=== PATIENT | male | born 1960 | race Caucasian/White ===

== ENCOUNTER → 2017-02-02 | Outpatient (CLI) | payer BC ==
[2015-10-03 16:45] VITALS: BP 213/99
[~2017-02-02] MED LIST: ASPI325T4 PO; ATOR20TA PO; CLOP75TA27 PO; DOCU100C5 PO; GLIM4TAB2 PO; LISI5TAB PO; METF500T4 PO; Metoprolol Tartrate PO; Oxycodone Hcl/Acetaminophen PO; REGADENOSON 0.4 MG/5 ML DISP.SYRIN. IV ONE; VARD20TA2 PO
--- NOTE | 2017-02-02 20:25 | RAD ---
APPROVED REPORT Test Type: Pharmacological Stress Nurse/Tech: radha crews Test Indications: fatigue with exertion, soa, leg cramping Cardiac History: HTN, RBBB, CARDIAC EVENT MONITOR, SEE EHR Medications: SEE EHR Medical History: STROKE, DIABETES, SEE EHR Resting ECG: SR WITH INCOMPLETE RIGHT BUNDLE BRANCH BLOCK Resting Heart Rate: 74 bpm Resting Blood Pressure: 157/79mmHg Pretest Chest Pain: No chest pain Nurse/Tech Notes LUNG SOUNDS CLEAR, S1S2 WNL. Consent: The procedure was explained to the patient in lay terms. Informed consent was witnessed. Chito eout was entered into [employer]. History and Stress Test performed by MARILU RN Pharm. Details Pharmacologic stress testing was performed using 0.4mg per 5ml of regadenoson given intravenously ove r 7-10 seconds. Stress Symptoms HEADACHE, STOMACH ACHE POST EXERCISE Max HR: 91 bpm Max Blood Pressure: 161/65mmHg Chest Pain: No. Arrhythmia: No. ST Change: No. Imaging Protocol IMAGE PROTOCOL: Rest Tc-99m/stress Tc-99m 1 day Rest: Stress: Viability: Radiopharm.Tc99m [id number] Sestamibi Dose10.5mCi 35.6mCi Duration 15min. 10min. Img Date 02/02/2017 02/02/2017 Inj-Img [id number]. 60min. Rest Admin Site:IV - Left ForearmAdministrator:RT Tenzin (R)(N) Stress Admin Site: IV - Left ForearmAdministrator: DENIA Hoffmann STRESS DATA End Diast. Vol.135.0mlAv. Heart Rate74.0bpm End Syst. Vol.43.0mlCO Index BSA0.0L/min Myocardial Dgeo042.0gEject. Ohzhdrei59.0% Stress Rates Pk. Fill Rate2.82EDV/secLVtime Pk. Fill 231.30msec Pk. Empty Rate3.50ESV/secLVtime Pk. Sysyn499.97msec 11/10 Pk. Fill0.68EDV/sec Stress Scores Regional WT2.00Summed WT16.00 Regional WM0.00Summed WM3.00 LV Perf. Quant 17 Seg. SSS0.00 17 Seg. SRS2.00 17 Seg. SDS0.00 Stress Defect Extent (% LAD)0.00Rest Defect Extent (% LAD)0.00Rev. Defect Extent (% LAD)0.00 Stress Defect Extent (% LCX) 11.30Rest Defect Extent (% LCX)16.30Rev. Defect Extent (% LCX)0.00 Stress Defect Extent (% RCA)0.00Rest Defect Extent (% RCA)0.00Rev. Defect Extent (% RCA)0.00 Stress Defect Extent (% KIRBY)2.60Rest Defect Extent (% KIRBY)5.90Rev. Defect Extent (% KIRBY)0.00 Conclusion 1. The baseline electrocardiogram with a right bundle branch block. 2. There were no changes of myocardial ischemia on the electrocardiogram with pharmacological stres s. 3. No significant perfusion defects to suggest myocardial ischemia or scar. 4. Normal wall motion and wall thickening with an ejection fraction of 68%. 5. Scan indicates low risk for future cardiac events.
== END | disposition home or self-care (01) ==
LOC: NM 08:00
PROVIDERS: ATTEND Specialist
DX: I20.9 Angina pectoris, unspecified (principal); R53.83 Other fatigue; R05 Cough; R06.02 Shortness of breath; R53.1 Weakness; R25.2 Cramp and spasm; I10 Essential (primary) hypertension; Z79.01 Long term (current) use of anticoagulants; Z79.4 Long term (current) use of insulin; Z86.73 Personal history of transient ischemic attack (TIA), and cerebral infarction without residual deficits
CPT/HCPCS: 78452; 93017; 96374; 96375; 96376; A9500; J2785

== ENCOUNTER 2018-02-19 19:53 | Emergency (ER) | payer BC ==
[2018-02-19 20:39] LABS: POC GLUCOSE 163 mg/dL (70-99)
[2018-02-19 20:46] LABS: ADD MAN DIFF? NO
[2018-02-19 20:48] LABS: BASO % 1 % (0-3); EOS # 0.1 x10^3/uL (0.0-0.7); EOS % 1 % (0-3); HEMATOCRIT 35.3 % (39.0-53.0); HEMOGLOBIN 11.9 g/dL (13.0-17.5); LYMPH # 1.3 x10^3/uL (1.0-4.8); LYMPH % 24 % (24-48); MEAN CORPUSCULAR HEMOGLOBIN 31 pg (25-35); MEAN CORPUSCULAR HGB CONC 34 g/dL (31-37); MEAN CORPUSCULAR VOLUME 92 fL (79-100); MONO # 0.3 x10^3/uL (0.0-1.1); MONO % 6 % (0-9); NEUT # 3.7 x10^3uL (1.8-7.7); NEUT % 68 % (31-73); PLATELET COUNT 133 x10^3/uL (140-400); RED BLOOD COUNT 3.84 x10^6/uL (4.30-5.70); RED CELL DISTRIBUTION WIDTH 15.4 % (11.5-14.5); WHITE BLOOD COUNT 5.5 x10^3/uL (4.0-11.0)
[2018-02-19 21:10] LABS: BLOOD UREA NITROGEN 7 mg/dL (8-26); BUN/CREATININE RATIO 8 (6-20); CALCIUM 8.3 mg/dL (8.5-10.1); CREATININE 0.9 mg/dL (0.7-1.3); GLUCOSE 175 mg/dL (70-99)
[2018-02-19 21:11] LABS: ANION GAP 9 (6-14); CARBON DIOXIDE 26 mmol/L (21-32); CHLORIDE 102 mmol/L (98-107); GFR 87.6; POTASSIUM 4.3 mmol/L (3.5-5.1); SODIUM 137 mmol/L (136-145)
[2018-02-19 21:16] LABS: ALBUMIN/GLOBULIN RATIO 0.6 (1.0-1.7); ALK PHOS 274 U/L (46-116); ALT (SGPT) 40 U/L (16-63); AST (SGOT) 35 U/L (15-37); TOTAL BILIRUBIN 0.7 mg/dL (0.2-1.0); TOTAL PROTEIN 7.7 g/dL (6.4-8.2)
[2018-02-19] MEDS: AMOXICILLIN/K CLAV 875/125MG TABLET. PO (22:53)
== END 2018-02-19 23:17 | disposition home or self-care (01) ==
LOC: ER 19:53
DX: L03.032 Cellulitis of left toe (principal); I25.10 Atherosclerotic heart disease of native coronary artery without angina pectoris; E11.9 Type 2 diabetes mellitus without complications; F10.20 Alcohol dependence, uncomplicated; Z79.4 Long term (current) use of insulin
CPT/HCPCS: 36415; 73620; 80053; 82962; 85025; 99285

== ENCOUNTER → 2018-03-30 | Outpatient (CLI) | payer BC | END | disposition home or self-care (01) | LOC: RAD 10:38 | DX: M54.6 Pain in thoracic spine (principal); J84.10 Pulmonary fibrosis, unspecified; I10 Essential (primary) hypertension; E11.9 Type 2 diabetes mellitus without complications; E78.00 Pure hypercholesterolemia, unspecified | CPT/HCPCS: 71046 ==

== ENCOUNTER 2018-04-07 18:03 | Inpatient (IN) | payer BC ==
[2018-04-07 19:21] LABS: ADD MAN DIFF? NO
[2018-04-07 19:32] LABS: BASO % 1 % (0-3); EOS % 0 % (0-3); HEMATOCRIT 35.4 % (39.0-53.0); HEMOGLOBIN 12.2 g/dL (13.0-17.5); LYMPH # 1.1 x10^3/uL (1.0-4.8); LYMPH % 22 % (24-48); MEAN CORPUSCULAR HEMOGLOBIN 32 pg (25-35); MEAN CORPUSCULAR HGB CONC 34 g/dL (31-37); MEAN CORPUSCULAR VOLUME 93 fL (79-100); MONO # 0.3 x10^3/uL (0.0-1.1); MONO % 5 % (0-9); NEUT # 3.6 x10^3uL (1.8-7.7); NEUT % 72 % (31-73); PLATELET COUNT 160 x10^3/uL (140-400); RED BLOOD COUNT 3.82 x10^6/uL (4.30-5.70)
[2018-04-07 19:43] LABS: ANION GAP 11 (6-14); BILIRUBIN,URINE NEGATIVE (NEG); BLOOD UREA NITROGEN 12 mg/dL (8-26); BUN/CREATININE RATIO 13 (6-20); CALCIUM 8.2 mg/dL (8.5-10.1); CARBON DIOXIDE 27 mmol/L (21-32); CHLORIDE 102 mmol/L (98-107); CLARITY,URINE CLEAR; COLOR,URINE YELLOW; CREATININE 0.9 mg/dL (0.7-1.3); GFR 87.6; GLUCOSE 125 mg/dL (70-99); GLUCOSE,URINE 250 mg/dL (NEG); NITRITE,URINE NEGATIVE (NEG); PH,URINE 6.5; POTASSIUM 4.2 mmol/L (3.5-5.1); PROTEIN,URINE NEGATIVE (NEG-TRACE); SODIUM 140 mmol/L (136-145)
[2018-04-07 19:50] LABS: TROPONINI < 0.017 ng/mL (0.000-0.055)
[2018-04-07 19:51] LABS: ALBUMIN 3.1 g/dL (3.4-5.0); ALBUMIN/GLOBULIN RATIO 0.6 (1.0-1.7); ALK PHOS 278 U/L (46-116); ALT (SGPT) 38 U/L (16-63); AST (SGOT) 39 U/L (15-37); CREATINE KINASE 107 U/L (39-308); TOTAL BILIRUBIN 0.7 mg/dL (0.2-1.0)
[2018-04-07 19:54] LABS: CKMB INDEX 1.3 % (0-4); CKMB MASS 1.4 ng/mL (0.0-3.6); CREATINE KINASE 111 U/L (39-308)
[2018-04-07 19:54] LABS: NT-PRO BNP 215 pg/mL (0-124)
[2018-04-07 19:56] LABS: BACTERIA,URINE 0 /HPF (0-FEW); HYALINE CASTS, URINE FEW /HPF; SQUAMOUS EPITHELIAL CELL,UR OCC /LPF; WBC,URINE OCC /HPF (0-4)
[2018-04-07] MEDS ORDERED: VANCOMYCIN 1.5 GM in IV NORMAL SALINE 500ML BAG 500 ML IV (20:30)
[2018-04-07] MEDS: ACETAMINOPHEN 325 MG TABLET. PO (20:36)
[2018-04-07] MEDS: ONDANSETRON PF 4 MG/2 ML VIAL. IV (20:37)
[2018-04-07] MEDS: fentaNYL PF VIAL 100 MCG/2 ML VIAL IV (20:38)
[2018-04-07] MEDS: PIPERACILLIN/TAZOBACTAM 3.375 GM in IV NORMAL SALINE 50ML 50 ML IV (20:38)
[2018-04-07] MEDS: LABETALOL 20 MG/4 ML DISP.SYRIN. IVP (20:57)
[2018-04-07 21:01] LABS: LACTIC ACID 2.2 mmol/L (0.4-2.0)
[2018-04-07 21:47] LABS: POC GLUCOSE 94 mg/dL (70-99)
[2018-04-07] MEDS: VANCOMYCIN 2 GM in IV DEXTROSE 5% 500 ML IV (23:31)
[2018-04-08 03:24] LABS: ADD MAN DIFF? NO
[2018-04-08 03:35] LABS: BASO % 1 % (0-3); EOS % 1 % (0-3); HEMATOCRIT 34.3 % (39.0-53.0); HEMOGLOBIN 11.8 g/dL (13.0-17.5); LYMPH # 1.3 x10^3/uL (1.0-4.8); LYMPH % 30 % (24-48); MEAN CORPUSCULAR HEMOGLOBIN 32 pg (25-35); MEAN CORPUSCULAR HGB CONC 35 g/dL (31-37); MEAN CORPUSCULAR VOLUME 93 fL (79-100); MONO # 0.3 x10^3/uL (0.0-1.1); MONO % 7 % (0-9); NEUT # 2.6 x10^3uL (1.8-7.7); NEUT % 61 % (31-73); PLATELET COUNT 149 x10^3/uL (140-400); RED BLOOD COUNT 3.68 x10^6/uL (4.30-5.70); RED CELL DISTRIBUTION WIDTH 15.6 % (11.5-14.5); WHITE BLOOD COUNT 4.3 x10^3/uL (4.0-11.0)
[2018-04-08 03:52] LABS: ALBUMIN 2.9 g/dL (3.4-5.0); ALBUMIN/GLOBULIN RATIO 0.7 (1.0-1.7); ALK PHOS 270 U/L (46-116); ALT (SGPT) 35 U/L (16-63); ANION GAP 8 (6-14); AST (SGOT) 36 U/L (15-37); BLOOD UREA NITROGEN 11 mg/dL (8-26); BUN/CREATININE RATIO 12 (6-20); CALCIUM 7.9 mg/dL (8.5-10.1); CARBON DIOXIDE 29 mmol/L (21-32); CHLORIDE 100 mmol/L (98-107); CREATININE 0.9 mg/dL (0.7-1.3); GFR 87.6; GLUCOSE 155 mg/dL (70-99); POTASSIUM 3.7 mmol/L (3.5-5.1); SODIUM 137 mmol/L (136-145); TOTAL BILIRUBIN 0.6 mg/dL (0.2-1.0)
[2018-04-08 03:59] LABS: TROPONINI < 0.017 ng/mL (0.000-0.055)
[2018-04-08] MEDS: fentaNYL PF VIAL 100 MCG/2 ML VIAL IV ×2 (05:14→14:12)
[2018-04-08 08:07] LABS: POC GLUCOSE 82 mg/dL (70-99)
[2018-04-08] MEDS ORDERED: PROPOFOL 20 ML IV (08:38)
[2018-04-08] MEDS ORDERED: ONDANSETRON PF 4 MG/2 ML VIAL. (08:38)
[2018-04-08] MEDS ORDERED: fentaNYL PF VIAL 100 MCG/2 ML VIAL (08:38)
[2018-04-08] MEDS ORDERED: LIDOCAINE 2% PF Vial for OR 5 ML VIAL. (08:38)
[2018-04-08] MEDS ORDERED: DEXAMETHASONE SOD PHOS 20 MG/5 ML VIAL. (08:38)
[2018-04-08] MEDS ORDERED: MORPHINE SULFATE 4 MG/ML DISP.SYRIN. IV (08:45)
[2018-04-08] MEDS ORDERED: PROCHLORPERAZINE 10 MG/2 ML VIAL. IV (08:45)
[2018-04-08] MEDS ORDERED: LIDOCAINE 1% PF 2 ML VIAL. ID (08:45)
[2018-04-08] MEDS ORDERED: fentaNYL PF VIAL 100 MCG/2 ML VIAL IV ×2 (08:45)
[2018-04-08] MEDS ORDERED: ONDANSETRON PF 4 MG/2 ML VIAL. IV (08:45)
[2018-04-08] MEDS ORDERED: METOPROLOL TARTRATE 5 MG/5 ML VIAL. (08:54)
[2018-04-08] MEDS: IV RINGERS,LACTATED 1000ML 1,000 ML IV (09:00)
[2018-04-08 09:42] LABS: POC GLUCOSE 77 mg/dL (70-99)
[2018-04-08] MEDS ORDERED: NON FORMULARY ITEM (Albuterol Sulfate (Proair Hfa Inhaler) 1 PUFF) INH (11:00)
[2018-04-08] MEDS ORDERED: DEXTROSE 50% 25 GM / 50ML DISP.SYRIN. IV (11:00)
[2018-04-08] MEDS ORDERED: ALBUTEROL SULFATE 2.5 MG/3 ML NEBU. NEB (11:30)
[2018-04-08] MEDS ORDERED: CLOPIDOGREL BISULFATE 75 MG TABLET PO (12:00)
[2018-04-08] MEDS: CYCLOBENZAPRINE 10 MG TABLET. PO ×2 (12:00→21:14)
[2018-04-08] MEDS: INSULIN LISPRO 300 UNITS/3 ML INSULN.PEN. SQ ×2 (12:00→17:40)
[2018-04-08 12:14] LABS: POC GLUCOSE 150 mg/dL (70-99)
[2018-04-08] MEDS: CLOPIDOGREL BISULFATE 75 MG TABLET PO (13:32)
[2018-04-08] MEDS: PANTOPRAZOLE 40 MG TABLET.DR. PO (13:32)
[2018-04-08] MEDS: DOCUSATE SODIUM 100 MG CAPSULE. PO (13:32)
[2018-04-08] MEDS: ASPIRIN 325 MG TABLET PO (13:33)
[2018-04-08] MEDS: hydrOXYzine PAMOATE 25 MG CAPSULE PO ×2 (13:33→21:13)
[2018-04-08] MEDS: metFORMIN 500 MG TABLET PO ×2 (13:33→17:36)
[2018-04-08] MEDS: METOPROLOL TART IMMED RELEASE 25 MG TABLET. PO ×2 (13:34→21:14)
[2018-04-08] MEDS: GLIMEPIRIDE 2 MG TABLET. PO (13:34)
[2018-04-08] MEDS: LOSARTAN POTASSIUM 50 MG TABLET. PO (13:35)
[2018-04-08] MEDS: FLUTICASONE 50MCG/NASAL SPRAY 16GM BOTTLE. NS (13:37)
[2018-04-08] MEDS: PIPERACILLIN/TAZOBACTAM 3.375 GM in IV NORMAL SALINE 50ML 50 ML IV (13:53)
[2018-04-08] MEDS: VANCOMYCIN 1.5 GM in IV DEXTROSE 5 %-0.2 % NACL 500 ML IV (14:55)
[2018-04-08] MEDS: VANCOMYCIN PER PHARMACY MC ×2 (15:47→15:50)
[2018-04-08 16:16] LABS: POC GLUCOSE 331 mg/dL (70-99)
[2018-04-08] MEDS ORDERED: CARBAMIDE PEROXIDE OT (21:00)
[2018-04-08] MEDS ORDERED: ATORVASTATIN CALCIUM 20 MG TABLET PO (21:00)
[2018-04-08] MEDS: ATORVASTATIN CALCIUM 20 MG TABLET PO (21:14)
[2018-04-08 21:15] LABS: POC GLUCOSE 259 mg/dL (70-99)
[2018-04-08] MEDS: VANCOMYCIN 1.25 GM in IV NORMAL SALINE 250ML 250 ML IV (23:17)
[2018-04-09] MEDS: PIPERACILLIN/TAZOBACTAM 3.375 GM in IV NORMAL SALINE 50ML 50 ML IV ×6 (00:59→18:00)
[2018-04-09 01:12] LABS: HEMOGLOBIN A1C 8.5 % (4.8-5.6)
[2018-04-09 05:26] LABS: ADD MAN DIFF? NO
[2018-04-09 05:34] LABS: BASO % 0 % (0-3); EOS % 0 % (0-3); HEMATOCRIT 35.8 % (39.0-53.0); HEMOGLOBIN 12.4 g/dL (13.0-17.5); LYMPH # 0.9 x10^3/uL (1.0-4.8); LYMPH % 19 % (24-48); MEAN CORPUSCULAR HEMOGLOBIN 32 pg (25-35); MEAN CORPUSCULAR HGB CONC 35 g/dL (31-37); MEAN CORPUSCULAR VOLUME 92 fL (79-100); MONO # 0.3 x10^3/uL (0.0-1.1); MONO % 6 % (0-9); NEUT # 3.5 x10^3uL (1.8-7.7); NEUT % 74 % (31-73); PLATELET COUNT 139 x10^3/uL (140-400); RED BLOOD COUNT 3.88 x10^6/uL (4.30-5.70); RED CELL DISTRIBUTION WIDTH 15.6 % (11.5-14.5); WHITE BLOOD COUNT 4.7 x10^3/uL (4.0-11.0)
[2018-04-09 06:05] LABS: ALBUMIN 2.8 g/dL (3.4-5.0); ALBUMIN/GLOBULIN RATIO 0.6 (1.0-1.7); ALK PHOS 271 U/L (46-116); ALT (SGPT) 32 U/L (16-63); ANION GAP 5 (6-14); AST (SGOT) 29 U/L (15-37); BLOOD UREA NITROGEN 12 mg/dL (8-26); BUN/CREATININE RATIO 15 (6-20); CALCIUM 8.7 mg/dL (8.5-10.1); CARBON DIOXIDE 29 mmol/L (21-32); CHLORIDE 100 mmol/L (98-107); CREATININE 0.8 mg/dL (0.7-1.3); GFR 100.4; GLUCOSE 191 mg/dL (70-99); POTASSIUM 4.2 mmol/L (3.5-5.1); SODIUM 134 mmol/L (136-145); TOTAL BILIRUBIN 0.8 mg/dL (0.2-1.0); TOTAL PROTEIN 7.6 g/dL (6.4-8.2)
[2018-04-09] MEDS: VANCOMYCIN 1.25 GM in IV NORMAL SALINE 250ML 250 ML IV (06:16)
[2018-04-09] MEDS: PANTOPRAZOLE 40 MG TABLET.DR. PO (06:16)
[2018-04-09 07:18] LABS: SEDIMENTATION RATE 58 (0-15)
[2018-04-09 07:34] LABS: POC GLUCOSE 171 mg/dL (70-99)
[2018-04-09] MEDS: DOCUSATE SODIUM 100 MG CAPSULE. PO (08:18)
[2018-04-09] MEDS: CYCLOBENZAPRINE 10 MG TABLET. PO ×2 (08:18→20:55)
[2018-04-09] MEDS: ASPIRIN 325 MG TABLET PO (08:18)
[2018-04-09] MEDS: metFORMIN 500 MG TABLET PO ×2 (08:18→17:52)
[2018-04-09] MEDS: CLOPIDOGREL BISULFATE 75 MG TABLET PO (08:18)
[2018-04-09] MEDS: GLIMEPIRIDE 2 MG TABLET. PO (08:19)
[2018-04-09] MEDS: hydrOXYzine PAMOATE 25 MG CAPSULE PO ×2 (08:19→20:55)
[2018-04-09] MEDS: LOSARTAN POTASSIUM 50 MG TABLET. PO (08:19)
[2018-04-09] MEDS: FLUTICASONE 50MCG/NASAL SPRAY 16GM BOTTLE. NS (08:20)
[2018-04-09] MEDS: METOPROLOL TART IMMED RELEASE 25 MG TABLET. PO ×2 (08:20→20:55)
[2018-04-09] MEDS: INSULIN LISPRO 300 UNITS/3 ML INSULN.PEN. SQ ×3 (08:30→17:56)
[2018-04-09] MEDS ORDERED: METOPROLOL TART IMMED RELEASE 25 MG TABLET. PO (09:00)
[2018-04-09 11:40] LABS: POC GLUCOSE 158 mg/dL (70-99)
[2018-04-09 15:08] LABS: VANC TR 20.4 mcg/mL (10.0-20.0)
[2018-04-09] MEDS: VANCOMYCIN 1 GM in IV DEXTROSE 5 %-0.2 % NACL 250 ML IV ×2 (15:30→23:30)
[2018-04-09] MEDS: VANCOMYCIN PER PHARMACY MC (15:31)
[2018-04-09 17:07] LABS: POC GLUCOSE 205 mg/dL (70-99)
[2018-04-09] MEDS: LACTOBACILLUS RHAMNOSUS GG 1 CAPSULE. PO (20:54)
[2018-04-09] MEDS: ATORVASTATIN CALCIUM 20 MG TABLET PO (20:55)
[2018-04-09 21:37] LABS: POC GLUCOSE 192 mg/dL (70-99)
[2018-04-10] MEDS: PIPERACILLIN/TAZOBACTAM 3.375 GM in IV NORMAL SALINE 50ML 50 ML IV ×3 (00:32→11:18)
[2018-04-10] MEDS: PANTOPRAZOLE 40 MG TABLET.DR. PO (06:40)
[2018-04-10] MEDS: VANCOMYCIN 1 GM in IV DEXTROSE 5 %-0.2 % NACL 250 ML IV ×2 (06:41→14:58)
[2018-04-10 07:22] LABS: POC GLUCOSE 122 mg/dL (70-99)
[2018-04-10] MEDS: INSULIN LISPRO 300 UNITS/3 ML INSULN.PEN. SQ ×3 (08:00→16:42)
[2018-04-10] MEDS: DOCUSATE SODIUM 100 MG CAPSULE. PO (08:22)
[2018-04-10] MEDS: ASPIRIN 325 MG TABLET PO (08:22)
[2018-04-10] MEDS: metFORMIN 500 MG TABLET PO ×2 (08:22→16:42)
[2018-04-10] MEDS: GLIMEPIRIDE 2 MG TABLET. PO (08:23)
[2018-04-10] MEDS: METOPROLOL TART IMMED RELEASE 25 MG TABLET. PO ×2 (08:23→19:36)
[2018-04-10] MEDS: CLOPIDOGREL BISULFATE 75 MG TABLET PO (08:23)
[2018-04-10] MEDS: CYCLOBENZAPRINE 10 MG TABLET. PO ×2 (08:23→19:35)
[2018-04-10] MEDS: LACTOBACILLUS RHAMNOSUS GG 1 CAPSULE. PO ×2 (08:23→19:35)
[2018-04-10] MEDS: hydrOXYzine PAMOATE 25 MG CAPSULE PO ×2 (08:24→19:36)
[2018-04-10] MEDS: LOSARTAN POTASSIUM 50 MG TABLET. PO (08:24)
[2018-04-10] MEDS: FLUTICASONE 50MCG/NASAL SPRAY 16GM BOTTLE. NS (08:24)
[2018-04-10] MEDS ORDERED: ONDANSETRON ODT 4 MG TAB.RAPDIS. PO (09:30)
[2018-04-10] MEDS ORDERED: POLYETHYLENE GLYCOL 3350 17 GM PACKET. PO (09:30)
[2018-04-10] MEDS ORDERED: SENNOSIDES/DOCUSATE 8.6/50MG TABLET. PO (09:30)
[2018-04-10] MEDS: oxyCODONE/APAP 5/325 1 TAB TABLET PO (11:19)
[2018-04-10 11:34] LABS: POC GLUCOSE 169 mg/dL (70-99)
[2018-04-10] MEDS: VANCOMYCIN PER PHARMACY MC (13:54)
[2018-04-10 16:28] LABS: POC GLUCOSE 118 mg/dL (70-99)
[2018-04-10] MEDS: DOXYCYCLINE HYCLATE 100 MG TABLET PO ×2 (16:50→19:36)
[2018-04-10] MEDS: AMOXICILLIN/K CLAV 875/125MG TABLET. PO ×2 (16:50→19:35)
[2018-04-10] MEDS: HYDROcodone/APAP 7.5/325MG 1 TAB TABLET PO (19:36)
[2018-04-10] MEDS: ATORVASTATIN CALCIUM 20 MG TABLET PO (19:36)
[2018-04-10 21:43] LABS: POC GLUCOSE 212 mg/dL (70-99)
[2018-04-11] MEDS: PANTOPRAZOLE 40 MG TABLET.DR. PO (04:31)
[2018-04-11] MEDS: HYDROcodone/APAP 7.5/325MG 1 TAB TABLET PO (04:32)
[2018-04-11] MEDS: INSULIN LISPRO 300 UNITS/3 ML INSULN.PEN. SQ ×3 (08:00→17:00)
[2018-04-11] MEDS: CLOPIDOGREL BISULFATE 75 MG TABLET PO (08:27)
[2018-04-11] MEDS: CYCLOBENZAPRINE 10 MG TABLET. PO (08:27)
[2018-04-11] MEDS: hydrOXYzine PAMOATE 25 MG CAPSULE PO (08:27)
[2018-04-11] MEDS: GLIMEPIRIDE 2 MG TABLET. PO (08:27)
[2018-04-11 08:28] LABS: HEMATOCRIT 37.8 % (39.0-53.0); HEMOGLOBIN 12.9 g/dL (13.0-17.5); MEAN CORPUSCULAR HEMOGLOBIN 32 pg (25-35); MEAN CORPUSCULAR HGB CONC 34 g/dL (31-37); MEAN CORPUSCULAR VOLUME 94 fL (79-100); PLATELET COUNT 126 x10^3/uL (140-400); RED BLOOD COUNT 4.04 x10^6/uL (4.30-5.70); RED CELL DISTRIBUTION WIDTH 15.8 % (11.5-14.5); WHITE BLOOD COUNT 4.2 x10^3/uL (4.0-11.0)
[2018-04-11] MEDS: LOSARTAN POTASSIUM 50 MG TABLET. PO (08:29)
[2018-04-11] MEDS: metFORMIN 500 MG TABLET PO ×2 (08:29→17:20)
[2018-04-11] MEDS: DOCUSATE SODIUM 100 MG CAPSULE. PO (08:29)
[2018-04-11] MEDS: METOPROLOL TART IMMED RELEASE 25 MG TABLET. PO (08:29)
[2018-04-11] MEDS: LACTOBACILLUS RHAMNOSUS GG 1 CAPSULE. PO (08:30)
[2018-04-11] MEDS: FLUTICASONE 50MCG/NASAL SPRAY 16GM BOTTLE. NS (08:30)
[2018-04-11] MEDS: ASPIRIN 325 MG TABLET PO (08:34)
[2018-04-11 08:51] LABS: ANION GAP 5 (6-14); BLOOD UREA NITROGEN 10 mg/dL (8-26); CALCIUM 9.1 mg/dL (8.5-10.1); CARBON DIOXIDE 31 mmol/L (21-32); CHLORIDE 103 mmol/L (98-107); CREATININE 0.8 mg/dL (0.7-1.3); GFR 100.4; GLUCOSE 111 mg/dL (70-99); POTASSIUM 4.2 mmol/L (3.5-5.1); SODIUM 139 mmol/L (136-145)
[2018-04-11 11:49] LABS: POC GLUCOSE 189 mg/dL (70-99)
[2018-04-11 11:49] LABS: POC GLUCOSE 102 mg/dL (70-99)
[2018-04-11] MEDS: hydrALAZINE 20 MG/ML VIAL. IVP (12:13)
[2018-04-11 17:00] LABS: POC GLUCOSE 92 mg/dL (70-99)
== END 2018-04-11 20:15 | disposition home health service (06) | DRG 638 ==
LOC: 4 NORTH 23:32 → ER 18:03 → 4 NORTH 20:09
PROC: 0HBRXZZ Excision of Toe Nail, External Approach (ICD-10-PCS; principal; 2018-04-08 09:04)
PROC: 0HBNXZZ Excision of Left Foot Skin, External Approach (ICD-10-PCS; 2018-04-08 09:04)
PROC: 0HBRXZZ Excision of Toe Nail, External Approach (ICD-10-PCS; 2018-04-08 09:04)
DX: E11.69 Type 2 diabetes mellitus with other specified complication (principal); M86.8X6 Other osteomyelitis, lower leg; E11.42 Type 2 diabetes mellitus with diabetic polyneuropathy; E11.51 Type 2 diabetes mellitus with diabetic peripheral angiopathy without gangrene; E44.1 Mild protein-calorie malnutrition; L03.90 Cellulitis, unspecified; E78.5 Hyperlipidemia, unspecified; I10 Essential (primary) hypertension; I25.10 Atherosclerotic heart disease of native coronary artery without angina pectoris; M20.40 Other hammer toe(s) (acquired), unspecified foot; Z83.3 Family history of diabetes mellitus; Z86.73 Personal history of transient ischemic attack (TIA), and cerebral infarction without residual deficits; Z87.891 Personal history of nicotine dependence; E66.9 Obesity, unspecified; Z68.30 Body mass index [BMI] 30.0-30.9, adult; I65.29 Occlusion and stenosis of unspecified carotid artery
CPT/HCPCS: 36415; 71045; 73630; 80048; 80053; 80202; 81001; 82550; 82553; 82962; 83036; 83605; 83880; 84484; 85025; 85027; 85651; 87040; 93005; 93306; 93926; 93971; 94760; 96365; 96366; 96375; 97110-GP; 97161-GP; 97166-GO; 97530-GO; 97530-GP; 97535-GO; 99285; 99285-25; J0360; J1100; J1815; J2405; J2543; J2704; J3010; J3370; J3490; J7030; J7050; J7120; Q0177

== ENCOUNTER 2019-03-02 12:50 | Inpatient (IN) | payer BC, OTHER ==
[~2019-03-02] VITALS: Ht 172.7 cm; Wt 89.4 kg
[~2019-03-02 12:50] MED LIST changes: +ALBU2.5V8 INH; +AMOX1TAB61 PO; -ASPI325T4 PO; +ASPI325T8 PO; +ATOR20TA58 PO; +CARB15DR58 OT; +CLOP75TA PO; -CLOP75TA27 PO; +CLOP75TA57 PO; +CYCL10TA2 PO; +DOCU100C28 PO; -DOCU100C5 PO; +FLUT9.9S NS; +HYDR25TA PO; +LOSA25TA54 PO; +METF500T16 PO; -METF500T4 PO; +METO25TA4 PO; +OMEP40CA5 PO; +OXYC1TAB7 PO; -REGADENOSON 0.4 MG/5 ML DISP.SYRIN. IV ONE
[2019-03-02] MEDS ORDERED: IV NORMAL SALINE 500ML BAG 500 ML IV ONE (13:45)
--- NOTE | 2019-03-02 14:12 | RAD ---
FOOT BILAT 3V Clinical Indication: WOUNDS ON BAUDILIO FEET, DIABETIC Comparison: Left foot, 3 views April 07, 2018. Findings: Right: Arterial calcifications. There are 2 metallic fasteners in the calcaneus. No dorsal soft tissue swelling. There is old healed fracture of the mid second metatarsal. There is old nonunited fracture of the mid third metatarsal. The interphalangeal joint of the great toe is fused. The interphalangeal joints of the other toes are flexed, limiting evaluation. No acute fracture is seen. No obvious bony erosion. Left: Amputation of the third toe at the base of the proximal phalanx. Amputation of the second toe at the mid shaft of the proximal phalanx. Hammertoe deformities of the fourth and fifth toes. Arterial calcifications are noted. No dorsal soft tissue swelling. No acute fracture. No obvious bony erosion. IMPRESSION: No obvious radiographic evidence of osteomyelitis. Electronically signed by: Andrea Ziegler MD (03/02/2019 2:09 PM) [id number]
--- NOTE | 2019-03-02 14:17 | PHYS DOC ---
Past Medical History Past Medical History: Asthma, CAD, CHF, Diabetes-Type II, Hypertension, Other Additional Past Medical Histor: HEART MURMUR,club foot,CHRIS,R BBB,MULT MINI STROKES,ENDARECTOMY Past Surgical History: Angioplasty, Other Additional Past Surgical Histo: cardiac cath w/single vessel angioplasty,LOOP RECORDER,HERNIA,TOE AMPUTATIO Alcohol Use: Occasionally Drug Use: None Adult General Chief Complaint Chief Complaint: OTHER COMPLAINTS HPI HPI 58-year-old male presents to ER for complaints of generalized fatigue and bilateral foot wounds. Patient reports he is diabetic and his blood sugars have been elevated. Accu-Chek in the ER is 264. Patient has 100.5 temp during initial discussion/triage. Patient states the wounds have been present for the past couple of months however in the past 5 days his symptoms have worsened. Review of Systems Review of Systems Constitutional: Reports fever and chills. Reports generalized fatigue Eyes: Denies change in visual acuity, redness, or eye pain [] HENT: Denies nasal congestion or sore throat [] Respiratory: Denies cough or shortness of breath [] Cardiovascular: Denies chest pain or palpitations GI: Denies abdominal pain, vomiting, bloody stools or diarrhea. Reports intermittent nausea : Denies dysuria or hematuria [] Musculoskeletal: Reports chronic back pain- no acute changes. Reports wounds on outer side of lt foot and bottom/rt side of rt foot. Reports prickly/needle like sensation radiating from feet to lower legs. Reports swelling in rt foot Integument: Reports wound to bilat. feet Neurologic: Denies headache, focal weakness or sensory changes [] Endocrine: Reports polyuria or polydipsia [] All other systems were reviewed and found to be within normal limits, except as documented in this note. Current Medications Current Medications Current Medications Medications (Trade) Dose Ordered Sig/John Start Time Stop Time Status Last Admin Dose Admin Sodium Chloride 500 ml @ 500 mls/hr 1X ONCE 03/02/19 13:45 03/02/19 14:44 DC 03/02/19 14:20 500 MLS/HR Allergies Allergies Allergies Coded Allergies Type Severity Reaction Last Updated Verified morphine Allergy Intermediate N/V 03/02/19 Yes Physical Exam Physical Exam Constitutional: Well developed, well nourished, no acute distress, non-toxic appearance. Fatigued appearance HENT: Normocephalic, atraumatic, oropharynx moist, no oral exudates, nose normal. [] Eyes: Pupils equal, conjunctiva normal, no discharge. [] Neck: Normal range of motion, no tenderness, supple, no stridor. [] Cardiovascular: Heart rate regular rhythm, no murmur [] Lungs & Thorax: Bilateral breath sounds clear to auscultation- resp. equal/nonlabored Abdomen: Bowel sounds normal, soft, no tenderness Skin: Warm, dry, no erythema, no rash. [] Back: No tenderness, no CVA tenderness. [] Extremities: No cyanosis, no clubbing, ROM intact. Bilat. 1-2+ pedal/lower leg edema- pt reports chronic. 2+ bilat. dorsalis pedis/posterior tibial. Calf size symmetric bilat. no calf tenderness. Lt 2-3rd toe amputation. Blister type wound lt lateral foot- mild erythema around blister. Rt foot with mild erythema/swelling dorsal surface at base of toes into lateral side of foot- small healing wound on distal plantar surface rt foot- without swelling/erythema/drainage Neurologic: Alert and oriented X 3, normal motor function, normal sensory function, no focal deficits noted. [] Psychologic: Affect normal, judgement normal, mood normal. [] Current Patient Data Vital Signs Vital Signs Date Time Temp Pulse Resp B/P (MAP) Pulse Ox O2 Delivery O2 Flow Rate FiO2 03/02/19 15:36 73 16 157/74 (101) 98 Room Air 03/02/19 13:06 100.5 100.5 Lab Values Laboratory Tests Test 03/02/19 13:27 03/02/19 13:50 03/02/19 14:10 03/02/19 14:40 Glucose (Fingerstick) 264 mg/dL (70-99) H Lactic Acid Level 1.8 mmol/L (0.4-2.0) White Blood Count 5.9 x10^3/uL (4.0-11.0) Red Blood Count 3.93 x10^6/uL (4.30-5.70) L Hemoglobin 12.5 g/dL (13.0-17.5) L Hematocrit 36.1 % (39.0-53.0) L Mean Corpuscular Volume 92 fL (79-100) Mean Corpuscular Hemoglobin 32 pg (25-35) Mean Corpuscular Hemoglobin Concent 35 g/dL (31-37) Red Cell Distribution Width 15.4 % (11.5-14.5) H Platelet Count 93 x10^3/uL (140-400) L Neutrophils (%) (Auto) 65 % (31-73) Lymphocytes (%) (Auto) 27 % (24-48) Monocytes (%) (Auto) 7 % (0-9) Eosinophils (%) (Auto) 1 % (0-3) Basophils (%) (Auto) 1 % (0-3) Neutrophils # (Auto) 3.8 x10^3uL (1.8-7.7) Lymphocytes # (Auto) 1.6 x10^3/uL (1.0-4.8) Monocytes # (Auto) 0.4 x10^3/uL (0.0-1.1) Eosinophils # (Auto) 0.1 x10^3/uL (0.0-0.7) Basophils # (Auto) 0.0 x10^3/uL (0.0-0.2) Platelet Estimate Decreased (ADEQUATE) Polychromasia Slight Erythrocyte Sedimentation Rate 80 (0-15) H Hemoglobin A1c 10.8 % (4.8-5.6) H Sodium Level 137 mmol/L (136-145) Potassium Level 4.0 mmol/L (3.5-5.1) Chloride Level 102 mmol/L (98-107) Carbon Dioxide Level 27 mmol/L (21-32) Anion Gap 8 (6-14) Blood Urea Nitrogen 16 mg/dL (8-26) Creatinine 0.9 mg/dL (0.7-1.3) Estimated GFR (Cockcroft-Gault) 87.3 BUN/Creatinine Ratio 18 (6-20) Glucose Level 233 mg/dL (70-99) H Calcium Level 9.0 mg/dL (8.5-10.1) Magnesium Level 2.1 mg/dL (1.8-2.4) Total Bilirubin 0.7 mg/dL (0.2-1.0) Aspartate Amino Transferase (AST) 40 U/L (15-37) H Alanine Aminotransferase (ALT) 65 U/L (16-63) H Alkaline Phosphatase 340 U/L (46-116) H Total Protein 8.0 g/dL (6.4-8.2) Albumin 3.2 g/dL (3.4-5.0) L Albumin/Globulin Ratio 0.7 (1.0-1.7) L Acetone Level Neg (NEG) Laboratory Tests 03/02/19 14:10 Laboratory Tests 03/02/19 14:40 Microbiology 03/02/19 Blood Culture - Final, Complete NO GROWTH AFTER 5 DAYS EKG EKG [] Radiology/Procedures Radiology/Procedures PROCEDURE: FOOT BILAT 3V FOOT BILAT 3V Clinical Indication: WOUNDS ON BAUDILIO FEET, DIABETIC Comparison: Left foot, 3 views April 07, 2018. Findings: Right: Arterial calcifications. There are 2 metallic fasteners in the calcaneus. No dorsal soft tissue swelling. There is old healed fracture of the mid second metatarsal. There is old nonunited fracture of the mid third metatarsal. The interphalangeal joint of the great toe is fused. The interphalangeal joints of the other toes are flexed, limiting evaluation. No acute fracture is seen. No obvious bony erosion. Left: Amputation of the third toe at the base of the proximal phalanx. Amputation of the second toe at the mid shaft of the proximal phalanx. Hammertoe deformities of the fourth and fifth toes. Arterial calcifications are noted. No dorsal soft tissue swelling. No acute fracture. No obvious bony erosion. IMPRESSION: No obvious radiographic evidence of osteomyelitis. Electronically signed by: Andrea Sarabia MD (03/02/2019 2:09 PM) [id number] DICTATED and SIGNED BY: ANDREA SARABIA MD DATE: 03/02/19 1409 Course & Med Decision Making Course & Med Decision Making Pertinent Labs and Imaging studies reviewed. (See chart for details) 1540: Discussed test results with patient and his sister who has arrived bedside. WBCs NL at 5.9 with NL lactic acid 1.8. Glucose 233 however anion gap NL at 8 and acetone was neg. Pt had concerns regarding his elevated BS at home. Xray with no acute findings. Patient's sister voices concerns during discussion due to increased swelling and redness in patient's right foot along with wounds on bilateral feet. Patient reports he has had some difficulty walking due to increased pain and swelling and felt fatigued. Patient will be admitted to hospitalist services for further care. Will consult wound care with admit. With redness and swelling in right foot and temp. 100.5 blood cxs were obtained and dose of IV Vancomycin ordered. Will admit to hospitalist services and consult wound nurse for eval. Nehal Disclaimer Dragon Disclaimer This electronic medical record was generated, in whole or in part, using a voice recognition dictation system. Departure Departure Referrals: UNKNOWN PCP NAME (PCP) GRIFFIN BERRY APRN Mar 02, 2019 14:17
[2019-03-02 14:23] LABS: BASO % 1 % (0-3); EOS # 0.1 x10^3/uL (0.0-0.7); EOS % 1 % (0-3); HEMATOCRIT 36.1 % (39.0-53.0); HEMOGLOBIN 12.5 g/dL (13.0-17.5); LYMPH # 1.6 x10^3/uL (1.0-4.8); LYMPH % 27 % (24-48); MEAN CORPUSCULAR HEMOGLOBIN 32 pg (25-35); MEAN CORPUSCULAR HGB CONC 35 g/dL (31-37); MEAN CORPUSCULAR VOLUME 92 fL (79-100); MONO # 0.4 x10^3/uL (0.0-1.1); MONO % 7 % (0-9); NEUT # 3.8 x10^3uL (1.8-7.7); NEUT % 65 % (31-73); PLATELET COUNT 93 x10^3/uL (140-400); RED BLOOD COUNT 3.93 x10^6/uL (4.30-5.70); RED CELL DISTRIBUTION WIDTH 15.4 % (11.5-14.5); WHITE BLOOD COUNT 5.9 x10^3/uL (4.0-11.0)
[2019-03-02 14:45] LABS: PLT ESTIMATE DECREASED (ADEQUATE); POLYCHROMASIA SLIGHT
[2019-03-02 15:03] LABS: CREATININE 0.9 mg/dL (0.7-1.3); GFR 87.3
[2019-03-02 15:08] LABS: ALBUMIN 3.2 g/dL (3.4-5.0); ALBUMIN/GLOBULIN RATIO 0.7 (1.0-1.7); MAGNESIUM 2.1 mg/dL (1.8-2.4); TOTAL BILIRUBIN 0.7 mg/dL (0.2-1.0)
[2019-03-02] MEDS ORDERED: fentaNYL PF VIAL 100 MCG/2 ML VIAL IV ONE (16:15)
[2019-03-02] MEDS ORDERED: VANCOMYCIN 2 GM in IV NORMAL SALINE 500ML BAG 500 ML IV ONE (16:15)
[2019-03-02] MEDS ORDERED: VANCOMYCIN PER PHARMACY MC ONE (16:15)
[2019-03-02] MEDS ORDERED: ALBUTEROL SULFATE 2.5 MG/3 ML NEBU. INH PRN (17:30)
[2019-03-02] MEDS ORDERED: fentaNYL PF VIAL 100 MCG/2 ML VIAL IV PRN (17:30)
[2019-03-02] MEDS ORDERED: ZOLPIDEM 5 MG TABLET. PO PRN (17:30)
[2019-03-02] MEDS ORDERED: ACETAMINOPHEN/CODEINE 300/30MG TABLET. PO PRN (17:30)
[2019-03-02] MEDS ORDERED: ONDANSETRON PF 4 MG/2 ML VIAL. IV PRN (17:30)
[2019-03-02] MEDS ORDERED: ACETAMINOPHEN 500 MG TABLET PO PRN (17:30)
[2019-03-02] MEDS ORDERED: DEXTROSE 50% 25 GM / 50ML DISP.SYRIN. IV PRN ×2 (17:30)
[2019-03-02] MEDS ORDERED: oxyCODONE/APAP 5/325 1 TAB TABLET PO PRN (17:30)
--- NOTE | 2019-03-02 17:32 | PDOC1 ---
History and Physical Date of Admission Date of Admission DATE: 03/02/19 TIME: 17:26 Identification/Chief Complaint Chief Complaint High blood sugars at home, concerns about left foot wound infection or bone infection again Source Source: Caregiver, Chart review, Patient History of Present Illness History of Present Illness 70-year-old white male, history diabetes on insulin and OHA with high A1c, history of 2 toe amputation's left foor, also hx OM foot, high blood sugars at home hence decided to bring him in. They were also concerned about foot blisters. They actually look noninfected but just because of his history of OM - he also follows with [facility] wound care, he does not want to experience OM again so they came. Xrays neg for signs of OM Feet dont look infected actually, some old chronic hyperpigmentation and blister, left foot that is trying to heal BS 233 and nOT in [place] Past Medical History Cardiovascular: Hyperlipidemia Pulmonary: Other CENTRAL NERVOUS SYSTEM: CVA, Periperal neuropathy GI: No pertinent hx Heme/Onc: No pertinent hx Hepatobiliary: No pertinent hx Psych: No pertinent hx Musculoskeletal: Other Rheumatologic: No pertinent hx Infectious disease: No pertinent hx Renal/: No pertinent hx Endocrine: Diabetes Past Surgical History Past Surgical History: Other (toes 2 and 3 amputation - left foot) Family History Family History: No Significant Social History Smoke: No ALCOHOL: occassional Drugs: None Current Medications Current Medications Current Medications Sodium Chloride 500 ml @ 500 mls/hr 1X ONCE IV Last administered on 03/02/19at 14:20; Start 03/02/19 at 13:45; Stop 03/02/19 at 14:44; Status DC Vancomycin HCl (Vanco Per Pharmacy) 1 each 1X ONCE [facility] ; Start 03/02/19 at 16:15; Stop 03/02/19 at 16:16; Status DC Fentanyl Citrate (Fentanyl 2ml Vial) 25 mcg 1X ONCE IV Last administered on 03/02/19at 16:23; Start 03/02/19 at 16:15; Stop 03/02/19 at 16:16; Status DC Vancomycin HCl 2 gm/Sodium Chloride 500 ml @ 250 mls/hr 1X ONCE IV Last administered on 03/02/19at 16:23; Start 03/02/19 at 16:15; Stop 03/02/19 at 18:14 Insulin Human Lispro (HumaLOG) 0-9 UNITS TIDWMEALS SQ ; Start 03/03/19 at 08:00; Status UNV Dextrose (Dextrose 50%-Water Syringe) 12.5 gm PRN Q15MIN PRN IV SEE COMMENTS; Start 03/02/19 at 17:30 Acetaminophen (Tylenol) 500 mg PRN Q6HRS PRN PO MILD PAIN / TEMP; Start 03/02/19 at 17:30 Acetaminophen/ Codeine Phosphate (Tylenol #3) 1 tab PRN Q6HRS PRN PO PAIN; Start 03/02/19 at 17:30; Status UNV Ondansetron HCl (Zofran) 4 mg PRN Q6HRS PRN IV NAUSEA/VOMITING; Start 03/02/19 at 17:30; Status UNV Zolpidem Tartrate (Ambien) 5 mg PRN QHS PRN PO INSOMNIA, MAY REPEAT IN 1HR; Start 03/02/19 at 17:30; Status UNV Fentanyl Citrate (Fentanyl 2ml Vial) 50 mcg PRN Q2HR PRN IV PAIN; Start 03/02/19 at 17:30; Status UNV Active Scripts Active Oxycodone-Acetaminophen 5-325 (Oxycodone Hcl/Acetaminophen) 1 Each Tablet 1 Tab PO PRN Q4HRS PRN Augmentin 875-125 Tablet (Amoxicillin/Potassium Clav) 1 Each Tablet 1 Tab PO BID Carbamide Peroxide 15 Ml Drops 15 Ml OT BID 4 Days Flonase Allergy Relief (Fluticasone Propionate) 9.9 Ml [place].susp 2 Sprays NS DAILY Proair Hfa Inhaler (Albuterol Sulfate) 8.5 Gm Hfa.aer.ad 1 Puff INH Q4HRS PRN [Metoprolol Tartrate] 25 MG Tablet 25 Mg PO BID Prinivil (Lisinopril) 5 Mg Tablet 5 Mg PO DAILY Plavix (Clopidogrel Bisulfate) 75 Mg Tablet 75 Mg PO DAILYWBKFT Aspirin 325 Mg Tablet 325 Mg PO DAILY Lipitor (Atorvastatin Calcium) 20 Mg Tablet 20 Mg PO DAILY 30 Days Reported Hydroxyzine Hcl 25 Mg Tablet 25 Mg PO BID Cyclobenzaprine Hcl 10 Mg Tablet 10 Mg PO BID Omeprazole 40 Mg Capsule.dr 40 Mg PO DAILY Atorvastatin Calcium 20 Mg Tablet 20 Mg PO HS Metoprolol Tartrate 25 Mg Tablet 25 Mg PO DAILY Clopidogrel (Clopidogrel Bisulfate) 75 Mg Tablet 75 Mg PO DAILY Losartan Potassium (Losartan Potassium) 25 Mg Tablet 25 Mg PO DAILY Docusate Sodium 100 Mg Capsule 1 Cap PO DAILY Glimepiride 4 Mg Tablet 4 Mg PO DAILY Metformin Hcl 500 Mg Tablet 500 Mg PO BIDWMEALS do not take for 48 hours Allergies Allergies: Coded Allergies: morphine (Verified Allergy, Intermediate, N/V, 03/02/19) ROS Review of System A 14 point ROS was completed with the following noted as positive: Other systems reviewed and negative. \CONSTITUTIONAL: No fever or chills EYES: No recent changes SKIN: No rash or itching CARDIOVASCULAR: No chest pain, syncope, palpitations, or edema RESPIRATORY: No SOB or cough GASTROINTESTINAL: No nausea, vomiting or abdominal pain NEUROLOGICAL: No headaches or weakness ENDOCRINE: No cold or heat intolerance GENITOURINARY: No urgency or frequency of urination MUSCULOSKELETAL: No back pain or joint pain LYMPHATICS: No enlarged lymph nodes PSYCHIATRIC: No anxiety or depression Physical Exam General: Alert, Oriented X3, Cooperative, No acute distress HEENT: Atraumatic, PERRLA, EOMI Lungs: Clear to auscultation, Normal air movement Heart: S1S2, RRR, no thrills, no rubs, no gallops, no murmurs Cardiovascular: S1, S2 Abdomen: Normal bowel sounds, Soft, No tenderness, No hepatosplenomegaly, No masses Male Genitals Exam: normal genitalia, normal prostate Rectal Exam: not examined PELVIC: Nml ext genitalia Extremities: Other (he has amputated toes 2 and 3 of the left foot, blister left lateral side left foot) Skin: Other (post inflammatory hyperpigmentation on both feet more so on the right, some chronic leg edema +1 to +2, on the right) Neuro: Normal gait, Normal speech, Strength at 5/5 X4 ext, Normal tone, Sensation intact, Cranial nerves 3-12 NL, Reflexes 2+ Psych/Mental Status: Mental status NL, Mood NL Vitals Vitals Vital Signs Date Time Temp Pulse Resp B/P (MAP) Pulse Ox O2 Delivery O2 Flow Rate FiO2 03/02/19 16:23 19 96 Room Air 03/02/19 15:36 73 157/74 (101) 03/02/19 13:06 100.5 100.5 Labs Labs Laboratory Tests Test 03/02/19 13:27 03/02/19 13:50 03/02/19 14:10 03/02/19 14:40 Glucose (Fingerstick) 264 mg/dL (70-99) Lactic Acid Level 1.8 mmol/L (0.4-2.0) White Blood Count 5.9 x10^3/uL (4.0-11.0) Red Blood Count 3.93 x10^6/uL (4.30-5.70) Hemoglobin 12.5 g/dL (13.0-17.5) Hematocrit 36.1 % (39.0-53.0) Mean Corpuscular Volume 92 fL (79-100) Mean Corpuscular Hemoglobin 32 pg (25-35) Mean Corpuscular Hemoglobin Concent 35 g/dL (31-37) Red Cell Distribution Width 15.4 % (11.5-14.5) Platelet Count 93 x10^3/uL (140-400) Neutrophils (%) (Auto) 65 % (31-73) Lymphocytes (%) (Auto) 27 % (24-48) Monocytes (%) (Auto) 7 % (0-9) Eosinophils (%) (Auto) 1 % (0-3) Basophils (%) (Auto) 1 % (0-3) Neutrophils # (Auto) 3.8 x10^3uL (1.8-7.7) Lymphocytes # (Auto) 1.6 x10^3/uL (1.0-4.8) Monocytes # (Auto) 0.4 x10^3/uL (0.0-1.1) Eosinophils # (Auto) 0.1 x10^3/uL (0.0-0.7) Basophils # (Auto) 0.0 x10^3/uL (0.0-0.2) Platelet Estimate Decreased (ADEQUATE) Polychromasia Slight Sodium Level 137 mmol/L (136-145) Potassium Level 4.0 mmol/L (3.5-5.1) Chloride Level 102 mmol/L (98-107) Carbon Dioxide Level 27 mmol/L (21-32) Anion Gap 8 (6-14) Blood Urea Nitrogen 16 mg/dL (8-26) Creatinine 0.9 mg/dL (0.7-1.3) Estimated GFR (Cockcroft-Gault) 87.3 BUN/Creatinine Ratio 18 (6-20) Glucose Level 233 mg/dL (70-99) Calcium Level 9.0 mg/dL (8.5-10.1) Magnesium Level 2.1 mg/dL (1.8-2.4) Total Bilirubin 0.7 mg/dL (0.2-1.0) Aspartate Amino Transf (AST/SGOT) 40 U/L (15-37) Alanine Aminotransferase (ALT/SGPT) 65 U/L (16-63) Alkaline Phosphatase 340 U/L (46-116) Total Protein 8.0 g/dL (6.4-8.2) Albumin 3.2 g/dL (3.4-5.0) Albumin/Globulin Ratio 0.7 (1.0-1.7) Acetone Level Neg (NEG) Laboratory Tests Test 03/02/19 13:27 03/02/19 13:50 03/02/19 14:10 03/02/19 14:40 Glucose (Fingerstick) 264 mg/dL (70-99) Lactic Acid Level 1.8 mmol/L (0.4-2.0) White Blood Count 5.9 x10^3/uL (4.0-11.0) Red Blood Count 3.93 x10^6/uL (4.30-5.70) Hemoglobin 12.5 g/dL (13.0-17.5) Hematocrit 36.1 % (39.0-53.0) Mean Corpuscular Volume 92 fL (79-100) Mean Corpuscular Hemoglobin 32 pg (25-35) Mean Corpuscular Hemoglobin Concent 35 g/dL (31-37) Red Cell Distribution Width 15.4 % (11.5-14.5) Platelet Count 93 x10^3/uL (140-400) Neutrophils (%) (Auto) 65 % (31-73) Lymphocytes (%) (Auto) 27 % (24-48) Monocytes (%) (Auto) 7 % (0-9) Eosinophils (%) (Auto) 1 % (0-3) Basophils (%) (Auto) 1 % (0-3) Neutrophils # (Auto) 3.8 x10^3uL (1.8-7.7) Lymphocytes # (Auto) 1.6 x10^3/uL (1.0-4.8) Monocytes # (Auto) 0.4 x10^3/uL (0.0-1.1) Eosinophils # (Auto) 0.1 x10^3/uL (0.0-0.7) Basophils # (Auto) 0.0 x10^3/uL (0.0-0.2) Platelet Estimate Decreased (ADEQUATE) Polychromasia Slight Sodium Level 137 mmol/L (136-145) Potassium Level 4.0 mmol/L (3.5-5.1) Chloride Level 102 mmol/L (98-107) Carbon Dioxide Level 27 mmol/L (21-32) Anion Gap 8 (6-14) Blood Urea Nitrogen 16 mg/dL (8-26) Creatinine 0.9 mg/dL (0.7-1.3) Estimated GFR (Cockcroft-Gault) 87.3 BUN/Creatinine Ratio 18 (6-20) Glucose Level 233 mg/dL (70-99) Calcium Level 9.0 mg/dL (8.5-10.1) Magnesium Level 2.1 mg/dL (1.8-2.4) Total Bilirubin 0.7 mg/dL (0.2-1.0) Aspartate Amino Transf (AST/SGOT) 40 U/L (15-37) Alanine Aminotransferase (ALT/SGPT) 65 U/L (16-63) Alkaline Phosphatase 340 U/L (46-116) Total Protein 8.0 g/dL (6.4-8.2) Albumin 3.2 g/dL (3.4-5.0) Albumin/Globulin Ratio 0.7 (1.0-1.7) Acetone Level Neg (NEG) VTE Prophylaxis Ordered VTE Prophylaxis Devices: Yes VTE Pharmacological Prophylaxi: Yes Assessment/Plan Assessment/Plan Feet wounds Diabetes type 2 with target organ damage with neuropathy and leg wounds Type 2 diabetes with high A1c History of OM foot Amputated toes 2 and 3 left foot Mild dorsal foot swelling right foot PLAN: Admit 2 MN consult wound care Check sedimentation rate Check A1c I have reconciled home meds both OHA and insulin Add sliding scale insulin I held of antibiotics for now So far not in HON K ADA diet Full code Seen at ER Further recs pending above ERNST SOLANO MD Mar 02, 2019 17:32
[2019-03-02 18:55] VITALS: BP 149/65
--- NOTE | 2019-03-02 18:55 | NUR ---
Patient arrived to this unit from the ED.
--- NOTE | 2019-03-02 19:20 | NUR ---
Received report from [facility] that Patient have arrived to unit at 18:25 PM to unit per DEBBI Kingsley; The patient, SUSAN DEMARCO, 58 y/o, M admitted by ERNST SOLANO MD, was given written information regarding hospital policies, unit procedures and contact persons. Valuables were checked and left with him.
[2019-03-02] MEDS ORDERED: ATORVASTATIN CALCIUM 20 MG TABLET PO SCH (21:00)
[2019-03-02] MEDS ORDERED: CARBAMIDE PEROXIDE OT SCH (21:00)
[2019-03-02] MEDS: hydrOXYzine PAMOATE 25 MG CAPSULE PO SCH (22:23)
[2019-03-02] MEDS: CYCLOBENZAPRINE 10 MG TABLET. PO SCH (22:23)
[2019-03-02] MEDS: metFORMIN 500 MG TABLET PO SCH (22:23)
[2019-03-02] MEDS: METOPROLOL TART IMMED RELEASE 25 MG TABLET. PO SCH (22:24)
[2019-03-02 23:00] VITALS: BP 170/71
[2019-03-03 03:00] VITALS: BP 151/71
[2019-03-03 07:00] VITALS: BP 183/80
[2019-03-03] MEDS ORDERED: PANTOPRAZOLE 40 MG TABLET.DR. PO SCH (07:30)
[2019-03-03] MEDS: INSULIN LISPRO 300 UNITS/3 ML INSULN.PEN. SQ SCH ×2 (08:00→13:38)
[2019-03-03] MEDS ORDERED: INSULIN LISPRO 300 UNITS/3 ML INSULN.PEN. SQ SCH (08:00)
[2019-03-03] MEDS: metFORMIN 500 MG TABLET PO SCH (08:58)
[2019-03-03] MEDS: hydrOXYzine PAMOATE 25 MG CAPSULE PO SCH (08:59)
[2019-03-03] MEDS: CYCLOBENZAPRINE 10 MG TABLET. PO SCH (08:59)
[2019-03-03] MEDS: METOPROLOL TART IMMED RELEASE 25 MG TABLET. PO SCH (08:59)
[2019-03-03] MEDS ORDERED: LISINOPRIL 5 MG TABLET. PO SCH (09:00)
[2019-03-03] MEDS ORDERED: INSULIN GLARGINE 300 UNITS/3 ML INSULN.PEN. SQ SCH (09:00)
[2019-03-03] MEDS ORDERED: DOCUSATE SODIUM 100 MG CAPSULE. PO SCH (09:00)
[2019-03-03] MEDS ORDERED: GLIMEPIRIDE 2 MG TABLET. PO SCH (09:00)
[2019-03-03] MEDS ORDERED: ASPIRIN 325 MG TABLET PO SCH (09:00)
[2019-03-03] MEDS ORDERED: METOPROLOL TART IMMED RELEASE 25 MG TABLET. PO SCH (09:00)
[2019-03-03] MEDS ORDERED: LOSARTAN POTASSIUM 25 MG TABLET. PO SCH (09:00)
[2019-03-03] MEDS ORDERED: CLOPIDOGREL BISULFATE 75 MG TABLET PO SCH (09:00)
[2019-03-03] MEDS ORDERED: FLUTICASONE 50MCG/NASAL SPRAY 16GM BOTTLE. NS SCH (09:00)
[2019-03-03 10:19] LABS: BASO % 0 % (0-3); EOS # 0.1 x10^3/uL (0.0-0.7); EOS % 2 % (0-3); HEMATOCRIT 37.6 % (39.0-53.0); HEMOGLOBIN 12.8 g/dL (13.0-17.5); LYMPH # 1.2 x10^3/uL (1.0-4.8); LYMPH % 25 % (24-48); MEAN CORPUSCULAR HEMOGLOBIN 32 pg (25-35); MEAN CORPUSCULAR HGB CONC 34 g/dL (31-37); MEAN CORPUSCULAR VOLUME 93 fL (79-100); MONO # 0.3 x10^3/uL (0.0-1.1); MONO % 6 % (0-9); NEUT # 3.3 x10^3uL (1.8-7.7); NEUT % 68 % (31-73); PLATELET COUNT 78 x10^3/uL (140-400); RED BLOOD COUNT 4.05 x10^6/uL (4.30-5.70); RED CELL DISTRIBUTION WIDTH 14.9 % (11.5-14.5); WHITE BLOOD COUNT 4.9 x10^3/uL (4.0-11.0)
--- NOTE | 2019-03-03 10:22 | NUR ---
SW following pt for anticipated dc needs. Chart reviewed. Pt lives at home with family. No dc recommendation/SW needs noted at this time.
[2019-03-03 10:40] LABS: ALBUMIN 3.2 g/dL (3.4-5.0); ALBUMIN/GLOBULIN RATIO 0.7 (1.0-1.7); CALCIUM 9.2 mg/dL (8.5-10.1); CREATININE 0.8 mg/dL (0.7-1.3); TOTAL BILIRUBIN 1.1 mg/dL (0.2-1.0); TOTAL PROTEIN 8.1 g/dL (6.4-8.2)
[2019-03-03 11:00] VITALS: BP 159/64
--- NOTE | 2019-03-03 11:33 | SNU/HH DC ---
DISCHARGE WITH HOME HEALTH DISCHARGE INFORMATION: Final Diagnosis: Problems Medical Problems: (1) Wound cellulitis Status: Acute Condition on Discharge: Stable CODE STATUS: Code Status: Full HOME HEALTH: Face to Face: I certify this patient is under my care and that I, or a nurse practitioner or physician's therapeutic recreation assistant working with me, had a face to face encounter that meets the physician face to face encounter requirements with this patient on []. 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 POST DISCHARGE ORDERS: Activity Instructions for Disc: Activity as tolerated Weight Bearing Status after Di: Other, see below Bathing Instructions: Shower-keep dressing dry DIET AFTER DISCHARGE: ADA Wound/Incision Care: Change dressing CHECKS AFTER DISCHARGE: Checks after discharge: Check blood sugar, ac/hs TREATMENT/EQUIPMENT ORDERS: Adaptive Equipment Issued: None CERTIFICATION STATEMENT: Certification Statement: Certification Statement: Based on the above finding, I certify that this patient is confined to the home and needs intermittent jail care, physical therapy and/or speech therapy, or continues to need occupational therapy.~ This patient is under my care, and I have initiated the establishment of the plan of care.~ This patient will be followed by myself or a community physician who will periodically review the plan of care. Home Meds Active Scripts Oxycodone Hcl/Acetaminophen (OXYCODONE-ACETAMINOPHEN 5-325) 1 Each Tablet, 1 TAB PO PRN Q4HRS PRN for SEVERE PAIN, #25 TAB Prov:VENICE MCKOY MD 04/11/18 Amoxicillin/Potassium Clav (AUGMENTIN 875-125 TABLET) 1 Each Tablet, 1 TAB PO BID for foot infection (toes), #20 TAB Prov:CADE RICHARDSON MD 02/19/18 Carbamide Peroxide (CARBAMIDE PEROXIDE) 15 Ml Drops, 15 ML OT BID for 4 Days, DROP Prov:CHELE ARANDA DO 09/09/17 Fluticasone Propionate (Flonase Allergy Relief) 9.9 Ml [place].susp, 2 SPRAYS NS DAILY, #1 BOTTLE Prov:CHELE ARANDA DO 09/09/17 Albuterol Sulfate (PROAIR HFA INHALER) 8.5 Gm Hfa.aer.ad, 1 PUFF INH Q4HRS PRN for SHORTNESS OF BREATH, #1 INHALER 0 Refills Prov:CHELE ARANDA DO 09/09/17 [Metoprolol Tartrate] 25 MG TABLET No Conflict Check, 25 MG PO BID Prov:MOE MCINTOSH MD 06/02/14 Lisinopril (PRINIVIL) 5 Mg Tablet, 5 MG PO DAILY, #30 BOTTLE Prov:MOE MCINOTSH MD 06/02/14 Clopidogrel Bisulfate (PLAVIX) 75 Mg Tablet, 75 MG PO DAILYWBKFT, #30 BOT Prov:MOE MCINTOSH MD 06/02/14 Aspirin (ASPIRIN) 325 Mg Tablet, 325 MG PO DAILY, #30 Prov:MOLLY BAIG MD 05/19/14 Atorvastatin Calcium (LIPITOR) 20 Mg Tablet, 20 MG PO DAILY for FOR CHOLESTEROL for 30 Days, TAB 0 Refills Prov:MOLLY BIAG MD 05/19/14 Reported Medications Hydroxyzine Hcl (HYDROXYZINE HCL) 25 Mg Tablet, 25 MG PO BID 04/08/18 Cyclobenzaprine Hcl (CYCLOBENZAPRINE HCL) 10 Mg Tablet, 10 MG PO BID 04/08/18 Omeprazole (OMEPRAZOLE) 40 Mg Capsule.dr, 40 MG PO DAILY 04/08/18 Atorvastatin Calcium (ATORVASTATIN CALCIUM) 20 Mg Tablet, 20 MG PO HS 04/08/18 Metoprolol Tartrate (METOPROLOL TARTRATE) 25 Mg Tablet, 25 MG PO DAILY 04/08/18 Clopidogrel Bisulfate (CLOPIDOGREL) 75 Mg Tablet, 75 MG PO DAILY 04/08/18 Losartan Potassium (LOSARTAN POTASSIUM ) 25 Mg Tablet, 25 MG PO DAILY 04/08/18 Docusate Sodium (DOCUSATE SODIUM) 100 Mg Capsule, 1 CAP PO DAILY, #30 CAP 07/05/14 Glimepiride (GLIMEPIRIDE) 4 Mg Tablet, 4 MG PO DAILY, TAB 05/18/14 Metformin Hcl (METFORMIN HCL) 500 Mg Tablet, 500 MG PO BIDWMEALS for ANTI-DIABETIC, TAB 0 Refills do not take for 48 hours 05/18/14 GALILEA MARTINEZ III DO Mar 03, 2019 11:33
--- NOTE | 2019-03-03 12:02 | PDOC ---
PROGRESS NOTES Chief Complaint Chief Complaint Elevated glucose and blisters on feet History of Present Illness History of Present Illness Patient was seen resting comfortably in bed. He his feeling better today. His feet do not have any significant lesions on inspection He feels well enough to go home today. Vitals Vitals Vital Signs Date Time Temp Pulse Resp B/P (MAP) Pulse Ox O2 Delivery O2 Flow Rate FiO2 03/03/19 11:00 98.0 69 16 159/64 (95) 98 Room Air 98.0 Physical Exam General: Alert, Oriented X3, Cooperative, No acute distress Heart: Regular rate, Normal S1, Normal S2, No murmurs Lungs: Clear (No wheezes, rales, or rhonchi) Abdomen: Soft, No tenderness, No masses Extremities: No edema, Normal pulses, Other (he has amputated toes 2 and 3 of the left foot, blister left lateral side left foot) Skin: Other (post inflammatory hyperpigmentation on both feet more so on the right, some chronic leg edema +1 to +2, on the right) Labs LABS Laboratory Tests Test 03/02/19 13:27 03/02/19 13:50 03/02/19 14:10 03/02/19 14:40 Glucose (Fingerstick) 264 mg/dL (70-99) Lactic Acid Level 1.8 mmol/L (0.4-2.0) White Blood Count 5.9 x10^3/uL (4.0-11.0) Red Blood Count 3.93 x10^6/uL (4.30-5.70) Hemoglobin 12.5 g/dL (13.0-17.5) Hematocrit 36.1 % (39.0-53.0) Mean Corpuscular Volume 92 fL (79-100) Mean Corpuscular Hemoglobin 32 pg (25-35) Mean Corpuscular Hemoglobin Concent 35 g/dL (31-37) Red Cell Distribution Width 15.4 % (11.5-14.5) Platelet Count 93 x10^3/uL (140-400) Neutrophils (%) (Auto) 65 % (31-73) Lymphocytes (%) (Auto) 27 % (24-48) Monocytes (%) (Auto) 7 % (0-9) Eosinophils (%) (Auto) 1 % (0-3) Basophils (%) (Auto) 1 % (0-3) Neutrophils # (Auto) 3.8 x10^3uL (1.8-7.7) Lymphocytes # (Auto) 1.6 x10^3/uL (1.0-4.8) Monocytes # (Auto) 0.4 x10^3/uL (0.0-1.1) Eosinophils # (Auto) 0.1 x10^3/uL (0.0-0.7) Basophils # (Auto) 0.0 x10^3/uL (0.0-0.2) Platelet Estimate Decreased (ADEQUATE) Polychromasia Slight Erythrocyte Sedimentation Rate 80 (0-15) Sodium Level 137 mmol/L (136-145) Potassium Level 4.0 mmol/L (3.5-5.1) Chloride Level 102 mmol/L (98-107) Carbon Dioxide Level 27 mmol/L (21-32) Anion Gap 8 (6-14) Blood Urea Nitrogen 16 mg/dL (8-26) Creatinine 0.9 mg/dL (0.7-1.3) Estimated GFR (Cockcroft-Gault) 87.3 BUN/Creatinine Ratio 18 (6-20) Glucose Level 233 mg/dL (70-99) Calcium Level 9.0 mg/dL (8.5-10.1) Magnesium Level 2.1 mg/dL (1.8-2.4) Total Bilirubin 0.7 mg/dL (0.2-1.0) Aspartate Amino Transf (AST/SGOT) 40 U/L (15-37) Alanine Aminotransferase (ALT/SGPT) 65 U/L (16-63) Alkaline Phosphatase 340 U/L (46-116) Total Protein 8.0 g/dL (6.4-8.2) Albumin 3.2 g/dL (3.4-5.0) Albumin/Globulin Ratio 0.7 (1.0-1.7) Acetone Level Neg (NEG) Test 03/02/19 18:56 03/02/19 21:04 03/03/19 07:54 03/03/19 09:23 Glucose (Fingerstick) 125 mg/dL (70-99) 255 mg/dL (70-99) 96 mg/dL (70-99) White Blood Count 4.9 x10^3/uL (4.0-11.0) Red Blood Count 4.05 x10^6/uL (4.30-5.70) Hemoglobin 12.8 g/dL (13.0-17.5) Hematocrit 37.6 % (39.0-53.0) Mean Corpuscular Volume 93 fL (79-100) Mean Corpuscular Hemoglobin 32 pg (25-35) Mean Corpuscular Hemoglobin Concent 34 g/dL (31-37) Red Cell Distribution Width 14.9 % (11.5-14.5) Platelet Count 78 x10^3/uL (140-400) Neutrophils (%) (Auto) 68 % (31-73) Lymphocytes (%) (Auto) 25 % (24-48) Monocytes (%) (Auto) 6 % (0-9) Eosinophils (%) (Auto) 2 % (0-3) Basophils (%) (Auto) 0 % (0-3) Neutrophils # (Auto) 3.3 x10^3uL (1.8-7.7) Lymphocytes # (Auto) 1.2 x10^3/uL (1.0-4.8) Monocytes # (Auto) 0.3 x10^3/uL (0.0-1.1) Eosinophils # (Auto) 0.1 x10^3/uL (0.0-0.7) Basophils # (Auto) 0.0 x10^3/uL (0.0-0.2) Sodium Level 139 mmol/L (136-145) Potassium Level 4.0 mmol/L (3.5-5.1) Chloride Level 101 mmol/L (98-107) Carbon Dioxide Level 28 mmol/L (21-32) Anion Gap 10 (6-14) Blood Urea Nitrogen 14 mg/dL (8-26) Creatinine 0.8 mg/dL (0.7-1.3) Estimated GFR (Cockcroft-Gault) 100.0 BUN/Creatinine Ratio 18 (6-20) Glucose Level 211 mg/dL (70-99) Calcium Level 9.2 mg/dL (8.5-10.1) Total Bilirubin 1.1 mg/dL (0.2-1.0) Aspartate Amino Transf (AST/SGOT) 41 U/L (15-37) Alanine Aminotransferase (ALT/SGPT) 61 U/L (16-63) Alkaline Phosphatase 345 U/L (46-116) Total Protein 8.1 g/dL (6.4-8.2) Albumin 3.2 g/dL (3.4-5.0) Albumin/Globulin Ratio 0.7 (1.0-1.7) Test 03/03/19 11:19 Glucose (Fingerstick) 174 mg/dL (70-99) Review of Systems Review of Systems Patient denies fevers, chills, N/V, CP, SOB, and diarrhea Assessment and Plan Assessmemt and Plan Problems Medical Problems: (1) Wound cellulitis Status: Acute Assessment: Elevated blood glucose 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 Labs Laboratory Tests Test 03/02/19 13:27 03/02/19 13:50 03/02/19 14:10 03/02/19 14:40 Glucose (Fingerstick) 264 mg/dL (70-99) Lactic Acid Level 1.8 mmol/L (0.4-2.0) White Blood Count 5.9 x10^3/uL (4.0-11.0) Red Blood Count 3.93 x10^6/uL (4.30-5.70) Hemoglobin 12.5 g/dL (13.0-17.5) Hematocrit 36.1 % (39.0-53.0) Mean Corpuscular Volume 92 fL (79-100) Mean Corpuscular Hemoglobin 32 pg (25-35) Mean Corpuscular Hemoglobin Concent 35 g/dL (31-37) Red Cell Distribution Width 15.4 % (11.5-14.5) Platelet Count 93 x10^3/uL (140-400) Neutrophils (%) (Auto) 65 % (31-73) Lymphocytes (%) (Auto) 27 % (24-48) Monocytes (%) (Auto) 7 % (0-9) Eosinophils (%) (Auto) 1 % (0-3) Basophils (%) (Auto) 1 % (0-3) Neutrophils # (Auto) 3.8 x10^3uL (1.8-7.7) Lymphocytes # (Auto) 1.6 x10^3/uL (1.0-4.8) Monocytes # (Auto) 0.4 x10^3/uL (0.0-1.1) Eosinophils # (Auto) 0.1 x10^3/uL (0.0-0.7) Basophils # (Auto) 0.0 x10^3/uL (0.0-0.2) Platelet Estimate Decreased (ADEQUATE) Polychromasia Slight Erythrocyte Sedimentation Rate 80 (0-15) Sodium Level 137 mmol/L (136-145) Potassium Level 4.0 mmol/L (3.5-5.1) Chloride Level 102 mmol/L (98-107) Carbon Dioxide Level 27 mmol/L (21-32) Anion Gap 8 (6-14) Blood Urea Nitrogen 16 mg/dL (8-26) Creatinine 0.9 mg/dL (0.7-1.3) Estimated GFR (Cockcroft-Gault) 87.3 BUN/Creatinine Ratio 18 (6-20) Glucose Level 233 mg/dL (70-99) Calcium Level 9.0 mg/dL (8.5-10.1) Magnesium Level 2.1 mg/dL (1.8-2.4) Total Bilirubin 0.7 mg/dL (0.2-1.0) Aspartate Amino Transf (AST/SGOT) 40 U/L (15-37) Alanine Aminotransferase (ALT/SGPT) 65 U/L (16-63) Alkaline Phosphatase 340 U/L (46-116) Total Protein 8.0 g/dL (6.4-8.2) Albumin 3.2 g/dL (3.4-5.0) Albumin/Globulin Ratio 0.7 (1.0-1.7) Acetone Level Neg (NEG) Test 03/02/19 18:56 03/02/19 21:04 03/03/19 07:54 03/03/19 09:23 Glucose (Fingerstick) 125 mg/dL (70-99) 255 mg/dL (70-99) 96 mg/dL (70-99) White Blood Count 4.9 x10^3/uL (4.0-11.0) Red Blood Count 4.05 x10^6/uL (4.30-5.70) Hemoglobin 12.8 g/dL (13.0-17.5) Hematocrit 37.6 % (39.0-53.0) Mean Corpuscular Volume 93 fL (79-100) Mean Corpuscular Hemoglobin 32 pg (25-35) Mean Corpuscular Hemoglobin Concent 34 g/dL (31-37) Red Cell Distribution Width 14.9 % (11.5-14.5) Platelet Count 78 x10^3/uL (140-400) Neutrophils (%) (Auto) 68 % (31-73) Lymphocytes (%) (Auto) 25 % (24-48) Monocytes (%) (Auto) 6 % (0-9) Eosinophils (%) (Auto) 2 % (0-3) Basophils (%) (Auto) 0 % (0-3) Neutrophils # (Auto) 3.3 x10^3uL (1.8-7.7) Lymphocytes # (Auto) 1.2 x10^3/uL (1.0-4.8) Monocytes # (Auto) 0.3 x10^3/uL (0.0-1.1) Eosinophils # (Auto) 0.1 x10^3/uL (0.0-0.7) Basophils # (Auto) 0.0 x10^3/uL (0.0-0.2) Sodium Level 139 mmol/L (136-145) Potassium Level 4.0 mmol/L (3.5-5.1) Chloride Level 101 mmol/L (98-107) Carbon Dioxide Level 28 mmol/L (21-32) Anion Gap 10 (6-14) Blood Urea Nitrogen 14 mg/dL (8-26) Creatinine 0.8 mg/dL (0.7-1.3) Estimated GFR (Cockcroft-Gault) 100.0 BUN/Creatinine Ratio 18 (6-20) Glucose Level 211 mg/dL (70-99) Calcium Level 9.2 mg/dL (8.5-10.1) Total Bilirubin 1.1 mg/dL (0.2-1.0) Aspartate Amino Transf (AST/SGOT) 41 U/L (15-37) Alanine Aminotransferase (ALT/SGPT) 61 U/L (16-63) Alkaline Phosphatase 345 U/L (46-116) Total Protein 8.1 g/dL (6.4-8.2) Albumin 3.2 g/dL (3.4-5.0) Albumin/Globulin Ratio 0.7 (1.0-1.7) Test 03/03/19 11:19 Glucose (Fingerstick) 174 mg/dL (70-99) Laboratory Tests Test 03/02/19 13:27 03/02/19 13:50 03/02/19 14:10 03/02/19 14:40 Glucose (Fingerstick) 264 mg/dL (70-99) Lactic Acid Level 1.8 mmol/L (0.4-2.0) White Blood Count 5.9 x10^3/uL (4.0-11.0) Red Blood Count 3.93 x10^6/uL (4.30-5.70) Hemoglobin 12.5 g/dL (13.0-17.5) Hematocrit 36.1 % (39.0-53.0) Mean Corpuscular Volume 92 fL (79-100) Mean Corpuscular Hemoglobin 32 pg (25-35) Mean Corpuscular Hemoglobin Concent 35 g/dL (31-37) Red Cell Distribution Width 15.4 % (11.5-14.5) Platelet Count 93 x10^3/uL (140-400) Neutrophils (%) (Auto) 65 % (31-73) Lymphocytes (%) (Auto) 27 % (24-48) Monocytes (%) (Auto) 7 % (0-9) Eosinophils (%) (Auto) 1 % (0-3) Basophils (%) (Auto) 1 % (0-3) Neutrophils # (Auto) 3.8 x10^3uL (1.8-7.7) Lymphocytes # (Auto) 1.6 x10^3/uL (1.0-4.8) Monocytes # (Auto) 0.4 x10^3/uL (0.0-1.1) Eosinophils # (Auto) 0.1 x10^3/uL (0.0-0.7) Basophils # (Auto) 0.0 x10^3/uL (0.0-0.2) Platelet Estimate Decreased (ADEQUATE) Polychromasia Slight Erythrocyte Sedimentation Rate 80 (0-15) Sodium Level 137 mmol/L (136-145) Potassium Level 4.0 mmol/L (3.5-5.1) Chloride Level 102 mmol/L (98-107) Carbon Dioxide Level 27 mmol/L (21-32) Anion Gap 8 (6-14) Blood Urea Nitrogen 16 mg/dL (8-26) Creatinine 0.9 mg/dL (0.7-1.3) Estimated GFR (Cockcroft-Gault) 87.3 BUN/Creatinine Ratio 18 (6-20) Glucose Level 233 mg/dL (70-99) Calcium Level 9.0 mg/dL (8.5-10.1) Magnesium Level 2.1 mg/dL (1.8-2.4) Total Bilirubin 0.7 mg/dL (0.2-1.0) Aspartate Amino Transf (AST/SGOT) 40 U/L (15-37) Alanine Aminotransferase (ALT/SGPT) 65 U/L (16-63) Alkaline Phosphatase 340 U/L (46-116) Total Protein 8.0 g/dL (6.4-8.2) Albumin 3.2 g/dL (3.4-5.0) Albumin/Globulin Ratio 0.7 (1.0-1.7) Acetone Level Neg (NEG) Test 03/02/19 18:56 03/02/19 21:04 03/03/19 07:54 03/03/19 09:23 Glucose (Fingerstick) 125 mg/dL (70-99) 255 mg/dL (70-99) 96 mg/dL (70-99) White Blood Count 4.9 x10^3/uL (4.0-11.0) Red Blood Count 4.05 x10^6/uL (4.30-5.70) Hemoglobin 12.8 g/dL (13.0-17.5) Hematocrit 37.6 % (39.0-53.0) Mean Corpuscular Volume 93 fL (79-100) Mean Corpuscular Hemoglobin 32 pg (25-35) Mean Corpuscular Hemoglobin Concent 34 g/dL (31-37) Red Cell Distribution Width 14.9 % (11.5-14.5) Platelet Count 78 x10^3/uL (140-400) Neutrophils (%) (Auto) 68 % (31-73) Lymphocytes (%) (Auto) 25 % (24-48) Monocytes (%) (Auto) 6 % (0-9) Eosinophils (%) (Auto) 2 % (0-3) Basophils (%) (Auto) 0 % (0-3) Neutrophils # (Auto) 3.3 x10^3uL (1.8-7.7) Lymphocytes # (Auto) 1.2 x10^3/uL (1.0-4.8) Monocytes # (Auto) 0.3 x10^3/uL (0.0-1.1) Eosinophils # (Auto) 0.1 x10^3/uL (0.0-0.7) Basophils # (Auto) 0.0 x10^3/uL (0.0-0.2) Sodium Level 139 mmol/L (136-145) Potassium Level 4.0 mmol/L (3.5-5.1) Chloride Level 101 mmol/L (98-107) Carbon Dioxide Level 28 mmol/L (21-32) Anion Gap 10 (6-14) Blood Urea Nitrogen 14 mg/dL (8-26) Creatinine 0.8 mg/dL (0.7-1.3) Estimated GFR (Cockcroft-Gault) 100.0 BUN/Creatinine Ratio 18 (6-20) Glucose Level 211 mg/dL (70-99) Calcium Level 9.2 mg/dL (8.5-10.1) Total Bilirubin 1.1 mg/dL (0.2-1.0) Aspartate Amino Transf (AST/SGOT) 41 U/L (15-37) Alanine Aminotransferase (ALT/SGPT) 61 U/L (16-63) Alkaline Phosphatase 345 U/L (46-116) Total Protein 8.1 g/dL (6.4-8.2) Albumin 3.2 g/dL (3.4-5.0) Albumin/Globulin Ratio 0.7 (1.0-1.7) Test 03/03/19 11:19 Glucose (Fingerstick) 174 mg/dL (70-99) Medications Current Medications Sodium Chloride 500 ml @ 500 mls/hr 1X ONCE IV Last administered on 03/02/19at 14:20; Start 03/02/19 at 13:45; Stop 03/02/19 at 14:44; Status DC Vancomycin HCl (Vanco Per Pharmacy) 1 each 1X ONCE [facility] ; Start 03/02/19 at 16:15; Stop 03/02/19 at 16:16; Status DC Fentanyl Citrate (Fentanyl 2ml Vial) 25 mcg 1X ONCE IV Last administered on 03/02/19at 16:23; Start 03/02/19 at 16:15; Stop 03/02/19 at 16:16; Status DC Vancomycin HCl 2 gm/Sodium Chloride 500 ml @ 250 mls/hr 1X ONCE IV Last administered on 03/02/19at 16:23; Start 03/02/19 at 16:15; Stop 03/02/19 at 18:14; Status DC Insulin Human Lispro (HumaLOG) 0-9 UNITS TIDWMEALS SQ ; Start 03/03/19 at 08:00 Dextrose (Dextrose 50%-Water Syringe) 12.5 gm PRN Q15MIN PRN IV SEE COMMENTS; Start 03/02/19 at 17:30 Acetaminophen (Tylenol) 500 mg PRN Q6HRS PRN PO MILD PAIN / TEMP; Start 03/02/19 at 17:30 Acetaminophen/ Codeine Phosphate (Tylenol #3) 1 tab PRN Q6HRS PRN PO MODERATE PAIN; Start 03/02/19 at 17:30 Ondansetron HCl (Zofran) 4 mg PRN Q6HRS PRN IV NAUSEA/VOMITING; Start 03/02/19 at 17:30 Zolpidem Tartrate (Ambien) 5 mg PRN QHS PRN PO INSOMNIA, MAY REPEAT IN 1HR Last administered on 03/02/19at 22:24; Start 03/02/19 at 17:30 Fentanyl Citrate (Fentanyl 2ml Vial) 50 mcg PRN Q2HR PRN IV PAIN; Start 03/02/19 at 17:30 Albuterol Sulfate (Ventolin Neb Soln) 2.5 mg PRN Q4HRS PRN INH SHORTNESS OF BREATH; Start 03/02/19 at 17:30 Aspirin (Ronald Aspirin) 325 mg DAILY PO Last administered on 03/03/19at 08:58; Start 03/03/19 at 09:00 Atorvastatin Calcium (Lipitor) 20 mg HS PO Last administered on 03/02/19at 22:23; Start 03/02/19 at 21:00 Clopidogrel Bisulfate (Plavix) 75 mg DAILY PO Last administered on 03/03/19 08:59; Start 03/03/19 at 09:00 Cyclobenzaprine HCl (Flexeril) 10 mg BID PO Last administered on 03/03/19 08:59; Start 03/02/19 at 21:00 Docusate Sodium (Colace) 100 mg DAILY PO Last administered on 03/03/19 08:58; Start 03/03/19 at 09:00 Losartan Potassium (Cozaar) 25 mg DAILY PO Last administered on 03/03/19 08:59; Start 03/03/19 at 09:00 Metoprolol Tartrate (Lopressor) 25 mg DAILY PO ; Start 03/03/19 at 09:00; Stop 03/03/19 at 09:00; Status DC Oxycodone/ Acetaminophen (Percocet 5/325) 1 tab PRN Q4HRS PRN PO SEVERE PAIN Last administered on 03/02/19 22:23; Start 03/02/19 at 17:30 Non-Formulary Medication (Carbamide Peroxide ) 15 ml BID OT ; Start 03/02/19 at 21:00; Status UNV Fluticasone Propionate (Flonase) 2 spray DAILY NS ; Start 03/03/19 at 09:00 Glimepiride (Amaryl) 4 mg DAILY PO Last administered on 03/03/19 08:58; Start 03/03/19 at 09:00 Hydroxyzine Pamoate (Vistaril) 25 mg BID PO Last administered on 03/03/19 08:59; Start 03/02/19 at 21:00 Lisinopril (Prinivil) 5 mg DAILY PO Last administered on 03/03/19 08:59; Start 03/03/19 at 09:00 Metformin HCl (Glucophage) 500 mg BIDWMEALS PO Last administered on 03/03/19 08:58; Start 03/02/19 at 18:00 Pantoprazole Sodium (Protonix) 40 mg DAILYAC PO Last administered on 03/03/19 08:58; Start 03/03/19 at 07:30 Metoprolol Tartrate (Lopressor) 25 mg BID PO Last administered on 03/03/19 08:59; Start 03/02/19 at 21:00 Insulin Glargine (Lantus) 40 units DAILY SQ ; Start 03/03/19 at 09:00 Insulin Human Lispro (HumaLOG) 0-9 UNITS TIDWMEALS SQ ; Start 03/03/19 at 08:00; Status UNV Dextrose (Dextrose 50%-Water Syringe) 12.5 gm PRN Q15MIN PRN IV SEE COMMENTS; Start 03/02/19 at 17:30; Status UNV Active Scripts Active Oxycodone-Acetaminophen 5-325 (Oxycodone Hcl/Acetaminophen) 1 Each Tablet 1 Tab PO PRN Q4HRS PRN Augmentin 875-125 Tablet (Amoxicillin/Potassium Clav) 1 Each Tablet 1 Tab PO BID Carbamide Peroxide 15 Ml Drops 15 Ml OT BID 4 Days Flonase Allergy Relief (Fluticasone Propionate) 9.9 Ml [place].susp 2 Sprays NS DAILY Proair Hfa Inhaler (Albuterol Sulfate) 8.5 Gm Hfa.aer.ad 1 Puff INH Q4HRS PRN [Metoprolol Tartrate] 25 MG Tablet 25 Mg PO BID Prinivil (Lisinopril) 5 Mg Tablet 5 Mg PO DAILY Plavix (Clopidogrel Bisulfate) 75 Mg Tablet 75 Mg PO DAILYWBKFT Aspirin 325 Mg Tablet 325 Mg PO DAILY Lipitor (Atorvastatin Calcium) 20 Mg Tablet 20 Mg PO DAILY 30 Days Reported Hydroxyzine Hcl 25 Mg Tablet 25 Mg PO BID Cyclobenzaprine Hcl 10 Mg Tablet 10 Mg PO BID Omeprazole 40 Mg Capsule.dr 40 Mg PO DAILY Atorvastatin Calcium 20 Mg Tablet 20 Mg PO HS Metoprolol Tartrate 25 Mg Tablet 25 Mg PO DAILY Clopidogrel (Clopidogrel Bisulfate) 75 Mg Tablet 75 Mg PO DAILY Losartan Potassium (Losartan Potassium) 25 Mg Tablet 25 Mg PO DAILY Docusate Sodium 100 Mg Capsule 1 Cap PO DAILY Glimepiride 4 Mg Tablet 4 Mg PO DAILY Metformin Hcl 500 Mg Tablet 500 Mg PO BIDWMEALS do not take for 48 hours Vitals/I & O Vital Sign - Last 24 Hours 03/02/19 03/02/19 03/02/19 03/02/19 13:06 13:30 14:00 14:30 Temp 100.5 100.5 Pulse 78 76 75 72 Resp 20 19 19 15 B/P (MAP) 190/81 (117) 185/81 (115) 156/71 (99) 145/65 (91) Pulse Ox 98 100 100 94 O2 Delivery Room Air Room Air Room Air Room Air 03/02/19 03/02/19 03/02/19 03/02/19 15:00 15:36 16:23 16:30 Pulse 72 73 72 Resp 15 16 19 17 B/P (MAP) 159/71 (100) 157/74 (101) 155/76 (102) Pulse Ox 97 98 96 97 O2 Delivery Room Air Room Air Room Air Room Air 03/02/19 03/02/19 03/02/19 03/02/19 17:30 18:44 18:55 19:30 Temp 98.3 98.3 Pulse 68 69 Resp 16 B/P (MAP) 149/70 (96) 149/65 (93) Pulse Ox 97 97 97 O2 Delivery Room Air Room Air Room Air Room Air 03/02/19 03/02/19 03/02/19 03/02/19 22:23 22:24 23:00 23:23 Temp 98.3 98.3 Pulse 69 72 Resp 18 18 18 B/P (MAP) 149/65 170/71 (104) Pulse Ox 97 96 96 O2 Delivery Room Air Room Air Room Air 03/03/19 03/03/19 03/03/19 03/03/19 03:00 07:00 08:00 08:59 Temp 97.6 97.8 97.6 97.8 Pulse 63 60 60 Resp 18 16 B/P (MAP) 151/71 (97) 183/80 (114) 183/80 Pulse Ox 95 97 O2 Delivery Room Air Room Air Room Air 03/03/19 03/03/19 03/03/19 08:59 08:59 11:00 Temp 98.0 98.0 Pulse 60 60 69 Resp 16 B/P (MAP) 183/80 183/80 159/64 (95) Pulse Ox 98 O2 Delivery Room Air Intake and Output 03/02/19 03/02/19 03/03/19 15:00 23:00 07:00 Intake Total 1000 ml 500 ml Output Total 375 ml Balance 1000 ml 125 ml CASTLE,NIAL K III DO Mar 03, 2019 12:02
--- NOTE | 2019-03-03 12:24 | PDOC3 ---
[facility]-Discharge Summary Date of Admission: Date of Admission: Mar 02, 2019 Date of Discharge: Date of Discharge: Mar 03, 2019 Admission Diagnosis: Admitting Diagnosis: Hyperglycemia and bilateral foot wounds Discharge Diagnosis: Discharge Diagnosis: Elevated blood glucose Previous L 2nd and 3rd toe amputation Previous osteomyelitis Club foot HLD CVA Peripheral Neuropathy DM P Consults: Consults: None Procedures: Procedures: None Hospital Course: Hospital Course: Patient is a middle-aged white male with diabetes and peripheral vascular disease basically presented with foot wounds and hyperglycemia we consult the wound care nurse and did aggressive physical therapy occupational therapy and got his sugars down with subcutaneous insulin and fluids This morning I saw and examined the patient is heart tones were normal his lungs were clear he was alert and oriented doing well his extremities were at their baseline he is missing some toes in the 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 with Overall is as baseline with plan to discharge Disposition: Disposition/Orders: D/C to Home Activity: Activity: Resume previous activity Medications: Home Meds Active Scripts Oxycodone Hcl/Acetaminophen (OXYCODONE-ACETAMINOPHEN 5-325) 1 Each Tablet, 1 TAB PO PRN Q4HRS PRN for SEVERE PAIN, #25 TAB Prov:VENICE MCKOY MD 04/11/18 Amoxicillin/Potassium Clav (AUGMENTIN 875-125 TABLET) 1 Each Tablet, 1 TAB PO BID for foot infection (toes), #20 TAB Prov:CADE RICHARDSON MD 02/19/18 Carbamide Peroxide (CARBAMIDE PEROXIDE) 15 Ml Drops, 15 ML OT BID for 4 Days, DROP Prov:CHELE ARANDA DO 09/09/17 Fluticasone Propionate (Flonase Allergy Relief) 9.9 Ml [place].susp, 2 SPRAYS NS DAILY, #1 BOTTLE Prov:CHELE ARANDA DO 09/09/17 Albuterol Sulfate (PROAIR HFA INHALER) 8.5 Gm Hfa.aer.ad, 1 PUFF INH Q4HRS PRN for SHORTNESS OF BREATH, #1 INHALER 0 Refills Prov:CHELE ARANDA DO 09/09/17 [Metoprolol Tartrate] 25 MG TABLET No Conflict Check, 25 MG PO BID Prov:MOE MCINTOSH MD 06/02/14 Lisinopril (PRINIVIL) 5 Mg Tablet, 5 MG PO DAILY, #30 BOTTLE Prov:MOE MCINTOSH MD 06/02/14 Clopidogrel Bisulfate (PLAVIX) 75 Mg Tablet, 75 MG PO DAILYWBKFT, #30 BOT Prov:MOE MCINTOSH MD 06/02/14 Aspirin (ASPIRIN) 325 Mg Tablet, 325 MG PO DAILY, #30 Prov:MOLLY BAIG MD 05/19/14 Atorvastatin Calcium (LIPITOR) 20 Mg Tablet, 20 MG PO DAILY for FOR CHOLESTEROL for 30 Days, TAB 0 Refills Prov:MOLLY BAIG MD 05/19/14 Reported Medications Hydroxyzine Hcl (HYDROXYZINE HCL) 25 Mg Tablet, 25 MG PO BID 04/08/18 Cyclobenzaprine Hcl (CYCLOBENZAPRINE HCL) 10 Mg Tablet, 10 MG PO BID 04/08/18 Omeprazole (OMEPRAZOLE) 40 Mg Capsule.dr, 40 MG PO DAILY 04/08/18 Atorvastatin Calcium (ATORVASTATIN CALCIUM) 20 Mg Tablet, 20 MG PO HS 04/08/18 Metoprolol Tartrate (METOPROLOL TARTRATE) 25 Mg Tablet, 25 MG PO DAILY 04/08/18 Clopidogrel Bisulfate (CLOPIDOGREL) 75 Mg Tablet, 75 MG PO DAILY 04/08/18 Losartan Potassium (LOSARTAN POTASSIUM ) 25 Mg Tablet, 25 MG PO DAILY 04/08/18 Docusate Sodium (DOCUSATE SODIUM) 100 Mg Capsule, 1 CAP PO DAILY, #30 CAP 07/05/14 Glimepiride (GLIMEPIRIDE) 4 Mg Tablet, 4 MG PO DAILY, TAB 05/18/14 Metformin Hcl (METFORMIN HCL) 500 Mg Tablet, 500 MG PO BIDWMEALS for ANTI- DIABETIC, TAB 0 Refills do not take for 48 hours 05/18/14 Scheduled Amoxicillin/Potassium Clav (Augmentin 875-125 Tablet), 1 TAB PO BID Aspirin (Aspirin), 325 MG PO DAILY Atorvastatin Calcium (Lipitor), 20 MG PO DAILY Atorvastatin Calcium (Atorvastatin Calcium), 20 MG PO HS, (Reported) Carbamide Peroxide (Carbamide Peroxide), 15 ML OT BID Clopidogrel Bisulfate (Plavix), 75 MG PO DAILYWBKFT Clopidogrel Bisulfate (Clopidogrel), 75 MG PO DAILY, (Reported) Cyclobenzaprine Hcl (Cyclobenzaprine Hcl), 10 MG PO BID, (Reported) Docusate Sodium (Docusate Sodium), 1 CAP PO DAILY, (Reported) Fluticasone Propionate (Flonase Allergy Relief), 2 SPRAYS NS DAILY Glimepiride (Glimepiride), 4 MG PO DAILY, (Reported) Hydroxyzine Hcl (Hydroxyzine Hcl), 25 MG PO BID, (Reported) Lisinopril (Prinivil), 5 MG PO DAILY Losartan Potassium (Losartan Potassium ), 25 MG PO DAILY, (Reported) Metformin Hcl (Metformin Hcl), 500 MG PO BIDWMEALS, (Reported) Metoprolol Tartrate (Metoprolol Tartrate), 25 MG PO DAILY, (Reported) Omeprazole (Omeprazole), 40 MG PO DAILY, (Reported) [Metoprolol Tartrate], 25 MG PO BID Scheduled PRN Albuterol Sulfate (Proair Hfa Inhaler), 1 PUFF INH Q4HRS PRN for SHORTNESS OF BREATH Oxycodone Hcl/Acetaminophen (Oxycodone-Acetaminophen 5-325), 1 TAB PO PRN Q4HRS PRN for SEVERE PAIN Total Time: Total Time: 37 minutes GALILEA MARTINEZ III DO Mar 03, 2019 12:24
--- NOTE | 2019-03-03 12:28 | NUR ---
Wound Care Wound care consent for multiple DFU's. Dr Azevedo consulted as well. Quantiflo: R 0.88, L 0.63. Bedside debridement performed on Left lateral foot DFU. Consent obtained. Cleansed wound, pictured and measured post debridement. Dressed with iodoflex and foam, recommend to change every 3 days. Right plantar foot also debrided and dressed with iodoflex and telfa. Left great toe wound is dry and scabbed, painted with betadine. Recommend to paint every 3 days. Pt using toe relief half-shoe on left foot. Pt and sister educated on wound care at home on and will follow up in [facility] next week.
--- NOTE | 2019-03-03 14:17 | NUR ---
SW following pt. Spoke with pt at bedside regarding HH options. Pt agreeable with [facility]. Orders faxed to [facility] and they will see pt on Wednesday. RN notified.
--- NOTE | 2019-03-03 14:38 | PDOC2 ---
Chief Complaint: Chief Complaint: Left foot blister Problems: (1) Type 2 diabetes mellitus with foot ulcer (2) Chronic ulcer of right foot limited to breakdown of skin (3) NON-PRS CHRONIC ULCER OTH PRT L FOOT LIMITED TO BRKDWN SKIN (4) Peripheral artery disease Vital Signs: Vital Signs: Vital Signs Date Time Temp Pulse Resp B/P (MAP) Pulse Ox O2 Delivery O2 Flow Rate FiO2 03/02/19 13:06 100.5 78 20 190/81 (117) 98 Room Air 100.5 Vital Signs Date Time Temp Pulse Resp B/P (MAP) Pulse Ox O2 Delivery O2 Flow Rate FiO2 03/03/19 11:00 98.0 69 16 159/64 (95) 98 Room Air 98.0 Allergies: Allergies: Allergies Coded Allergies Type Severity Reaction Last Updated Verified morphine Allergy Intermediate N/V 03/02/19 Yes Medications: Home Meds Active Scripts Oxycodone Hcl/Acetaminophen (OXYCODONE-ACETAMINOPHEN 5-325) 1 Each Tablet, 1 TAB PO PRN Q4HRS PRN for SEVERE PAIN, #25 TAB Prov:VENICE MCKOY MD 04/11/18 Amoxicillin/Potassium Clav (AUGMENTIN 875-125 TABLET) 1 Each Tablet, 1 TAB PO BID for foot infection (toes), #20 TAB Prov:CADE RICHARDSON MD 02/19/18 Carbamide Peroxide (CARBAMIDE PEROXIDE) 15 Ml Drops, 15 ML OT BID for 4 Days, DROP Prov:CHELE ARANDA DO 09/09/17 Fluticasone Propionate (Flonase Allergy Relief) 9.9 Ml [place].susp, 2 SPRAYS NS DAILY, #1 BOTTLE Prov:CHELE ARANDA DO 09/09/17 Albuterol Sulfate (PROAIR HFA INHALER) 8.5 Gm Hfa.aer.ad, 1 PUFF INH Q4HRS PRN for SHORTNESS OF BREATH, #1 INHALER 0 Refills Prov:CHELE ARANDA DO 09/09/17 [Metoprolol Tartrate] 25 MG TABLET No Conflict Check, 25 MG PO BID Prov:MOE MCINTOSH MD 06/02/14 Lisinopril (PRINIVIL) 5 Mg Tablet, 5 MG PO DAILY, #30 BOTTLE Prov:MOE MCINTOSH MD 06/02/14 Clopidogrel Bisulfate (PLAVIX) 75 Mg Tablet, 75 MG PO DAILYWBKFT, #30 BOT Prov:MOE MCINTOSH MD 06/02/14 Aspirin (ASPIRIN) 325 Mg Tablet, 325 MG PO DAILY, #30 Prov:MOLLY BAIG MD 05/19/14 Atorvastatin Calcium (LIPITOR) 20 Mg Tablet, 20 MG PO DAILY for FOR CHOLESTEROL for 30 Days, TAB 0 Refills Prov:MOLLY BAIG MD 05/19/14 Reported Medications Hydroxyzine Hcl (HYDROXYZINE HCL) 25 Mg Tablet, 25 MG PO BID 04/08/18 Cyclobenzaprine Hcl (CYCLOBENZAPRINE HCL) 10 Mg Tablet, 10 MG PO BID 04/08/18 Omeprazole (OMEPRAZOLE) 40 Mg Capsule.dr, 40 MG PO DAILY 04/08/18 Atorvastatin Calcium (ATORVASTATIN CALCIUM) 20 Mg Tablet, 20 MG PO HS 04/08/18 Metoprolol Tartrate (METOPROLOL TARTRATE) 25 Mg Tablet, 25 MG PO DAILY 04/08/18 Clopidogrel Bisulfate (CLOPIDOGREL) 75 Mg Tablet, 75 MG PO DAILY 04/08/18 Losartan Potassium (LOSARTAN POTASSIUM ) 25 Mg Tablet, 25 MG PO DAILY 04/08/18 Docusate Sodium (DOCUSATE SODIUM) 100 Mg Capsule, 1 CAP PO DAILY, #30 CAP 07/05/14 Glimepiride (GLIMEPIRIDE) 4 Mg Tablet, 4 MG PO DAILY, TAB 05/18/14 Metformin Hcl (METFORMIN HCL) 500 Mg Tablet, 500 MG PO BIDWMEALS for ANTI- DIABETIC, TAB 0 Refills do not take for 48 hours 05/18/14 PCP: PCP: [facility] Pain: Pain Context: None Date of Onset 70-year-old male with diabetes on insulin with hx of high A1c, history of left foot OM with 2 toe amputation's left foot. He has had blisters on the left foot for about a week. When the blisters got dark he and his sister became concerned and she brought him in to the ED. He has been followed at [facility] wound care, and had his amputations at [facility]. He denies pain with the blisters or drainage. No fever, no change in appetite or bowels. Xrays neg for signs of OM. WBC normal Surgical Date na Surgical History Left foot toe amputations in Nov of this year at [facility] [employer] school graduate. Single. 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 Quit smoking years ago. Review of Systems: See HPI Physical Exam - Wound #1 Wound Exam Location of Modifier: Left Wound Location: Lateral Body Site: Foot Associated Signs/Symptoms: Bruising Drainage Amount: Moderate Drainage Description: Sanguineous Odor: None/Absent Surrounding Tissue Appearance: pink Wound Description: skin Grade Garcia: 1 Surgical Debridement #1 Start Time: On the lateral left foot I sharply debrided the blister roof with moderate dark maroon clots of blood. Wound bed is pink and clean. On the distal plantar right foot, under the 5th MT head, I debrided slough and tapered the wound edges. The wound base is pink and clean. No s/s infection. A/P Bilateral DFU's, neither appears infected. Hydrofera blue on the left wound, iodoflex on the right. Off-loading. Request Regional Sales Leader evaluation for diabetic shoes. He requests transfer of wound care to [place] for convenience. His left NANCY is 0.66 and right is 0.83 so there is PAD involved as well. We'll need to get arterial studies from [facility] as well as wound care records and F/U in our office next week. 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
--- NOTE | 2019-03-03 15:39 | NUR ---
Discharge Note: SUSAN DEMARCO [address] Discharge instructions and discharge home medications reviewed with Patient and a copy given. All questions have been answered and understanding verbalized. The following instructions and handouts were given: Patient visit report, Rx information, patient instructions Discontinued lines and drains: peripheral IV, tip intact. Patient discharged to home with home health via private vehicle. Pt left unit alert, oriented, and with all personal belongings
[2019-03-03 22:08] LABS: HEMOGLOBIN A1C 10.8 % (4.8-5.6)
== END 2019-03-03 15:30 | disposition home health service (06) | DRG 639 ==
LOC: ER 12:50 → 5 NORTH 16:00
PROVIDERS: ADMIT Internal Medicine; ATTEND Internal Medicine
DX: E11.65 Type 2 diabetes mellitus with hyperglycemia (principal); E11.42 Type 2 diabetes mellitus with diabetic polyneuropathy; E78.5 Hyperlipidemia, unspecified; Q66.89 Other specified congenital deformities of feet; E11.51 Type 2 diabetes mellitus with diabetic peripheral angiopathy without gangrene; G47.33 Obstructive sleep apnea (adult) (pediatric); I11.0 Hypertensive heart disease with heart failure; I50.9 Heart failure, unspecified; I25.10 Atherosclerotic heart disease of native coronary artery without angina pectoris; J45.909 Unspecified asthma, uncomplicated; Z88.5 Allergy status to narcotic agent; Z79.4 Long term (current) use of insulin; Z86.73 Personal history of transient ischemic attack (TIA), and cerebral infarction without residual deficits; Z89.422 Acquired absence of other left toe(s)
CPT/HCPCS: 36415; 73630; 80053; 82010; 82962; 83036; 83605; 83735; 85025; 85651; 87040; 87071; 87075; 87186; 96361; 96365; 96366; 96375; J1815; J3010; J3370; J7040; Q0177; 99285-25

== ENCOUNTER 2019-12-23 22:50 | Inpatient (IN) | payer BC ==
[~2019-12-23] VITALS: Ht 172.7 cm; Wt 90.0 kg
[~2019-12-23 22:50] MED LIST changes: +GABA300C9 PO; -GLIM4TAB2 PO; +GLIM4TAB8 PO; +HYDR-2761 PO; +INSU100I13 SQ; +LACT1CAP21 PO; +LOSA25TA12 PO; +MELO15TA23 PO; +OMEP40CA45 PO; -OMEP40CA5 PO; +TAMS0.4C97 PO
--- NOTE | 2019-12-23 23:22 | PHYS DOC ---
Past Medical History Past Medical History: CAD, CVA, Diabetes-Type II, Hypertension, TIA Additional Past Medical Histor: HEART MURMUR,club foot,CHRIS,R BBB,MULT MINI STROKES,ENDARECTOMY Past Surgical History: Other Additional Past Surgical Histo: CARDIAC CATH WITH SINGLE VESSEL ANGIOPLASTY Smoking Status: Former Smoker Alcohol Use: Occasionally Drug Use: None Adult General Chief Complaint Chief Complaint: MULTIPLE COMPLAINTS HPI HPI 59-year-old male presents to the emergency department with complaints of "not feeling well," for 2 months. Patient has history of CAD, hypertension, diabetes, CVA. Discussed cough, general is weakness, nausea, palpitations, elevated blood sugars, occasional diarrhea. Patient states the reason he is here is because his sister told him to come to the emergency department. He does describe some worsening weakness, dizziness as well, gait disturbance, headache. Patient states nothing makes his symptoms worse, nothing makes his symptoms better on exam. Patient denies abdominal pain on exam. Review of Systems Review of Systems Constitutional: chills Respiratory: cough, no shortness of breath [] Cardiovascular: No additional information not addressed in HPI [] GI: Denies abdominal pain, + nausea, vomiting, no bloody stools or diarrhea [] : Denies dysuria or hematuria [] Musculoskeletal: Denies back pain or joint pain [] Integument: Denies rash or skin lesions [] Neurologic: + headache, no focal weakness or sensory changes [] All other systems were reviewed and found to be within normal limits, except as documented in this note. Current Medications Current Medications Current Medications Medications (Trade) Dose Ordered Sig/John Start Time Stop Time Status Last Admin Dose Admin Dextrose (Dextrose 50%-Water Syringe) 12.5 gm PRN Q15MIN PRN 12/24/19 00:45 Dextrose (Iv Dextrose 5%) 250 ml PRN Q15MIN PRN 12/24/19 00:45 Insulin Human Regular 100 ml @ 0 mls/hr 1X ONCE 12/24/19 01:00 12/24/19 01:01 DC 12/24/19 01:48 7.4 MLS/HR Insulin Human Regular (HumuLIN R VIAL) 10 unit 1X ONCE 12/24/19 01:00 12/24/19 01:01 DC 12/24/19 00:55 10 UNIT Insulin Human Regular 100 unit/ Sodium Chloride 101 ml @ 0 mls/hr CONT PRN 12/24/19 00:45 Potassium Chloride (Klor-Con) 40 meq 1X ONCE 12/24/19 01:00 12/24/19 01:01 DC Sodium Chloride 1,000 ml @ 1,000 mls/hr Q1H 12/24/19 01:00 12/24/19 01:59 DC 12/24/19 00:53 1,000 MLS/HR Allergies Allergies Allergies Coded Allergies Type Severity Reaction Last Updated Verified morphine Allergy Intermediate N/V 03/02/19 Yes I S O L A T I O N *CONTACT* Allergy Unknown 03/13/19 Yes Physical Exam Physical Exam Constitutional: Well developed, well nourished, no acute distress, non-toxic appearance. [] HENT: Normocephalic, atraumatic, bilateral external ears normal, oropharynx moist, no oral exudates, nose normal. [] Cardiovascular:Heart rate regular rhythm, no murmur [] Lungs & Thorax: Bilateral breath sounds clear to auscultation [] Abdomen: Bowel sounds normal, soft, no tenderness, no masses, no pulsatile masses. [] Skin: Warm, dry, no erythema, no rash. [] Back: No tenderness, no CVA tenderness. [] Extremities: No tenderness, trace edema. [] Neurologic: Alert and oriented X 3, headache, no focal deficits noted. [] Psychologic: Affect normal, judgement normal, mood normal. [] Current Patient Data Vital Signs Vital Signs Date Time Temp Pulse Resp B/P (MAP) Pulse Ox O2 Delivery O2 Flow Rate FiO2 12/24/19 01:00 61 122/59 (80) 95 Room Air 12/23/19 23:00 98.1 14 98.1 Lab Values Laboratory Tests Test 12/23/19 23:02 12/23/19 23:28 12/24/19 00:05 12/24/19 00:44 White Blood Count 3.6 x10^3/uL (4.0-11.0) L Red Blood Count 3.78 x10^6/uL (4.30-5.70) L Hemoglobin 11.8 g/dL (13.0-17.5) L Hematocrit 35.6 % (39.0-53.0) L Mean Corpuscular Volume 94 fL (79-100) Mean Corpuscular Hemoglobin 31 pg (25-35) Mean Corpuscular Hemoglobin Concent 33 g/dL (31-37) Red Cell Distribution Width 14.9 % (11.5-14.5) H Platelet Count 74 x10^3/uL (140-400) L Neutrophils (%) (Auto) 68 % (31-73) Lymphocytes (%) (Auto) 23 % (24-48) L Monocytes (%) (Auto) 8 % (0-9) Eosinophils (%) (Auto) 1 % (0-3) Basophils (%) (Auto) 0 % (0-3) Neutrophils # (Auto) 2.4 x10^3/uL (1.8-7.7) Lymphocytes # (Auto) 0.8 x10^3/uL (1.0-4.8) L Monocytes # (Auto) 0.3 x10^3/uL (0.0-1.1) Eosinophils # (Auto) 0.0 x10^3/uL (0.0-0.7) Basophils # (Auto) 0.0 x10^3/uL (0.0-0.2) Sodium Level 135 mmol/L (136-145) L Potassium Level 4.0 mmol/L (3.5-5.1) Chloride Level 100 mmol/L (98-107) Carbon Dioxide Level 20 mmol/L (21-32) L Anion Gap 15 (6-14) H Blood Urea Nitrogen 15 mg/dL (8-26) Creatinine 1.3 mg/dL (0.7-1.3) Estimated GFR (Cockcroft-Gault) 56.9 BUN/Creatinine Ratio 12 (6-20) Glucose Level 540 mg/dL (70-99) *H 540 mg/dL (70-99) H Lactic Acid Level 5.0 mmol/L (0.4-2.0) *H Calcium Level 8.7 mg/dL (8.5-10.1) Total Bilirubin 0.7 mg/dL (0.2-1.0) Aspartate Amino Transferase (AST) 57 U/L (15-37) H Alanine Aminotransferase (ALT) 79 U/L (16-63) H Alkaline Phosphatase 425 U/L (46-116) H Total Protein 7.4 g/dL (6.4-8.2) Albumin 2.9 g/dL (3.4-5.0) L Albumin/Globulin Ratio 0.6 (1.0-1.7) L Procalcitonin 0.31 ng/mL (0.00-0.10) H Acetone Level Neg (NEG) Influenza Type A Antigen Negative (NEGATIVE) Influenza Type B Antigen Negative (NEGATIVE) Urine Collection Type Unknown Urine Color Yellow Urine Clarity Clear Urine pH 5.5 Urine Specific [place] >=1.030 Urine Protein Negative mg/dL (NEG-TRACE) Urine Glucose (UA) >=1000 mg/dL (NEG) Urine Ketones (Stick) Negative mg/dL (NEG) Urine Blood Negative (NEG) Urine Nitrite Negative (NEG) Urine Bilirubin Negative (NEG) Urine Urobilinogen Dipstick 1.0 mg/dL (0.2 mg/dL) Urine Leukocyte Esterase Negative (NEG) Urine RBC 0 /HPF (0-2) Urine WBC Rare /HPF (0-4) Urine Squamous Epithelial Cells Occ /LPF Urine Bacteria 0 /HPF (0-FEW) Urine Mucus Slight /LPF POC Hematocrit 27 % (37-52) L Arterial Blood pH (Temp corrected) 7.34 Arterial Blood pCO2 (Temp correct) 38 mmHg Arterial Blood pO2 (Temp corrected) 164 mmHg POC Venous pH 7.34 (7.32-7.42) POC Venous pCO2 38 mmHg (41-51) L POC Venous pO2 164 mmHg (20-40) H POC Venous HCO3 21 mmol/L (24-28) L POC Venous Blood Total CO2 22 mmol/L (21-32) POC Venous Blood O2 Saturation 99 % POC Venous Blood Base Excess -5 mmol/L (0-3) L POC Venous Hemoglobin (Calc) 9.2 g/dL (14-18) L POC FiO2 21 POC Sodium 137 mmol/L (135-145) POC Potassium 4.0 mmol/L (3.5-5.0) POC Ionized Calcium (Kim) 1.11 mmol/L (1.13-1.32) L Laboratory Tests 12/23/19 23:02 Laboratory Tests 12/23/19 23:02 12/24/19 00:44 EKG EKG EKG reviewed, 2306, LAD, RBBB, no Stemi[] Radiology/Procedures Radiology/Procedures [facility] [address] [place] [address] IMAGING REPORT Signed PATIENT: SUSAN DEMARCO ACCOUNT: [id number] : 1960 LOCATION: ED HOLD AGE: 59 SEX: M EXAM STATUS: ADM IN ORD. PHYSICIAN: LITA CEVALLOS MD REASON: headache PROCEDURE: CT HEAD WO CONTRAST INDICATION: Headache COMPARISON: August 2014 TECHNIQUE: Axial CT images obtained through the head without intravenous contrast. One or more of the following individualized dose reduction techniques were utilized for this examination: 1. Automated exposure control; 2. Adjustment of the mA and/or kV according to patient size; 3. Use of iterative reconstruction technique. FINDINGS: No intracranial hemorrhage. No midline shift. Basal cisterns patents. Ventricles and sulci are globally prominent. No acute osseous abnormality. Orbits and paranasal sinuses unremarkable. Scattered foci of low attenuation within the white matter. IMPRESSION: 1. No acute intracranial hemorrhage. 2. Scattered regions of low attenuation within the white matter. Non-specific in nature but frequently secondary to chronic small vessel ischemic disease. 3. Prominence of ventricles and sulci which is frequently secondary to age related volume loss. Electronically signed by: Maria Ines Dunn MD (12/24/2019 3:20 AM) [id number] DICTATED and SIGNED BY: MARIA INES DUNN MD DATE: 12/24/19319 [] Course & Med Decision Making Course & Med Decision Making Pertinent Labs and Imaging studies reviewed. (See chart for details) []59-year-old male presents to the emergency department with complaints of "not feeling well," for 2 months. Patient has history of CAD, hypertension, diabetes, CVA. Discussed cough, general is weakness, nausea, palpitations, elevated blood sugars, occasional diarrhea. Patient states the reason he is here is because his sister told him to come to the emergency department. He does describe some worsening weakness, dizziness as well, gait disturbance, headache. Patient states nothing makes his symptoms worse, nothing makes his symptoms better on exam. Patient denies abdominal pain on exam. Labs/Imaging reviewed CXR negative for acute process Lactic acid 5.0, Serum acetone negative, WBC 3.6, Influenza negative CT head without acute process Toradol 30mg IV x 1 Dragon Disclaimer Dragon Disclaimer This electronic medical record was generated, in whole or in part, using a voice recognition dictation system. Departure Departure Impression: Primary Impression: Uncontrolled diabetes mellitus Additional Impressions: Lactic acidosis Thrombocytopenia Headache Disposition: 09 ADMITTED INPATIENT Admitting Physician: ANGI Condition: STABLE Referrals: GEO JUARES MD (PCP) Critical Care Time Critical care time was 35 minutes exclusive of procedures. Problem Qualifiers Primary Impression: Uncontrolled diabetes mellitus Diabetes mellitus type: type 2 Glycemic state: with hyperglycemia Qualified Codes: E11.65 - Type 2 diabetes mellitus with hyperglycemia Additional Impressions: Headache Headache type: unspecified Headache chronicity pattern: unspecified pattern Intractability: not intractable Qualified Codes: R51 - Headache LITA CEVALLOS MD Dec 23, 2019 23:22
[2019-12-23 23:27] LABS: BASO % 0 % (0-3); EOS % 1 % (0-3); HEMATOCRIT 35.6 % (39.0-53.0); HEMOGLOBIN 11.8 g/dL (13.0-17.5); LYMPH # 0.8 x10^3/uL (1.0-4.8); LYMPH % 23 % (24-48); MEAN CORPUSCULAR HEMOGLOBIN 31 pg (25-35); MEAN CORPUSCULAR HGB CONC 33 g/dL (31-37); MEAN CORPUSCULAR VOLUME 94 fL (79-100); MONO # 0.3 x10^3/uL (0.0-1.1); MONO % 8 % (0-9); NEUT # 2.4 x10^3/uL (1.8-7.7); NEUT % 68 % (31-73); PLATELET COUNT 74 x10^3/uL (140-400); RED BLOOD COUNT 3.78 x10^6/uL (4.30-5.70); RED CELL DISTRIBUTION WIDTH 14.9 % (11.5-14.5); WHITE BLOOD COUNT 3.6 x10^3/uL (4.0-11.0)
--- NOTE | 2019-12-23 23:27 | EKG ---
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
[2019-12-23 23:47] LABS: ALBUMIN 2.9 g/dL (3.4-5.0); ALBUMIN/GLOBULIN RATIO 0.6 (1.0-1.7); CALCIUM 8.7 mg/dL (8.5-10.1); CREATININE 1.3 mg/dL (0.7-1.3); GFR 56.9; TOTAL BILIRUBIN 0.7 mg/dL (0.2-1.0); TOTAL PROTEIN 7.4 g/dL (6.4-8.2)
[2019-12-23 23:50] LABS: INFLUENZA A PATIENT NEGATIVE (NEGATIVE); INFLUENZA B PATIENT NEGATIVE (NEGATIVE)
[2019-12-24 00:26] LABS: BILIRUBIN,URINE NEGATIVE (NEG); CLARITY,URINE CLEAR; COLOR,URINE YELLOW; NITRITE,URINE NEGATIVE (NEG); PH,URINE 5.5; PROTEIN,URINE NEGATIVE (NEG-TRACE)
[2019-12-24 00:32] LABS: BACTERIA,URINE 0 /HPF (0-FEW); RBC,URINE 0 /HPF (0-2); SQUAMOUS EPITHELIAL CELL,UR OCC /LPF; WBC,URINE RARE /HPF (0-4)
[2019-12-24] MEDS ORDERED: IV DEXTROSE 5% 250 ML BAG. IV PRN (00:45)
[2019-12-24] MEDS ORDERED: INSULIN REGULAR VIAL 100 UNIT in IV NORMAL SALINE 100ML 100 ML IV PRN (00:45)
[2019-12-24] MEDS ORDERED: DEXTROSE 50% 25 GM / 50ML DISP.SYRIN. IV PRN (00:45)
[2019-12-24 00:48] LABS: CORRECTED PCO2 38 mmHg; CORRECTED PH 7.34; CORRECTED PO2 164 mmHg; FIO2 ISTAT 21; VEN BASE EXCESS ISTAT -5 mmol/L (0-3); VEN GLUC ISTAT 540 mg/dL (70-99); VEN HCO3 ISTAT 21 mmol/L (24-28); VEN HCT ISTAT 27 % (37-52); VEN HGB ISTAT 9.2 g/dL (14-18); VEN ION CA ISTAT 1.11 mmol/L (1.13-1.32); VEN NA ISTAT 137 mmol/L (135-145); VEN O2 ISTAT 164 mmHg (20-40); VEN PCO2 ISTAT 38 mmHg (41-51); VEN PH ISTAT 7.34 (7.32-7.42); VEN SO2 ISTAT 99 %; VEN TCO2 ISTAT 22 mmol/L (21-32)
[2019-12-24] MEDS ORDERED: POTASSIUM CHLORIDE 20 MEQ TABLET.ER. PO ONE (01:00)
[2019-12-24] MEDS ORDERED: INSULIN REGULAR 100 UNIT/ML 3ML VIAL. IV ONE (01:00)
[2019-12-24] MEDS ORDERED: IV NORMAL SALINE 1000ML BAG 1,000 ML IV SCH (01:00)
[2019-12-24] MEDS ORDERED: INSULIN,REGULAR 100 UNIT DRIP 100 ML IV ONE (01:00)
[2019-12-24] MEDS ORDERED: KETOROLAC 30 MG/ML VIAL. IVP ONE (01:30)
[2019-12-24] MEDS ORDERED: IV NORMAL SALINE 1000ML BAG 1,000 ML IV ONE ×2 (02:00)
--- NOTE | 2019-12-24 03:23 | RAD ---
INDICATION: Headache COMPARISON: August 2014 TECHNIQUE: Axial CT images obtained through the head without intravenous contrast. One or more of the following individualized dose reduction techniques were utilized for this examination: 1. Automated exposure control; 2. Adjustment of the mA and/or kV according to patient size; 3. Use of iterative reconstruction technique. FINDINGS: No intracranial hemorrhage. No midline shift. Basal cisterns patents. Ventricles and sulci are globally prominent. No acute osseous abnormality. Orbits and paranasal sinuses unremarkable. Scattered foci of low attenuation within the white matter. IMPRESSION: 1. No acute intracranial hemorrhage. 2. Scattered regions of low attenuation within the white matter. Non-specific in nature but frequently secondary to chronic small vessel ischemic disease. 3. Prominence of ventricles and sulci which is frequently secondary to age related volume loss. Electronically signed by: Marcelino Kerns MD (12/24/2019 3:20 AM) [id number]
[2019-12-24] MEDS ORDERED: INSULIN GLARGINE SYRINGE. SQ ONE (04:30)
--- NOTE | 2019-12-24 08:05 | RAD ---
Chest AP portable at 2318: Reason for examination: Cough and shortness of breath. Comparison is made to previous study dated 02/05/2018. Electronic cardiac device remains present on the left. The heart size is normal. Mediastinum is unremarkable. Lung miller are clear except for calcified granuloma in the mid left lung field. No acute bony abnormalities are seen. IMPRESSION: No acute cardiopulmonary disease. Electronically signed by: Gisselle Malin MD (12/24/2019 8:02 AM) [id number]
[2019-12-24] MEDS ORDERED: hydrALAZINE 20 MG/ML VIAL. IVP PRN (09:15)
[2019-12-24 10:36] VITALS: BP 159/71
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
[2019-12-24] MEDS ORDERED: ONDANSETRON PF 4 MG/2 ML VIAL. IV PRN (11:00)
[2019-12-24] MEDS ORDERED: MULTIVIT INFUSN,ADULT 4,VIT K 10 ML, THIAMINE INJ 100 MG, FOLIC ACID INJ 1 MG in IV NOR... IV ONE (11:00)
[2019-12-24] MEDS ORDERED: cloNIDine HCL 0.1 MG TABLET PO PRN ×2 (11:00→11:15)
[2019-12-24] MEDS ORDERED: DOCUSATE SODIUM 100 MG CAPSULE. PO PRN (11:00)
[2019-12-24] MEDS ORDERED: MAG HYDROX/ALUMINUM HYD/SIMETH 30 ML ORAL.SUSP PO PRN (11:00)
[2019-12-24] MEDS ORDERED: ALBUTEROL SULFATE 2.5 MG/3 ML NEBU. NEB PRN (11:00)
[2019-12-24] MEDS ORDERED: 0.9 % SODIUM CHLORIDE 10 ML DISP.SYRIN. IV PRN (11:00)
[2019-12-24] MEDS ORDERED: ACETAMINOPHEN 325 MG TABLET. PO PRN (11:00)
[2019-12-24] MEDS ORDERED: guaiFENesin ORAL 200 MG/10 ML LIQUID. PO PRN (11:00)
[2019-12-24] MEDS ORDERED: LORazepam 1 MG TABLET PO PRN ×2 (11:15)
--- NOTE | 2019-12-24 12:17 | NUR ---
PO Meds: Pt currently NPO pending US. Will admin meds once US is completed and pt is back to ADA diet.
[2019-12-24 12:20] VITALS: BP 135/46
[2019-12-24] MEDS: IPRATRPIUM/ALBUTEROL 0.5/2.5MG 3 ML NEBU. NEB SCH ×4 (12:28→23:15)
[2019-12-24] MEDS: ENOXAPARIN 40 MG/0.4 ML SYRINGE. SQ SCH (12:38)
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
[2019-12-24] MEDS: METOPROLOL TART IMMED RELEASE 25 MG TABLET. PO SCH ×2 (13:00→23:06)
[2019-12-24] MEDS: ASPIRIN 325 MG TABLET PO SCH (13:00)
[2019-12-24] MEDS: CLOPIDOGREL BISULFATE 75 MG TABLET PO SCH (13:00)
[2019-12-24] MEDS: LACTOBACILLUS RHAMNOSUS GG 1 CAPSULE. PO SCH (14:00)
[2019-12-24] MEDS: TAMSULOSIN 0.4 MG CAP.ER.24H. PO SCH (14:00)
[2019-12-24] MEDS: GABAPENTIN 300 MG CAPSULE. PO SCH ×2 (14:00→22:59)
[2019-12-24] MEDS: LOSARTAN POTASSIUM 25 MG TABLET. PO SCH (14:00)
[2019-12-24] MEDS: GLIMEPIRIDE 2 MG TABLET. PO SCH (14:00)
[2019-12-24] MEDS: LISINOPRIL 5 MG TABLET. PO SCH (14:00)
--- NOTE | 2019-12-24 14:05 | PDOC2 ---
GI CONSULT Reason For Consult: Abnormal LFT's HPI: HPI: 59 y/o male admitted with poorly-controlled DM and lactic acidosis. Noted to have elevated LFT's and we were asked to see. From review, elevated alk phos to some degree for some years here though higher than in the past. Occasional mildly elevated transaminases, never more than 2x normal. Bilirubin always normal. No h/o documented liver disease though instructed to have liver checked by other practitioners. Never h/o jaundice. No h/o high risk behavior. Does occasionally drink to excess, but not daily drinker. No FH liver disease he knows of. No history suggestive of biliary disease. Has heartburn on PPI. No true dysphagia. No PUD, GB, pancreatic history. Former smoker. Occasional hard stools; when pass, loose after but no ongoing daily issues with either extreme. No overt bleeding. Thinks losing some weight as having to tighten belts. Appetite OK. No prior endoscopy. Was apparently considering colonoscopy but couldn't go off anticoag. H/o negative FOBT. No GIFH. PMH: PMH: DM with neuropathy, CAD, CVA, TIA, HTN. CHRIS, HLP, PVD. S/p CABG, repair traumatic liver laceration, VHR, amputation of toes left foot and LE angioplasty/stent. FH: Family History: Cancer (grandmother with pancreatic cancer), CAD Social History: Smoke: Quit ALCOHOL: heavy (occasionally heavy) Drugs: None ROS: GEN: Denies fevers, chills, sweats HEENT: Denies blurred vision, sore throat CV: Denies chest pain RESP: Denies shortness of air, cough GI: Per HPI : Denies hematuria, dysuria ENDO: Denies weight changes NEURO: Denies confusion, dizziness MSK: Denies weakness, joint pain/swelling SKIN: Denies jaundice, pruritus Vitals: Vitals: Vital Signs Date Time Temp Pulse Resp B/P (MAP) Pulse Ox O2 Delivery O2 Flow Rate FiO2 12/24/19 12:30 100 Room Air 12/24/19 12:20 98.0 69 18 135/46 (75) 98.0 Labs: Labs: Laboratory Tests Test 12/23/19 23:02 12/23/19 23:28 12/24/19 00:05 12/24/19 00:44 White Blood Count 3.6 x10^3/uL (4.0-11.0) Red Blood Count 3.78 x10^6/uL (4.30-5.70) Hemoglobin 11.8 g/dL (13.0-17.5) Hematocrit 35.6 % (39.0-53.0) Mean Corpuscular Volume 94 fL (79-100) Mean Corpuscular Hemoglobin 31 pg (25-35) Mean Corpuscular Hemoglobin Concent 33 g/dL (31-37) Red Cell Distribution Width 14.9 % (11.5-14.5) Platelet Count 74 x10^3/uL (140-400) Neutrophils (%) (Auto) 68 % (31-73) Lymphocytes (%) (Auto) 23 % (24-48) Monocytes (%) (Auto) 8 % (0-9) Eosinophils (%) (Auto) 1 % (0-3) Basophils (%) (Auto) 0 % (0-3) Neutrophils # (Auto) 2.4 x10^3/uL (1.8-7.7) Lymphocytes # (Auto) 0.8 x10^3/uL (1.0-4.8) Monocytes # (Auto) 0.3 x10^3/uL (0.0-1.1) Eosinophils # (Auto) 0.0 x10^3/uL (0.0-0.7) Basophils # (Auto) 0.0 x10^3/uL (0.0-0.2) Sodium Level 135 mmol/L (136-145) Potassium Level 4.0 mmol/L (3.5-5.1) Chloride Level 100 mmol/L (98-107) Carbon Dioxide Level 20 mmol/L (21-32) Anion Gap 15 (6-14) Blood Urea Nitrogen 15 mg/dL (8-26) Creatinine 1.3 mg/dL (0.7-1.3) Estimated GFR (Cockcroft-Gault) 56.9 BUN/Creatinine Ratio 12 (6-20) Glucose Level 540 mg/dL (70-99) 540 mg/dL (70-99) Lactic Acid Level 5.0 mmol/L (0.4-2.0) Calcium Level 8.7 mg/dL (8.5-10.1) Total Bilirubin 0.7 mg/dL (0.2-1.0) Aspartate Amino Transf (AST/SGOT) 57 U/L (15-37) Alanine Aminotransferase (ALT/SGPT) 79 U/L (16-63) Alkaline Phosphatase 425 U/L (46-116) Total Protein 7.4 g/dL (6.4-8.2) Albumin 2.9 g/dL (3.4-5.0) Albumin/Globulin Ratio 0.6 (1.0-1.7) Procalcitonin 0.31 ng/mL (0.00-0.10) Acetone Level Neg (NEG) Influenza Type A Antigen Negative (NEGATIVE) Influenza Type B Antigen Negative (NEGATIVE) Urine Collection Type Unknown Urine Color Yellow Urine Clarity Clear Urine pH 5.5 Urine Specific [place] >=1.030 Urine Protein Negative mg/dL (NEG-TRACE) Urine Glucose (UA) >=1000 mg/dL (NEG) Urine Ketones (Stick) Negative mg/dL (NEG) Urine Blood Negative (NEG) Urine Nitrite Negative (NEG) Urine Bilirubin Negative (NEG) Urine Urobilinogen Dipstick 1.0 mg/dL (0.2 mg/dL) Urine Leukocyte Esterase Negative (NEG) Urine RBC 0 /HPF (0-2) Urine WBC Rare /HPF (0-4) Urine Squamous Epithelial Cells Occ /LPF Urine Bacteria 0 /HPF (0-FEW) Urine Mucus Slight /LPF Bedside Hematocrit 27 % (37-52) Arterial Blood pH (Temp corrected) 7.34 Arterial Blood pCO2 (Temp correct) 38 mmHg Arterial Blood pO2 (Temp corrected) 164 mmHg Bedside Venous pH 7.34 (7.32-7.42) Bedside Venous pCO2 38 mmHg (41-51) Bedside Venous pO2 164 mmHg (20-40) Bedside Venous HCO3 21 mmol/L (24-28) Bedside Venous Blood Total CO2 22 mmol/L (21-32) Bedside Venous Blood O2 Saturation 99 % Bedside Venous Blood Base Excess -5 mmol/L (0-3) POC Venous Hemoglobin (Calc) 9.2 g/dL (14-18) Bedside FiO2 21 Bedside Sodium 137 mmol/L (135-145) Bedside Potassium 4.0 mmol/L (3.5-5.0) Bedside Ionized Calcium (Kim) 1.11 mmol/L (1.13-1.32) Test 12/24/19 01:34 12/24/19 02:44 12/24/19 03:47 12/24/19 04:49 Glucose (Fingerstick) 430 mg/dL (70-99) 317 mg/dL (70-99) 218 mg/dL (70-99) 171 mg/dL (70-99) Test 12/24/19 07:16 Glucose (Fingerstick) 91 mg/dL (70-99) Thrombocytopenia. Elevated alk phos mostly. Normocytic mild anemia. Allergies: Coded Allergies: morphine (Verified Allergy, Intermediate, N/V, 03/02/19) I S O L A T I O N *CONTACT* (Verified Allergy, Unknown, 03/13/19) mrsa Medications: Current Medications Medications (Trade) Dose Ordered Sig/John Route PRN Reason Start Time Stop Time Status Last Admin Dose Admin Sodium Chloride 1,000 ml @ 1,000 mls/hr Q1H IV 12/24/19 01:00 12/24/19 01:59 DC 12/24/19 00:53 Insulin Human Regular (HumuLIN R VIAL) 10 unit 1X ONCE IV 12/24/19 01:00 12/24/19 01:01 DC 12/24/19 00:55 Insulin Human Regular 100 ml @ 0 mls/hr 1X ONCE IV 12/24/19 01:00 12/24/19 01:01 DC 12/24/19 01:48 Ketorolac Tromethamine (Toradol 30mg Vial) 30 mg 1X ONCE IVP 12/24/19 01:30 12/24/19 01:31 DC 12/24/19 01:31 Sodium Chloride 1,000 ml @ 1,000 mls/hr 1X ONCE IV 12/24/19 02:00 12/24/19 02:59 DC 12/24/19 01:31 Insulin Glargine (Lantus Syringe) 10 unit 1X ONCE SQ 12/24/19 04:30 12/24/19 04:31 DC 12/24/19 04:30 Hydralazine HCl (Apresoline Inj) 10 mg PRN Q4HRS PRN IVP ELEVATED BP, SEE COMMENTS 12/24/19 09:15 12/24/19 09:23 Multivitamins 10 ml/Thiamine HCl 100 mg/Folic Acid 1 mg/Sodium Chloride 1,011.2 ml @ 125 mls/ hr 1X ONCE IV 12/24/19 11:00 12/24/19 19:05 12/24/19 12:37 Albuterol/ Ipratropium (Duoneb) 3 ml Q4HRS NEB 12/24/19 11:00 12/24/19 12:28 Enoxaparin Sodium (Lovenox 40mg Syringe) 40 mg Q24H SQ 12/24/19 11:00 12/24/19 12:38 Imaging: Imaging: None GI-related. PE: GEN: NAD HEENT: Atraumatic, PERRLA LUNGS: CTAB HEART: RRR, no murmurs ABD: NABS, S/ND/NT, no masses EXTREMITY: No edema SKIN: No rashes, no jaundice NEURO/PSYCH: A & O 3, diminished sensation LE's. A/P: A/P: IMP: Elevated LFT's, primarily Alk phos. NAFLD with his alcohol use may account. Occult biliary disease or PBC seem less likely. Not suggestive of viral hepatitis. GERD CRC screening; never. REC: Will check viral serologies, AMAb and sono. Stressed better sugar control. Should consider EGD and colonoscopy at some point. --other pending. SARAH ARENAS MD Dec 24, 2019 14:05
[2019-12-24 15:59] VITALS: BP_SYST 104; BP_SYST 129; BP_DIAS 45; BP_DIAS 61
[2019-12-24 19:00] VITALS: BP 130/42
--- NOTE | 2019-12-24 20:48 | RAD ---
Study: BILATERAL DUPLEX CAROTID SONOGRAPHY History: Carotid stenosis. Technique: Duplex sonography of the cervical portion of both carotid arteries was performed. Real-time grayscale, color flow Doppler, and Doppler spectral waveform analysis is performed. Findings: Right side: Peak systolic flow velocity of the CCA is 116 cm/sec. Peak systolic flow velocity of the ICA is 85 cm/sec. The ICA/CCA ratio from peak obtained values is 0.7. Peak end diastolic flow velocity of the ICA is 21 cm/sec. The peak systolic velocity of the ECA is 112 cm/sec. Minimal atheromatous plaque without visible flow-limiting stenosis. Left side: Peak systolic flow velocity of the CCA is 164 cm/sec. Peak systolic flow velocity of the ICA is 150 cm/sec. The ICA/CCA ratio from peak obtained values is 0.9. Peak end diastolic flow velocity of the ICA is 30 cm/sec. Peak systolic flow velocity of the ECA is 182 cm/sec. Moderate atheromatous plaque burden without visible flow-limiting stenosis. Vertebral arteries: Bilateral vertebral arteries demonstrate antegrade flow. IMPRESSION: 1. Peak systolic velocity within the distal internal carotid artery on the left is 150 cm/s in keeping with a moderate stenosis between 50 and 69 percent noting that ICA/CCA ratio remains within normal limits. Moderate atheromatous plaque burden present on the left without a visible flow-limiting stenosis. 2. No significant stenosis present on the right and only mild plaque burden. 3. Antegrade vertebral artery flow bilaterally. PQRS Compliance Statement - Stenosis calculations for CT, MR and conventional angiography are based upon measurement of the distal ICA diameter in accordance with the NASCET methodology. Stenosis calculations for carotid ultrasound studies are derived from validated velocity criteria which are known to correlate with the NASCET methodology. Electronically signed by: QASIM PAZ MD (12/24/2019 8:44 PM) [facility]
--- NOTE | 2019-12-24 20:51 | RAD ---
STUDY: US Abdomen Complete INDICATION: Transaminitis. COMPARISON: None recently TECHNIQUE: Real-time grayscale and color Doppler sonographic evaluation of the abdomen. Findings: Pancreas: Not well evaluated. The visualized portion is within normal limits. Liver: Increased in size. Increased hepatic echogenicity most typical of hepatic steatosis. Portions of the hepatic margins are undulating. Aorta/IVC/Main Portal Vein: Patent main portal vein with hepatopedal flow. Only a portion of the aorta is visualized with the visualized segment normal in caliber. Normal IVC diameter at the liver. Gall Bladder: Within normal limits. Common Bile Duct: Within normal limits. Right Kidney: Measures 11.6 cm in length. Maintained cortical thickness and echogenicity. No hydronephrosis. Left Kidney: Measures 10.1 cm in length. Normal cortical thickness and echogenicity. No hydronephrosis. Spleen: Splenomegaly. Miscellaneous: No ascites is well seen. Impression: 1. Hepatosplenomegaly with the spleen measuring up to 19 cm in length. The main portal vein remains patent and with hepatopedal flow. Undulating liver margins and increased parenchymal echogenicity raising the question of underlying cirrhosis. 2. Unremarkable gallbladder and kidneys. The pancreas is not well evaluated but what is seen is unremarkable. Electronically signed by: QASIM PZA MD (12/24/2019 8:48 PM) [facility]
[2019-12-24] MEDS ORDERED: ATORVASTATIN CALCIUM 20 MG TABLET PO SCH (21:00)
[2019-12-24] MEDS ORDERED: INSULIN GLARGINE SYRINGE. SQ SCH (21:00)
[2019-12-24] MEDS ORDERED: diphenhydrAMINE HCL 25 MG CAPSULE PO PRN (21:15)
[2019-12-24 23:03] VITALS: BP 122/47
[2019-12-25 03:19] VITALS: BP 134/56
[2019-12-25] MEDS: IPRATRPIUM/ALBUTEROL 0.5/2.5MG 3 ML NEBU. NEB SCH ×4 (03:25→16:32)
[2019-12-25 04:57] LABS: BASO % 0 % (0-3); EOS % 1 % (0-3); HEMATOCRIT 30.5 % (39.0-53.0); HEMOGLOBIN 10.3 g/dL (13.0-17.5); LYMPH # 0.9 x10^3/uL (1.0-4.8); LYMPH % 29 % (24-48); MEAN CORPUSCULAR HEMOGLOBIN 31 pg (25-35); MEAN CORPUSCULAR HGB CONC 34 g/dL (31-37); MEAN CORPUSCULAR VOLUME 92 fL (79-100); MONO # 0.2 x10^3/uL (0.0-1.1); MONO % 7 % (0-9); NEUT # 1.9 x10^3/uL (1.8-7.7); NEUT % 63 % (31-73); PLATELET COUNT 82 x10^3/uL (140-400); RED CELL DISTRIBUTION WIDTH 15.1 % (11.5-14.5)
[2019-12-25 05:35] LABS: ALBUMIN 2.5 g/dL (3.4-5.0); ALBUMIN/GLOBULIN RATIO 0.6 (1.0-1.7); CALCIUM 8.7 mg/dL (8.5-10.1); CREATININE 0.7 mg/dL (0.7-1.3); GFR 116.2; POTASSIUM 4.2 mmol/L (3.5-5.1); TOTAL BILIRUBIN 0.5 mg/dL (0.2-1.0); TOTAL PROTEIN 6.6 g/dL (6.4-8.2)
[2019-12-25 07:00] VITALS: BP 154/55
[2019-12-25] MEDS: CLOPIDOGREL BISULFATE 75 MG TABLET PO SCH (08:52)
[2019-12-25] MEDS: LACTOBACILLUS RHAMNOSUS GG 1 CAPSULE. PO SCH (08:52)
[2019-12-25] MEDS: LISINOPRIL 5 MG TABLET. PO SCH (08:53)
[2019-12-25] MEDS: ASPIRIN 325 MG TABLET PO SCH (08:53)
[2019-12-25] MEDS: GLIMEPIRIDE 2 MG TABLET. PO SCH (08:53)
[2019-12-25] MEDS: TAMSULOSIN 0.4 MG CAP.ER.24H. PO SCH (08:53)
[2019-12-25] MEDS: LOSARTAN POTASSIUM 25 MG TABLET. PO SCH (08:54)
[2019-12-25] MEDS: ENOXAPARIN 40 MG/0.4 ML SYRINGE. SQ SCH (08:54)
[2019-12-25] MEDS: GABAPENTIN 300 MG CAPSULE. PO SCH (08:54)
[2019-12-25] MEDS: METOPROLOL TART IMMED RELEASE 25 MG TABLET. PO SCH (08:54)
[2019-12-25] MEDS ORDERED: THIAMINE 100 MG TABLET. PO SCH (09:00)
[2019-12-25] MEDS ORDERED: FOLIC ACID 1 MG TABLET. PO SCH (09:00)
[2019-12-25] MEDS ORDERED: MULTIVITAMIN with MINERAL TABLET. PO SCH (09:00)
[2019-12-25] MEDS ORDERED: FLUTICASONE 50MCG/NASAL SPRAY 16GM BOTTLE. NS SCH (09:00)
--- NOTE | 2019-12-25 09:50 | NUR ---
IP: Pt has a hx of mrsa in L toe wounds on 05/31/19. Pt to be in contact precautions until there are 2 negative screens and no open wounds. There is one documented negative screen.
[2019-12-25 11:00] VITALS: BP 121/64
--- NOTE | 2019-12-25 13:03 | NUR ---
SW following. Discussed with RN. Pt from home. RN advised no SW needs at this time. Uncontrolled blood sugars. SW will continue to follow.
--- NOTE | 2019-12-25 14:09 | PDOC ---
PROGRESS NOTES Chief Complaint Chief Complaint A/P: nonketotic hyperosmolar hyperglycemia uncontrolled diabetes Pancytopenia morbid obesity hypertensive urgency, ACUTE HEADACHE - No acute intracranial hemorrhage.Scattered regions of low attenuation within the white matter. Non-specific in nature but frequently secondary to chronic small vessel ischemic disease. CT 12/24 Hyperlipidemia. Carotid arterial disease. Peripheral arterial disease. Peripheral neuropathy. HX Right carotid endarterectomy. HX Left second and third toe amputations. HX Explorative laparotomy with cauterization of his liver after an abdominal remote tobacco abuse Headache. Dizziness. Metabolic encephalopathy. Lactic acidosis. Carotid A stenosis, left ICA 50-69%. Obesity. History of Present Illness History of Present Illness Mr Ford is a 59yo M w/ PMHx CAD, hypertension, diabetes, CVA. RECENT cough, weakness, nausea, palpitations, elevated blood sugars, occasional diarrhea. UNCONTROLLED BP, DIABETES , complaints of "not feeling well," for 2 months. Describes some worsening weakness, dizziness as well, gait disturbance, headache. Seen by neurology and gastroenterology for encephalopathy and transaminits, respectively. Improved with glycemic control. 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 Vitals Vitals Vital Signs Date Time Temp Pulse Resp B/P (MAP) Pulse Ox O2 Delivery O2 Flow Rate FiO2 12/25/19 11:55 97 Room Air 12/25/19 11:00 97.5 61 17 121/64 (83) 97.5 Physical Exam General: Alert, Oriented X3, Cooperative, No acute distress Lungs: Clear Abdomen: Normal bowel sounds, Soft, No masses Extremities: No cyanosis Labs LABS Laboratory Tests Test 12/24/19 14:10 12/24/19 20:38 12/25/19 04:00 12/25/19 07:30 Lactic Acid Level 1.3 mmol/L (0.4-2.0) Hepatitis A IgM Antibody Nonreactive (Nonreactive) Hepatitis B Surface Antigen Nonreactive (Nonreactive) Hepatitis B Core IgM Antibody Nonreactive (Nonreactive) Hepatitis C IgG Antibody Nonreactive (Nonreactive) Glucose (Fingerstick) 313 mg/dL (70-99) 147 mg/dL (70-99) White Blood Count 3.0 x10^3/uL (4.0-11.0) Red Blood Count 3.30 x10^6/uL (4.30-5.70) Hemoglobin 10.3 g/dL (13.0-17.5) Hematocrit 30.5 % (39.0-53.0) Mean Corpuscular Volume 92 fL (79-100) Mean Corpuscular Hemoglobin 31 pg (25-35) Mean Corpuscular Hemoglobin Concent 34 g/dL (31-37) Red Cell Distribution Width 15.1 % (11.5-14.5) Platelet Count 82 x10^3/uL (140-400) Neutrophils (%) (Auto) 63 % (31-73) Lymphocytes (%) (Auto) 29 % (24-48) Monocytes (%) (Auto) 7 % (0-9) Eosinophils (%) (Auto) 1 % (0-3) Basophils (%) (Auto) 0 % (0-3) Neutrophils # (Auto) 1.9 x10^3/uL (1.8-7.7) Lymphocytes # (Auto) 0.9 x10^3/uL (1.0-4.8) Monocytes # (Auto) 0.2 x10^3/uL (0.0-1.1) Eosinophils # (Auto) 0.0 x10^3/uL (0.0-0.7) Basophils # (Auto) 0.0 x10^3/uL (0.0-0.2) Sodium Level 141 mmol/L (136-145) Potassium Level 4.2 mmol/L (3.5-5.1) Chloride Level 108 mmol/L (98-107) Carbon Dioxide Level 26 mmol/L (21-32) Anion Gap 7 (6-14) Blood Urea Nitrogen 9 mg/dL (8-26) Creatinine 0.7 mg/dL (0.7-1.3) Estimated GFR (Cockcroft-Gault) 116.2 BUN/Creatinine Ratio 13 (6-20) Glucose Level 195 mg/dL (70-99) Calcium Level 8.7 mg/dL (8.5-10.1) Total Bilirubin 0.5 mg/dL (0.2-1.0) Aspartate Amino Transf (AST/SGOT) 46 U/L (15-37) Alanine Aminotransferase (ALT/SGPT) 66 U/L (16-63) Alkaline Phosphatase 359 U/L (46-116) Total Protein 6.6 g/dL (6.4-8.2) Albumin 2.5 g/dL (3.4-5.0) Albumin/Globulin Ratio 0.6 (1.0-1.7) Test 12/25/19 11:47 Glucose (Fingerstick) 206 mg/dL (70-99) Assessment and Plan Assessmemt and Plan Problems Medical Problems: (1) Headache Status: Acute (2) Thrombocytopenia Status: Acute Comment Review of Relevant I have reviewed the following items shreyas (where applicable) has been applied. Labs Laboratory Tests Test 12/23/19 23:02 12/23/19 23:28 12/24/19 00:05 12/24/19 00:44 White Blood Count 3.6 x10^3/uL (4.0-11.0) Red Blood Count 3.78 x10^6/uL (4.30-5.70) Hemoglobin 11.8 g/dL (13.0-17.5) Hematocrit 35.6 % (39.0-53.0) Mean Corpuscular Volume 94 fL (79-100) Mean Corpuscular Hemoglobin 31 pg (25-35) Mean Corpuscular Hemoglobin Concent 33 g/dL (31-37) Red Cell Distribution Width 14.9 % (11.5-14.5) Platelet Count 74 x10^3/uL (140-400) Neutrophils (%) (Auto) 68 % (31-73) Lymphocytes (%) (Auto) 23 % (24-48) Monocytes (%) (Auto) 8 % (0-9) Eosinophils (%) (Auto) 1 % (0-3) Basophils (%) (Auto) 0 % (0-3) Neutrophils # (Auto) 2.4 x10^3/uL (1.8-7.7) Lymphocytes # (Auto) 0.8 x10^3/uL (1.0-4.8) Monocytes # (Auto) 0.3 x10^3/uL (0.0-1.1) Eosinophils # (Auto) 0.0 x10^3/uL (0.0-0.7) Basophils # (Auto) 0.0 x10^3/uL (0.0-0.2) Sodium Level 135 mmol/L (136-145) Potassium Level 4.0 mmol/L (3.5-5.1) Chloride Level 100 mmol/L (98-107) Carbon Dioxide Level 20 mmol/L (21-32) Anion Gap 15 (6-14) Blood Urea Nitrogen 15 mg/dL (8-26) Creatinine 1.3 mg/dL (0.7-1.3) Estimated GFR (Cockcroft-Gault) 56.9 BUN/Creatinine Ratio 12 (6-20) Glucose Level 540 mg/dL (70-99) 540 mg/dL (70-99) Lactic Acid Level 5.0 mmol/L (0.4-2.0) Calcium Level 8.7 mg/dL (8.5-10.1) Total Bilirubin 0.7 mg/dL (0.2-1.0) Aspartate Amino Transf (AST/SGOT) 57 U/L (15-37) Alanine Aminotransferase (ALT/SGPT) 79 U/L (16-63) Alkaline Phosphatase 425 U/L (46-116) Total Protein 7.4 g/dL (6.4-8.2) Albumin 2.9 g/dL (3.4-5.0) Albumin/Globulin Ratio 0.6 (1.0-1.7) Procalcitonin 0.31 ng/mL (0.00-0.10) Acetone Level Neg (NEG) Influenza Type A Antigen Negative (NEGATIVE) Influenza Type B Antigen Negative (NEGATIVE) Urine Collection Type Unknown Urine Color Yellow Urine Clarity Clear Urine pH 5.5 Urine Specific Collins >=1.030 Urine Protein Negative mg/dL (NEG-TRACE) Urine Glucose (UA) >=1000 mg/dL (NEG) Urine Ketones (Stick) Negative mg/dL (NEG) Urine Blood Negative (NEG) Urine Nitrite Negative (NEG) Urine Bilirubin Negative (NEG) Urine Urobilinogen Dipstick 1.0 mg/dL (0.2 mg/dL) Urine Leukocyte Esterase Negative (NEG) Urine RBC 0 /HPF (0-2) Urine WBC Rare /HPF (0-4) Urine Squamous Epithelial Cells Occ /LPF Urine Bacteria 0 /HPF (0-FEW) Urine Mucus Slight /LPF Bedside Hematocrit 27 % (37-52) Arterial Blood pH (Temp corrected) 7.34 Arterial Blood pCO2 (Temp correct) 38 mmHg Arterial Blood pO2 (Temp corrected) 164 mmHg Bedside Venous pH 7.34 (7.32-7.42) Bedside Venous pCO2 38 mmHg (41-51) Bedside Venous pO2 164 mmHg (20-40) Bedside Venous HCO3 21 mmol/L (24-28) Bedside Venous Blood Total CO2 22 mmol/L (21-32) Bedside Venous Blood O2 Saturation 99 % Bedside Venous Blood Base Excess -5 mmol/L (0-3) POC Venous Hemoglobin (Calc) 9.2 g/dL (14-18) Bedside FiO2 21 Bedside Sodium 137 mmol/L (135-145) Bedside Potassium 4.0 mmol/L (3.5-5.0) Bedside Ionized Calcium (Kim) 1.11 mmol/L (1.13-1.32) Test 12/24/19 01:34 12/24/19 02:44 12/24/19 03:47 12/24/19 04:49 Glucose (Fingerstick) 430 mg/dL (70-99) 317 mg/dL (70-99) 218 mg/dL (70-99) 171 mg/dL (70-99) Test 12/24/19 07:16 12/24/19 14:10 12/24/19 20:38 12/25/19 04:00 Glucose (Fingerstick) 91 mg/dL (70-99) 313 mg/dL (70-99) Lactic Acid Level 1.3 mmol/L (0.4-2.0) Hepatitis A IgM Antibody Nonreactive (Nonreactive) Hepatitis B Surface Antigen Nonreactive (Nonreactive) Hepatitis B Core IgM Antibody Nonreactive (Nonreactive) Hepatitis C IgG Antibody Nonreactive (Nonreactive) White Blood Count 3.0 x10^3/uL (4.0-11.0) Red Blood Count 3.30 x10^6/uL (4.30-5.70) Hemoglobin 10.3 g/dL (13.0-17.5) Hematocrit 30.5 % (39.0-53.0) Mean Corpuscular Volume 92 fL (79-100) Mean Corpuscular Hemoglobin 31 pg (25-35) Mean Corpuscular Hemoglobin Concent 34 g/dL (31-37) Red Cell Distribution Width 15.1 % (11.5-14.5) Platelet Count 82 x10^3/uL (140-400) Neutrophils (%) (Auto) 63 % (31-73) Lymphocytes (%) (Auto) 29 % (24-48) Monocytes (%) (Auto) 7 % (0-9) Eosinophils (%) (Auto) 1 % (0-3) Basophils (%) (Auto) 0 % (0-3) Neutrophils # (Auto) 1.9 x10^3/uL (1.8-7.7) Lymphocytes # (Auto) 0.9 x10^3/uL (1.0-4.8) Monocytes # (Auto) 0.2 x10^3/uL (0.0-1.1) Eosinophils # (Auto) 0.0 x10^3/uL (0.0-0.7) Basophils # (Auto) 0.0 x10^3/uL (0.0-0.2) Sodium Level 141 mmol/L (136-145) Potassium Level 4.2 mmol/L (3.5-5.1) Chloride Level 108 mmol/L (98-107) Carbon Dioxide Level 26 mmol/L (21-32) Anion Gap 7 (6-14) Blood Urea Nitrogen 9 mg/dL (8-26) Creatinine 0.7 mg/dL (0.7-1.3) Estimated GFR (Cockcroft-Gault) 116.2 BUN/Creatinine Ratio 13 (6-20) Glucose Level 195 mg/dL (70-99) Calcium Level 8.7 mg/dL (8.5-10.1) Total Bilirubin 0.5 mg/dL (0.2-1.0) Aspartate Amino Transf (AST/SGOT) 46 U/L (15-37) Alanine Aminotransferase (ALT/SGPT) 66 U/L (16-63) Alkaline Phosphatase 359 U/L (46-116) Total Protein 6.6 g/dL (6.4-8.2) Albumin 2.5 g/dL (3.4-5.0) Albumin/Globulin Ratio 0.6 (1.0-1.7) Test 12/25/19 07:30 12/25/19 11:47 Glucose (Fingerstick) 147 mg/dL (70-99) 206 mg/dL (70-99) Laboratory Tests Test 12/24/19 14:10 12/24/19 20:38 12/25/19 04:00 12/25/19 07:30 Lactic Acid Level 1.3 mmol/L (0.4-2.0) Hepatitis A IgM Antibody Nonreactive (Nonreactive) Hepatitis B Surface Antigen Nonreactive (Nonreactive) Hepatitis B Core IgM Antibody Nonreactive (Nonreactive) Hepatitis C IgG Antibody Nonreactive (Nonreactive) Glucose (Fingerstick) 313 mg/dL (70-99) 147 mg/dL (70-99) White Blood Count 3.0 x10^3/uL (4.0-11.0) Red Blood Count 3.30 x10^6/uL (4.30-5.70) Hemoglobin 10.3 g/dL (13.0-17.5) Hematocrit 30.5 % (39.0-53.0) Mean Corpuscular Volume 92 fL (79-100) Mean Corpuscular Hemoglobin 31 pg (25-35) Mean Corpuscular Hemoglobin Concent 34 g/dL (31-37) Red Cell Distribution Width 15.1 % (11.5-14.5) Platelet Count 82 x10^3/uL (140-400) Neutrophils (%) (Auto) 63 % (31-73) Lymphocytes (%) (Auto) 29 % (24-48) Monocytes (%) (Auto) 7 % (0-9) Eosinophils (%) (Auto) 1 % (0-3) Basophils (%) (Auto) 0 % (0-3) Neutrophils # (Auto) 1.9 x10^3/uL (1.8-7.7) Lymphocytes # (Auto) 0.9 x10^3/uL (1.0-4.8) Monocytes # (Auto) 0.2 x10^3/uL (0.0-1.1) Eosinophils # (Auto) 0.0 x10^3/uL (0.0-0.7) Basophils # (Auto) 0.0 x10^3/uL (0.0-0.2) Sodium Level 141 mmol/L (136-145) Potassium Level 4.2 mmol/L (3.5-5.1) Chloride Level 108 mmol/L (98-107) Carbon Dioxide Level 26 mmol/L (21-32) Anion Gap 7 (6-14) Blood Urea Nitrogen 9 mg/dL (8-26) Creatinine 0.7 mg/dL (0.7-1.3) Estimated GFR (Cockcroft-Gault) 116.2 BUN/Creatinine Ratio 13 (6-20) Glucose Level 195 mg/dL (70-99) Calcium Level 8.7 mg/dL (8.5-10.1) Total Bilirubin 0.5 mg/dL (0.2-1.0) Aspartate Amino Transf (AST/SGOT) 46 U/L (15-37) Alanine Aminotransferase (ALT/SGPT) 66 U/L (16-63) Alkaline Phosphatase 359 U/L (46-116) Total Protein 6.6 g/dL (6.4-8.2) Albumin 2.5 g/dL (3.4-5.0) Albumin/Globulin Ratio 0.6 (1.0-1.7) Test 12/25/19 11:47 Glucose (Fingerstick) 206 mg/dL (70-99) Microbiology 12/24/19 Blood Culture - Preliminary, Resulted NO GROWTH AFTER 1 DAY Medications Current Medications Potassium Chloride (Klor-Con) 40 meq 1X ONCE PO ; Start 12/24/19 at 01:00; Stop 12/24/19 at 01:01; Status DC Insulin Human Regular 100 unit/ Sodium Chloride 101 ml @ 0 mls/hr CONT PRN IV SEE I/O RECORD; Start 12/24/19 at 00:45 Dextrose (Dextrose 50%-Water Syringe) 12.5 gm PRN Q15MIN PRN IV LOW BLOOD SUGAR; Start 12/24/19 at 00:45 Dextrose (Iv Dextrose 5%) 250 ml PRN Q15MIN PRN IV LOW BLOOD SUGAR; Start 12/24/19 at 00:45 Sodium Chloride 1,000 ml @ 1,000 mls/hr Q1H IV Last administered on 12/24/19at 00:53; Start 12/24/19 at 01:00; Stop 12/24/19 at 01:59; Status DC Insulin Human Regular (HumuLIN R VIAL) 10 unit 1X ONCE IV Last administered on 12/24/19at 00:55; Start 12/24/19 at 01:00; Stop 12/24/19 at 01:01; Status DC Insulin Human Regular 100 ml @ 0 mls/hr 1X ONCE IV Last administered on 12/24/19at 01:48; Start 12/24/19 at 01:00; Stop 12/24/19 at 01:01; Status DC Ketorolac Tromethamine (Toradol 30mg Vial) 30 mg 1X ONCE IVP Last administered on 12/24/19at 01:31; Start 12/24/19 at 01:30; Stop 12/24/19 at 01:31; Status DC Sodium Chloride 1,000 ml @ 1,000 mls/hr 1X ONCE IV Last administered on 12/24/19at 01:31; Start 12/24/19 at 02:00; Stop 12/24/19 at 02:59; Status DC Sodium Chloride 1,000 ml @ 1,000 mls/hr 1X ONCE IV ; Start 12/24/19 at 02:00; Stop 12/24/19 at 02:59; Status DC Insulin Glargine (Lantus Syringe) 10 unit 1X ONCE SQ Last administered on 12/24/19at 04:30; Start 12/24/19 at 04:30; Stop 12/24/19 at 04:31; Status DC Hydralazine HCl (Apresoline Inj) 10 mg PRN Q4HRS PRN IVP ELEVATED BP, SEE COMMENTS Last administered on 12/24/19at 09:23; Start 12/24/19 at 09:15 Sodium Chloride (Normal Saline Flush) 3 ml QSHIFT PRN IV AFTER MEDS AND BLOOD DRAWS; Start 12/24/19 at 11:00 Multivitamins 10 ml/Thiamine HCl 100 mg/Folic Acid 1 mg/Sodium Chloride 1,011.2 ml @ 125 mls/ hr 1X ONCE IV Last administered on 12/24/19at 12:37; Start 12/24/19 at 11:00; Stop 12/24/19 at 19:05; Status DC Ondansetron HCl (Zofran) 4 mg PRN Q4HRS PRN IV NAUSEA/VOMITING; Start 12/24/19 at 11:00 Acetaminophen (Tylenol) 650 mg PRN Q4HRS PRN PO TEMP OVER 100.4F OR MILD PAIN; Start 12/24/19 at 11:00 Al Hydroxide/Mg Hydroxide (Mylanta Plus Xs) 30 ml PRN DAILY PRN PO HEARTBURN / GAS; Start 12/24/19 at 11:00 Clonidine HCl (Catapres) 0.1 mg PRN Q6HRS PRN PO SBP>160 OR DBP>90; Start 12/24/19 at 11:00 Docusate Sodium (Colace) 100 mg PRN BID PRN PO CONSTIPATION; Start 12/24/19 at 11:00 Albuterol/ Ipratropium (Duoneb) 3 ml Q4HRS NEB Last administered on 12/25/19at 11:55; Start 12/24/19 at 11:00 Guaifenesin (Robitussin) 200 mg PRN Q4HRS PRN PO COUGH; Start 12/24/19 at 11:00 Enoxaparin Sodium (Lovenox 40mg Syringe) 40 mg Q24H SQ Last administered on 12/25/19at 08:54; Start 12/24/19 at 11:00 Albuterol Sulfate (Ventolin Neb Soln) 2.5 mg PRN Q4HRS PRN NEB SHORTNESS OF BREATH; Start 12/24/19 at 11:00 Aspirin (Ronald Aspirin) 325 mg DAILY PO Last administered on 12/25/19at 08:53; Start 12/24/19 at 13:00 Atorvastatin Calcium (Lipitor) 20 mg HS PO Last administered on 12/24/19at 23:00; Start 12/24/19 at 21:00 Clopidogrel Bisulfate (Plavix) 75 mg DAILY PO Last administered on 12/25/19at 08:52; Start 12/24/19 at 13:00 Gabapentin (Neurontin) 300 mg BID PO Last administered on 12/25/19 08:54; Start 12/24/19 at 14:00 Lisinopril (Prinivil) 5 mg DAILY PO Last administered on 12/25/19 08:53; Start 12/24/19 at 14:00 Losartan Potassium (Cozaar) 25 mg DAILY PO Last administered on 12/25/19at 08:54; Start 12/24/19 at 14:00 Metoprolol Tartrate (Lopressor) 25 mg BID PO Last administered on 12/25/19 08:54; Start 12/24/19 at 13:00 Tamsulosin HCl (Flomax) 0.4 mg DAILY PO Last administered on 12/25/19at 08:53; Start 12/24/19 at 14:00 Fluticasone Propionate (Flonase) 2 spray DAILY NS ; Start 12/25/19 at 09:00 Glimepiride (Amaryl) 4 mg DAILY PO Last administered on 2/17/20at 08:53; Start 12/24/19 at 14:00 Insulin Glargine (Lantus Syringe) 8 unit QHS SQ Last administered on 12/24/19at 23:05; Start 12/24/19 at 21:00 Lactobacillus Rhamnosus (Culturelle) 1 cap DAILY PO Last administered on 12/25/19at 08:52; Start 12/24/19 at 14:00 Multivitamins (Thera M Plus) 1 tab DAILY PO Last administered on 12/25/19at 08:53; Start 12/25/19 at 09:00 Folic Acid (Folic Acid) 1 mg DAILY PO Last administered on 12/25/19at 08:53; Start 12/25/19 at 09:00 Thiamine Mononitrate (Vitamin B-1) 100 mg DAILY PO Last administered on 12/25/19at 08:54; Start 12/25/19 at 09:00 Lorazepam (Ativan) 4 mg PRN Q1HR PRN PO For CIWA 8-14; Start 12/24/19 at 11:15 Lorazepam (Ativan) 8 mg PRN Q1HR PRN PO For CIWA 15 or greater; Start 12/24/19 at 11:15 Lorazepam (Ativan Inj) 2 mg PRN Q1HR PRN IV For CIWA 8-14; Start 12/24/19 at 11:15 Lorazepam (Ativan Inj) 4 mg PRN Q1HR PRN IV For CIWA 15 or greater; Start 12/24/19 at 11:15 Clonidine HCl (Catapres) 0.1 mg PRN Q1HR PRN PO SBP > 180 or DBP > 100, MRX3; Start 12/24/19 at 11:15 Lorazepam (Ativan Inj) 2 mg PRN Q15MIN PRN IV SEE COMMENTS; Start 12/24/19 at 11:15; Status UNV Lorazepam (Ativan Inj) 4 mg PRN Q15MIN PRN IV SEE COMMENTS; Start 12/24/19 at 11:15; Status UNV Diphenhydramine HCl (Benadryl) 25 mg PRN QHS PRN PO INSOMNIA Last administered on 12/24/19at 22:59; Start 12/24/19 at 21:15 Active Scripts Active Oxycodone-Acetaminophen 5-325 (Oxycodone Hcl/Acetaminophen) 1 Each Tablet 1 Tab PO PRN Q4HRS PRN Augmentin 875-125 Tablet (Amoxicillin/Potassium Clav) 1 Each Tablet 1 Tab PO BID Carbamide Peroxide 15 Ml Drops 15 Ml OT BID 4 Days Flonase Allergy Relief (Fluticasone Propionate) 9.9 Ml [place].susp 2 Sprays NS DAILY Proair Hfa Inhaler (Albuterol Sulfate) 8.5 Gm Hfa.aer.ad 1 Puff INH Q4HRS PRN [Metoprolol Tartrate] 25 MG Tablet 25 Mg PO BID Prinivil (Lisinopril) 5 Mg Tablet 5 Mg PO DAILY Plavix (Clopidogrel Bisulfate) 75 Mg Tablet 75 Mg PO DAILYWBKFT Aspirin 325 Mg Tablet 325 Mg PO DAILY Lipitor (Atorvastatin Calcium) 20 Mg Tablet 20 Mg PO DAILY 30 Days Reported Hydrocodone-Apap 5-325 (Hydrocodone Bit/Acetaminophen) 1 Tab Tablet 1 Tab PO PRN Q6HRS PRN Lantus Solostar (Insulin Glargine,Hum.rec.anlog) 100 Unit/1 Ml Insuln.pen 8 Unit SQ QHS Augmentin 875-125 Tablet (Amoxicillin/Potassium Clav) 1 Each Tablet 1 Tab PO BID 14 Days Culturelle (Lactobacillus Rhamnosus Gg) 1 Each Capsule 1 Each PO DAILY 14 Days Flomax (Tamsulosin Hcl) 0.4 Mg Cap.er.24h 0.4 Mg PO DAILY Cyclobenzaprine Hcl 10 Mg Tablet 10 Mg PO TID Atorvastatin Calcium 20 Mg Tablet 20 Mg PO HS Gabapentin 300 Mg Capsule 300 Mg PO BID Meloxicam 15 Mg Tablet 15 Mg PO DAILY Clopidogrel (Clopidogrel Bisulfate) 75 Mg Tablet 75 Mg PO DAILY Metoprolol Tartrate 25 Mg Tablet 25 Mg PO BID Omeprazole 40 Mg Capsule.dr 40 Mg PO DAILY05 Losartan Potassium 25 Mg Tablet 25 Mg PO DAILY Hydroxyzine Hcl 25 Mg Tablet 25 Mg PO TID PRN PRN Hydroxyzine Hcl 25 Mg Tablet 25 Mg PO BID Cyclobenzaprine Hcl 10 Mg Tablet 10 Mg PO BID Omeprazole 40 Mg Capsule.dr 40 Mg PO DAILY Atorvastatin Calcium 20 Mg Tablet 20 Mg PO HS Metoprolol Tartrate 25 Mg Tablet 25 Mg PO DAILY Clopidogrel (Clopidogrel Bisulfate) 75 Mg Tablet 75 Mg PO DAILY Losartan Potassium (Losartan Potassium) 25 Mg Tablet 25 Mg PO DAILY Docusate Sodium 100 Mg Capsule 1 Cap PO DAILY Glimepiride 4 Mg Tablet 4 Mg PO DAILY Metformin Hcl 500 Mg Tablet 500 Mg PO BIDWMEALS do not take for 48 hours Vitals/I & O Vital Sign - Last 24 Hours 12/24/19 12/24/19 12/24/19 12/24/19 15:59 17:17 19:00 20:00 Temp 98.9 98.6 98.9 98.6 Pulse 65 67 Resp 18 20 B/P (MAP) 129/45 (73) 130/42 (71) Pulse Ox 95 95 O2 Delivery Nasal Cannula Room Air Room Air Room Air 12/24/19 12/24/19 12/24/19 12/25/19 20:25 23:03 23:06 03:19 Temp 98.4 98.4 98.4 98.4 Pulse 68 67 61 Resp 20 20 B/P (MAP) 122/47 (72) 130/42 134/56 (82) Pulse Ox 95 95 94 O2 Delivery Room Air Room Air Room Air 12/25/19 12/25/19 12/25/19 12/25/19 07:00 08:04 08:53 08:54 Temp 97.8 97.8 Pulse 58 58 58 Resp 18 B/P (MAP) 154/55 (88) 154/55 154/55 Pulse Ox 97 95 O2 Delivery Room Air Room Air 12/25/19 12/25/19 12/25/19 08:54 11:00 11:55 Temp 97.5 97.5 Pulse 58 61 Resp 17 B/P (MAP) 154/55 121/64 (83) Pulse Ox 97 97 O2 Delivery Room Air Room Air Intake and Output 12/24/19 12/24/19 12/25/19 15:00 23:00 07:00 Output Total 300 ml 500 ml Balance -300 ml -500 ml BRANDON MONSALVE MD Dec 25, 2019 14:09
[2019-12-25] MEDS ORDERED: DEXTROSE 50% 25 GM / 50ML DISP.SYRIN. IV PRN (14:15)
[2019-12-25] MEDS: INSULIN LISPRO 300 UNITS/3 ML VIAL. SQ SCH ×2 (14:30→16:30)
[2019-12-25 15:00] VITALS: BP 112/55
--- NOTE | 2019-12-25 15:01 | PDOC ---
Subjective: Subjective: Feels better, wonders when he can go home. Objective: Vital Signs: Vital Signs Date Time Temp Pulse Resp B/P (MAP) Pulse Ox O2 Delivery O2 Flow Rate FiO2 12/25/19 11:55 97 Room Air 12/25/19 11:00 97.5 61 17 121/64 (83) 97.5 Labs: Laboratory Tests Test 12/24/19 20:38 12/25/19 04:00 12/25/19 07:30 12/25/19 11:47 Glucose (Fingerstick) 313 mg/dL 147 mg/dL 206 mg/dL White Blood Count 3.0 x10^3/uL Red Blood Count 3.30 x10^6/uL Hemoglobin 10.3 g/dL Hematocrit 30.5 % Mean Corpuscular Volume 92 fL Mean Corpuscular Hemoglobin 31 pg Mean Corpuscular Hemoglobin Concent 34 g/dL Red Cell Distribution Width 15.1 % Platelet Count 82 x10^3/uL Neutrophils (%) (Auto) 63 % Lymphocytes (%) (Auto) 29 % Monocytes (%) (Auto) 7 % Eosinophils (%) (Auto) 1 % Basophils (%) (Auto) 0 % Neutrophils # (Auto) 1.9 x10^3/uL Lymphocytes # (Auto) 0.9 x10^3/uL Monocytes # (Auto) 0.2 x10^3/uL Eosinophils # (Auto) 0.0 x10^3/uL Basophils # (Auto) 0.0 x10^3/uL Sodium Level 141 mmol/L Potassium Level 4.2 mmol/L Chloride Level 108 mmol/L Carbon Dioxide Level 26 mmol/L Anion Gap 7 Blood Urea Nitrogen 9 mg/dL Creatinine 0.7 mg/dL Estimated GFR (Cockcroft-Gault) 116.2 BUN/Creatinine Ratio 13 Glucose Level 195 mg/dL Calcium Level 8.7 mg/dL Total Bilirubin 0.5 mg/dL Aspartate Amino Transf (AST/SGOT) 46 U/L Alanine Aminotransferase (ALT/SGPT) 66 U/L Alkaline Phosphatase 359 U/L Total Protein 6.6 g/dL Albumin 2.5 g/dL Albumin/Globulin Ratio 0.6 BLOOD CULTURE Preliminary NO GROWTH AFTER 1 DAY Imaging: Abd US Impression: 1. Hepatosplenomegaly with the spleen measuring up to 19 cm in length. The main portal vein remains patent and with hepatopedal flow. Undulating liver margins and increased parenchymal echogenicity raising the question of underlying cirrhosis. 2. Unremarkable gallbladder and kidneys. The pancreas is not well evaluated but what is seen is unremarkable. PE: GEN: NAD, up in chair LUNGS: CTAB HEART: RRR ABD: round, non-tender NEURO/PSYCH: A & O 3 A/P: DM Elevated LFTs - better, viral Hepatitis neg, AMA pending, ?hepatosplenomegaly on US Pancytopenia -- ?alcohol/NAFLD Outpt scopes for CRC screen and h/o GERD. Hemodynamically unstable?: No Is patient in severe pain?: No Is NPO status required?: No UBALDO MCKENZIE Dec 25, 2019 15:01
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
--- NOTE | 2019-12-25 18:20 | NUR ---
Discharge Note: SUSAN DEMARCO [address] Discharge instructions and discharge home medications reviewed with Patient and a copy given. All questions have been answered and understanding verbalized. The following instructions and handouts were given: hyperglycemia Discontinued lines and drains: Peripheral IV intact. Patient discharged to Home or Self Care with Family Member via Ambulated
== END 2019-12-25 18:22 | disposition home or self-care (01) | DRG 70 ==
LOC: ER 22:50 → ED HOLD 12-24 01:21 → 5 SOUTH 12-24 11:35
PROVIDERS: ADMIT Family Medicine; ATTEND Family Medicine
DX: G93.41 Metabolic encephalopathy (principal); E11.00 Type 2 diabetes mellitus with hyperosmolarity without nonketotic hyperglycemic-hyperosmolar coma (NKHHC); E87.2 Acidosis; D61.818 Other pancytopenia; E11.40 Type 2 diabetes mellitus with diabetic neuropathy, unspecified; G47.33 Obstructive sleep apnea (adult) (pediatric); R16.2 Hepatomegaly with splenomegaly, not elsewhere classified; E66.01 Morbid (severe) obesity due to excess calories; I16.0 Hypertensive urgency; I45.10 Unspecified right bundle-branch block; I10 Essential (primary) hypertension; R26.9 Unspecified abnormalities of gait and mobility; R74.0 Nonspecific elevation of levels of transaminase and lactic acid dehydrogenase [LDH]; I25.10 Atherosclerotic heart disease of native coronary artery without angina pectoris; R19.7 Diarrhea, unspecified; K21.9 Gastro-esophageal reflux disease without esophagitis; E11.51 Type 2 diabetes mellitus with diabetic peripheral angiopathy without gangrene; E78.5 Hyperlipidemia, unspecified; Z86.73 Personal history of transient ischemic attack (TIA), and cerebral infarction without residual deficits; Q66.89 Other specified congenital deformities of feet; Z87.891 Personal history of nicotine dependence; Z82.49 Family history of ischemic heart disease and other diseases of the circulatory system; Z89.422 Acquired absence of other left toe(s); Z80.0 Family history of malignant neoplasm of digestive organs; Z79.899 Other long term (current) drug therapy; Z79.4 Long term (current) use of insulin; Z79.84 Long term (current) use of oral hypoglycemic drugs; Z88.5 Allergy status to narcotic agent; Z91.09 Other allergy status, other than to drugs and biological substances; Z91.14 Patient's other noncompliance with medication regimen; Z79.82 Long term (current) use of aspirin; Z79.02 Long term (current) use of antithrombotics/antiplatelets; Z95.1 Presence of aortocoronary bypass graft
CPT/HCPCS: 36415; 70450; 71045; 76700; 80053; 81001; 82010; 82803; 82962; 83520; 83605; 84145; 85025; 86705; 86709; 86803; 87040; 87340; 87804; 93005; 93880; 94640; 94760; 96365; 96366; 96372; 96375; 99291; J0360; J1650; J1815; J1885; J7030; J7620; Q0163; 83516; 97110; 97116; G0378

== ENCOUNTER 2020-01-12 11:57 | Emergency (ER) | payer BC ==
[~2020-01-12] VITALS: Ht 172.7 cm; Wt 90.0 kg
[2020-01-12 13:34] LABS: BASO % 1 % (0-3); EOS % 1 % (0-3); HEMATOCRIT 32.1 % (39.0-53.0); HEMOGLOBIN 10.7 g/dL (13.0-17.5); LYMPH # 0.9 x10^3/uL (1.0-4.8); LYMPH % 23 % (24-48); MEAN CORPUSCULAR HEMOGLOBIN 31 pg (25-35); MEAN CORPUSCULAR HGB CONC 33 g/dL (31-37); MEAN CORPUSCULAR VOLUME 93 fL (79-100); MONO # 0.2 x10^3/uL (0.0-1.1); MONO % 5 % (0-9); NEUT # 2.7 x10^3/uL (1.8-7.7); NEUT % 70 % (31-73); PLATELET COUNT 105 x10^3/uL (140-400); RED BLOOD COUNT 3.46 x10^6/uL (4.30-5.70); RED CELL DISTRIBUTION WIDTH 15.7 % (11.5-14.5); WHITE BLOOD COUNT 3.9 x10^3/uL (4.0-11.0)
--- NOTE | 2020-01-12 13:38 | PHYS DOC ---
Past Medical History Past Medical History: CAD, CVA, Diabetes-Type II, Hypertension, TIA Additional Past Medical Histor: HEART MURMUR,club foot,CHRIS,R BBB,MULT MINI STROKES,ENDARECTOMY Past Surgical History: Other Additional Past Surgical Histo: CARDIAC CATH WITH SINGLE VESSEL ANGIOPLASTY Smoking Status: Former Smoker Alcohol Use: Heavy Drug Use: None Adult General Chief Complaint Chief Complaint: SHORTNESS OF BREATH HPI HPI Patient is a 59 year old male with history of hypertension, dyslipidemia, coronary artery disease, heart murmur, clubfoot, right bundle branch block, TIA, left endarterectomy who presents with complaint of shortness of breath. Patient complaining of intermittent episodes of exertional and supine position shortness of breath for the last 5 or 6 days with complaining of generalized weakness and increasing lower extremity edema. Patient complaining of nonproductive cough and nasal congestion without sore throat, earache, fever and chills, vomiting and diarrhea, urinary symptoms, diarrhea and constipation. Review of Systems Review of Systems Constitutional: Denies fever or chills [] Eyes: Denies change in visual acuity, redness, or eye pain [] HENT: Denies nasal congestion or sore throat [] Respiratory: Reports cough and shortness of Cardiovascular: No additional information not addressed in HPI [] GI: Denies abdominal pain, nausea, vomiting, bloody stools or diarrhea [] : Denies dysuria or hematuria [] Musculoskeletal: Denies back pain or joint pain [] Integument: Denies rash or skin lesions [] Neurologic: Denies headache, focal weakness or sensory changes [] Endocrine: Denies polyuria or polydipsia [] All other systems were reviewed and found to be within normal limits, except as documented in this note. Current Medications Current Medications Current Medications Medications (Trade) Dose Ordered Sig/John Start Time Stop Time Status Last Admin Dose Admin Furosemide (Lasix) 40 mg 1X ONCE 01/12/20 16:15 01/12/20 16:16 DC Info (CONTRAST GIVEN -- Rx MONITORING) 1 each PRN DAILY PRN 01/12/20 15:15 01/12/20 16:37 DC Iohexol (Omnipaque 350 Mg/ml) 100 ml 1X ONCE 01/12/20 15:15 01/12/20 15:16 DC 01/12/20 15:40 100 ML Allergies Allergies Allergies Coded Allergies Type Severity Reaction Last Updated Verified morphine Allergy Intermediate N/V 03/02/19 Yes I S O L A T I O N *CONTACT* Allergy Unknown 03/13/19 Yes Physical Exam Physical Exam Constitutional: Well developed, well nourished, mild distress, non-toxic appearance. [] HENT: Normocephalic, atraumatic, bilateral external ears normal, oropharynx moist, no oral exudates, nose normal. [] Eyes: PERRLA, EOMI, conjunctiva normal, no discharge. [] Neck: Normal range of motion, no tenderness, supple, no stridor. [] Cardiovascular:Heart rate regular rhythm, heart murmur [] Lungs & Thorax: Bilateral breath sounds clear to auscultation [] Abdomen: Bowel sounds normal, soft, no tenderness, no masses, no pulsatile masses. [] Skin: Warm, dry, no erythema, no rash. [] Back: No tenderness, no CVA tenderness. [] Extremities: No tenderness, no cyanosis, no clubbing, ROM intact, bilateral lower extremity 2+ edema Neurologic: Alert and oriented X 3, normal motor function, normal sensory function, no focal deficits noted. [] Psychologic: Affect normal, judgement normal, mood normal. [] Current Patient Data Vital Signs Vital Signs Date Time Temp Pulse Resp B/P (MAP) Pulse Ox O2 Delivery O2 Flow Rate FiO2 01/12/20 16:15 58 22 178/71 (106) 95 Room Air 01/12/20 12:15 98.3 98.3 Lab Values Laboratory Tests Test 01/12/20 12:27 01/12/20 13:06 01/12/20 13:50 01/12/20 15:13 White Blood Count 3.9 x10^3/uL (4.0-11.0) L Red Blood Count 3.46 x10^6/uL (4.30-5.70) L Hemoglobin 10.7 g/dL (13.0-17.5) L Hematocrit 32.1 % (39.0-53.0) L Mean Corpuscular Volume 93 fL (79-100) Mean Corpuscular Hemoglobin 31 pg (25-35) Mean Corpuscular Hemoglobin Concent 33 g/dL (31-37) Red Cell Distribution Width 15.7 % (11.5-14.5) H Platelet Count 105 x10^3/uL (140-400) L Neutrophils (%) (Auto) 70 % (31-73) Lymphocytes (%) (Auto) 23 % (24-48) L Monocytes (%) (Auto) 5 % (0-9) Eosinophils (%) (Auto) 1 % (0-3) Basophils (%) (Auto) 1 % (0-3) Neutrophils # (Auto) 2.7 x10^3/uL (1.8-7.7) Lymphocytes # (Auto) 0.9 x10^3/uL (1.0-4.8) L Monocytes # (Auto) 0.2 x10^3/uL (0.0-1.1) Eosinophils # (Auto) 0.0 x10^3/uL (0.0-0.7) Basophils # (Auto) 0.0 x10^3/uL (0.0-0.2) Prothrombin Time 13.9 SEC (11.7-14.0) Prothrombin Time INR 1.1 (0.8-1.1) Activated Partial Thromboplast Time 33 SEC (24-38) D-Dimer (Leigha) 1.57 ug/mlFEU (0.00-0.50) H Sodium Level 139 mmol/L (136-145) Potassium Level 4.3 mmol/L (3.5-5.1) Chloride Level 102 mmol/L (98-107) Carbon Dioxide Level 27 mmol/L (21-32) Anion Gap 10 (6-14) Blood Urea Nitrogen 13 mg/dL (8-26) Creatinine 0.8 mg/dL (0.7-1.3) Estimated GFR (Cockcroft-Gault) 99.6 BUN/Creatinine Ratio 16 (6-20) Glucose Level 332 mg/dL (70-99) H Lactic Acid Level 1.3 mmol/L (0.4-2.0) Calcium Level 9.0 mg/dL (8.5-10.1) Magnesium Level 1.8 mg/dL (1.8-2.4) Total Bilirubin 0.8 mg/dL (0.2-1.0) Aspartate Amino Transferase (AST) 31 U/L (15-37) Alanine Aminotransferase (ALT) 52 U/L (16-63) Alkaline Phosphatase 360 U/L (46-116) H Creatine Kinase 75 U/L (39-308) Troponin I Quantitative < 0.017 ng/mL (0.000-0.055) TZ-Mad-T-Type Natriuretic Peptide 831 pg/mL (0-124) H Total Protein 7.6 g/dL (6.4-8.2) Albumin 3.0 g/dL (3.4-5.0) L Albumin/Globulin Ratio 0.7 (1.0-1.7) L Glucose (Fingerstick) 253 mg/dL (70-99) H Urine Collection Type Void Urine Color Yellow Urine Clarity Clear Urine pH 6.0 Urine Specific [place] 1.025 Urine Protein Negative mg/dL (NEG-TRACE) Urine Glucose (UA) >=1000 mg/dL (NEG) Urine Ketones (Stick) Negative mg/dL (NEG) Urine Blood Negative (NEG) Urine Nitrite Negative (NEG) Urine Bilirubin Negative (NEG) Urine Urobilinogen Dipstick 1.0 mg/dL (0.2 mg/dL) Urine Leukocyte Esterase Negative (NEG) Urine RBC Occ /HPF (0-2) Urine WBC 0 /HPF (0-4) Urine Squamous Epithelial Cells Occ /LPF Urine Bacteria 0 /HPF (0-FEW) Influenza Type A Antigen Negative (NEGATIVE) Influenza Type B Antigen Negative (NEGATIVE) Laboratory Tests 01/12/20 12:27 Laboratory Tests 01/12/20 12:27 EKG EKG EKG interpreted by me. EKG at 1217 showed sinus bradycardia at rate of 59, abnormal right superior axis deviation, left anterior fascicular block, right bundle branch block, bifascicular block, poor R wave progression in anteroseptal leads with Q waves in V1 and V2, poor R wave progression inferior leads, no acute ST and T wave elevation. Radiology/Procedures Radiology/Procedures [facility] [address] [place], [place] [id number] IMAGING REPORT Signed PATIENT: SUSAN FREED II AACCOUNT: [id number] : 1960 LOCATION: ER AGE: 59 SEX: M EXAM STATUS: REG ER ORD. PHYSICIAN: YAN LANDIN MD REASON: Shortness of breath and elevation of d-dimer PROCEDURE: CT ANGIOGRAPHY CHEST CT ANGIOGRAPHY CHEST Indication: Shortness of breath, elevation of d-dimer . Technique: After intravenous contrast administration, CT imaging was performed of the chest. MIP reconstructions were obtained. Exposure: One or more of the following individualized dose reduction techniques were utilized for this examination: 1. Automated exposure control 2. Adjustment of the mA and/or kV according to patient size 3. Use of iterative reconstruction technique. Comparison: None FINDINGS: No evidence of pulmonary embolism. Aorta is mildly calcified. Irregularity of the wall of the ascending aorta, likely due to pulsatility artifact. Ascending aorta measures 3.8 cm. No gross aortic aneurysm. No evidence of aortic dissection. Proximal great vessels are patent. Visualized thyroid unremarkable. Mild gynecomastia. No evidence of pathologic lymph node enlargement. Small calcified hilar and mediastinal lymph nodes are noted. Coronary artery calcifications are seen. No significant pericardial effusion. No left pleural effusion. Small right pleural effusion. Lungs appear clear without evidence of consolidation or infiltrate. No dominant pulmonary mass. Dense calcified nodule in the left lung compatible with a granuloma. Mild infiltrate and/or atelectasis in the right lower lobe posteriorly. Trachea and mainstem bronchi are patent. No evidence of pneumothorax. Mild degenerative changes of the spine. Mild anterior wedging of approximately T5 and T6 vertebral bodies. No definite acute fracture is seen. Scans the upper abdomen are limited by technique. The visualized spleen is enlarged measuring at least 14 cm. There may also be hepatomegaly. IMPRESSION: 1. No evidence of pulmonary embolism. 2. Mild infiltrate and/or atelectasis in the right lower lobe. Small adjacent right pleural effusion. 3. Mild compression deformities of about T5 and T6, most likely due to mild chronic fractures, unless focal tenderness or clinical history suggests acute nature 4. Mild splenomegaly and possible hepatomegaly, partially seen. Electronically signed by: Venancio Ayon MD (01/12/2020 4:03 PM) [id number] DICTATED and SIGNED BY: VENANCIO AYON MD DATE: 01/12/20 160 Course & Med Decision Making Course & Med Decision Making Pertinent Labs and Imaging studies reviewed. (See chart for details) Evaluation patient is a 59-year-old male patient with history of CHF and complaining of shortness of breath and cough and lower extremity edema. Patient stated he did not take his Lasix for at least couple weeks. Patient had elevation of BNP and d-dimer and CT angio chest did not show pulmonary edema but showed signs of CHF. Patient treated with Lasix and felt better. Patient did not have sign of infection. Prescription for Lasix and potassium was given and patient was advised to follow-up with his primary care physician. I've spoken with the patient and/or caregivers. I've explained the patient's condition, diagnosis and treatment plan based on information available to me at this time. I've answered the patient's and/or caregivers questions and addressed any concerns. The patient and/or caregivers have a good understanding the patient's diagnosis, condition and treatment plan as can be expected at this point. Vital signs have been stabilized. The patient's condition is stable for discharge from the emergency department. The patient will pursue further outpatient evaluation with her primary care provider or other designated consulting physician as outlined in the discharge instructions. Patient and/or caregivers are agreeable to this plan of care and follow-up instructions have been explained in detail. The patient and/or caregivers have received these instructions in written format and expressed understanding of these discharge instructions. The patient and her caregivers are aware that if any significant change in condition or worsening of symptoms should prompt him to immediately return to this of the closest emergency department. If an emergent department is not readily available I would encourage him to call 911. Nehal Disclaimer Nehal Disclaimer This electronic medical record was generated, in whole or in part, using a voice recognition dictation system. Departure Departure Impression: Primary Impression: CHF exacerbation Additional Impressions: Uncontrolled diabetes mellitus Chronic anemia Disposition: HOME, SELF-CARE (At 1611) Condition: STABLE Referrals: UNKNOWN PCP NAME (PCP) Patient Instructions: 1800 Calorie Diet for Diabetes Meal Planning, Anemia, FAQs, Heart Failure Additional Instructions: Do not drink plenty of liquids Follow-up with your primary care physician in 2-3 days Return to ER if not getting better Thank you for visiting [facility]. We appreciate you trusting us with your care. If any additional problems come up don't hesitate to return to visit us. Please follow up with your primary care provider so they can plan additional care if needed and know about the problem that you had. If symptoms worsen come back to the Emergency Department. Any concerning symptoms that start such as chest pain, shortness of air, weakness or numbness on one side of the body, running high fevers or any other concerning symptoms return to the ER. Scripts Potassium Chloride (POTASSIUM CHLORIDE ) 20 Meq Tablet.er 20 MEQ PO DAILY for SUPPLEMENT, #30 TAB.SR Prov: YAN LANDIN MD 01/12/20 Furosemide (LASIX) 40 Mg Tablet 1 TAB PO DAILY for 30 Days, #30 TAB 0 Refills Prov: YAN LANDIN MD 01/12/20 Problem Qualifiers Primary Impression: CHF exacerbation Heart failure type: unspecified Qualified Codes: I50.9 - Heart failure, un specified Additional Impressions: Uncontrolled diabetes mellitus Diabetes mellitus type: other specified (including RAF) Glycemic state: with hyperglycemia Qualified Codes: E13.65 - Other specified diabetes mellitus with hyperglycemia YAN LANDIN MD Jan 12, 2020 13:38
[2020-01-12 13:45] LABS: PROTHROMBIN TIME PATIENT 13.9 SEC (11.7-14.0)
--- NOTE | 2020-01-12 13:45 | RAD ---
PORTABLE CHEST 1V History: Shortness of breath.. Comparison with 12/23/2019 Cardiomediastinal silhouette is stable. Device overlying the left hemithorax is again seen. No evidence of pneumothorax or pleural effusion. Calcified granuloma in left midlung is again seen. No evidence of infiltrate. IMPRESSION: No evidence of consolidating infiltrate. Electronically signed by: Venancio Ayon MD (01/12/2020 1:42 PM) [id number]
[2020-01-12 13:48] LABS: D-DIMER 1.57 ug/mlFEU (0.00-0.50)
[2020-01-12 13:53] LABS: CREATININE 0.8 mg/dL (0.7-1.3); GFR 99.6; POTASSIUM 4.3 mmol/L (3.5-5.1)
[2020-01-12 13:58] LABS: ALBUMIN/GLOBULIN RATIO 0.7 (1.0-1.7); MAGNESIUM 1.8 mg/dL (1.8-2.4); TOTAL BILIRUBIN 0.8 mg/dL (0.2-1.0); TOTAL PROTEIN 7.6 g/dL (6.4-8.2)
[2020-01-12 13:59] LABS: BILIRUBIN,URINE NEGATIVE (NEG); CLARITY,URINE CLEAR; COLOR,URINE YELLOW; NITRITE,URINE NEGATIVE (NEG); PROTEIN,URINE NEGATIVE (NEG-TRACE)
[2020-01-12 14:10] LABS: BACTERIA,URINE 0 /HPF (0-FEW); RBC,URINE OCC /HPF (0-2); SQUAMOUS EPITHELIAL CELL,UR OCC /LPF; WBC,URINE 0 /HPF (0-4)
[2020-01-12] MEDS ORDERED: CONTRAST GIVEN. MC PRN (15:15)
[2020-01-12] MEDS ORDERED: IOHEXOL 350 MG/ML 100 ML VIAL. IV ONE (15:15)
--- NOTE | 2020-01-12 15:49 | EKG ---
[facility] [address] [place] [address] Test Date: 2020-01-12 Test Time: 12:17:18 Pat Name: SUSAN FREED Department: Room: Gender: M [employer]: : 1960 Requested By: YAN LANDIN Order Number: [id number] Reading MD: Measurements Intervals [place] Rate: 59 P: 30 IN: 186 QRS: -97 QRSD: 128 T: 15 QT: 466 QTc: 466 Interpretive Statements SINUS RHYTHM ABNORMAL RIGHT SUPERIOR AXIS DEVIATION LEFT ANTERIOR FASCICULAR BLOCK RIGHT BUNDLE BRANCH BLOCK BIFASCICULAR BLOCK QRS(T) CONTOUR ABNORMALITY CONSISTENT WITH SEPTAL INFARCT AGE UNDETERMINED CONSIDER INFERIOR MYOCARDIAL DAMAGE ABNORMAL ECG RI6.01 No previous ECG available for comparison
[2020-01-12 15:54] LABS: INFLUENZA A PATIENT NEGATIVE (NEGATIVE); INFLUENZA B PATIENT NEGATIVE (NEGATIVE)
--- NOTE | 2020-01-12 16:06 | RAD ---
CT ANGIOGRAPHY CHEST Indication: Shortness of breath, elevation of d-dimer . Technique: After intravenous contrast administration, CT imaging was performed of the chest. MIP reconstructions were obtained. Exposure: One or more of the following individualized dose reduction techniques were utilized for this examination: 1. Automated exposure control 2. Adjustment of the mA and/or kV according to patient size 3. Use of iterative reconstruction technique. Comparison: None FINDINGS: No evidence of pulmonary embolism. Aorta is mildly calcified. Irregularity of the wall of the ascending aorta, likely due to pulsatility artifact. Ascending aorta measures 3.8 cm. No gross aortic aneurysm. No evidence of aortic dissection. Proximal great vessels are patent. Visualized thyroid unremarkable. Mild gynecomastia. No evidence of pathologic lymph node enlargement. Small calcified hilar and mediastinal lymph nodes are noted. Coronary artery calcifications are seen. No significant pericardial effusion. No left pleural effusion. Small right pleural effusion. Lungs appear clear without evidence of consolidation or infiltrate. No dominant pulmonary mass. Dense calcified nodule in the left lung compatible with a granuloma. Mild infiltrate and/or atelectasis in the right lower lobe posteriorly. Trachea and mainstem bronchi are patent. No evidence of pneumothorax. Mild degenerative changes of the spine. Mild anterior wedging of approximately T5 and T6 vertebral bodies. No definite acute fracture is seen. Scans the upper abdomen are limited by technique. The visualized spleen is enlarged measuring at least 14 cm. There may also be hepatomegaly. IMPRESSION: 1. No evidence of pulmonary embolism. 2. Mild infiltrate and/or atelectasis in the right lower lobe. Small adjacent right pleural effusion. 3. Mild compression deformities of about T5 and T6, most likely due to mild chronic fractures, unless focal tenderness or clinical history suggests acute nature 4. Mild splenomegaly and possible hepatomegaly, partially seen. Electronically signed by: Venancio Ayon MD (01/12/2020 4:03 PM) [id number]
[2020-01-12] MEDS ORDERED: FURO-68 PO (16:14)
[2020-01-12] MEDS ORDERED: POTA20TA4 PO (16:14)
[2020-01-12 16:15] VITALS: BP 178/71
[2020-01-12] MEDS ORDERED: FUROSEMIDE 40 MG/4 ML VIAL. IVP ONE (16:15)
== END 2020-01-12 16:27 | disposition home or self-care (01) ==
LOC: ER 11:57
DX: I11.0 Hypertensive heart disease with heart failure (principal); I50.9 Heart failure, unspecified; E11.65 Type 2 diabetes mellitus with hyperglycemia; I25.10 Atherosclerotic heart disease of native coronary artery without angina pectoris; Z86.73 Personal history of transient ischemic attack (TIA), and cerebral infarction without residual deficits; Z87.891 Personal history of nicotine dependence; Z98.890 Other specified postprocedural states; Z88.6 Allergy status to analgesic agent
CPT/HCPCS: 36415; 71045; 71275; 80053; 81001; 82550; 82962; 83605; 83735; 83880; 84484; 85025; 85379; 85610; 85730; 87040; 87804; 93005; 99285; Q9967

== ENCOUNTER 2020-08-06 13:26 | Emergency (ER) | payer BC ==
[~2020-08-06] VITALS: Ht 172.7 cm; Wt 84.0 kg
[~2020-08-06 13:26] MED LIST changes: +FURO-68 PO; +POTA20TA4 PO
[2020-08-06 13:39] VITALS: BP 141/63
--- NOTE | 2020-08-06 14:50 | RAD ---
Right foot 3 views INDICATION: Right foot pain after patient fell COMPARISON: No relevant comparisons currently available. FINDINGS: AP, oblique and lateral views of the right foot were obtained. They show anatomic alignment of the osseous structures with generalized demineralization and a nonunited mid shaft fracture of the third metatarsal as well as a healed midshaft fracture of the second metatarsal with residual deformity. There is ankylosis of the interphalangeal joint of the great toe and there are surgical changes from previous calcaneal stapling. No acute or aggressive osseous lesions are identified. The soft tissues show arterial calcifications and mild swelling of the forefoot. No abnormal soft tissue gas or radiopaque foreign body. IMPRESSION: Osteopenia and multiple old fractures of the right foot but no acute osseous abnormality noted. Electronically signed by: Lauryn Manley MD (08/06/2020 2:47 PM) [id number]
[2020-08-06] MEDS ORDERED: TRAM50TA PO (15:46)
--- NOTE | 2020-08-06 15:46 | PHYS DOC ---
Past Medical History Past Medical History: CAD, CVA, Diabetes-Type II, Hypertension, TIA Additional Past Medical Histor: HEART MURMUR,club foot,CHRIS,R BBB,MULT MINI STROKES,ENDARECTOMY Past Surgical History: Other Additional Past Surgical Histo: CARDIAC CATH WITH SINGLE VESSEL ANGIOPLASTY Smoking Status: Former Smoker Alcohol Use: Occasionally Drug Use: None General Adult EDM: Chief Complaint: FOOT INJURY PAIN HPI: HPI: Patient is a 59-year-old male who presents to the emergency room complaining of right foot pain. 4 days ago he was trying to get their dog in the car and the dog pulled resulting in him falling and hitting his foot. He does have chronic problems with this foot due to a clubfoot. He has had multiple surgeries. He has been able to walk on it but it is been very painful. He wants to make sure that he did not break anything. Denies any other injuries. Review of Systems: Review of Systems: Negative other than noted Heart Score: Risk Factors: Risk Factors: DM, Current or recent (<one month) smoker, HTN, HLP, family history of CAD, obesity. Risk Scores: Score 0 - 3: 2.5% MACE over next 6 weeks - Discharge Home Score 4 - 6: 20.3% MACE over next 6 weeks - Admit for Clinical Observation Score 7 - 10: 72.7% MACE over next 6 weeks - Early Invasive Strategies Allergies: Allergies: Allergies Coded Allergies Type Severity Reaction Last Updated Verified morphine Allergy Intermediate N/V 03/02/19 Yes I S O L A T I O N *CONTACT* Allergy Unknown 03/13/19 Yes Physical Exam: PE: General: Awake, alert, NAD. Well Nourished, well hydrated. Cooperative HEENT: Atraumatic, EOMI, PERRL, airway patent, moist oral mucosa Neck: Supple, trachea midline Respiratory: CTA bilaterally, normal effort, no wheezing/crackles CV: RRR, no murmur, cap refill <2 GI: Soft, nondistended, nontender, no masses MSK: Bilateral clubfeet. Right foot: Chronic discoloration, diffuse swelling, tenderness along the mid foot. Left foot: Diabetic wound appears clean without drainage Skin: Warm, dry, intact Neuro: A&O x3, speech NL, sensory and motor grossly intact, no focal deficits Psych: Normal affect, normal mood, not suicidal or homicidal Current Patient Data: Vital Signs: Vital Signs Date Time Temp Pulse Resp B/P (MAP) Pulse Ox O2 Delivery O2 Flow Rate FiO2 08/06/20 13:39 98.3 68 16 141/63 (89) 97 Room Air 98.3 EKG: EKG: [] Radiology/Procedures: Radiology/Procedures: [] Course & Med Decision Making: Course & Med Decision Making Pertinent Labs and Imaging studies reviewed. (See chart for details) Patient is a 59-year-old male who presents emergency room with 5 days of hip pain after a fall. X-rays were ordered and showed chronic changes. No acute fractures are noted. Discussed rice therapy with him. Patient's test results and vitals while in the ED were fully reviewed and discussed with the patient. Patient is stable and at this time does not need admission to the hospital. We have discussed strict return precautions and the importance of following up with their Primary Care Physician. Patient stated understanding and was given an opportunity to ask any questions. Patient is in agreement with plan. Nehal Disclaimer: Nehal Disclaimer: This electronic medical record was generated, in whole or in part, using a voice recognition dictation system. Departure Departure Impression: Primary Impression: Foot pain, right Disposition: 01 HOME, SELF-CARE Condition: STABLE Referrals: UNKNOWN PCP NAME (PCP) Patient Instructions: Foot Contusion, [id number] Scripts Tramadol Hcl (TRAMADOL HCL) 50 Mg Tablet 50 MG PO Q6HRS PRN for PAIN, #5 TAB Prov: ARMAAN OVERTON MD 08/06/20 Justicifation of Admission Dx: Justifications for Admission: Justification of Admission Dx: N/A ARMAAN OVERTON MD Aug 06, 2020 15:46
== END 2020-08-06 15:51 | disposition home or self-care (01) ==
LOC: ER 13:26
DX: M79.671 Pain in right foot (principal); R60.0 Localized edema; I11.9 Hypertensive heart disease without heart failure; E11.9 Type 2 diabetes mellitus without complications; I25.2 Old myocardial infarction; Z86.73 Personal history of transient ischemic attack (TIA), and cerebral infarction without residual deficits; Z90.89 Acquired absence of other organs; Z98.890 Other specified postprocedural states; Z87.891 Personal history of nicotine dependence
CPT/HCPCS: 73630; 99284

== ENCOUNTER 2020-08-07 20:17 | Inpatient (IN) | payer BC ==
[~2020-08-07] VITALS: Ht 172.7 cm; Wt 88.6 kg
[~2020-08-07 20:17] MED LIST changes: +TRAM50TA PO
[2020-08-07 21:34] LABS: BASO % 0 % (0-3); EOS % 0 % (0-3); HEMATOCRIT 31.5 % (39.0-53.0); HEMOGLOBIN 10.8 g/dL (13.0-17.5); LYMPH # 0.8 x10^3/uL (1.0-4.8); LYMPH % 8 % (24-48); MEAN CORPUSCULAR HEMOGLOBIN 33 pg (25-35); MEAN CORPUSCULAR HGB CONC 34 g/dL (31-37); MEAN CORPUSCULAR VOLUME 95 fL (79-100); MONO # 0.6 x10^3/uL (0.0-1.1); MONO % 7 % (0-9); NEUT # 7.8 x10^3/uL (1.8-7.7); NEUT % 84 % (31-73); PLATELET COUNT 114 x10^3/uL (140-400); RED BLOOD COUNT 3.33 x10^6/uL (4.30-5.70); RED CELL DISTRIBUTION WIDTH 14.7 % (11.5-14.5); WHITE BLOOD COUNT 9.2 x10^3/uL (4.0-11.0)
[2020-08-07 21:43] LABS: CALCIUM 8.8 mg/dL (8.5-10.1); CREATININE 1.1 mg/dL (0.7-1.3); POTASSIUM 4.9 mmol/L (3.5-5.1)
[2020-08-07] MEDS ORDERED: ONDANSETRON ODT 4 MG TAB.RAPDIS. PO ONE (21:45)
[2020-08-07] MEDS ORDERED: IV NORMAL SALINE 1000ML BAG 1,000 ML IV ONE (21:45)
[2020-08-07] MEDS ORDERED: ACETAMINOPHEN 500 MG TABLET PO ONE (21:45)
[2020-08-07] MEDS ORDERED: traMADol 50 MG TABLET PO PRN (21:45)
[2020-08-07] MEDS ORDERED: fentaNYL PF VIAL 100 MCG/2 ML VIAL IV ONE (21:45)
[2020-08-07] MEDS ORDERED: fentaNYL PF VIAL 100 MCG/2 ML VIAL IVP PRN (21:45)
[2020-08-07] MEDS ORDERED: hydrOXYzine 25 MG TABLET PO PRN (21:45)
[2020-08-07] MEDS ORDERED: ACETAMINOPHEN 325 MG TABLET. PO PRN (21:45)
--- NOTE | 2020-08-07 21:47 | PHYS DOC ---
Past Medical History Past Medical History: CAD, CVA, Diabetes-Type II, Hypertension, TIA Additional Past Medical Histor: HEART MURMUR,club foot,CHRIS,R BBB,MULT MINI STROKES,ENDARECTOMY Past Surgical History: Other Additional Past Surgical Histo: CARDIAC CATH WITH SINGLE VESSEL ANGIOPLASTY Smoking Status: Former Smoker Alcohol Use: Occasionally Drug Use: None General Adult EDM: Chief Complaint: MULTIPLE COMPLAINTS HPI: HPI: Patient is a 59 year old male who presents to the emergency department with complaints of increased pain, redness, and warmth in his right foot after being discharged from this emergency room yesterday. He denies any bleeding or drainage from his right foot. Patient states he was evaluated for right foot pain yesterday but since being discharged he has developed a fever and his symptoms have gotten worse. Patient also complains of having nausea. He states that he has a ulcer on the bottom of his left great toe. He denies any drainage or foul odor from ulcer. Patient states that he has been out of his quick acting insulin for the last 2 days and has only been able to take his morning acting insulin. He denies any polyuria, polydipsia, or polyphagia. The patient denies any cough, chest pain, abdominal pain, vomiting, or diarrhea. He denies any dizziness but reports headache at this time. He currently rates his pain a 10 out of 10 on the pain scale, he denies radiation of the pain, he denies any alleviating factors, pain is worse with palpation. [] Review of Systems: Review of Systems: Constitutional: Reports fever Eyes: Denies change in visual acuity. [] HENT: Denies nasal congestion or sore throat. [] Respiratory: Denies cough or shortness of breath. [] Cardiovascular: Denies chest pain or edema. [] GI: Denies abdominal pain, vomiting, or diarrhea; see HPI. [] Musculoskeletal: Denies back pain; see HPI Integument: See HPI Neurologic: Denies headache, focal weakness or sensory changes. [] Endocrine: Denies polyuria or polydipsia. [] Lymphatic: Denies swollen glands. [] Psychiatric: Denies depression or anxiety. [] Heart Score: Risk Factors: Risk Factors: DM, Current or recent (<one month) smoker, HTN, HLP, family history of CAD, obesity. Risk Scores: Score 0 - 3: 2.5% MACE over next 6 weeks - Discharge Home Score 4 - 6: 20.3% MACE over next 6 weeks - Admit for Clinical Observation Score 7 - 10: 72.7% MACE over next 6 weeks - Early Invasive Strategies Current Medications: Current Medications Medications (Trade) Dose Ordered Sig/John Start Time Stop Time Status Last Admin Dose Admin Acetaminophen (Tylenol) 1,000 mg 1X ONCE 08/07/20 21:45 08/07/20 21:46 UNV Fentanyl Citrate (Fentanyl 2ml Vial) 50 mcg 1X ONCE 08/07/20 21:45 08/07/20 21:46 UNV Ondansetron HCl (Zofran Odt) 4 mg 1X ONCE 08/07/20 21:45 08/07/20 21:46 UNV Sodium Chloride 1,000 ml @ 1,000 mls/hr 1X ONCE 08/07/20 21:45 08/07/20 22:44 UNV Allergies: Allergies: Allergies Coded Allergies Type Severity Reaction Last Updated Verified morphine Allergy Intermediate N/V 03/02/19 Yes I S O L A T I O N *CONTACT* Allergy Unknown 03/13/19 Yes Physical Exam: PE: Constitutional: Well developed, well nourished, no acute distress, ill appearance. [] HENT: Normocephalic, atraumatic, bilateral external ears normal, nose normal. [] Eyes: PERRLA, EOMI, conjunctiva normal, no discharge. [] Neck: Normal range of motion, no stridor. [] Cardiovascular:Heart rate regular rhythm Lungs & Thorax: Respirations even and unlabored, no retractions, no respiratory distress Abdomen: soft, no tenderness Skin: Warm, dry, no erythema, no rash; 1 cm diameter diabetic ulcer noted to the plantar surface of the distal left great toe without drainage or bleeding; e rythema, warmth, and 2+ edema of the right lower extremity concerning for cellulitis present [] Extremities: No cyanosis, ROM intact, clubfoot deformity of bilateral feet Neurologic: Alert and oriented X 3, no focal deficits noted. [] Psychologic: Affect normal, judgement normal, mood normal. [] Current Patient Data: Labs: Laboratory Tests Test 08/07/20 21:02 White Blood Count 9.2 x10^3/uL (4.0-11.0) Red Blood Count 3.33 x10^6/uL (4.30-5.70) L Hemoglobin 10.8 g/dL (13.0-17.5) L Hematocrit 31.5 % (39.0-53.0) L Mean Corpuscular Volume 95 fL (79-100) Mean Corpuscular Hemoglobin 33 pg (25-35) Mean Corpuscular Hemoglobin Concent 34 g/dL (31-37) Red Cell Distribution Width 14.7 % (11.5-14.5) H Platelet Count 114 x10^3/uL (140-400) L Neutrophils (%) (Auto) 84 % (31-73) H Lymphocytes (%) (Auto) 8 % (24-48) L Monocytes (%) (Auto) 7 % (0-9) Eosinophils (%) (Auto) 0 % (0-3) Basophils (%) (Auto) 0 % (0-3) Neutrophils # (Auto) 7.8 x10^3/uL (1.8-7.7) H Lymphocytes # (Auto) 0.8 x10^3/uL (1.0-4.8) L Monocytes # (Auto) 0.6 x10^3/uL (0.0-1.1) Eosinophils # (Auto) 0.0 x10^3/uL (0.0-0.7) Basophils # (Auto) 0.0 x10^3/uL (0.0-0.2) Laboratory Tests 08/07/20 21:02 Vital Signs: Vital Signs Date Time Temp Pulse Resp B/P (MAP) Pulse Ox O2 Delivery O2 Flow Rate FiO2 08/07/20 20:54 101.4 75 22 183/74 (110) 96 Room Air 101.4 EKG: EKG: [] Radiology/Procedures: Radiology/Procedures: PROCEDURE: VENOUS LOWER EXTREMITY RIGHT EXAMINATION: VENOUS LOWER EXTREMITY RIGHT, 08/07/2020 9:14 PM CLINICAL INDICATION: Right leg swelling and redness COMPARISON: None PROCEDURE: Multiple grayscale, color Doppler and spectral Doppler sonographic images of The left lower extremity were obtained. FINDINGS: There is no evidence of deep venous thrombosis in right lower extremity. The right common femoral, femoral and popliteal veins are echolucent with normal flow on color Doppler imaging. The veins are fully compressible and show normal phasicity and reaction to augmentation. Visualized calf veins are also normal in appearance. Prominent right inguinal lymph node measures 4.5 x 0.9 cm. IMPRESSION: No evidence of deep venous thrombosis in the right lower extremity. Electronically signed by: Mee Agustin MD (08/07/2020 10:42 PM) [id number] [] Course & Med Decision Making: Course & Med Decision Making Pertinent Labs and Imaging studies reviewed. (See chart for details) [id number] with Dr. Chanel who is the admitting physician, and care was assumed following discussion of patient. Will admit patient for fever, right leg cellulitis, and PUI Patient's vital signs stable, respirations even and unlabored. Patient will be admitted to the med/telemetry floor. Patient's case and plan of care also discussed with Dr. Diana COVID-19 CRITERIA: The patient was evaluated during the global COVID-19 pandemic, and that diagnosis was suspected/considered upon their initial presentation. Their evaluation, treatment and testing was consistent with current guidelines for patients who present with complaints or symptoms that may be related to COVID-19. [] Dragon Disclaimer: Dragon Disclaimer: This electronic medical record was generated, in whole or in part, using a voice recognition dictation system. Departure Departure Impression: Primary Impression: Fever Qualified Codes: R50.9 - Fever, unspecified Additional Impressions: Cellulitis of right leg Person under investigation for COVID-19 Disposition: ADMITTED INPATIENT Admitting Physician: ANGI (BELLO) Condition: STABLE Referrals: UNKNOWN PCP NAME (PCP) Justicifation of Admission Dx: Justifications for Admission: Justification of Admission Dx: Yes Sepsis: Infection Cellulitis: Cellulitis COVID-19 Assessment: COVID-19 Patient Risks: Age 65 or older: No Sign of co-morbidity: No Exp to person + for COVID: No Exp to PUI: No Travel from affected area: No Lower respiratory symptoms: No Fever: Yes Other: No PPE Use: Full PPE with N95 mask or PAPR: Yes NOE BLOUNT APRN Aug 07, 2020 21:47
[2020-08-07] MEDS: ENOXAPARIN 40 MG/0.4 ML SYRINGE. SQ SCH (21:56)
[2020-08-07 22:00] LABS: ALBUMIN 2.9 g/dL (3.4-5.0); ALBUMIN/GLOBULIN RATIO 0.6 (1.0-1.7); C-REACTIVE PROTEIN 247.3 mg/L (0-3.3); TOTAL BILIRUBIN 3.4 mg/dL (0.2-1.0); TOTAL PROTEIN 7.9 g/dL (6.4-8.2)
[2020-08-07] MEDS ORDERED: VANCOMYCIN 2 GM in IV NORMAL SALINE 500ML BAG 500 ML IV ONE (22:15)
[2020-08-07 22:18] LABS: BILIRUBIN,URINE SMALL (NEG); CLARITY,URINE CLEAR; NITRITE,URINE NEGATIVE (NEG); PROTEIN,URINE 30 mg/dL (NEG-TRACE)
[2020-08-07 22:24] LABS: COLOR,URINE DK YELLOW
[2020-08-07 22:27] LABS: WBC,URINE OCC /HPF (0-4)
[2020-08-07 22:28] LABS: BACTERIA,URINE FEW /HPF (0-FEW)
--- NOTE | 2020-08-07 22:45 | RAD ---
EXAMINATION: VENOUS LOWER EXTREMITY RIGHT, 08/07/2020 9:14 PM CLINICAL INDICATION: Right leg swelling and redness COMPARISON: None PROCEDURE: Multiple grayscale, color Doppler and spectral Doppler sonographic images of The left lower extremity were obtained. FINDINGS: There is no evidence of deep venous thrombosis in right lower extremity. The right common femoral, femoral and popliteal veins are echolucent with normal flow on color Doppler imaging. The veins are fully compressible and show normal phasicity and reaction to augmentation. Visualized calf veins are also normal in appearance. Prominent right inguinal lymph node measures 4.5 x 0.9 cm. IMPRESSION: No evidence of deep venous thrombosis in the right lower extremity. Electronically signed by: Mee Agustin MD (08/07/2020 10:42 PM) [id number]
[2020-08-07 23:07] LABS: ACETAMIN < 2 mcg/ml (10-30)
[2020-08-08] MEDS: VANCOMYCIN PER PHARMACY MC PRN ×2 (02:03→13:58)
--- NOTE | 2020-08-08 02:04 | NUR ---
Pharmacy Vancomycin Dosing Note S:Consulted to monitor and dose vancomycin started 08/07/20. O:MATTHIEUJANICESUSAN is a 59 year old M with Cellulitis . Height: 5 feet, 8 inches Weight: 88.6 kg [place] Body Weight: 68.40 Adjusted Body Weight: 76.48 Dosing Weight: Actual Other Antibiotics: LABS: Last BUN: 23 Last Creatinine: 1.1 Creatinine Clearance: 80 mL/min Last WBC: 9.2 Last Procalcitonin: Tmax (past 24 hours): Microbiology: I/O: Drug Levels: Last level: on at Last dose given at Vancomycin Dosing: Loading Dose: 2000 mg x1 08/07/20 [id number] Dosing Weight: Actual Target Trough: 10-20 A: Based on: Actual Wt and CrCl P: 1. 08/08/20 1200 Vancomycin 1500 mg IV q12h 2. Follow up Trough level on 08/09/20 at 1130 3. Pharmacy will continue to monitor, follow and adjust therapy as needed. CHERI CALIX RPH, 08/08/205 Signed: 08/08/20 at 0205 by CHERI CALIX RPH PHA
[2020-08-08 02:10] VITALS: BP 144/54
[2020-08-08 07:00] VITALS: BP 161/70
--- NOTE | 2020-08-08 07:55 | PDOC1 ---
History and Physical Date of Admission Date of Admission DATE: 08/08/20 TIME: 07:44 Identification/Chief Complaint Chief Complaint Right foot pain Source Source: Patient History of Present Illness History of Present Illness Mr Ford is a 59yo M w/ PMHx CAD, hypertension, diabetes, CVA. DM2 who comes to EDwith complaints of increased pain, redness, and warmth in his right foot after being discharged from this emergency room yesterday. He denies any bleeding or drainage from his right foot. Patient states he was evaluated for right foot pain yesterday but since being discharged he has developed a fever and his symp toms have gotten worse. Patient also complains of having nausea. He states that he has a ulcer on the bottom of his left great toe. He denies any drainage or foul odor from ulcer. Patient states that he has been out of his quick acting insulin for the last 2 days and has only been able to take his morning acting insulin. He denies any polyuria, polydipsia, or polyphagia. The patient denies any cough, chest pain, abdominal pain, vomiting, or diarrhea. He denies any dizziness but reports headache at this time. He currently rates his pain a 10 out of 10 on the pain scale, he denies radiation of the pain, he denies any alleviating factors, pain is worse with palpation. Right lower extremity venous ultrasound negative for DVT does confirm lymphadenopathy in groin. Labs with WBC 9.2 with left shift, Hb 10.8, platelets 114, NA 135, K4.9, BUN 23, CR 1.1, glucose 125, lactic acid 2.1, CRP 247.3, albumin 2.9, alkaline phosphatase 459, AST 47, ALT 78, bilirubin 3.4. 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 Admitted for care of his right foot Past Medical History Cardiovascular: HTN, Hyperlipidemia Pulmonary: No pertinent hx CENTRAL NERVOUS SYSTEM: TIA GI: No pertinent hx Heme/Onc: No pertinent hx Hepatobiliary: No pertinent hx Psych: No pertinent hx Musculoskeletal: Other Rheumatologic: No pertinent hx Infectious disease: No pertinent hx Renal/: No pertinent hx Endocrine: Diabetes Past Surgical History Past Surgical History ENDARECTOMY and CARDIAC CATH WITH SINGLE VESSEL ANGIOPLASTY Past Surgical History: Other Family History Family History: Cancer, Coronary Artery Disease Social History Smoke: Quit ALCOHOL: heavy Drugs: None Current Problem List Problem List Problems Medical Problems: (1) Cellulitis of right leg Status: Acute (2) Fever Status: Acute (3) Person under investigation for COVID-19 Status: Acute Current Medications Current Medications Current Medications Acetaminophen (Tylenol) 1,000 mg 1X ONCE PO Last administered on 08/07/20at 21:50; Start 08/07/20 at 21:45; Stop 08/07/20 at 21:46; Status DC Ondansetron HCl (Zofran Odt) 4 mg 1X ONCE PO Last administered on 08/07/20at 21:50; Start 08/07/20 at 21:45; Stop 08/07/20 at 21:46; Status DC Sodium Chloride 1,000 ml @ 1,000 mls/hr 1X ONCE IV Last administered on 08/07/20at 21:52; Start 08/07/20 at 21:45; Stop 08/07/20 at 22:44; Status DC Fentanyl Citrate (Fentanyl 2ml Vial) 50 mcg 1X ONCE IV Last administered on 08/07/20at 21:51; Start 08/07/20 at 21:45; Stop 08/07/20 at 21:46; Status DC Ondansetron HCl (Zofran) 4 mg PRN Q4HRS PRN IV NAUSEA/VOMITING; Start 08/07/20 at 21:45 Acetaminophen (Tylenol) 650 mg PRN Q4HRS PRN PO TEMP OVER 100.4F OR MILD PAIN Last administered on 08/08/20at 05:50; Start 08/07/20 at 21:45 Enoxaparin Sodium (Lovenox 40mg Syringe) 40 mg Q24H SQ Last administered on 08/07/20at 21:56; Start 08/07/20 at 21:45 Albuterol Sulfate (Ventolin Neb Soln) 2.5 mg PRN Q4HRS PRN INH SHORTNESS OF BREATH; Start 08/07/20 at 21:45 Aspirin (Ronald Aspirin) 325 mg DAILYWBKFT PO ; Start 08/08/20 at 08:00 Atorvastatin Calcium (Lipitor) 20 mg HS PO ; Start 08/08/20 at 21:00 Clopidogrel Bisulfate (Plavix) 75 mg DAILY PO ; Start 08/08/20 at 09:00 Docusate Sodium (Colace) 100 mg DAILY PO ; Start 08/08/20 at 09:00 Gabapentin (Neurontin) 300 mg BID PO ; Start 08/08/20 at 09:00 Hydroxyzine HCl (Atarax) 25 mg TID PRN PRN PO ELEVATED BP, SEE COMMENTS; Start 08/07/20 at 21:45 Losartan Potassium (Cozaar) 25 mg DAILY PO ; Start 08/08/20 at 09:00 Metoprolol Tartrate (Lopressor) 25 mg BID PO ; Start 08/08/20 at 09:00 Tamsulosin HCl (Flomax) 0.4 mg DAILY PO ; Start 08/08/20 at 09:00 Tramadol HCl (Ultram) 50 mg PRN Q6HRS PRN PO PAIN; Start 08/07/20 at 21:45 Fluticasone Propionate (Flonase) 2 spray DAILY NS ; Start 08/08/20 at 09:00 Non-Formulary Medication (Insulin Glargine,Hum.rec.anlog (Lantus Solostar)) 8 unit QHS SQ ; Start 08/08/20 at 21:00; Status UNV Tramadol HCl (Ultram) 50 mg PRN Q6HRS PRN PO PAIN; Start 08/07/20 at 21:45; Status UNV Fentanyl Citrate (Fentanyl 2ml Vial) 50 mcg PRN Q3HRS PRN IVP SEVERE PAIN 7-10; Start 08/07/20 at 21:45 Vancomycin HCl (Vanco Per Pharmacy) 1 each PRN DAILY PRN MC SEE COMMENTS Last administered on 08/08/20at 02:03; Start 08/07/20 at 22:00 Vancomycin HCl 2 gm/Sodium Chloride 500 ml @ 250 mls/hr 1X ONCE IV Last administered on 08/07/20at 23:54; Start 08/07/20 at 22:15; Stop 08/08/20 at 00:14; Status DC Insulin Glargine (Lantus Syringe) 8 unit QHS SQ ; Start 08/08/20 at 21:00 Vancomycin HCl 1.5 gm/Sodium Chloride 500 ml @ 250 mls/hr Q12H IV ; Start 08/08/20 at 12:00 Vancomycin HCl (Vancomycin Trough Level) 1 each 1X ONCE MC ; Start 08/09/20 at 11:30; Stop 08/09/20 at 11:31 Influenza Virus Vaccine Quadrival (Fluzone Quad Syringe) 0.5 ml ONCE ONCE VAX IM ; Start 08/08/20 at 09:00; Stop 08/08/20 at 09:01 Active Scripts Active Tramadol Hcl 50 Mg Tablet 50 Mg PO Q6HRS PRN Potassium Chloride (Potassium Chloride) 20 Meq Tablet.er 20 Meq PO DAILY Lasix (Furosemide) 40 Mg Tablet 1 Tab PO DAILY 30 Days Carbamide Peroxide 15 Ml Drops 15 Ml OT BID 4 Days Flonase Allergy Relief (Fluticasone Propionate) 9.9 Ml [place].susp 2 Sprays NS DAILY Proair Hfa Inhaler (Albuterol Sulfate) 8.5 Gm Hfa.aer.ad 1 Puff INH Q4HRS PRN Prinivil (Lisinopril) 5 Mg Tablet 5 Mg PO DAILY Aspirin 325 Mg Tablet 325 Mg PO DAILY Reported Lantus Solostar (Insulin Glargine,Hum.rec.anlog) 100 Unit/1 Ml Insuln.pen 8 Unit SQ QHS Culturelle (Lactobacillus Rhamnosus Gg) 1 Each Capsule 1 Each PO DAILY 14 Days Flomax (Tamsulosin Hcl) 0.4 Mg Cap.er.24h 0.4 Mg PO DAILY Gabapentin 300 Mg Capsule 300 Mg PO BID Metoprolol Tartrate 25 Mg Tablet 25 Mg PO BID Omeprazole 40 Mg Capsule.dr 40 Mg PO DAILY05 Losartan Potassium 25 Mg Tablet 25 Mg PO DAILY Hydroxyzine Hcl 25 Mg Tablet 25 Mg PO TID PRN PRN Atorvastatin Calcium 20 Mg Tablet 20 Mg PO HS Clopidogrel (Clopidogrel Bisulfate) 75 Mg Tablet 75 Mg PO DAILY Docusate Sodium 100 Mg Capsule 1 Cap PO DAILY Glimepiride 4 Mg Tablet 4 Mg PO DAILY Metformin Hcl 500 Mg Tablet 500 Mg PO BIDWMEALS do not take for 48 hours Allergies Allergies: Coded Allergies: morphine (Verified Allergy, Intermediate, N/V, 03/02/19) I S O L A T I O N *CONTACT* (Verified Allergy, Unknown, 03/13/19) mrsa ROS General: YES: Fatigue, Malaise; No: Chills, Night Sweats, Appetite, Other PSYCHOLOGICAL ROS: No: Anxiety, Behavioral Disorder, Concentration difficultie, Decreased libido, Depression, Disorientation, Hallucinations, Hostility, Irritablity, Memory difficulties, Mood Swings, Obsessive thoughts, Physical abuse, Sexual abuse, Sleep disturbances, Suicidal ideation, Other Eyes: No Blurry vision, No Decreased vision, No Double vision, No Dry eyes, No Excessive tearing, No Eye Pain, No Itchy Eyes, No Loss of vision, No Darius tophobia, No Scotomata, No Uses contacts, No Uses glasses, No Other HEENT: No: Heacaches, Visual Changes, Hearing change, Nasal congestion, Nasal discharge, Oral lesions, Sinus pain, Sore Throat, Epistaxis, Sneezing, Snoring, Tinnitus, Vertigo, Vocal changes, Other ALLERGY AND IMMUNOLOGY: No: Hives, Insect Bite Sensitivity, Itchy/Watery Eyes, Nasal Congestion, Post Nasal Drip, Seasonal Allergies, Other Hematological and Lymphatic: No: Bleeding Problems, Blood Clots, Blood Transfusions, Brusing, Night Sweats, Pallor, Swollen Lymph Nodes, Other ENDOCRINE: No: Breast Changes, Galactorrhea, Hair Pattern Changes, Hot Flashes, Malaise/lethargy, Mood Swings, Palpitations, Polydipsia/polyuria, Skin Changes, Temperature Intolerance, Unexpected Weight Changes, Other Breast: No New/Changing Breast Lumps, No Nipple changes, No Nipple discharge, No Other Respiratory: YES: Cough; No: Hemoptysis, Orthopnea, Pleuritic Pain, Shortness of breath, SOB with excertion, Sputum Changes, Stridor, Tachypnea, Wheezing, Other Cardiovascular: No Chest Pain, No Palpitations, No Orthopnea, No Paroxysmal Noc. Dyspnea, No Edema, No Lt Headedness, No Other Gastrointestinal: Yes Nausea; No Vomiting, No Abdominal Pain, No Diarrhea, No Constipation, No Melena, No Hematochezia, No Other Genitourinary: No Dysuria, No Frequency, No Incontinence, No Hematuria, No Retention, No Discharge, No Urgency, No Pain, No Flank Pain, No Other, No , No , No , No , No , No , No Musculoskeletal: Yes Gait Disturbance, Yes Joint Pain; No Joint Stiffness, No Joint Swelling, No Muscle Pain, No Muscular Weakness, No Pain In:, No Swelling In:, No Other Neurological: No Behavorial Changes, No Bowel/Bladder ControlChng, No Confusion, No Dizziness, No Gait Disturbance, No Headaches, No Impaired Coord/balance, No Memory Loss, No Numbness/Tingling, No Seizures, No Speech Prob lems, No Tremors, No Visual Changes, No Weakness, No Other Skin: Yes Rash, Yes Skin Lesion Changes; No Dry Skin, No Eczema, No Hair Changes, No Lumps, No Mole Changes, No Mottling, No Nail Changes, No Pruritus, No Other, No Acne Physical Exam General: Alert, Oriented X3, Cooperative, mild distress HEENT: Atraumatic, PERRLA, EOMI, Mucous membr. moist/pink Lungs: Other (Wheezes bilaterally) Heart: S1S2, RRR, no thrills, no rubs, no gallops, no murmurs Abdomen: Normal bowel sounds, Soft, No tenderness, No hepatosplenomegaly, No masses Rectal Exam: not examined Skin: Other (Right foot red, hot, right 2nd hammertoe with ingrown nail. Left 1st MTP with plantar ulcer) Neuro: Normal speech, Strength at 5/5 X4 ext, Normal tone, Sensation intact, Cranial nerves 3-12 NL, Reflexes 2+ Psych/Mental Status: Mental status NL, Mood NL Vitals Vitals Vital Signs Date Time Temp Pulse Resp B/P (MAP) Pulse Ox O2 Delivery O2 Flow Rate FiO2 08/08/20 02:10 98.1 67 18 144/54 (84) 98 Room Air 98.1 Labs Labs Laboratory Tests Test 08/07/20 21:02 08/07/20 22:00 08/08/20 03:15 White Blood Count 9.2 x10^3/uL (4.0-11.0) Red Blood Count 3.33 x10^6/uL (4.30-5.70) Hemoglobin 10.8 g/dL (13.0-17.5) Hematocrit 31.5 % (39.0-53.0) Mean Corpuscular Volume 95 fL (79-100) Mean Corpuscular Hemoglobin 33 pg (25-35) Mean Corpuscular Hemoglobin Concent 34 g/dL (31-37) Red Cell Distribution Width 14.7 % (11.5-14.5) Platelet Count 114 x10^3/uL (140-400) Neutrophils (%) (Auto) 84 % (31-73) Lymphocytes (%) (Auto) 8 % (24-48) Monocytes (%) (Auto) 7 % (0-9) Eosinophils (%) (Auto) 0 % (0-3) Basophils (%) (Auto) 0 % (0-3) Neutrophils # (Auto) 7.8 x10^3/uL (1.8-7.7) Lymphocytes # (Auto) 0.8 x10^3/uL (1.0-4.8) Monocytes # (Auto) 0.6 x10^3/uL (0.0-1.1) Eosinophils # (Auto) 0.0 x10^3/uL (0.0-0.7) Basophils # (Auto) 0.0 x10^3/uL (0.0-0.2) Sodium Level 135 mmol/L (136-145) Potassium Level 4.9 mmol/L (3.5-5.1) Chloride Level 100 mmol/L (98-107) Carbon Dioxide Level 27 mmol/L (21-32) Anion Gap 8 (6-14) Blood Urea Nitrogen 23 mg/dL (8-26) Creatinine 1.1 mg/dL (0.7-1.3) Estimated GFR (Cockcroft-Gault) 69.0 BUN/Creatinine Ratio 21 (6-20) Glucose Level 125 mg/dL (70-99) Lactic Acid Level 2.1 mmol/L (0.4-2.0) 0.9 mmol/L (0.4-2.0) Uric Acid 5.1 mg/dL (3.5-7.2) Calcium Level 8.8 mg/dL (8.5-10.1) Ferritin 279 ng/mL (26-388) Total Bilirubin 3.4 mg/dL (0.2-1.0) Direct Bilirubin 2.8 mg/dL (0.0-0.2) Aspartate Amino Transf (AST/SGOT) 47 U/L (15-37) Alanine Aminotransferase (ALT/SGPT) 78 U/L (16-63) Alkaline Phosphatase 459 U/L (46-116) C-Reactive Protein, Quantitative 247.3 mg/L (0-3.3) Total Protein 7.9 g/dL (6.4-8.2) Albumin 2.9 g/dL (3.4-5.0) Albumin/Globulin Ratio 0.6 (1.0-1.7) Acetaminophen Level < 2 mcg/ml (10-30) Acetaminophen Last Dose Date Acetaminophen Last Dose Time Urine Collection Type Unknown Urine Color Dk yellow Urine Clarity Clear Urine pH 7.0 (<5.0-8.0) Urine Specific [place] 1.020 (1.000-1.030) Urine Protein 30 mg/dL (NEG-TRACE) Urine Glucose (UA) 250 mg/dL (NEG) Urine Ketones (Stick) Negative mg/dL (NEG) Urine Blood Negative (NEG) Urine Nitrite Negative (NEG) Urine Bilirubin Small (NEG) Urine Urobilinogen Dipstick 4.0 mg/dL (0.2 mg/dL) Urine Leukocyte Esterase Small (NEG) Urine RBC 1-2 /HPF (0-2) Urine WBC Occ /HPF (0-4) Urine Squamous Epithelial Cells Few /LPF Urine Bacteria Few /HPF (0-FEW) Laboratory Tests Test 08/07/20 21:02 08/07/20 22:00 08/08/20 03:15 White Blood Count 9.2 x10^3/uL (4.0-11.0) Red Blood Count 3.33 x10^6/uL (4.30-5.70) Hemoglobin 10.8 g/dL (13.0-17.5) Hematocrit 31.5 % (39.0-53.0) Mean Corpuscular Volume 95 fL (79-100) Mean Corpuscular Hemoglobin 33 pg (25-35) Mean Corpuscular Hemoglobin Concent 34 g/dL (31-37) Red Cell Distribution Width 14.7 % (11.5-14.5) Platelet Count 114 x10^3/uL (140-400) Neutrophils (%) (Auto) 84 % (31-73) Lymphocytes (%) (Auto) 8 % (24-48) Monocytes (%) (Auto) 7 % (0-9) Eosinophils (%) (Auto) 0 % (0-3) Basophils (%) (Auto) 0 % (0-3) Neutrophils # (Auto) 7.8 x10^3/uL (1.8-7.7) Lymphocytes # (Auto) 0.8 x10^3/uL (1.0-4.8) Monocytes # (Auto) 0.6 x10^3/uL (0.0-1.1) Eosinophils # (Auto) 0.0 x10^3/uL (0.0-0.7) Basophils # (Auto) 0.0 x10^3/uL (0.0-0.2) Sodium Level 135 mmol/L (136-145) Potassium Level 4.9 mmol/L (3.5-5.1) Chloride Level 100 mmol/L (98-107) Carbon Dioxide Level 27 mmol/L (21-32) Anion Gap 8 (6-14) Blood Urea Nitrogen 23 mg/dL (8-26) Creatinine 1.1 mg/dL (0.7-1.3) Estimated GFR (Cockcroft-Gault) 69.0 BUN/Creatinine Ratio 21 (6-20) Glucose Level 125 mg/dL (70-99) Lactic Acid Level 2.1 mmol/L (0.4-2.0) 0.9 mmol/L (0.4-2.0) Uric Acid 5.1 mg/dL (3.5-7.2) Calcium Level 8.8 mg/dL (8.5-10.1) Ferritin 279 ng/mL (26-388) Total Bilirubin 3.4 mg/dL (0.2-1.0) Direct Bilirubin 2.8 mg/dL (0.0-0.2) Aspartate Amino Transf (AST/SGOT) 47 U/L (15-37) Alanine Aminotransferase (ALT/SGPT) 78 U/L (16-63) Alkaline Phosphatase 459 U/L (46-116) C-Reactive Protein, Quantitative 247.3 mg/L (0-3.3) Total Protein 7.9 g/dL (6.4-8.2) Albumin 2.9 g/dL (3.4-5.0) Albumin/Globulin Ratio 0.6 (1.0-1.7) Acetaminophen Level < 2 mcg/ml (10-30) Acetaminophen Last Dose Date Acetaminophen Last Dose Time Urine Collection Type Unknown Urine Color Dk yellow Urine Clarity Clear Urine pH 7.0 (<5.0-8.0) Urine Specific [place] 1.020 (1.000-1.030) Urine Protein 30 mg/dL (NEG-TRACE) Urine Glucose (UA) 250 mg/dL (NEG) Urine Ketones (Stick) Negative mg/dL (NEG) Urine Blood Negative (NEG) Urine Nitrite Negative (NEG) Urine Bilirubin Small (NEG) Urine Urobilinogen Dipstick 4.0 mg/dL (0.2 mg/dL) Urine Leukocyte Esterase Small (NEG) Urine RBC 1-2 /HPF (0-2) Urine WBC Occ /HPF (0-4) Urine Squamous Epithelial Cells Few /LPF Urine Bacteria Few /HPF (0-FEW) Images Images RLE venous doppler: There is no evidence of deep venous thrombosis in right lower extremity. The right common femoral, femoral and popliteal veins are echolucent with normal flow on color Doppler imaging. The veins are fully compressible and show normal phasicity and reaction to augmentation. Visualized calf veins are also normal in appearance. Prominent right inguinal lymph node measures 4.5 x 0.9 cm. IMPRESSION: No evidence of deep venous thrombosis in the right lower extremity. VTE Prophylaxis Ordered VTE Prophylaxis Devices: No VTE Pharmacological Prophylaxi: Yes Assessment/Plan Assessment/Plan A/P: Right foot cellulitis - empiric vancomycin initiated. Elevate extremity Right foot diabetic ulcer - looks to have relatively clean base. Wound care to see. Sepsis - fever and tachycardia - likely related to above, given IVF and antibiotics Uncontrolled diabetes - sliding scale insulin Shortness of breath - with wheezing, possibly asthma related vs COVID, will order albuterol inhaler Thombocytopenia - previously noted, will monitor. Possibly related to underlying infection or liver disease Transaminitis - possibly COVID 19 related, will await results of testing. Possibly also with undiagnosed liver disease. Morbid obesity - counseled on weight Hypertensive urgency, ACUTE - will treat Hyperlipidemia. Carotid arterial disease. Peripheral arterial disease. Peripheral neuropathy. HX Right carotid endarterectomy. HX Left second and third toe amputations. HX Explorative laparotomy with cauterization of his liver Remote tobacco abuse Ingrown toenails - with onychomycosis, needs podiatry trimming of his nails, will hold off until he has COVID 19 negative FEN - ADA diet PPX - lovenox FULL CODE Dispo - inpatient for above COVID-19 CRITERIA: The patient was evaluated during the global COVID-19 pandemic, and that diagnosis was suspected/considered upon their initial presentation. Their evaluation, treatment and testing was consistent with current guidelines for patients who present with complaints or symptoms that may be related to COVID-19. Justifications for Admission Other Justification BRANDON MONSALVE MD Aug 08, 2020 07:55
[2020-08-08] MEDS: INSULIN LISPRO 300 UNITS/3 ML VIAL. SQ SCH ×4 (08:00→23:05)
[2020-08-08] MEDS ORDERED: DEXTROSE 50% 25 GM / 50ML DISP.SYRIN. IV PRN (08:00)
[2020-08-08] MEDS: METOPROLOL TART IMMED RELEASE 25 MG TABLET. PO SCH ×2 (08:53→22:43)
[2020-08-08] MEDS: FLUTICASONE 50MCG/NASAL SPRAY 16GM BOTTLE. NS SCH (08:53)
[2020-08-08] MEDS: LOSARTAN POTASSIUM 25 MG TABLET. PO SCH (08:54)
[2020-08-08] MEDS: cefTRIAXone IV Push 1 GM VIAL. IVP SCH (08:54)
[2020-08-08] MEDS: TAMSULOSIN 0.4 MG CAP.ER.24H. PO SCH (08:54)
[2020-08-08] MEDS: ASPIRIN 325 MG TABLET PO SCH (08:54)
[2020-08-08] MEDS: GABAPENTIN 300 MG CAPSULE. PO SCH ×2 (08:54→22:43)
[2020-08-08] MEDS: DOCUSATE SODIUM 100 MG CAPSULE. PO SCH (08:54)
[2020-08-08] MEDS: CLOPIDOGREL BISULFATE 75 MG TABLET PO SCH (08:54)
[2020-08-08] MEDS ORDERED: FLU VACC QS 2020-21(6MOS+)/PF 0.5 ML SYRINGE. VAX IM ONE (09:00)
[2020-08-08 11:00] VITALS: BP 149/68
[2020-08-08] MEDS: VANCOMYCIN 1.5 GM in IV NORMAL SALINE 500ML BAG 500 ML IV SCH (12:15)
[2020-08-08] MEDS: traMADol 50 MG TABLET PO PRN ×2 (14:43→22:44)
[2020-08-08 15:00] VITALS: BP 150/52
--- NOTE | 2020-08-08 16:54 | NUR ---
Wound Care: Patient seen per wound care consult. Patient is Covid pending, therefore picture assessment only. Patient is well known to us from the wound clinic. The right appears to be cellulitis and there are no openings. The left foot appears to be a diabetic great toe ulcer. Spoke with RN regarding wounds, recommendations at this time to apply Iodoflex to the left great toe and cover with gauze/kerlix. Change on Wednesday and we will follow up on 08/14/20.
--- NOTE | 2020-08-08 16:55 | NUR ---
SW following. Spoke with RN and reviewed chart. Pt from home with sister. Pt currently on room air, IV Vancomycin. Pt COVID pending so SW called into pt's room. Pt stated he works for a [employer] and hopes he does not have COVID. Pt stated no concerns about returning home at discharge. Pt can follow up with out-patient wound clinic as needed. ELINA following.
[2020-08-08 19:27] VITALS: BP 146/57
[2020-08-08] MEDS ORDERED: INSULIN GLARGINE HUM REC ANLOG 8 UNIT SQ SCH (21:00)
[2020-08-08] MEDS: LACTOBACILLUS RHAMNOSUS GG 1 CAPSULE. PO SCH (22:42)
[2020-08-08] MEDS: ATORVASTATIN CALCIUM 20 MG TABLET PO SCH (22:42)
[2020-08-08] MEDS: ENOXAPARIN 40 MG/0.4 ML SYRINGE. SQ SCH (22:45)
[2020-08-08] MEDS: INSULIN GLARGINE SYRINGE. SQ SCH (22:46)
[2020-08-08 23:17] VITALS: BP 163/62
[2020-08-09] MEDS: VANCOMYCIN 1.5 GM in IV NORMAL SALINE 500ML BAG 500 ML IV SCH ×2 (00:28→13:05)
[2020-08-09 03:55] VITALS: BP 170/68
[2020-08-09 04:33] LABS: BASO % 0 % (0-3); EOS % 0 % (0-3); HEMATOCRIT 28.5 % (39.0-53.0); HEMOGLOBIN 9.8 g/dL (13.0-17.5); LYMPH # 1.1 x10^3/uL (1.0-4.8); LYMPH % 16 % (24-48); MEAN CORPUSCULAR HEMOGLOBIN 32 pg (25-35); MEAN CORPUSCULAR HGB CONC 34 g/dL (31-37); MEAN CORPUSCULAR VOLUME 94 fL (79-100); MONO # 0.7 x10^3/uL (0.0-1.1); MONO % 10 % (0-9); NEUT # 5.1 x10^3/uL (1.8-7.7); NEUT % 74 % (31-73); PLATELET COUNT 103 x10^3/uL (140-400); RED BLOOD COUNT 3.02 x10^6/uL (4.30-5.70); RED CELL DISTRIBUTION WIDTH 14.7 % (11.5-14.5); WHITE BLOOD COUNT 6.9 x10^3/uL (4.0-11.0)
[2020-08-09 04:52] LABS: ALBUMIN 2.2 g/dL (3.4-5.0); ALBUMIN/GLOBULIN RATIO 0.4 (1.0-1.7); CALCIUM 8.2 mg/dL (8.5-10.1); POTASSIUM 4.4 mmol/L (3.5-5.1); TOTAL BILIRUBIN 2.3 mg/dL (0.2-1.0); TOTAL PROTEIN 7.4 g/dL (6.4-8.2)
[2020-08-09 07:05] VITALS: BP 172/67
[2020-08-09] MEDS: INSULIN LISPRO 300 UNITS/3 ML VIAL. SQ SCH ×5 (08:00→21:43)
[2020-08-09] MEDS: ASPIRIN 325 MG TABLET PO SCH (08:51)
[2020-08-09] MEDS: TAMSULOSIN 0.4 MG CAP.ER.24H. PO SCH (08:51)
[2020-08-09] MEDS: LACTOBACILLUS RHAMNOSUS GG 1 CAPSULE. PO SCH ×2 (08:51→21:28)
[2020-08-09] MEDS: DOCUSATE SODIUM 100 MG CAPSULE. PO SCH (08:51)
[2020-08-09] MEDS: LOSARTAN POTASSIUM 25 MG TABLET. PO SCH (08:51)
[2020-08-09] MEDS: CLOPIDOGREL BISULFATE 75 MG TABLET PO SCH (08:51)
[2020-08-09] MEDS: GABAPENTIN 300 MG CAPSULE. PO SCH ×2 (08:51→21:28)
[2020-08-09] MEDS: cefTRIAXone IV Push 1 GM VIAL. IVP SCH (08:52)
[2020-08-09] MEDS: METOPROLOL TART IMMED RELEASE 25 MG TABLET. PO SCH ×2 (08:52→21:29)
[2020-08-09] MEDS: FLUTICASONE 50MCG/NASAL SPRAY 16GM BOTTLE. NS SCH (08:52)
--- NOTE | 2020-08-09 09:29 | RAD ---
Examination: ABDOMEN LTD History: RUQ pain. elevated LFT"s. COVID NEG. Comparison/Correlation: None Findings: Right upper quadrant ultrasound exam was performed. Nodular contour of the liver is present. Common bile duct is within normal limits. No biliary dilatation. Gallbladder is not well delineated. Mild gallbladder wall thickening of 0.52 cm noted. No cholelithiasis. Proximal pancreas obscured by bowel gas. Right kidney measures 12.5 cm x 5.5 cm 5.6 mm. No right hydronephrosis. Inferior vena cava is unremarkable. Trace perihepatic ascites noted. Impression: Gallbladder wall is thickened but the gallbladder appears decompressed. Trace ascites. Correlate clinically for cholecystitis. No cholelithiasis. Nodular contour of the liver of concern for cirrhosis or other fibrotic process. Electronically signed by: Fidel Wynn MD (08/09/2020 9:26 AM) [id number]
[2020-08-09] MEDS: traMADol 50 MG TABLET PO PRN ×2 (10:38→21:29)
[2020-08-09 11:05] VITALS: BP 155/72
--- NOTE | 2020-08-09 12:03 | PDOC2 ---
GI CONSULT Date of Service: DATE: 08/09/20 TIME: 12:03 Reason For Consult: elevated Alk Phos, alcohol use disorder HPI: HPI: 59 y/o male w/ fever and foot cellulitis/ulcer. COVID negative. We are asked to see re: elevated Alk Phos w/ h/o alcohol overuse. We saw him in 12/2019 for elevated LFTs (primarily Alk Phos). At that time, hepatitis serologies, AMAb negative, and US w/ hepatosplenomegaly and hepatic steatosis w/ question of cirrhosis. Noted pancytopenia then. Additional h/o uncontrolled DM. Currently without GI complaints except for some nausea sometimes - but able to eat okay. Says he now only drinks a couple beers every 2 weeks or so when his sister lets him. H/o GERD omeprazole. No dysphagia, vomiting, abd pain, diarrhea, constipation, hematochezia, melena, or weight loss. No previous EGD or colonoscopy. No GB, pancreas, or PUD history. H/o CAD, PVD, and CVA on Plavix and ASA. PMH: PMH: CAD, CVA, TIA, HTN, CHRIS, DM w/ neuropathy, HLD, PVD, MRSA CABG, repair traumatic liver lac, VHR, left toe amputations, LE angioplasty/stent FH: Family History: Cancer (grandmother - pancreatic), CAD Social History: Smoke: Quit (6 years ago) ALCOHOL: other (heavy in the past, now occasional) Drugs: None ROS: GEN: +fever HEENT: Denies blurred vision, sore throat CV: Denies chest pain RESP: Denies shortness of air, cough GI: Per HPI : Denies hematuria, dysuria ENDO: Denies weight changes NEURO: Denies confusion, dizziness MSK: bilateral foot pain SKIN: redness right foot Vitals: Vitals: Vital Signs Date Time Temp Pulse Resp B/P (MAP) Pulse Ox O2 Delivery O2 Flow Rate FiO2 08/09/20 11:38 18 Room Air 08/09/20 08:52 69 172/67 08/09/20 07:05 100.4 97 100.4 Labs: Labs: Laboratory Tests Test 08/08/20 16:09 08/08/20 21:11 08/09/20 04:00 08/09/20 08:08 Glucose (Fingerstick) 209 mg/dL (70-99) 232 mg/dL (70-99) 109 mg/dL (70-99) White Blood Count 6.9 x10^3/uL (4.0-11.0) Red Blood Count 3.02 x10^6/uL (4.30-5.70) Hemoglobin 9.8 g/dL (13.0-17.5) Hematocrit 28.5 % (39.0-53.0) Mean Corpuscular Volume 94 fL (79-100) Mean Corpuscular Hemoglobin 32 pg (25-35) Mean Corpuscular Hemoglobin Concent 34 g/dL (31-37) Red Cell Distribution Width 14.7 % (11.5-14.5) Platelet Count 103 x10^3/uL (140-400) Neutrophils (%) (Auto) 74 % (31-73) Lymphocytes (%) (Auto) 16 % (24-48) Monocytes (%) (Auto) 10 % (0-9) Eosinophils (%) (Auto) 0 % (0-3) Basophils (%) (Auto) 0 % (0-3) Neutrophils # (Auto) 5.1 x10^3/uL (1.8-7.7) Lymphocytes # (Auto) 1.1 x10^3/uL (1.0-4.8) Monocytes # (Auto) 0.7 x10^3/uL (0.0-1.1) Eosinophils # (Auto) 0.0 x10^3/uL (0.0-0.7) Basophils # (Auto) 0.0 x10^3/uL (0.0-0.2) D-Dimer (Leigha) 1.37 ug/mlFEU (0.00-0.50) Sodium Level 136 mmol/L (136-145) Potassium Level 4.4 mmol/L (3.5-5.1) Chloride Level 103 mmol/L (98-107) Carbon Dioxide Level 25 mmol/L (21-32) Anion Gap 8 (6-14) Blood Urea Nitrogen 18 mg/dL (8-26) Creatinine 1.0 mg/dL (0.7-1.3) Estimated GFR (Cockcroft-Gault) 77.0 BUN/Creatinine Ratio 18 (6-20) Glucose Level 131 mg/dL (70-99) Calcium Level 8.2 mg/dL (8.5-10.1) Total Bilirubin 2.3 mg/dL (0.2-1.0) Aspartate Amino Transf (AST/SGOT) 38 U/L (15-37) Alanine Aminotransferase (ALT/SGPT) 54 U/L (16-63) Alkaline Phosphatase 409 U/L (46-116) Total Protein 7.4 g/dL (6.4-8.2) Albumin 2.2 g/dL (3.4-5.0) Albumin/Globulin Ratio 0.4 (1.0-1.7) URINE CULTURE Final Final No Growth on 08/09/20 at 1108 BLOOD CULTURE Preliminary NO GROWTH AFTER 1 DAY Allergies: Coded Allergies: morphine (Verified Allergy, Intermediate, N/V, 03/02/19) I S O L A T I O N *CONTACT* (Verified Allergy, Unknown, 03/13/19) mrsa Medications: Current Medications Medications (Trade) Dose Ordered Sig/John Route PRN Reason Start Time Stop Time Status Last Admin Dose Admin Atorvastatin Calcium (Lipitor) 20 mg HS PO 08/08/20 21:00 08/08/20 22:42 Insulin Glargine (Lantus Syringe) 8 unit QHS SQ 08/08/20 21:00 08/08/20 22:46 Lactobacillus Rhamnosus (Culturelle) 1 cap BID PO 08/08/20 21:00 08/09/20 08:51 Imaging: Imaging: LE US IMPRESSION: No evidence of deep venous thrombosis in the right lower extremity. RUQ US Impression: Gallbladder wall is thickened but the gallbladder appears decompressed. Trace ascites. Correlate clinically for cholecystitis. No cholelithiasis. Nodular contour of the liver of concern for cirrhosis or other fibrotic process. PE: GEN: NAD HEENT: Atraumatic, PERRL LUNGS: CTAB HEART: RRR ABD: NABS, S/NT, round EXTREMITY/SKIN: left foot wrapped, right foot w/ erythema NEURO/PSYCH: A & O 3 A/P: A/P: Right foot cellulitis, fever, elevated CRP, lactic acidosis Elevated bili, AST, and Alk Phos - previous workup as above; a bit better than yesterday's labs Normocytic anemia, thrombocytopenia GERD - on PPI CRC screen - none Possible cirrhosis - US as above H/o CAD, PVD, CVA, DM - on Plavix and ASA H/o heavy alcohol use - now occasional FH pancreatic cancer COVID negative -- Will review any new recs re: liver w/ Dr. Whalen. Anemia parameters for completeness. Check INR. Restart PPI. Outpt screening colonoscopy - ideally w/ EGD. UBALDO MCKENZIE Aug 09, 2020 12:03
[2020-08-09 12:20] LABS: VANC TR 13.2 mcg/mL (10.0-20.0)
--- NOTE | 2020-08-09 12:31 | PDOC ---
[facility] PROGRESS NOTE Date of Service DOS: DATE: 08/09/20 TIME: 12:30 Chief Complaint Chief Complaint A/P: Right foot cellulitis - empiric vancomycin initiated. Elevate extremity Right foot diabetic ulcer - looks to have relatively clean base. Wound care to see. Sepsis - fever and tachycardia - likely related to above, given IVF and antibiotics Uncontrolled diabetes - sliding scale insulin Shortness of breath - with wheezing, possibly asthma related vs COVID, will order albuterol inhaler Thombocytopenia - previously noted, will monitor. Possibly related to underlying infection or liver disease Transaminitis - Possibly also with undiagnosed liver disease. Morbid obesity - counseled on weight Hypertensive urgency, ACUTE - will treat Hyperlipidemia. Carotid arterial disease. Peripheral arterial disease. Peripheral neuropathy. HX Right carotid endarterectomy. HX Left second and third toe amputations. HX Explorative laparotomy with cauterization of his liver Remote tobacco abuse Ingrown toenails - with onychomycosis, needs podiatry trimming of his nails, C OVID 19 negative FEN - ADA diet PPX - lovenox FULL CODE Dispo - inpatient for above History of Present Illness History of Present Illness Mr Ford is a 59yo M w/ PMHx CAD, hypertension, diabetes, CVA. DM2 who comes to EDwith complaints of increased pain, redness, and warmth in his right foot after being discharged from this emergency room yesterday. He denies any bleeding or drainage from his right foot. Patient states he was evaluated for right foot pain yesterday but since being discharged he has developed a fever and his symptoms have gotten worse. Patient also complains of having nausea. He states that he has a ulcer on the bottom of his left great toe. He denies any drainage or foul odor from ulcer. Patient states that he has been out of his quick acting insulin for the last 2 days and has only been able to take his morning acting insulin. He denies any polyuria, polydipsia, or polyphagia. The patient denies any cough, chest pain, abdominal pain, vomiting, or diarrhea. He denies any dizziness but reports headache at this time. He currently rates his pain a 10 out of 10 on the pain scale, he denies radiation of the pain, he denies any alleviating factors, pain is worse with palpation. Right lower extremity venous ultrasound negative for DVT does confirm lymphadenopathy in groin. Labs with WBC 9.2 with left shift, Hb 10.8, platelets 114, NA 135, K4.9, BUN 23, CR 1.1, glucose 125, lactic acid 2.1, CRP 247.3, albumin 2.9, alkaline phosphatase 459, AST 47, ALT 78, bilirubin 3.4. 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 Admitted for care of his right foot Low grade temp 100.4F overnight. Swelling and pain and redness improved in right foot. Vitals/I&O Vitals/I&O: Vital Signs Date Time Temp Pulse Resp B/P (MAP) Pulse Ox O2 Delivery O2 Flow Rate FiO2 08/09/20 11:38 18 Room Air 08/09/20 11:05 100.2 65 155/72 (99) 97 100.2 I & O 08/08/20 08/08/20 08/09/20 15:00 23:00 07:00 Intake Total 450 ml 480 ml Output Total 1100 ml 751 ml Balance -650 ml -271 ml Physical Exam General: Alert, Oriented X3, Cooperative, mild distress Lungs: Clear Abdomen: Normal bowel sounds, Soft, No tenderness, No hepatosplenomegaly, No masses Skin: Other (Right foot red, hot, right 2nd hammertoe with ingrown nail. Left 1st MTP with plantar ulcer) Labs Labs: Laboratory Tests Test 08/08/20 16:09 08/08/20 21:11 08/09/20 04:00 08/09/20 08:08 Glucose (Fingerstick) 209 mg/dL (70-99) 232 mg/dL (70-99) 109 mg/dL (70-99) White Blood Count 6.9 x10^3/uL (4.0-11.0) Red Blood Count 3.02 x10^6/uL (4.30-5.70) Hemoglobin 9.8 g/dL (13.0-17.5) Hematocrit 28.5 % (39.0-53.0) Mean Corpuscular Volume 94 fL (79-100) Mean Corpuscular Hemoglobin 32 pg (25-35) Mean Corpuscular Hemoglobin Concent 34 g/dL (31-37) Red Cell Distribution Width 14.7 % (11.5-14.5) Platelet Count 103 x10^3/uL (140-400) Neutrophils (%) (Auto) 74 % (31-73) Lymphocytes (%) (Auto) 16 % (24-48) Monocytes (%) (Auto) 10 % (0-9) Eosinophils (%) (Auto) 0 % (0-3) Basophils (%) (Auto) 0 % (0-3) Neutrophils # (Auto) 5.1 x10^3/uL (1.8-7.7) Lymphocytes # (Auto) 1.1 x10^3/uL (1.0-4.8) Monocytes # (Auto) 0.7 x10^3/uL (0.0-1.1) Eosinophils # (Auto) 0.0 x10^3/uL (0.0-0.7) Basophils # (Auto) 0.0 x10^3/uL (0.0-0.2) D-Dimer (Leigha) 1.37 ug/mlFEU (0.00-0.50) Sodium Level 136 mmol/L (136-145) Potassium Level 4.4 mmol/L (3.5-5.1) Chloride Level 103 mmol/L (98-107) Carbon Dioxide Level 25 mmol/L (21-32) Anion Gap 8 (6-14) Blood Urea Nitrogen 18 mg/dL (8-26) Creatinine 1.0 mg/dL (0.7-1.3) Estimated GFR (Cockcroft-Gault) 77.0 BUN/Creatinine Ratio 18 (6-20) Glucose Level 131 mg/dL (70-99) Calcium Level 8.2 mg/dL (8.5-10.1) Total Bilirubin 2.3 mg/dL (0.2-1.0) Aspartate Amino Transf (AST/SGOT) 38 U/L (15-37) Alanine Aminotransferase (ALT/SGPT) 54 U/L (16-63) Alkaline Phosphatase 409 U/L (46-116) Total Protein 7.4 g/dL (6.4-8.2) Albumin 2.2 g/dL (3.4-5.0) Albumin/Globulin Ratio 0.4 (1.0-1.7) Test 08/09/20 11:41 08/09/20 11:46 Vancomycin Level Trough 13.2 mcg/mL (10.0-20.0) Vancomycin Last Dose Date Unknown Vancomycin Last Dose Time Unknown Glucose (Fingerstick) 198 mg/dL (70-99) Assessment and Plan Assessmemt and Plan Problems Medical Problems: (1) Cellulitis of right leg Status: Acute (2) Fever Status: Acute (3) Person under investigation for COVID-19 Status: Acute Comment Review of Relevant I have reviewed the following items shreyas (where applicable) has been applied. Medications: Current Medications Medications (Trade) Dose Ordered Sig/John Route PRN Reason Start Time Stop Time Status Last Admin Dose Admin Atorvastatin Calcium (Lipitor) 20 mg HS PO 08/08/20 21:00 08/08/20 22:42 Insulin Glargine (Lantus Syringe) 8 unit QHS SQ 08/08/20 21:00 08/08/20 22:46 Lactobacillus Rhamnosus (Culturelle) 1 cap BID PO 08/08/20 21:00 08/09/20 08:51 Justifications for Admission Other Justification BRANDON MONSALVE MD Aug 09, 2020 12:31
[2020-08-09] MEDS: VANCOMYCIN PER PHARMACY MC PRN (12:34)
--- NOTE | 2020-08-09 12:38 | NUR ---
Pharmacy Vancomycin Dosing Note S: Consulted to monitor and dose vancomycin started 08/07/20. O: DAVSUSAN Salinas is a 59 year old M with Cellulitis, . Other Antibiotics: CEFTRIAXONE 1G IV Q24HRS LABS: Last BUN: 25 Last Creatinine: 1 Creatinine Clearance: 80 mL/min Last WBC: 6.9 Last Procalcitonin: - Tmax (past 24 hours): 100.4 Microbiology: BLOOD, URINE CX PENDING I/O: not documented Drug Levels: Last Trough level: 13.2 on 08/09/20 at 1141 Last dose given 08/09/20 at 0028 Vancomycin Dosing: Dosing Weight: Actual Target Trough: 10-20 A: Based on: TROUGH P: 1. ContinueVancomycin 1500 mg IV q12h 2. Follow up Trough level in 5-7 days as needed 3. Pharmacy will continue to monitor, follow and adjust therapy as needed. Cherry Bridges RPH, 08/09/20 [id number]
[2020-08-09 12:52] LABS: PROTHROMBIN TIME PATIENT 13.9 SEC (11.7-14.0)
[2020-08-09 15:00] VITALS: BP 145/47
--- NOTE | 2020-08-09 15:06 | NUR ---
IP: Pt has a long hx of mrsa in foot wound. Pt to continue contact precautions.
--- NOTE | 2020-08-09 18:50 | NUR ---
SW following. Spoke with RN and reviewed chart. Pt from home. Pt remains on room air and is COVID negative. Pt on IV Vancomycin. SW following.
[2020-08-09 19:00] VITALS: BP 126/60
[2020-08-09] MEDS: ATORVASTATIN CALCIUM 20 MG TABLET PO SCH (21:29)
[2020-08-09] MEDS: ENOXAPARIN 40 MG/0.4 ML SYRINGE. SQ SCH (21:34)
[2020-08-09] MEDS: INSULIN GLARGINE SYRINGE. SQ SCH (21:38)
[2020-08-09 23:00] VITALS: BP 146/49
[2020-08-09] MEDS: ZOLPIDEM 5 MG TABLET. PO PRN (23:01)
[2020-08-10] MEDS: VANCOMYCIN 1.5 GM in IV NORMAL SALINE 500ML BAG 500 ML IV SCH ×2 (00:15→12:24)
[2020-08-10 03:00] VITALS: BP 152/49
[2020-08-10 05:11] LABS: IMMUNOGLOBULIN A 618 mg/dL (90-386); IMMUNOGLOBULIN G 1398 mg/dL (603-1613); IMMUNOGLOBULIN M 241 mg/dL (20-172)
[2020-08-10] MEDS: PANTOPRAZOLE 40 MG TABLET.DR. PO SCH (06:16)
[2020-08-10 07:00] VITALS: BP 160/68
[2020-08-10] MEDS: ASPIRIN 325 MG TABLET PO SCH (08:19)
[2020-08-10] MEDS: GABAPENTIN 300 MG CAPSULE. PO SCH ×2 (08:19→21:54)
[2020-08-10] MEDS: LOSARTAN POTASSIUM 25 MG TABLET. PO SCH (08:19)
[2020-08-10] MEDS: CLOPIDOGREL BISULFATE 75 MG TABLET PO SCH (08:20)
[2020-08-10] MEDS: LACTOBACILLUS RHAMNOSUS GG 1 CAPSULE. PO SCH ×2 (08:20→21:54)
[2020-08-10] MEDS: TAMSULOSIN 0.4 MG CAP.ER.24H. PO SCH (08:20)
[2020-08-10] MEDS: METOPROLOL TART IMMED RELEASE 25 MG TABLET. PO SCH ×2 (08:20→23:20)
[2020-08-10] MEDS: DOCUSATE SODIUM 100 MG CAPSULE. PO SCH (08:20)
[2020-08-10] MEDS: cefTRIAXone IV Push 1 GM VIAL. IVP SCH (08:21)
[2020-08-10] MEDS: FLUTICASONE 50MCG/NASAL SPRAY 16GM BOTTLE. NS SCH (08:22)
[2020-08-10] MEDS: INSULIN LISPRO 300 UNITS/3 ML VIAL. SQ SCH ×4 (08:23→22:01)
[2020-08-10 09:55] LABS: BASO % 0 % (0-3); EOS % 0 % (0-3); HEMATOCRIT 28.1 % (39.0-53.0); HEMOGLOBIN 9.6 g/dL (13.0-17.5); LYMPH % 15 % (24-48); MEAN CORPUSCULAR HEMOGLOBIN 33 pg (25-35); MEAN CORPUSCULAR HGB CONC 34 g/dL (31-37); MEAN CORPUSCULAR VOLUME 95 fL (79-100); MONO # 0.7 x10^3/uL (0.0-1.1); MONO % 11 % (0-9); NEUT # 4.7 x10^3/uL (1.8-7.7); NEUT % 74 % (31-73); PLATELET COUNT 112 x10^3/uL (140-400); RED BLOOD COUNT 2.95 x10^6/uL (4.30-5.70); RED CELL DISTRIBUTION WIDTH 14.4 % (11.5-14.5); WHITE BLOOD COUNT 6.4 x10^3/uL (4.0-11.0)
--- NOTE | 2020-08-10 09:57 | PDOC ---
[facility] PROGRESS NOTE Date of Service DOS: DATE: 08/10/20 TIME: 09:51 Chief Complaint Chief Complaint Right foot cellulitis Right foot diabetic ulcer Sepsis - fever and tachycardia Diabetes Shortness of breath Thombocytopenia Transaminitis Morbid obesity Hypertensive urgency Hyperlipidemia. Carotid arterial disease. Peripheral arterial disease. Peripheral neuropathy. HX Right carotid endarterectomy. HX Left second and third toe amputations. HX Explorative laparotomy with cauterization of his liver Remote tobacco abuse Ingrown toenails History of Present Illness History of Present Illness 08/10/2020 Patient seen and examined FELICE RN FELICE case manger Mr Ford is a 59yo M w/ PMHx CAD, hypertension, diabetes, CVA. DM2 who comes to EDwith complaints of increased pain, redness, and warmth in his right foot after being discharged from this emergency room yesterday. He denies any bleeding or drainage from his right foot. Patient states he was evaluated for right foot pain yesterday but since being discharged he has developed a fever and his symptoms have gotten worse. Patient also complains of having nausea. He states that he has a ulcer on the bottom of his left great toe. He denies any drainage or foul odor from ulcer. Patient states that he has been out of his quick acti ng insulin for the last 2 days and has only been able to take his morning acting insulin. He denies any polyuria, polydipsia, or polyphagia. The patient denies any cough, chest pain, abdominal pain, vomiting, or diarrhea. He denies any dizziness but reports headache at this time. He currently rates his pain a 10 out of 10 on the pain scale, he denies radiation of the pain, he denies any alleviating factors, pain is worse with palpation. Right lower extremity venous ultrasound negative for DVT does confirm lymphadenopathy in groin. Labs with WBC 9.2 with left shift, Hb 10.8, platelets 114, NA 135, K4.9, BUN 23, CR 1.1, glucose 125, lactic acid 2.1, CRP 247.3, albumin 2.9, alkaline phosphatase 459, AST 47, ALT 78, bilirubin 3.4. 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 Admitted for care of his right foot Low grade temp 100.4F overnight. Swelling and pain and redness improved in right foot. Vitals/I&O Vitals/I&O: Vital Signs Date Time Temp Pulse Resp B/P (MAP) Pulse Ox O2 Delivery O2 Flow Rate FiO2 08/10/20 08:20 69 160/68 08/10/20 07:00 98.8 18 96 Room Air 98.8 I & O 08/09/20 08/09/20 08/10/20 15:00 23:00 07:00 Intake Total 150 ml 50 ml Output Total 801 ml Balance -651 ml 50 ml Physical Exam General: Alert, Oriented X3, Cooperative, mild distress Heart: Regular rate, Normal S1 Lungs: Clear, Other (Short of breath) Abdomen: Normal bowel sounds, Soft, No tenderness, No hepatosplenomegaly, No masses Skin: Other (Right foot red, hot, right 2nd hammertoe with ingrown nail. Left 1st MTP with plantar ulcer) Labs Labs: Laboratory Tests Test 08/09/20 11:41 08/09/20 11:46 08/09/20 16:47 08/09/20 21:05 Vancomycin Level Trough 13.2 mcg/mL (10.0-20.0) Vancomycin Last Dose Date Unknown Vancomycin Last Dose Time Unknown Glucose (Fingerstick) 198 mg/dL (70-99) 237 mg/dL (70-99) 211 mg/dL (70-99) Test 08/10/20 07:17 Glucose (Fingerstick) 171 mg/dL (70-99) Review of Systems Review of Systems: No dizziness No nausea Assessment and Plan Assessmemt and Plan Assessment: Right foot cellulitis Right foot diabetic ulcer Sepsis - fever and tachycardia Diabetes Shortness of breath Thombocytopenia Transaminitis Morbid obesity Hypertensive urgency Hyperlipidemia. Carotid arterial disease. Peripheral arterial disease. Peripheral neuropathy. HX Right carotid endarterectomy. HX Left second and third toe amputations. HX Explorative laparotomy with cauterization of his liver Remote tobacco abuse Ingrown toenails Plan: 1) Continue IV antibiotics (Rocephin and Vanco) 2) Trend labs 3) PT/OT 4) Home meds 5) DVT prophylaxis 6) Full code 7) Appreciate subspecialty input Comment Review of Relevant I have reviewed the following items shreyas (where applicable) has been applied. Medications: Current Medications Medications (Trade) Dose Ordered Sig/John Route PRN Reason Start Time Stop Time Status Last Admin Dose Admin Vancomycin HCl (Vancomycin Trough Level) 1 each 1X ONCE MC 08/09/20 11:30 08/09/20 11:31 DC 08/09/20 11:30 Pantoprazole Sodium (Protonix) 40 mg DAILYAC PO 08/10/20 07:30 08/10/20 06:16 Zolpidem Tartrate (Ambien) 5 mg PRN QHS PRN PO INSOMNIA 08/09/20 22:45 08/09/20 23:01 Justifications for Admission Other Justification GALILEA MARTINEZ III DO Aug 10, 2020 09:57
[2020-08-10 10:18] LABS: ALBUMIN 2.2 g/dL (3.4-5.0); ALBUMIN/GLOBULIN RATIO 0.4 (1.0-1.7); CALCIUM 7.7 mg/dL (8.5-10.1); POTASSIUM 4.4 mmol/L (3.5-5.1); TOTAL PROTEIN 7.3 g/dL (6.4-8.2)
[2020-08-10 11:03] VITALS: BP 150/48
[2020-08-10] MEDS: VANCOMYCIN PER PHARMACY MC PRN (13:28)
--- NOTE | 2020-08-10 14:21 | CONS ---
DATE OF CONSULTATION: 08/10/2020 PODIATRIC CONSULTATION REASON FOR CONSULTATION: Debridement of mycotic nails. REVIEW OF RECORD: This is a 59-year-old gentleman that has a history of coronary artery disease, hypertension, diabetes, cardiovascular accident. He is admitted with increased pain and redness of his right foot. He had been in the Emergency Room the day prior to admittance and discharge, but situation worsened. SURGICAL HISTORY: Endarterectomy and cardiac catheterization with single vessel angioplasty, amputation of toes on the left foot x 2. SOCIAL HISTORY: Quit smoking. Drinks heavily. Denies drugs. MEDICATIONS: Reviewed, takes Neurontin for apparently neuropathy and Plavix for diminished vascularity along with insulin for his diabetes, he also takes aspirin. ALLERGIES: MORPHINE. PHYSICAL EXAMINATION: DERMAL: The patient has elongated mycotic nails, hallux nails are the most problematic. They are thickened with mycosis involvement. The other digits are of lesser degree. Plantar aspect of left great toe has a callus that has an ulcer underneath of it. The peripheral of the callus is undermined where the ulcer is and that area is debrided to help with healing of the ulcer by the project controls specialist. VASCULAR: Pedal pulses are diminished to absent bilateral. The right foot is markedly swollen with cellulitis. NEUROLOGIC: The patient does not feel sharp or dull sensation. He relates numbness, burning and tingling. MUSCULOSKELETAL: Amputation of two toes, left foot and hammertoe and curled toes of other lesser digits. ASSESSMENT: 1. Insulin-dependent diabetes with peripheral vascular disease and neuropathy. 2. Clinical evidence of onychomycosis of 8 toenails, hallux nails are being the most notable. 3. Plantar ulceration, left great toe at the interphalangeal joint. The right foot and leg has significant cellulitis that is currently being treated. PLAN: 1. Debridement of all nails as needed. No hemorrhage incurred. 2. Debride the callus around the periphery of the left great toe ulceration. Wound Care Department will continue to do reevaluation, the first of this is on Wednesday. Silvadene applied to the left toe ulcer with sterile gauze dressing. All nails are debrided appropriately. No hemorrhage incurred. Thank you very much for the opportunity in taking care of this patient regarding the podiatric need. JUNIOR FREIRE DPM DR: VICKY/javier JOB#: [id number] / [id number]
[2020-08-10 14:58] VITALS: BP 150/49
[2020-08-10] MEDS: traMADol 50 MG TABLET PO PRN (17:21)
[2020-08-10 19:00] VITALS: BP 106/52
[2020-08-10] MEDS: ALBUTEROL SULFATE 2.5 MG/3 ML NEBU. INH PRN (19:50)
[2020-08-10] MEDS: ENOXAPARIN 40 MG/0.4 ML SYRINGE. SQ SCH (21:54)
[2020-08-10] MEDS: ZOLPIDEM 5 MG TABLET. PO PRN (21:54)
[2020-08-10] MEDS: ATORVASTATIN CALCIUM 20 MG TABLET PO SCH (21:55)
[2020-08-10] MEDS: INSULIN GLARGINE SYRINGE. SQ SCH (22:01)
[2020-08-10 23:00] VITALS: BP 165/59
[2020-08-11] MEDS: VANCOMYCIN 1.5 GM in IV NORMAL SALINE 500ML BAG 500 ML IV SCH ×2 (00:39→11:50)
[2020-08-11 03:00] VITALS: BP 142/55
[2020-08-11] MEDS: PANTOPRAZOLE 40 MG TABLET.DR. PO SCH (06:59)
[2020-08-11 07:00] VITALS: BP 172/69
[2020-08-11] MEDS: TAMSULOSIN 0.4 MG CAP.ER.24H. PO SCH (08:27)
[2020-08-11] MEDS: ASPIRIN 325 MG TABLET PO SCH (08:28)
[2020-08-11] MEDS: CLOPIDOGREL BISULFATE 75 MG TABLET PO SCH (08:28)
[2020-08-11] MEDS: LACTOBACILLUS RHAMNOSUS GG 1 CAPSULE. PO SCH ×2 (08:28→20:17)
[2020-08-11] MEDS: DOCUSATE SODIUM 100 MG CAPSULE. PO SCH (08:28)
[2020-08-11] MEDS: GABAPENTIN 300 MG CAPSULE. PO SCH ×2 (08:28→20:17)
[2020-08-11] MEDS: METOPROLOL TART IMMED RELEASE 25 MG TABLET. PO SCH ×2 (08:28→20:17)
[2020-08-11] MEDS: LOSARTAN POTASSIUM 25 MG TABLET. PO SCH (08:29)
[2020-08-11] MEDS: cefTRIAXone IV Push 1 GM VIAL. IVP SCH (08:30)
[2020-08-11] MEDS: FLUTICASONE 50MCG/NASAL SPRAY 16GM BOTTLE. NS SCH (08:31)
[2020-08-11] MEDS: INSULIN LISPRO 300 UNITS/3 ML VIAL. SQ SCH ×4 (08:41→20:28)
[2020-08-11 10:20] VITALS: BP 156/49
[2020-08-11] MEDS: VANCOMYCIN PER PHARMACY MC PRN (12:36)
--- NOTE | 2020-08-11 14:10 | PDOC ---
[facility] PROGRESS NOTE Date of Service DOS: DATE: 08/11/20 TIME: 13:58 Chief Complaint Chief Complaint Right foot cellulitis Right foot diabetic ulcer Sepsis - fever and tachycardia Diabetes Shortness of breath Thombocytopenia Transaminitis Morbid obesity Hypertensive urgency Hyperlipidemia. Carotid arterial disease. Peripheral arterial disease. Peripheral neuropathy. HX Right carotid endarterectomy. HX Left second and third toe amputations. HX Explorative laparotomy with cauterization of his liver Remote tobacco abuse Ingrown toenails History of Present Illness History of Present Illness 08/11/2020 Patient seen and examined Discussed with RN Discussed with casey saw operator 08/10/2020 Patient seen and examined DW RN FELICE case manger Mr Ford is a 59yo M w/ PMHx CAD, hypertension, diabetes, CVA. DM2 who comes to EDwith complaints of increased pain, redness, and warmth in his right foot after being discharged from this emergency room yesterday. He denies any bleeding or drainage from his right foot. Patient states he was evaluated for right foot pain yesterday but since being discharged he has developed a fever and his symptoms have gotten worse. Patient also complains of having nausea. He states that he has a ulcer on the bottom of his left great toe. He denies any drainage or foul odor from ulcer. Patient states that he has been out of his quick acting insulin for the last 2 days and has only been able to take his morning acting insulin. He denies any polyuria, polydipsia, or polyphagia. The patient denies any cough, chest pain, abdominal pain, vomiting, or diarrhea. He denies any dizziness but reports headache at this time. He currently rates his pain a 10 out of 10 on the pain scale, he denies radiation of the pain, he denies any alleviating factors, pain is worse with palpation. Right lower extremity venous ultrasound negative for DVT does confirm lymphadenopathy in groin. Labs with WBC 9.2 with left shift, Hb 10.8, platelets 114, NA 135, K4.9, BUN 23, CR 1.1, glucose 125, lactic acid 2.1, CRP 247.3, albumin 2.9, alkaline phosphatase 459, AST 47, ALT 78, bilirubin 3.4. 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 Admitted for care of his right foot Low grade temp 100.4F overnight. Swelling and pain and redness improved in right foot. Vitals/I&O Vitals/I&O: Vital Signs Date Time Temp Pulse Resp B/P (MAP) Pulse Ox O2 Delivery O2 Flow Rate FiO2 08/11/20 10: 99.0 67 18 156/49 (84) 95 Room Air 99.0 I & O 08/10/20 08/10/20 08/11/20 15:00 23:00 07:00 Intake Total 500 ml 250 ml 240 ml Output Total 1100 ml 800 ml Balance -600 ml -550 ml 240 ml Physical Exam General: Alert, Oriented X3, Cooperative, mild distress Heart: Regular rate, Normal S1 Lungs: Clear, Other (Short of breath) Abdomen: Normal bowel sounds, Soft, No tenderness, No hepatosplenomegaly, No masses Skin: Other (Right foot red, hot, right 2nd hammertoe with ingrown nail. Left 1st MTP with plantar ulcer) Labs Labs: Laboratory Tests Test 08/10/20 16:09 08/10/20 20:10 08/11/20 07:01 08/11/20 11:09 Glucose (Fingerstick) 247 mg/dL (70-99) 280 mg/dL (70-99) 200 mg/dL (70-99) 308 mg/dL (70-99) Review of Systems Review of Systems: No N/V No dizziness Assessment and Plan Assessmemt and Plan Assessment: Right foot cellulitis Right foot diabetic ulcer Sepsis - fever and tachycardia Diabetes Shortness of breath Thombocytopenia Transaminitis Morbid obesity Hypertensive urgency Hyperlipidemia. Carotid arterial disease. Peripheral arterial disease. Peripheral neuropathy. HX Right carotid endarterectomy. HX Left second and third toe amputations. HX Explorative laparotomy with cauterization of his liver Remote tobacco abuse Ingrown toenails Plan: 1) IV antibiotics 2) Await ortho input 3) Wound care 4) PT/OT 5) DVT prophylaxis 6) Home meds 7) Full code 8) Appreciate subspecialty input Comment Review of Relevant I have reviewed the following items shreyas (where applicable) has been applied. Justifications for Admission Other Justification GALILEA MARTINEZ III DO Aug 11, 2020 14:10
[2020-08-11 14:33] VITALS: BP 109/31
[2020-08-11] MEDS: ALBUTEROL SULFATE 2.5 MG/3 ML NEBU. INH PRN ×2 (15:59→20:14)
[2020-08-11] MEDS: PIPERACILLIN/TAZOBACTAM 3.375 GM in IV NORMAL SALINE 50ML 50 ML IV SCH ×2 (17:37→23:39)
[2020-08-11 19:16] VITALS: BP 144/46
[2020-08-11] MEDS: ATORVASTATIN CALCIUM 20 MG TABLET PO SCH (20:17)
[2020-08-11] MEDS: traMADol 50 MG TABLET PO PRN (20:18)
[2020-08-11] MEDS: ENOXAPARIN 40 MG/0.4 ML SYRINGE. SQ SCH (20:18)
[2020-08-11] MEDS: INSULIN GLARGINE SYRINGE. SQ SCH (20:29)
[2020-08-11 22:45] VITALS: BP 126/45
[2020-08-11] MEDS: ZOLPIDEM 5 MG TABLET. PO PRN (23:38)
[2020-08-12] MEDS: VANCOMYCIN 1.5 GM in IV NORMAL SALINE 500ML BAG 500 ML IV SCH ×2 (00:32→15:12)
[2020-08-12 03:19] VITALS: BP 152/66
[2020-08-12] MEDS: PIPERACILLIN/TAZOBACTAM 3.375 GM in IV NORMAL SALINE 50ML 50 ML IV SCH ×3 (05:41→18:45)
[2020-08-12 07:00] VITALS: BP 155/57
--- NOTE | 2020-08-12 08:04 | PDOC ---
PROGRESS NOTES Date of Service: DATE: 08/12/20 TIME: 08:04 Chief Complaint Chief Complaint impression Right foot cellulitis PVD 05/26Angioplasty of the left dorsalis pedis and anterior tibial arteriesPrimary placement of a covered self expanding stent secondary to chronic total occlusion, distal right SFA Angioplasty of proximal SFA Right foot diabetic ulcer Sepsis - fever and tachycardia Diabetes Shortness of breath Thombocytopenia Transaminitis Gallbladder wall is thickened but the gallbladder appears decompressed. Trace ascites. Correlate clinically for cholecystitis. No cholelithiasis. Nodular contour of the liver of concern for cirrhosis or other fibrotic process. Morbid obesity Hypertensive urgency Hyperlipidemia. Carotid arterial disease. Peripheral arterial disease. Peripheral neuropathy. HX Right carotid endarterectomy. HX Left second and third toe amputations. HX Explorative laparotomy with cauterization of his liver Remote tobacco abuse Ingrown toenails plan GI CONSULT ID CONSULT ARTERIAL DOPPLERS BOTH LEGS 39 MIN pt exam, chart review, > 50% of time spent with exam, chart review, pt care coordination History of Present Illness History of Present Illness 08/12/2020 Patient seen and examined Discussed with RN Discussed with case loader operator will consult ID 08/10/2020 Patient seen and examined DW RN FELICE case manger Mr Ford is a 59yo M w/ PMHx CAD, hypertension, diabetes, CVA. DM2 who comes to EDwith complaints of increased pain, redness, and warmth in his right foot after being discharged from this emergency room yesterday. He denies any bleeding or drainage from his right foot. Patient states he was evaluated for right foot pain yesterday but since being discharged he has developed a fever and his symptoms have gotten worse. Patient also complains of having nausea. He states that he has a ulcer on the bottom of his left great toe. He denies any drainage or foul odor from ulcer. Patient states that he has been out of his quick acting insulin for the last 2 days and has only been able to take his morning acting insulin. He denies any polyuria, polydipsia, or polyphagia. The patient denies any cough, chest pain, abdominal pain, vomiting, or diarrhea. He denies any dizziness but reports headache at this time. He currently rates his pain a 10 out of 10 on the pain scale, he denies radiation of the pain, he denies any alleviating factors, pain is worse with palpation. Right lower extremity venous ultrasound negative for DVT does confirm lymphadenopathy in groin. Labs with WBC 9.2 with left shift, Hb 10.8, platelets 114, NA 135, K4.9, BUN 23, CR 1.1, glucose 125, lactic acid 2.1, CRP 247.3, albumin 2.9, alkaline phosphatase 459, AST 47, ALT 78, bilirubin 3.4. 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 Admitted for care of his right foot Low grade temp 100.4F overnight. Swelling and pain and redness improved in right foot. Vitals Vitals Vital Signs Date Time Temp Pulse Resp B/P (MAP) Pulse Ox O2 Delivery O2 Flow Rate FiO2 08/12/20 03:19 99.2 71 20 152/66 (94) 93 Room Air 99.2 Physical Exam General: Alert, Oriented X3, Cooperative, No acute distress Heart: Regular rate, Normal S1 Lungs: Clear, Other (Short of breath) Abdomen: Normal bowel sounds, Soft, No tenderness, No hepatosplenomegaly, No masses Extremities: No cyanosis Skin: Other (Right foot red, hot, right 2nd hammertoe with ingrown nail. Left 1st MTP with plantar ulcer) Labs LABS / 9:45 AM Procedure: 1. Abdominal aortogram 2. Pelvic angiography 3. Left lower extremity angiography 4. Angioplasty of the left dorsalis pedis artery and anterior tibial artery 5. Placement of a covered stent spanning the previously chronic total occlusion of the left superficial femoral artery 6. Angioplasty of the proximal superficial femoral artery Indication: 58-year-old male with poorly healing wound, left foot The procedure was explained in its entirety to the patient or the patients designated food service representative by a member of the treatment team, including a discussion of the risks, benefits and commonly accepted alternatives to the procedure, as well as the expected consequences of no therapy whatsoever. Discussion of the risks included, but was not limited to, those that are most frequent and those that are rare but possibly severe or life-threatening, as well as the possibility of unforeseen complications. All elements of maximal sterile barrier technique including the use of a cap, mask, sterile gown, sterile gloves, large sterile sheet, appropriate hand hygiene, and 2% chlorhexidine for cutaneous antisepsis (or acceptable alternative antiseptic per current guidelines) were followed for this procedure. The right groin was prepped and draped as described. Ultrasound evaluation demonstrates the right contralateral artery to be calcified but otherwise patent. The right common femoral artery was accessed using micropuncture technique under direct ultrasound guidance. Reference ultrasound images were saved the medical record. A 5 Lithuanian vascular sheath was placed. An Omni flush catheter was advanced into the abdominal aorta. Abdominal aorta demonstrates no aneurysmal dilatation, or significant stenosis. Moderate high-grade stenosis of the left renal artery noted. If there is significant refractory hypertension, intervention could be considered. Pelvic angiography demonstrates no flow-limiting aortoiliac stenosis. Mild narrowing of the common iliac arteries is seen. The aortic bifurcation was crossed. The catheter was positioned in the left common femoral artery. Left lower extremity angiography demonstrates moderate stenosis at the origin of the left SFA. The catheter was then repositioned the proximal left superficial femoral artery. Left lower extremity angiography was continued demonstrating multiple moderate stenoses in the proximal SFA followed by a relatively short segment chronic total occlusion of the distal SFA just above the adductor canal. Multiple well-developed collaterals noted. The popliteal artery is patent. The posterior tibial artery and peroneal arteries are patent. The anterior tibial artery osseous multiple high-grade stenoses near occlusions extending into patent dorsalis pedis artery. The chronic total occlusion was traversed. This includes angiography performed with catheter positioned in the distal SFA, and popliteal artery. Covered self-expanding stent was placed, an postdilated. Essentially normal morphology and flow was restored through this segment. A catheter and wire were advanced into the mid to distal foot. Angioplasty of the dorsalis pedis artery and anterior tibial artery was using a combination of 1.5 and 2 mm balloons was used. Treated including angiography from the anterior tibial and dorsalis pedis artery position. Following treatment there was improved morphology and flow through these arteries, though some persistent irregularity was seen. Angioplasty of the proximal superficial artery was performed with a 5 mm balloon. This improved morphology and flow through the proximal SFA. The sheath was removed. Manual pressure was held. Sterile dressings were applied. No immediate complications were identified. Total Fluoroscopy Time: 33 Minutes Dose area Product: 218 Gycm2 Sedation The procedure was performed under conscious sedation, including continuous cardiopulmonary monitoring via a dedicated sedation nurse. Face to face sedation time : 161 minutes Impression: 1. Angioplasty of the left dorsalis pedis and anterior tibial arteries 2. Primary placement of a covered self expanding stent secondary to chronic total occlusion, distal right SFA 3. Angioplasty of proximal SFA DICTATED and SIGNED BY: SAMRA OLIVER MD DATE: 06/02/19 0979 Right foot 3 views INDICATION: Right foot pain after patient fell COMPARISON: No relevant comparisons currently available. FINDINGS: AP, oblique and lateral views of the right foot were obtained. They show anatomic alignment of the osseous structures with generalized demineralization and a nonunited mid shaft fracture of the third metatarsal as well as a healed midshaft fracture of the second metatarsal with residual deformity. There is ankylosis of the interphalangeal joint of the great toe and there are surgical changes from previous calcaneal stapling. No acute or aggressive osseous lesions are identified. The soft tissues show arterial calcifications and mild swelling of the forefoot. No abnormal soft tissue gas or radiopaque foreign body. IMPRESSION: Osteopenia and multiple old fractures of the right foot but no acute osseous abnormality noted. Electronically signed by: Juanis Manley MD (08/06/2020 2:47 PM) [id number] DICTATED and SIGNED BY: JUANIS MANLEY MD DATE: 08/06/20 1447 EXAMINATION: VENOUS LOWER EXTREMITY RIGHT, 08/07/2020 9:14 PM CLINICAL INDICATION: Right leg swelling and redness COMPARISON: None PROCEDURE: Multiple grayscale, color Doppler and spectral Doppler sonographic images of The left lower extremity were obtained. FINDINGS: There is no evidence of deep venous thrombosis in right lower extremity. The right common femoral, femoral and popliteal veins are echolucent with normal flow on color Doppler imaging. The veins are fully compressible and show normal phasicity and reaction to augmentation. Visualized calf veins are also normal in appearance. Prominent right inguinal lymph node measures 4.5 x 0.9 cm. IMPRESSION: No evidence of deep venous thrombosis in the right lower extremity. Electronically signed by: Mee Agustin MD (08/07/2020 10:42 PM) [id number] DICTATED and SIGNED BY: MEE AGUSTIN MD Examination: ABDOMEN LTD History: RUQ pain. elevated LFT"s. COVID NEG. Comparison/Correlation: None Findings: Right upper quadrant ultrasound exam was performed. Nodular contour of the liver is present. Common bile duct is within normal limits. No biliary dilatation. Gallbladder is not well delineated. Mild gallbladder wall thickening of 0.52 cm noted. No cholelithiasis. Proximal pancreas obscured by bowel gas. Right kidney measures 12.5 cm x 5.5 cm 5.6 mm. No right hydronephrosis. Inferior vena cava is unremarkable. Trace perihepatic ascites noted. Impression: Gallbladder wall is thickened but the gallbladder appears decompressed. Trace ascites. Correlate clinically for cholecystitis. No cholelithiasis. Nodular contour of the liver of concern for cirrhosis or other fibrotic process. Electronically signed by: Fidel Wynn MD (08/09/2020 9:26 AM) [id number] Laboratory Tests Test 08/11/20 11:09 08/11/20 16:05 08/11/20 20:23 08/11/20 22:25 Glucose (Fingerstick) 308 mg/dL (70-99) 274 mg/dL (70-99) 323 mg/dL (70-99) 270 mg/dL (70-99) Test 08/12/20 02:37 08/12/20 07:12 Blood Urea Nitrogen 15 mg/dL (8-26) Creatinine 1.1 mg/dL (0.7-1.3) Estimated GFR (Cockcroft-Gault) 69.0 Glucose (Fingerstick) 230 mg/dL (70-99) Assessment and Plan Assessmemt and Plan Problems Medical Problems: (1) Cellulitis of right leg Status: Acute (2) Fever Status: Acute (3) Person under investigation for COVID-19 Status: Acute Comment Review of Relevant I have reviewed the following items shreyas (where applicable) has been applied. Labs Laboratory Tests Test 08/10/20 09:10 08/10/20 10:33 08/10/20 16:09 08/10/20 20:10 White Blood Count 6.4 x10^3/uL (4.0-11.0) Red Blood Count 2.95 x10^6/uL (4.30-5.70) Hemoglobin 9.6 g/dL (13.0-17.5) Hematocrit 28.1 % (39.0-53.0) Mean Corpuscular Volume 95 fL (79-100) Mean Corpuscular Hemoglobin 33 pg (25-35) Mean Corpuscular Hemoglobin Concent 34 g/dL (31-37) Red Cell Distribution Width 14.4 % (11.5-14.5) Platelet Count 112 x10^3/uL (140-400) Neutrophils (%) (Auto) 74 % (31-73) Lymphocytes (%) (Auto) 15 % (24-48) Monocytes (%) (Auto) 11 % (0-9) Eosinophils (%) (Auto) 0 % (0-3) Basophils (%) (Auto) 0 % (0-3) Neutrophils # (Auto) 4.7 x10^3/uL (1.8-7.7) Lymphocytes # (Auto) 1.0 x10^3/uL (1.0-4.8) Monocytes # (Auto) 0.7 x10^3/uL (0.0-1.1) Eosinophils # (Auto) 0.0 x10^3/uL (0.0-0.7) Basophils # (Auto) 0.0 x10^3/uL (0.0-0.2) Sodium Level 134 mmol/L (136-145) Potassium Level 4.4 mmol/L (3.5-5.1) Chloride Level 101 mmol/L (98-107) Carbon Dioxide Level 24 mmol/L (21-32) Anion Gap 9 (6-14) Blood Urea Nitrogen 14 mg/dL (8-26) Creatinine 1.0 mg/dL (0.7-1.3) Estimated GFR (Cockcroft-Gault) 77.0 BUN/Creatinine Ratio 14 (6-20) Glucose Level 239 mg/dL (70-99) Calcium Level 7.7 mg/dL (8.5-10.1) Total Bilirubin 2.0 mg/dL (0.2-1.0) Aspartate Amino Transf (AST/SGOT) 46 U/L (15-37) Alanine Aminotransferase (ALT/SGPT) 55 U/L (16-63) Alkaline Phosphatase 502 U/L (46-116) Total Protein 7.3 g/dL (6.4-8.2) Albumin 2.2 g/dL (3.4-5.0) Albumin/Globulin Ratio 0.4 (1.0-1.7) Glucose (Fingerstick) 255 mg/dL (70-99) 247 mg/dL (70-99) 280 mg/dL (70-99) Test 10/4/20 07:01 08/11/20 11:09 08/11/20 16:05 08/11/20 20:23 Glucose (Fingerstick) 200 mg/dL (70-99) 308 mg/dL (70-99) 274 mg/dL (70-99) 323 mg/dL (70-99) Test 08/11/20 22:25 08/12/20 02:37 08/12/20 07:12 Glucose (Fingerstick) 270 mg/dL (70-99) 230 mg/dL (70-99) Blood Urea Nitrogen 15 mg/dL (8-26) Creatinine 1.1 mg/dL (0.7-1.3) Estimated GFR (Cockcroft-Gault) 69.0 Laboratory Tests Test 08/11/20 11:09 08/11/20 16:05 08/11/20 20:23 08/11/20 22:25 Glucose (Fingerstick) 308 mg/dL (70-99) 274 mg/dL (70-99) 323 mg/dL (70-99) 270 mg/dL (70-99) Test 08/12/20 02:37 08/12/20 07:12 Blood Urea Nitrogen 15 mg/dL (8-26) Creatinine 1.1 mg/dL (0.7-1.3) Estimated GFR (Cockcroft-Gault) 69.0 Glucose (Fingerstick) 230 mg/dL (70-99) Microbiology 08/07/20 Urine Culture - Final, Complete 08/07/20 Blood Culture - Preliminary, Resulted NO GROWTH AFTER 4 DAYS Medications Current Medications Acetaminophen (Tylenol) 1,000 mg 1X ONCE PO Last administered on 08/07/20at 21:50; Start 08/07/20 at 21:45; Stop 08/07/20 at 21:46; Status DC Ondansetron HCl (Zofran Odt) 4 mg 1X ONCE PO Last administered on 08/07/20at 21:50; Start 08/07/20 at 21:45; Stop 08/07/20 at 21:46; Status DC Sodium Chloride 1,000 ml @ 1,000 mls/hr 1X ONCE IV Last administered on 08/07/20at 21:52; Start 08/07/20 at 21:45; Stop 08/07/20 at 22:44; Status DC Fentanyl Citrate (Fentanyl 2ml Vial) 50 mcg 1X ONCE IV Last administered on 08/07/20at 21:51; Start 08/07/20 at 21:45; Stop 08/07/20 at 21:46; Status DC Ondansetron HCl (Zofran) 4 mg PRN Q4HRS PRN IV NAUSEA/VOMITING; Start 08/07/20 at 21:45 Acetaminophen (Tylenol) 650 mg PRN Q4HRS PRN PO TEMP OVER 100.4F OR MILD PAIN Last administered on 08/08/20at 05:50; Start 08/07/20 at 21:45 Enoxaparin Sodium (Lovenox 40mg Syringe) 40 mg Q24H SQ Last administered on 08/11/20 20:18; Start 08/07/20 at 21:45 Albuterol Sulfate (Ventolin Neb Soln) 2.5 mg PRN Q4HRS PRN INH SHORTNESS OF BREATH Last administered on 08/11/20 20:14; Start 08/07/20 at 21:45 Aspirin (Ronald Aspirin) 325 mg DAILYWBKFT PO Last administered on 08/11/20 08:28; Start 08/08/20 at 08:00 Atorvastatin Calcium (Lipitor) 20 mg HS PO Last administered on 08/11/20 20:17; Start 08/08/20 at 21:00 Clopidogrel Bisulfate (Plavix) 75 mg DAILY PO Last administered on 08/11/20 08:28; Start 08/08/20 at 09:00 Docusate Sodium (Colace) 100 mg DAILY PO Last administered on 08/11/20 08:28; Start 08/08/20 at 09:00 Gabapentin (Neurontin) 300 mg BID PO Last administered on 08/11/20 20:17; Start 08/08/20 at 09:00 Hydroxyzine HCl (Atarax) 25 mg TID PRN PRN PO ELEVATED BP, SEE COMMENTS; Start 08/07/20 at 21:45 Losartan Potassium (Cozaar) 25 mg DAILY PO Last administered on 08/11/20 08:29; Start 08/08/20 at 09:00 Metoprolol Tartrate (Lopressor) 25 mg BID PO Last administered on 08/11/20 20:17; Start 08/08/20 at 09:00 Tamsulosin HCl (Flomax) 0.4 mg DAILY PO Last administered on 08/11/20 08:27; Start 08/08/20 at 09:00 Tramadol HCl (Ultram) 50 mg PRN Q6HRS PRN PO MODERATE - SEVERE PAIN Last administered on 08/11/20 20:18; Start 08/07/20 at 21:45 Fluticasone Propionate (Flonase) 2 spray DAILY NS Last administered on 08/11/20 08:31; Start 08/08/20 at 09:00 Non-Formulary Medication (Insulin Glargine,Hum.rec.anlog (Lantus Solostar)) 8 unit QHS SQ ; Start 08/08/20 at 21:00; Status UNV Tramadol HCl (Ultram) 50 mg PRN Q6HRS PRN PO PAIN; Start 08/07/20 at 21:45; Status UNV Fentanyl Citrate (Fentanyl 2ml Vial) 50 mcg PRN Q3HRS PRN IVP SEVERE PAIN 7-10; Start 08/07/20 at 21:45 Vancomycin HCl (Vanco Per Pharmacy) 1 each PRN DAILY PRN MC SEE COMMENTS Last administered on 08/11/20at 12:36; Start 08/07/20 at 22:00 Vancomycin HCl 2 gm/Sodium Chloride 500 ml @ 250 mls/hr 1X ONCE IV Last administered on 08/07/20at 23:54; Start 08/07/20 at 22:15; Stop 08/08/20 at 00:14; Status DC Insulin Glargine (Lantus Syringe) 8 unit QHS SQ Last administered on 08/11/20 20:29; Start 08/08/20 at 21:00 Vancomycin HCl 1.5 gm/Sodium Chloride 500 ml @ 250 mls/hr Q12H IV Last administered on 08/12/20 00:32; Start 08/08/20 at 12:00 Vancomycin HCl (Vancomycin Trough Level) 1 each 1X ONCE MC Last administered o n 08/09/20at 11:30; Start 08/09/20 at 11:30; Stop 08/09/20 at 11:31; Status DC Influenza Virus Vaccine Quadrival (Fluzone Quad Syringe) 0.5 ml ONCE ONCE VAX IM Last administered on 10/3/20at 08:22; Start 08/08/20 at 09:00; Stop 08/08/20 at 09:01; Status DC Insulin Human Lispro (HumaLOG) 0-9 UNITS TIDWMEALHC SQ Last administered on 08/11/20at 20:28; Start 08/08/20 at 08:00 Dextrose (Dextrose 50%-Water Syringe) 12.5 gm PRN Q15MIN PRN IV SEE COMMENTS; Start 08/08/20 at 08:00 Ceftriaxone Sodium (Rocephin) 1 gm Q24H IVP Last administered on 08/11/20at 08:30; Start 08/08/20 at 09:00; Stop 08/11/20 at 16:19; Status DC Lactobacillus Rhamnosus (Culturelle) 1 cap BID PO Last administered on 08/11/20at 20:17; Start 08/08/20 at 21:00 Pantoprazole Sodium (Protonix) 40 mg DAILYAC PO Last administered on 08/11/20at 06:59; Start 08/10/20 at 07:30 Zolpidem Tartrate (Ambien) 5 mg PRN QHS PRN PO INSOMNIA Last administered on 08/11/20at 23:38; Start 08/09/20 at 22:45 Piperacillin Sod/ Tazobactam Sod 3.375 gm/Sodium Chloride 50 ml @ 100 mls/hr Q6HRS IV Last administered on 08/12/20at 05:41; Start 08/11/20 at 17:00 Active Scripts Active Tramadol Hcl 50 Mg Tablet 50 Mg PO Q6HRS PRN Potassium Chloride (Potassium Chloride) 20 Meq Tablet.er 20 Meq PO DAILY Lasix (Furosemide) 40 Mg Tablet 1 Tab PO DAILY 30 Days Carbamide Peroxide 15 Ml Drops 15 Ml OT BID 4 Days Flonase Allergy Relief (Fluticasone Propionate) 9.9 Ml Success.susp 2 Sprays NS DAILY Proair Hfa Inhaler (Albuterol Sulfate) 8.5 Gm Hfa.aer.ad 1 Puff INH Q4HRS PRN Prinivil (Lisinopril) 5 Mg Tablet 5 Mg PO DAILY Aspirin 325 Mg Tablet 325 Mg PO DAILY Reported Lantus Solostar (Insulin Glargine,Hum.rec.anlog) 100 Unit/1 Ml Insuln.pen 8 Unit SQ QHS Culturelle (Lactobacillus Rhamnosus Gg) 1 Each Capsule 1 Each PO DAILY 14 Days Flomax (Tamsulosin Hcl) 0.4 Mg Cap.er.24h 0.4 Mg PO DAILY Gabapentin 300 Mg Capsule 300 Mg PO BID Metoprolol Tartrate 25 Mg Tablet 25 Mg PO BID Omeprazole 40 Mg Capsule.dr 40 Mg PO DAILY05 Losartan Potassium 25 Mg Tablet 25 Mg PO DAILY Hydroxyzine Hcl 25 Mg Tablet 25 Mg PO TID PRN PRN Atorvastatin Calcium 20 Mg Tablet 20 Mg PO HS Clopidogrel (Clopidogrel Bisulfate) 75 Mg Tablet 75 Mg PO DAILY Docusate Sodium 100 Mg Capsule 1 Cap PO DAILY Glimepiride 4 Mg Tablet 4 Mg PO DAILY Metformin Hcl 500 Mg Tablet 500 Mg PO BIDWMEALS do not take for 48 hours Vitals/I & O Vital Sign - Last 24 Hours 08/11/20 08/11/20 08/11/20 08/11/20 08:28 08:29 10:20 14:33 Temp 99.0 101.1 99.0 101.1 Pulse 68 68 67 66 Resp 18 18 B/P (MAP) 172/69 172/69 156/49 (84) 109/31 (57) Pulse Ox 95 95 O2 Delivery Room Air Room Air 08/11/20 08/11/20 08/11/20 08/11/20 15:59 19:16 20:14 20:17 Temp 101.1 101.1 Pulse 72 72 Resp 18 B/P (MAP) 144/46 (78) 144/46 Pulse Ox 98 95 98 O2 Delivery Room Air Room Air Room Air 08/11/20 08/11/20 08/11/20 08/11/20 20:18 20:37 21:18 22:45 Temp 100.2 100.2 Pulse 67 Resp 22 20 22 B/P (MAP) 126/45 (72) Pulse Ox 98 O2 Delivery Room Air Room Air Room Air Room Air 08/12/20 03:19 Temp 99.2 99.2 Pulse 71 Resp 20 B/P (MAP) 152/66 (94) Pulse Ox 93 O2 Delivery Room Air Intake and Output 08/11/20 08/11/20 08/12/20 15:00 23:00 07:00 Intake Total 490 ml 800 ml 550 ml Output Total 700 ml 300 ml 700 ml Balance -210 ml 500 ml -150 ml Justicifation of Admission Dx: Justifications for Admission: Justification of Admission Dx: Yes Sepsis: Infection Cellulitis: Cellulitis JEOVANY BASSETT MD Aug 12, 2020 08:04
--- NOTE | 2020-08-12 08:17 | PDOC2 ---
ELDON MORENO MERIT SYSTEM DIRECTOR 08/12/20 0817: CONSULT Date of Consult Date of Consult DATE: 08/12/20 TIME: 07:50 Reason for Consult Reason for Consult: 59-year-old male that was admitted through the ER that had been previously to the ER with complaint of plantar surface of the left great toe ulcer and re turned with fever and pain. The patient has had second and third toes amputated on the left foot also. Referring Physician Referring Physician: Dr. Shore Identification/Chief Complaint Chief Complaint Plantar surface of left great toe ulcer nonhealing with fever and pain. Source Source: Caregiver, Chart review, Patient History of Present Illness Reason for Visit: The patient states that he has been followed by [facility] wound care for approximately the last 3 weeks treating the ulcer on the plantar surface of the left great toe. He came to the ER at [facility] related to fever and pain in the toe, and stated that he had been out of insulin for the last 2 days. Past Medical History Cardiovascular: HTN, Hyperlipidemia Pulmonary: No pertinent hx CENTRAL NERVOUS SYSTEM: TIA GI: No pertinent hx Heme/Onc: No pertinent hx Hepatobiliary: No pertinent hx Psych: No pertinent hx Musculoskeletal: Other Rheumatologic: No pertinent hx Infectious disease: No pertinent hx Renal/: No pertinent hx Endocrine: Diabetes Past Surgical History Past Surgical History: Other Family History Family History: Cancer, Coronary Artery Disease Social History Quit (6 years ago) ALCOHOL: other (heavy in the past, now occasional) Drugs: None Lives: with Family Domestic Violence: Neg Current Problem List Problem List Problems Medical Problems: (1) Cellulitis of right leg Status: Acute (2) Fever Status: Acute (3) Person under investigation for COVID-19 Status: Acute Current Medications Current Medications Current Medications Acetaminophen (Tylenol) 1,000 mg 1X ONCE PO Last administered on 08/07/20at 21:50; Start 08/07/20 at 21:45; Stop 08/07/20 at 21:46; Status DC Ondansetron HCl (Zofran Odt) 4 mg 1X ONCE PO Last administered on 08/07/20at 21:50; Start 08/07/20 at 21:45; Stop 08/07/20 at 21:46; Status DC Sodium Chloride 1,000 ml @ 1,000 mls/hr 1X ONCE IV Last administered on 08/07/20at 21:52; Start 08/07/20 at 21:45; Stop 08/07/20 at 22:44; Status DC Fentanyl Citrate (Fentanyl 2ml Vial) 50 mcg 1X ONCE IV Last administered on 08/07/20at 21:51; Start 08/07/20 at 21:45; Stop 08/07/20 at 21:46; Status DC Ondansetron HCl (Zofran) 4 mg PRN Q4HRS PRN IV NAUSEA/VOMITING; Start 08/07/20 at 21:45 Acetaminophen (Tylenol) 650 mg PRN Q4HRS PRN PO TEMP OVER 100.4F OR MILD PAIN Last administered on 08/08/20 05:50; Start 08/07/20 at 21:45 Enoxaparin Sodium (Lovenox 40mg Syringe) 40 mg Q24H SQ Last administered on 08/11/20 20:18; Start 08/07/20 at 21:45 Albuterol Sulfate (Ventolin Neb Soln) 2.5 mg PRN Q4HRS PRN INH SHORTNESS OF BREATH Last administered on 08/11/20 20:14; Start 08/07/20 at 21:45 Aspirin (Ronald Aspirin) 325 mg DAILYWBKFT PO Last administered on 08/11/20 08:28; Start 08/08/20 at 08:00 Atorvastatin Calcium (Lipitor) 20 mg HS PO Last administered on 08/11/20 20:17; Start 08/08/20 at 21:00 Clopidogrel Bisulfate (Plavix) 75 mg DAILY PO Last administered on 08/11/20 08:28; Start 08/08/20 at 09:00 Docusate Sodium (Colace) 100 mg DAILY PO Last administered on 08/11/20 08:28; Start 08/08/20 at 09:00 Gabapentin (Neurontin) 300 mg BID PO Last administered on 08/11/20 20:17; Start 08/08/20 at 09:00 Hydroxyzine HCl (Atarax) 25 mg TID PRN PRN PO ELEVATED BP, SEE COMMENTS; Start 08/07/20 at 21:45 Losartan Potassium (Cozaar) 25 mg DAILY PO Last administered on 08/11/20 08:29; Start 08/08/20 at 09:00 Metoprolol Tartrate (Lopressor) 25 mg BID PO Last administered on 08/11/20 20:17; Start 08/08/20 at 09:00 Tamsulosin HCl (Flomax) 0.4 mg DAILY PO Last administered on 08/11/20 08:27; Start 08/08/20 at 09:00 Tramadol HCl (Ultram) 50 mg PRN Q6HRS PRN PO MODERATE - SEVERE PAIN Last administered on 08/11/20 20:18; Start 08/07/20 at 21:45 Fluticasone Propionate (Flonase) 2 spray DAILY NS Last administered on 08/11/20 08:31; Start 08/08/20 at 09:00 Non-Formulary Medication (Insulin Glargine,Hum.rec.anlog (Lantus Solostar)) 8 unit QHS SQ ; Start 08/08/20 at 21:00; Status UNV Tramadol HCl (Ultram) 50 mg PRN Q6HRS PRN PO PAIN; Start 08/07/20 at 21:45; Status UNV Fentanyl Citrate (Fentanyl 2ml Vial) 50 mcg PRN Q3HRS PRN IVP SEVERE PAIN 7-10; Start 08/07/20 at 21:45 Vancomycin HCl (Vanco Per Pharmacy) 1 each PRN DAILY PRN MC SEE COMMENTS Last administered on 08/11/20 12:36; Start 08/07/20 at 22:00 Vancomycin HCl 2 gm/Sodium Chloride 500 ml @ 250 mls/hr 1X ONCE IV Last administered on 08/07/20at 23:54; Start 08/07/20 at 22:15; Stop 08/08/20 at 00:14; Status DC Insulin Glargine (Lantus Syringe) 8 unit QHS SQ Last administered on 08/11/20 20:29; Start 08/08/20 at 21:00 Vancomycin HCl 1.5 gm/Sodium Chloride 500 ml @ 250 mls/hr Q12H IV Last administered on 08/12/20at 00:32; Start 08/08/20 at 12:00 Vancomycin HCl (Vancomycin Trough Level) 1 each 1X ONCE MC Last administered on 08/09/20 11:30; Start 08/09/20 at 11:30; Stop 08/09/20 at 11:31; Status DC Influenza Virus Vaccine Quadrival (Fluzone Quad Syringe) 0.5 ml ONCE ONCE VAX IM Last administered on 08/10/20at 08:22; Start 08/08/20 at 09:00; Stop 08/08/20 at 09:01; Status DC Insulin Human Lispro (HumaLOG) 0-9 UNITS TIDWMEALHC SQ Last administered on 08/11/20at 20:28; Start 08/08/20 at 08:00 Dextrose (Dextrose 50%-Water Syringe) 12.5 gm PRN Q15MIN PRN IV SEE COMMENTS; Start 08/08/20 at 08:00 Ceftriaxone Sodium (Rocephin) 1 gm Q24H IVP Last administered on 08/11/20at 08:30; Start 08/08/20 at 09:00; Stop 08/11/20 at 16:19; Status DC Lactobacillus Rhamnosus (Culturelle) 1 cap BID PO Last administered on 08/11/20at 20:17; Start 08/08/20 at 21:00 Pantoprazole Sodium (Protonix) 40 mg DAILYAC PO Last administered on 08/11/20at 06:59; Start 08/10/20 at 07:30 Zolpidem Tartrate (Ambien) 5 mg PRN QHS PRN PO INSOMNIA Last administered on 08/11/20at 23:38; Start 08/09/20 at 22:45 Piperacillin Sod/ Tazobactam Sod 3.375 gm/Sodium Chloride 50 ml @ 100 mls/hr Q6HRS IV Last administered on 08/12/20at 05:41; Start 08/11/20 at 17:00 Active Scripts Active Tramadol Hcl 50 Mg Tablet 50 Mg PO Q6HRS PRN Potassium Chloride (Potassium Chloride) 20 Meq Tablet.er 20 Meq PO DAILY Lasix (Furosemide) 40 Mg Tablet 1 Tab PO DAILY 30 Days Carbamide Peroxide 15 Ml Drops 15 Ml OT BID 4 Days Flonase Allergy Relief (Fluticasone Propionate) 9.9 Ml [place].susp 2 Sprays NS DAILY Proair Hfa Inhaler (Albuterol Sulfate) 8.5 Gm Hfa.aer.ad 1 Puff INH Q4HRS PRN Prinivil (Lisinopril) 5 Mg Tablet 5 Mg PO DAILY Aspirin 325 Mg Tablet 325 Mg PO DAILY Reported Lantus Solostar (Insulin Glargine,Hum.rec.anlog) 100 Unit/1 Ml Insuln.pen 8 Unit SQ QHS Culturelle (Lactobacillus Rhamnosus Gg) 1 Each Capsule 1 Each PO DAILY 14 Days Flomax (Tamsulosin Hcl) 0.4 Mg Cap.er.24h 0.4 Mg PO DAILY Gabapentin 300 Mg Capsule 300 Mg PO BID Metoprolol Tartrate 25 Mg Tablet 25 Mg PO BID Omeprazole 40 Mg Capsule.dr 40 Mg PO DAILY05 Losartan Potassium 25 Mg Tablet 25 Mg PO DAILY Hydroxyzine Hcl 25 Mg Tablet 25 Mg PO TID PRN PRN Atorvastatin Calcium 20 Mg Tablet 20 Mg PO HS Clopidogrel (Clopidogrel Bisulfate) 75 Mg Tablet 75 Mg PO DAILY Docusate Sodium 100 Mg Capsule 1 Cap PO DAILY Glimepiride 4 Mg Tablet 4 Mg PO DAILY Metformin Hcl 500 Mg Tablet 500 Mg PO BIDWMEALS do not take for 48 hours Allergies Allergies: Coded Allergies: morphine (Verified Allergy, Intermediate, N/V, 03/02/19) I S O L A T I O N *CONTACT* (Verified Allergy, Unknown, 03/13/19) mrsa Physical Exam General: Alert, Oriented X3, Cooperative, No acute distress MUSCULOSKELETAL: Abnormal exam of left (The dressing was removed from the toe and there is a dry ulcer under the plantar surface of the distal tip of the great toe. There was some old dried blood on the dressing. He is able to move the great toe and does have sensation there but distal pulses are diminished if not absent. He does have 1+ pitting edema in the left leg. He has had the second and third toes amputated from the left foot previously. No sensation with sharp or dull stimulation. He does have right foot cellulitis as well as right foot swelling with 2+ pitting edema in the foot and lower leg.) Vitals VITALS Vital Signs Date Time Temp Pulse Resp B/P (MAP) Pulse Ox O2 Delivery O2 Flow Rate FiO2 08/12/20 03:19 99.2 71 20 152/66 (94) 93 Room Air 99.2 Labs Labs Laboratory Tests Test 08/10/20 09:10 08/10/20 10:33 08/10/20 16:09 08/10/20 20:10 White Blood Count 6.4 x10^3/uL (4.0-11.0) Red Blood Count 2.95 x10^6/uL (4.30-5.70) Hemoglobin 9.6 g/dL (13.0-17.5) Hematocrit 28.1 % (39.0-53.0) Mean Corpuscular Volume 95 fL (79-100) Mean Corpuscular Hemoglobin 33 pg (25-35) Mean Corpuscular Hemoglobin Concent 34 g/dL (31-37) Red Cell Distribution Width 14.4 % (11.5-14.5) Platelet Count 112 x10^3/uL (140-400) Neutrophils (%) (Auto) 74 % (31-73) Lymphocytes (%) (Auto) 15 % (24-48) Monocytes (%) (Auto) 11 % (0-9) Eosinophils (%) (Auto) 0 % (0-3) Basophils (%) (Auto) 0 % (0-3) Neutrophils # (Auto) 4.7 x10^3/uL (1.8-7.7) Lymphocytes # (Auto) 1.0 x10^3/uL (1.0-4.8) Monocytes # (Auto) 0.7 x10^3/uL (0.0-1.1) Eosinophils # (Auto) 0.0 x10^3/uL (0.0-0.7) Basophils # (Auto) 0.0 x10^3/uL (0.0-0.2) Sodium Level 134 mmol/L (136-145) Potassium Level 4.4 mmol/L (3.5-5.1) Chloride Level 101 mmol/L (98-107) Carbon Dioxide Level 24 mmol/L (21-32) Anion Gap 9 (6-14) Blood Urea Nitrogen 14 mg/dL (8-26) Creatinine 1.0 mg/dL (0.7-1.3) Estimated GFR (Cockcroft-Gault) 77.0 BUN/Creatinine Ratio 14 (6-20) Glucose Level 239 mg/dL (70-99) Calcium Level 7.7 mg/dL (8.5-10.1) Total Bilirubin 2.0 mg/dL (0.2-1.0) Aspartate Amino Transf (AST/SGOT) 46 U/L (15-37) Alanine Aminotransferase (ALT/SGPT) 55 U/L (16-63) Alkaline Phosphatase 502 U/L (46-116) Total Protein 7.3 g/dL (6.4-8.2) Albumin 2.2 g/dL (3.4-5.0) Albumin/Globulin Ratio 0.4 (1.0-1.7) Glucose (Fingerstick) 255 mg/dL (70-99) 247 mg/dL (70-99) 280 mg/dL (70-99) Test 08/11/20 07:01 08/11/20 11:09 08/11/20 16:05 08/11/20 20:23 Glucose (Fingerstick) 200 mg/dL (70-99) 308 mg/dL (70-99) 274 mg/dL (70-99) 323 mg/dL (70-99) Test 08/11/20 22:25 08/12/20 02:37 Glucose (Fingerstick) 270 mg/dL (70-99) Blood Urea Nitrogen 15 mg/dL (8-26) Creatinine 1.1 mg/dL (0.7-1.3) Estimated GFR (Cockcroft-Gault) 69.0 Laboratory Tests Test 08/11/20 11:09 08/11/20 16:05 08/11/20 20:23 08/11/20 22:25 Glucose (Fingerstick) 308 mg/dL (70-99) 274 mg/dL (70-99) 323 mg/dL (70-99) 270 mg/dL (70-99) Test 08/12/20 02:37 Blood Urea Nitrogen 15 mg/dL (8-26) Creatinine 1.1 mg/dL (0.7-1.3) Estimated GFR (Cockcroft-Gault) 69.0 Images Images Signed PATIENT: SUSAN DEMARCO ACCOUNT: [id number] : 1960 LOCATION: [facility] AGE: 59 SEX: M EXAM STATUS: ADM IN ORD. PHYSICIAN: ANGIE APARICIO DO REASON: RUQ pain. elevated LFT"s. COVID NEG. PROCEDURE: ABDOMEN LTD Examination: ABDOMEN LTD History: RUQ pain. elevated LFT"s. COVID NEG. Comparison/Correlation: None Findings: Right upper quadrant ultrasound exam was performed. Nodular contour of the liver is present. Common bile duct is within normal limits. No biliary dilatation. Gallbladder is not well delineated. Mild gallbladder wall thickening of 0.52 cm noted. No cholelithiasis. Proximal pancreas obscured by bowel gas. Right kidney measures 12.5 cm x 5.5 cm 5.6 mm. No right hydronephrosis. Inferior vena cava is unremarkable. Trace perihepatic ascites noted. Impression: Gallbladder wall is thickened but the gallbladder appears decompressed. Trace ascites. Correlate clinically for cholecystitis. No cholelithiasis. Nodular contour of the liver of concern for cirrhosis or other fibrotic process. Electronically signed by: Fidel Vaughn MD (08/09/2020 9:26 AM) [id number] DICTATED and SIGNED BY: FIDEL VAUGHN MD DATE: 08/09/20925 Signed PATIENT: SUSAN DEMARCO ACCOUNT: [id number] : 1960 LOCATION: [address] [place] [address] AGE: 59 SEX: M EXAM STATUS: ADM IN ORD. PHYSICIAN: ANGIE APARICIO DO REASON: RUQ pain. elevated LFT"s. COVID NEG. PROCEDURE: ABDOMEN LTD Examination: ABDOMEN LTD History: RUQ pain. elevated LFT"s. COVID NEG. Comparison/Correlation: None Findings: Right upper quadrant ultrasound exam was performed. Nodular contour of the liver is present. Common bile duct is within normal limits. No biliary dilatation. Gallbladder is not well delineated. Mild gallbladder wall thickening of 0.52 cm noted. No cholelithiasis. Proximal pancreas obscured by bowel gas. Right kidney measures 12.5 cm x 5.5 cm 5.6 mm. No right hydronephrosis. Inferior vena cava is unremarkable. Trace perihepatic ascites noted. Impression: Gallbladder wall is thickened but the gallbladder appears decompressed. Trace ascites. Correlate clinically for cholecystitis. No cholelithiasis. Nodular contour of the liver of concern for cirrhosis or other fibrotic process. Electronically signed by: Fidel Vaughn MD (08/09/2020 9:26 AM) [id number] DICTATED and SIGNED BY: FIDEL VAUGHN MD DATE: 08/09/20925 Assessment/Plan Assessment/Plan 59-year-old male with a history of CAD, hypertension, diabetes, and CVA with diabetic ulcer on the plantar surface of the left great toe times at least 3 weeks. Has been treated at wound care center for approximately the last 3 weeks prior to coming to [facility] ER with fever. He has been seen by podiatry and had the ulcer debrided and is being treated with Silvadene dressing changes. Wound care is following the patient also. Patient has a history of MRSA. We will follow with wound care and continue dressing changes, possible MRI or bone scan to evaluate for bone deterioration. We will discuss with staff for further recommendations. AKIL FONG II, MD 08/13/20 0858: CONSULT Assessment/Plan Assessment/Plan I personally saw and examined the patient. I reviewed the imaging findings. I agreed with the above plan of care. Would recommend vascular evaluation. ELDON MORENO APRN Aug 12, 2020 08:17 AKIL FONG II, MD Aug 13, 2020 08:58
[2020-08-12] MEDS: ASPIRIN 325 MG TABLET PO SCH (08:19)
[2020-08-12] MEDS: DOCUSATE SODIUM 100 MG CAPSULE. PO SCH (08:19)
[2020-08-12] MEDS: GABAPENTIN 300 MG CAPSULE. PO SCH ×2 (08:19→20:38)
[2020-08-12] MEDS: LACTOBACILLUS RHAMNOSUS GG 1 CAPSULE. PO SCH ×2 (08:19→20:38)
[2020-08-12] MEDS: PANTOPRAZOLE 40 MG TABLET.DR. PO SCH (08:20)
[2020-08-12] MEDS: METOPROLOL TART IMMED RELEASE 25 MG TABLET. PO SCH ×2 (08:20→20:38)
[2020-08-12] MEDS: TAMSULOSIN 0.4 MG CAP.ER.24H. PO SCH (08:20)
[2020-08-12] MEDS: CLOPIDOGREL BISULFATE 75 MG TABLET PO SCH (08:20)
[2020-08-12] MEDS: LOSARTAN POTASSIUM 25 MG TABLET. PO SCH (08:20)
[2020-08-12] MEDS: INSULIN LISPRO 300 UNITS/3 ML VIAL. SQ SCH ×4 (08:21→20:47)
[2020-08-12] MEDS: FLUTICASONE 50MCG/NASAL SPRAY 16GM BOTTLE. NS SCH (08:21)
[2020-08-12 09:13] LABS: POTASSIUM 4.4 mmol/L (3.5-5.1)
[2020-08-12 09:26] LABS: BASO # 0.1 x10^3/uL (0.0-0.2); BASO % 1 % (0-3); EOS % 1 % (0-3); HEMATOCRIT 27.2 % (39.0-53.0); HEMOGLOBIN 9.2 g/dL (13.0-17.5); LYMPH % 13 % (24-48); MEAN CORPUSCULAR HEMOGLOBIN 33 pg (25-35); MEAN CORPUSCULAR HGB CONC 34 g/dL (31-37); MEAN CORPUSCULAR VOLUME 96 fL (79-100); MONO # 0.8 x10^3/uL (0.0-1.1); MONO % 10 % (0-9); NEUT # 5.9 x10^3/uL (1.8-7.7); NEUT % 76 % (31-73); PLATELET COUNT 151 x10^3/uL (140-400); RED BLOOD COUNT 2.84 x10^6/uL (4.30-5.70); RED CELL DISTRIBUTION WIDTH 14.6 % (11.5-14.5); WHITE BLOOD COUNT 7.9 x10^3/uL (4.0-11.0)
--- NOTE | 2020-08-12 10:18 | PDOC ---
Infectious Disease Note Vital Signs: Vital Signs Vital Signs Date Time Temp Pulse Resp B/P (MAP) Pulse Ox O2 Delivery O2 Flow Rate FiO2 08/12/20 08:20 71 152/66 08/12/20 07:00 97.8 17 93 Room Air 97.8 Medications: Inpatient Meds: Current Medications Medications (Trade) Dose Ordered Sig/John Start Time Stop Time Status Last Admin Dose Admin Acetaminophen (Tylenol) 650 mg PRN Q4HRS PRN 08/07/20 21:45 08/08/20 05:50 650 MG Albuterol Sulfate (Ventolin Neb Soln) 2.5 mg PRN Q4HRS PRN 08/07/20 21:45 08/11/20 20:14 2.5 MG Aspirin (Ronald Aspirin) 325 mg DAILYWBKFT 08/08/20 08:00 08/12/20 08:19 325 MG Atorvastatin Calcium (Lipitor) 20 mg HS 08/08/20 21:00 08/11/20 20:17 20 MG Ceftriaxone Sodium (Rocephin) 1 gm Q24H 08/08/20 09:00 08/11/20 16:19 DC 08/11/20 08:30 1 GM Clopidogrel Bisulfate (Plavix) 75 mg DAILY 08/08/20 09:00 08/12/20 08:20 75 MG Dextrose (Dextrose 50%-Water Syringe) 12.5 gm PRN Q15MIN PRN 08/08/20 08:00 Docusate Sodium (Colace) 100 mg DAILY 08/08/20 09:00 08/12/20 08:19 100 MG Enoxaparin Sodium (Lovenox 40mg Syringe) 40 mg Q24H 08/07/20 21:45 08/11/20 20:18 40 MG Fentanyl Citrate (Fentanyl 2ml Vial) 50 mcg PRN Q3HRS PRN 08/07/20 21:45 Fluticasone Propionate (Flonase) 2 spray DAILY 08/08/20 09:00 08/12/20 08:21 2 SPRAY Gabapentin (Neurontin) 300 mg BID 08/08/20 09:00 08/12/20 08:19 300 MG Hydroxyzine HCl (Atarax) 25 mg TID PRN PRN 08/07/20 21:45 Influenza Virus Vaccine Quadrival (Fluzone Quad [id number] Syringe) 0.5 ml ONCE ONCE 10/1/20 09:00 08/08/20 09:01 DC 08/10/20 08:22 0.5 ML Insulin Glargine (Lantus Syringe) 8 unit QHS 08/08/20 21:00 08/11/20 20:29 8 UNIT Insulin Human Lispro (HumaLOG) 0-9 UNITS TIDWMEALHC 08/08/20 08:00 08/12/20 08:21 5 UNITS Lactobacillus Rhamnosus (Culturelle) 1 cap BID 08/08/20 21:00 08/12/20 08:19 1 CAP Losartan Potassium (Cozaar) 25 mg DAILY 08/08/20 09:00 08/12/20 08:20 25 MG Metoprolol Tartrate (Lopressor) 25 mg BID 08/08/20 09:00 08/12/20 08:20 25 MG Non-Formulary Medication (Insulin Glargine,Hum.rec.anlog (Lantus Solostar)) 8 unit QHS 08/08/20 21:00 UNV Ondansetron HCl (Zofran Odt) 4 mg 1X ONCE 08/07/20 21:45 08/07/20 21:46 DC 08/07/20 21:50 4 MG Ondansetron HCl (Zofran) 4 mg PRN Q4HRS PRN 08/07/20 21:45 Pantoprazole Sodium (Protonix) 40 mg DAILYAC 08/10/20 07:30 08/12/20 08:20 40 MG Piperacillin Sod/ Tazobactam Sod 3.375 gm/Sodium Chloride 50 ml @ 100 mls/hr Q6HRS 08/11/20 17:00 08/12/20 05:41 100 MLS/HR Sodium Chloride 1,000 ml @ 1,000 mls/hr 1X ONCE 08/07/20 21:45 08/07/20 22:44 DC 08/07/20 21:52 1,000 MLS/HR Tamsulosin HCl (Flomax) 0.4 mg DAILY 08/08/20 09:00 08/12/20 08:20 0.4 MG Tramadol HCl (Ultram) 50 mg PRN Q6HRS PRN 08/07/20 21:45 UNV Vancomycin HCl (Vanco Per Pharmacy) 1 each PRN DAILY PRN 08/07/20 22:00 08/11/20 12:36 1 EACH Vancomycin HCl (Vancomycin Trough Level) 1 each 1X ONCE 08/09/20 11:30 08/09/20 11:31 DC 08/09/20 11:30 1 EACH Vancomycin HCl 1.5 gm/Sodium Chloride 500 ml @ 250 mls/hr Q12H 08/08/20 12:00 08/12/20 00:32 250 MLS/HR Vancomycin HCl 2 gm/Sodium Chloride 500 ml @ 250 mls/hr 1X ONCE 08/07/20 22:15 08/08/20 00:14 DC 08/07/20 23:54 250 MLS/HR Zolpidem Tartrate (Ambien) 5 mg PRN QHS PRN 08/09/20 22:45 08/11/20 23:38 5 MG Labs: Lab Laboratory Tests Test 08/11/20 11:09 08/11/20 16:05 08/11/20 20:23 08/11/20 22:25 Glucose (Fingerstick) 308 mg/dL (70-99) 274 mg/dL (70-99) 323 mg/dL (70-99) 270 mg/dL (70-99) Test 08/12/20 02:37 08/12/20 07:12 White Blood Count 7.9 x10^3/uL (4.0-11.0) Red Blood Count 2.84 x10^6/uL (4.30-5.70) Hemoglobin 9.2 g/dL (13.0-17.5) Hematocrit 27.2 % (39.0-53.0) Mean Corpuscular Volume 96 fL (79-100) Mean Corpuscular Hemoglobin 33 pg (25-35) Mean Corpuscular Hemoglobin Concent 34 g/dL (31-37) Red Cell Distribution Width 14.6 % (11.5-14.5) Platelet Count 151 x10^3/uL (140-400) Neutrophils (%) (Auto) 76 % (31-73) Lymphocytes (%) (Auto) 13 % (24-48) Monocytes (%) (Auto) 10 % (0-9) Eosinophils (%) (Auto) 1 % (0-3) Basophils (%) (Auto) 1 % (0-3) Neutrophils # (Auto) 5.9 x10^3/uL (1.8-7.7) Lymphocytes # (Auto) 1.0 x10^3/uL (1.0-4.8) Monocytes # (Auto) 0.8 x10^3/uL (0.0-1.1) Eosinophils # (Auto) 0.0 x10^3/uL (0.0-0.7) Basophils # (Auto) 0.1 x10^3/uL (0.0-0.2) Sodium Level 132 mmol/L (136-145) Potassium Level 4.4 mmol/L (3.5-5.1) Chloride Level 101 mmol/L (98-107) Carbon Dioxide Level 23 mmol/L (21-32) Anion Gap 8 (6-14) Blood Urea Nitrogen 15 mg/dL (8-26) Creatinine 1.0 mg/dL (0.7-1.3) Estimated GFR (Cockcroft-Gault) 77.0 Glucose Level 232 mg/dL (70-99) Calcium Level 8.0 mg/dL (8.5-10.1) Glucose (Fingerstick) 230 mg/dL (70-99) Objective: Assessment: Patient seen and examined Plan: Plan of Care Continue IV Vanco and Zosyn Monitor renal functions closely Add empiric Zyvox Agree with orthopedics regarding need for MRI Patient will likely need surgical debridement for deep tissue infection/abscess/osteomyelitis Monitor labs closely Send intraoperative tissue or fluid for culture Wound care care as directed Discussed with nursing staff ID consult dictated [id number] Thank you BLAKE CARVER MD Aug 12, 2020 10:18
[2020-08-12 11:00] VITALS: BP 148/48
--- NOTE | 2020-08-12 11:03 | NUR ---
SW following. Spoke with RN and reviewed chart. Pt remains on room air and IV abx. Met with pt this morning who stated his sister is refusing to allow for HH in her home. Pt resides with his sister. [facility]. SW phoned and faxed a referral to Carmela with [facility]. Pt has BCBS. SW requested Carmela submit for authorization today. Patient choice of vendor form completed. ELINA following.
[2020-08-12] MEDS: VANCOMYCIN PER PHARMACY MC PRN (11:19)
[2020-08-12] MEDS: LINEZOLID 600 MG TABLET PO SCH ×2 (12:02→20:38)
--- NOTE | 2020-08-12 12:42 | PDOC ---
Date of Service: DATE: 08/12/20 TIME: 12:36 Subjective: Subjective: Feet hurt, going to check the menu for lunch. No GI complaints, says eating good. Objective: Objective: Tmax 101.1 Nurse says to have vascular eval. Vital Signs: Vital Signs Date Time Temp Pulse Resp B/P (MAP) Pulse Ox O2 Delivery O2 Flow Rate FiO2 08/12/20 08:20 71 152/66 08/12/20 07:00 97.8 17 93 Room Air 97.8 Labs: Laboratory Tests Test 08/11/20 16:05 08/11/20 20:23 08/11/20 22:25 08/12/20 02:37 Glucose (Fingerstick) 274 mg/dL 323 mg/dL 270 mg/dL White Blood Count 7.9 x10^3/uL Red Blood Count 2.84 x10^6/uL Hemoglobin 9.2 g/dL Hematocrit 27.2 % Mean Corpuscular Volume 96 fL Mean Corpuscular Hemoglobin 33 pg Mean Corpuscular Hemoglobin Concent 34 g/dL Red Cell Distribution Width 14.6 % Platelet Count 151 x10^3/uL Neutrophils (%) (Auto) 76 % Lymphocytes (%) (Auto) 13 % Monocytes (%) (Auto) 10 % Eosinophils (%) (Auto) 1 % Basophils (%) (Auto) 1 % Neutrophils # (Auto) 5.9 x10^3/uL Lymphocytes # (Auto) 1.0 x10^3/uL Monocytes # (Auto) 0.8 x10^3/uL Eosinophils # (Auto) 0.0 x10^3/uL Basophils # (Auto) 0.1 x10^3/uL Sodium Level 132 mmol/L Potassium Level 4.4 mmol/L Chloride Level 101 mmol/L Carbon Dioxide Level 23 mmol/L Anion Gap 8 Blood Urea Nitrogen 15 mg/dL Creatinine 1.0 mg/dL Estimated GFR (Cockcroft-Gault) 77.0 Glucose Level 232 mg/dL Calcium Level 8.0 mg/dL Test 08/12/20 07:12 08/12/20 11:43 Glucose (Fingerstick) 230 mg/dL 243 mg/dL BLOOD CULTURE Preliminary NO GROWTH AFTER 4 DAYS Imaging: LE Duplex 08/12 pending PE: GEN: NAD - walking from bed to chair to get cough drop - slowly LUNGS: CTAB HEART: RRR ABD: round EXTREMITY: RLE red NEURO/PSYCH: A & O 3 A/P: Right foot cellulitis, left toe ulcer, fever Probable cirrhosis - NAFLD vs alcohol - elevated bili, AST, AP (502) - ASMAb pending ACD/ADONIS H/o CAD, PVD, CVA, DM - on Plavix and ASA COVID negative -- Continue support per GI. Outpt scopes. D/w [employer] later - pt c/o solids and liquids getting stuck in midchest, says sometimes he has to cough it up. Justicifation of Admission Dx: Justifications for Admission: Justification of Admission Dx: Yes Sepsis: Infection Cellulitis: Cellulitis UBALDO MCKENZIE Aug 12, 2020 12:42
--- NOTE | 2020-08-12 13:44 | CONS ---
DATE OF CONSULTATION: 08/12/2020 REFERRING PHYSICIAN: Dr. Chanel. REASON FOR CONSULTATION: Fever. HISTORY OF PRESENT ILLNESS: A 59-year-old male with history of diabetes, neuropathy, CVA, coronary artery disease, hypertension, TIA, heart murmur, CHRIS, former smoker, presented to the ER with complaints of increased pain, redness, warmth in the right foot, which started a couple of days prior to admission. The patient had undergone treatment for the left great toe wound couple of weeks ago at . He denies any history of injury. He started having swelling, redness of the right foot. He also had some associated nausea, no vomiting. He denied any drainage from the chronic nonhealing wound from the left great toe. He denies any nausea, vomiting, diarrhea, abdominal pain. He was febrile. White count was normal. Creatinine was 1.1. Lactate of 2.1. LFTs were elevated with direct bilirubin 2.8. UA was negative. IgG was 1398. IgE was 618. Coronavirus was nondetected. The patient was started on IV vancomycin and Zosyn. Ultrasound of the lower extremity showed no evidence of DVT in the right lower extremity. The patient underwent abdominal ultrasound, which showed gallbladder thickening, but gallbladder appeared decompressed due to ascites. No cholelithiasis, nodular contour of the liver for concern of cirrhosis and/or fibrotic process. The patient underwent ortho evaluation. Plans are for an MRI later today. ID consult has been requested for antibiotic management. PAST MEDICAL HISTORY: Diabetes mellitus with neuropathy, history of CVA, coronary artery disease, abnormal liver function tests, onychomycosis, endarterectomy, status post PCI, amputation of the toes of the left toe x 2. SOCIAL HISTORY: Quit smoking. Used to drink heavily. Currently denies as he is living with his sister. Denies drugs. CURRENT MEDICATIONS: IV vancomycin and Zosyn. Other medications reviewed in medication list. ALLERGIES: MORPHINE. PHYSICAL EXAMINATION: VITAL SIGNS: Temperature 97.8, T-max 101, pulse 62, respiratory rate 17, blood pressure 155/57, oxygen saturation 93% on room air. GENERAL: Alert, awake. The patient is sitting upright in chair, in no acute distress. HEENT: Normocephalic, atraumatic. No thrush. NECK: Supple, no JVD. LUNGS: Clear bilaterally. No wheezing. HEART: S1, S2 normal. ABDOMEN: Soft, nontender, nondistended, obese. Bowel sounds present. EXTREMITIES: Right foot swelling, redness, warmth, mainly over the dorsum, onychomycosis, left first plantar ulcer with callus, also small one over the left lateral foot. No purulent drainage. LABORATORY DATA: WBC 7.9, hemoglobin 9.1, hematocrit 27.2, platelets 151. Lactate 2.1, AST 47, ALT 78, alkaline phosphatase 459. C-reactive protein 247, albumin 2.9. Sodium 132, potassium 4.4, chloride 100, bicarbonate 23, BUN 15, creatinine 1.0, glucose 232. COVID-19 negative. UA, small leukocyte esterase. SEP pending. Last vancomycin trough is 13.2 on 08/09. Micro: Blood culture negative so far from 08/07. Urine culture, no growth. Diagnostics: Lower extremity ultrasound as above. Ultrasound of the abdomen as above. IMPRESSION: 1. Right foot cellulitis, possible abscess. Deep tissue infection is a concern. Awaiting MRI per team 2. Fever. 3. Lactic acidosis, mild, resolved. 4. Diabetes mellitus. 5. Thrombocytopenia. 6. Abnormal liver function tests. 7. Coronary artery disease. 8. Anemia. 9. Protein-calorie malnutrition. RECOMMENDATIONS: 1. Continue IV vancomycin and Zosyn. 2. We will add Zyvox for toxin binding. 3. Agree with MRI. Vascular surgery is evaluating the patient. 4. The patient will likely need surgical debridement. 5. Follow up labs and cultures. 6. Continue supportive care. 7. Continue wound care as directed. 8. Optimal diabetes control. Discussed with nursing staff. Thank you for allowing me to participate in this patient's care. If you have any questions, do not hesitate to contact me. BLAKE CARVER MD DR: JESSICA/javier JOB#: [id number] / [id number] JIM
--- NOTE | 2020-08-12 14:43 | RAD ---
Exam: DUPLEX LOWER EXTREMITY BILAT History: Reason: SEVERE PVD; RT Wound Medial DST Foot; LT wound bottom of great Comparison: None. Technique: Grayscale, color, and spectral Doppler ultrasound images of the lower extremity arteries. Findings: Common femoral artery: 177, biphasic, severe plaque Profunda femoris artery: 171, monophasic, severe plaque Proximal superficial femoral artery: 89, monophasic Mid and distal superficial femoral artery: occluded Popliteal artery: 63 monophasic Peroneal artery: 64, monophasic Posterior tibial artery: 51, monophasic Dorsalis pedis artery: 171, monophasic Anterior tibial artery: 19, monophasic Left: Common femoral artery: 171, biphasic Profunda femoris artery: 107, biphasic Proximal superficial femoral artery: 253, biphasic Mid superficial femoral artery: 200, biphasic Distal superficial femoral artery: 69, biphasic Popliteal artery: 102, biphasic peroneal artery: 91, biphasic Posterior tibial artery: 49 and 112, monophasic proximally Dorsalis pedis artery: 58, monophasic Anterior tibial artery: 53, monophasic Impression: 1. Complete occlusion of the right mid and distal superficial femoral arteries. 2. High-grade stenosis in the right common femoral and profunda femoris arteries. Stenosis in the right dorsalis pedis artery. 3. High-grade stenosis in the left common femoral, proximal superficial femoral, and dorsalis pedis artery. 4. Peripheral vascular disease throughout the remainder of the lower extremities with abnormal waveforms. Results discussed by Dr. Agustin with the patient's nurse at 2:40 PM on 08/12/2020. Electronically signed by: Mee Agustin MD (08/12/2020 2:40 PM) [id number]
[2020-08-12 15:00] VITALS: BP 145/42
--- NOTE | 2020-08-12 16:27 | PDOC ---
Provider Note Date of Service: DATE: 08/12/20 TIME: 16:21 Provider Note Vascular consult dictated Imp: 1. osteo right great toe/ met head with cellulitis\ 2. moderate severe multilevel PVD, bilateral, worse right lower extremity 3. acute exacerbation CHF 4. DM 5. left great toe plantar ulcer, hx amp left 2nd and 3rd toes Rec: 1. agree with IV antibx per ID 2. will require right great toe/ray amp and forefoot debridement. Scheduled for tomorrow. Pt just ate a 2 layer piece of cake 3. cardiology consult 4. aortogram with bilateral runoff when medically able. Will eventually need revascularization most likely. Discussed with patient and sister. Justifications for Admission Other Justification PHUC RUIZ II, MD Aug 12, 2020 16:26
[2020-08-12] MEDS ORDERED: FUROSEMIDE 40 MG/4 ML VIAL. IVP ONE (17:00)
[2020-08-12] MEDS: traMADol 50 MG TABLET PO PRN (17:00)
[2020-08-12 19:00] VITALS: BP 161/41
[2020-08-12] MEDS: ZOLPIDEM 5 MG TABLET. PO PRN (20:38)
[2020-08-12] MEDS: ATORVASTATIN CALCIUM 20 MG TABLET PO SCH (20:38)
[2020-08-12] MEDS: ONDANSETRON PF 4 MG/2 ML VIAL. IV PRN (20:38)
[2020-08-12] MEDS: ENOXAPARIN 40 MG/0.4 ML SYRINGE. SQ SCH (20:41)
[2020-08-12] MEDS: INSULIN GLARGINE SYRINGE. SQ SCH (20:48)
[2020-08-12 23:00] VITALS: BP 125/52
[2020-08-13] VITALS (8 sets, daily range): BP systolic 139–167; BP diastolic 39–68
--- NOTE | 2020-08-13 00:50 | CONS ---
DATE OF CONSULTATION: 08/12/2020 VASCULAR SURGERY CONSULT CLINICAL HISTORY: A 59-year-old hypertensive, diabetic, who presents to the Emergency Department complaining of redness and pain affecting the right forefoot, specifically the right great toe. He has had that for some time. He has had prior amputation of the left second and third toes and also has an ulcer on the plantar aspect of his left great toe. He has a history of congestive heart failure and in fact all during the interview is severely dyspneic. He had an arterial duplex scan, which demonstrates multilevel occlusive disease. PAST MEDICAL HISTORY: Medical illnesses include hypertension, hyperlipidemia, history of congestive heart failure. PAST SURGICAL HISTORY: Includes prior amputation of the left second and third toes, prior cardiac catheterization with angioplasty. FAMILY HISTORY: Significant for cancer affecting someone having coronary artery disease. SOCIAL HISTORY: The patient was a heavy smoker; however, has quit recently. REVIEW OF SYSTEMS: Twelve-point review of systems, the patient is severely dyspneic and complaints of shortness of breath at rest. He has trouble speaking in sentences because of interruption to breathe. He also complains of pain in his right foot. Otherwise, 12-point review of systems is unremarkable. PHYSICAL EXAMINATION: GENERAL: The patient is alert and awake, severely dyspneic such that he can only speak a few words before having to gasp for breath. ABDOMEN: Obese. EXTREMITIES: Absent femoral, popliteal, and pedal pulses. There is cellulitis of the right forefoot with a wound on the dorsal aspect of the metatarsal head/great toe. This appears to most likely tract to the joint. He has a plantar ulcer on the left great toe, which is approximately 1 cm in diameter, which is dry and does not appear to communicate beyond the subcutaneous fat. He has surgically absent left second and third toes. LABORATORY DATA: White blood cell count is 9000, hemoglobin is 10.8, creatinine is 1.1. IMPRESSION: 1. Probable osteomyelitis of the right great toe metatarsal head with cellulitis. 2. Diabetes with vascular disease. 3. Multilevel arterial occlusive disease. 4. Most likely acute exacerbation of congestive heart failure. 5. Moderate obesity. RECOMMENDATIONS: 1. The patient will need probable right first ray amputation and forefoot debridement. He just ate a piece of cake and I will schedule for tomorrow. 2. Agree with IV antibiotics as ordered by Infectious Disease. 3. Cardiology consult to manage probable congestive heart failure. 4. We will obtain an aortogram with runoff to better visualize his runoff vessels. I suspect he will need a surgical bypass for limb salvage. 5. He will require a fair amount of medical ____ prior to any sort of surgical revascularization. I discussed the above recommendations with the patient and the patient's sister. They all understand and wished to proceed accordingly. PHUC RUIZ MD DR: KEHINDE/javier JOB#: [id number] / [id number]
[2020-08-13] MEDS: VANCOMYCIN 1.5 GM in IV NORMAL SALINE 500ML BAG 500 ML IV SCH ×3 (01:03→23:06)
[2020-08-13] MEDS: PIPERACILLIN/TAZOBACTAM 3.375 GM in IV NORMAL SALINE 50ML 50 ML IV SCH ×5 (01:04→23:05)
[2020-08-13] MEDS: PANTOPRAZOLE 40 MG TABLET.DR. PO SCH (04:35)
[2020-08-13] MEDS: traMADol 50 MG TABLET PO PRN ×3 (04:50→21:49)
--- NOTE | 2020-08-13 05:55 | PDOC ---
Infectious Disease Note Subjective: Subjective Patient without complaints Awaiting surgery later today Denies fever, nausea, vomiting, shortness of breath, diarrhea, abdominal pain, rash Otherwise as above Vital Signs: Vital Signs Vital Signs Date Time Temp Pulse Resp B/P (MAP) Pulse Ox O2 Delivery O2 Flow Rate FiO2 08/13/20 04:50 18 90 Room Air 08/13/20 03:00 98.8 71 149/61 (90) 98.8 Physical Exam: PHYSICAL EXAM GENERAL: Alert, awake. The patient is sitting upright in chair, in no acute distress. HEENT: Normocephalic, atraumatic. No thrush. NECK: Supple, no JVD. LUNGS: Clear bilaterally. No wheezing. HEART: S1, S2 normal. ABDOMEN: Soft, nontender, nondistended, obese. Bowel sounds present. EXTREMITIES: Right foot dorsal dressing in place not taken down onychomycosis dressing in place not taken down, no purulent drainage. Medications: Inpatient Meds: Current Medications Medications (Trade) Dose Ordered Sig/John Start Time Stop Time Status Last Admin Dose Admin Acetaminophen (Tylenol) 650 mg PRN Q4HRS PRN 08/07/20 21:45 08/08/20 05:50 650 MG Albuterol Sulfate (Ventolin Neb Soln) 2.5 mg PRN Q4HRS PRN 08/07/20 21:45 08/11/20 20:14 2.5 MG Aspirin (Ronald Aspirin) 325 mg [id number] 08/08/20 08:00 08/12/20 08:19 325 MG Atorvastatin Calcium (Lipitor) 20 mg HS 08/08/20 21:00 08/12/20 20:38 20 MG Ceftriaxone Sodium (Rocephin) 1 gm Q24H 08/08/20 09:00 08/11/20 16:19 DC 08/11/20 08:30 1 GM Clopidogrel Bisulfate (Plavix) 75 mg DAILY 08/08/20 09:00 08/12/20 08:20 75 MG Dextrose (Dextrose 50%-Water Syringe) 12.5 gm PRN Q15MIN PRN 08/08/20 08:00 Docusate Sodium (Colace) 100 mg DAILY 08/08/20 09:00 08/12/20 08:19 100 MG Enoxaparin Sodium (Lovenox 40mg Syringe) 40 mg Q24H 08/07/20 21:45 08/11/20 20:18 40 MG Fentanyl Citrate (Fentanyl 2ml Vial) 50 mcg PRN Q3HRS PRN 08/07/20 21:45 Fluticasone Propionate (Flonase) 2 spray DAILY 08/08/20 09:00 08/12/20 08:21 2 SPRAY Furosemide (Lasix) 40 mg 1X ONCE 08/12/20 17:00 08/12/20 17:01 DC 08/12/20 17:00 40 MG Gabapentin (Neurontin) 300 mg BID 08/08/20 09:00 08/12/20 20:38 300 MG Hydroxyzine HCl (Atarax) 25 mg TID PRN PRN 08/07/20 21:45 Influenza Virus Vaccine Quadrival (Fluzone Quad Syringe) 0.5 ml ONCE ONCE 08/08/20 09:00 08/08/20 09:01 DC 08/10/20 08:22 0.5 ML Insulin Glargine (Lantus Syringe) 8 unit QHS 08/08/20 21:00 08/12/20 20:48 8 UNIT Insulin Human Lispro (HumaLOG) 0-9 UNITS [id number] 08/08/20 08:00 08/12/20 20:47 5 UNITS Lactobacillus Rhamnosus (Culturelle) 1 cap BID 08/08/20 21:00 08/12/20 20:38 1 CAP Linezolid (Zyvox) 600 mg BID 08/12/20 11:00 08/12/20 20:38 600 MG Losartan Potassium (Cozaar) 25 mg DAILY 08/08/20 09:00 08/12/20 08:20 25 MG Metoprolol Tartrate (Lopressor) 25 mg BID 08/08/20 09:00 08/12/20 20:38 25 MG Non-Formulary Medication (Insulin Glargine,Hum.rec.anlog (Lantus Solostar)) 8 unit QHS 08/08/20 21:00 UNV Ondansetron HCl (Zofran Odt) 4 mg 1X ONCE 08/07/20 21:45 08/07/20 21:46 DC 08/07/20 21:50 4 MG Ondansetron HCl (Zofran) 4 mg PRN Q4HRS PRN 08/07/20 21:45 08/12/20 20:38 4 MG Pantoprazole Sodium (Protonix) 40 mg DAILYAC 08/10/20 07:30 08/13/20 04:35 40 MG Piperacillin Sod/ Tazobactam Sod 3.375 gm/Sodium Chloride 50 ml @ 100 mls/hr Q6HRS 08/11/20 17:00 08/13/20 04:33 100 MLS/HR Sodium Chloride 1,000 ml @ 1,000 mls/hr 1X ONCE 08/07/20 21:45 08/07/20 22:44 DC 08/07/20 21:52 1,000 MLS/HR Tamsulosin HCl (Flomax) 0.4 mg DAILY 08/08/20 09:00 08/12/20 08:20 0.4 MG Tramadol HCl (Ultram) 50 mg PRN Q6HRS PRN 08/07/20 21:45 UNV Vancomycin HCl (Vanco Per Pharmacy) 1 each PRN DAILY PRN 08/07/20 22:00 08/12/20 11:19 1 EACH Vancomycin HCl (Vancomycin Trough Level) 1 each 1X ONCE 08/09/20 11:30 08/09/20 11:31 DC 08/09/20 11:30 1 EACH Vancomycin HCl 1.5 gm/Sodium Chloride 500 ml @ 250 mls/hr Q12H 08/08/20 12:00 08/13/20 01:03 250 MLS/HR Vancomycin HCl 2 gm/Sodium Chloride 500 ml @ 250 mls/hr 1X ONCE 08/07/20 22:15 08/08/20 00:14 DC 08/07/20 23:54 250 MLS/HR Zolpidem Tartrate (Ambien) 5 mg PRN QHS PRN 08/09/20 22:45 08/12/20 20:38 5 MG Labs: Lab Laboratory Tests Test 08/12/20 07:12 08/12/20 11:43 08/12/20 16:40 08/12/20 16:52 Glucose (Fingerstick) 230 mg/dL (70-99) 243 mg/dL (70-99) 254 mg/dL (70-99) SARS-CoV-2 Antigen (Rapid) Negative (NEGATIVE) Test 08/12/20 20:16 Glucose (Fingerstick) 328 mg/dL (70-99) Objective: Assessment: 1. Right foot cellulitis, possible abscess. Deep tissue infection is a concern. Awaiting surgery 2. Fever. Pattern improved 3. Lactic acidosis, mild, resolved. 4. Diabetes mellitus. 5. Thrombocytopenia. 6. Abnormal liver function tests. 7. Coronary artery disease. 8. Anemia. 9. Protein-calorie malnutrition. Plan: Plan of Care Continue IV Vanco and Zosyn Monitor renal functions closely continue Zyvox awaiting surgery ,Send intraoperative tissue or fluid for culture Monitor labs closely Wound care care as directed Discussed with nursing staff BLAKE CARVER MD Aug 13, 2020 05:55
[2020-08-13] MEDS: ASPIRIN 325 MG TABLET PO SCH (07:41)
[2020-08-13] MEDS: TAMSULOSIN 0.4 MG CAP.ER.24H. PO SCH (07:42)
[2020-08-13] MEDS: LACTOBACILLUS RHAMNOSUS GG 1 CAPSULE. PO SCH ×2 (07:42→21:49)
[2020-08-13] MEDS: DOCUSATE SODIUM 100 MG CAPSULE. PO SCH (07:42)
[2020-08-13] MEDS: CLOPIDOGREL BISULFATE 75 MG TABLET PO SCH (07:42)
[2020-08-13] MEDS: INSULIN LISPRO 300 UNITS/3 ML VIAL. SQ SCH ×4 (07:43→21:57)
[2020-08-13] MEDS: LINEZOLID 600 MG TABLET PO SCH ×2 (08:33→21:50)
[2020-08-13] MEDS: METOPROLOL TART IMMED RELEASE 25 MG TABLET. PO SCH ×2 (08:33→21:49)
[2020-08-13] MEDS: LOSARTAN POTASSIUM 25 MG TABLET. PO SCH (08:33)
[2020-08-13] MEDS: FLUTICASONE 50MCG/NASAL SPRAY 16GM BOTTLE. NS SCH (08:34)
[2020-08-13] MEDS: GABAPENTIN 300 MG CAPSULE. PO SCH ×3 (08:34→21:50)
[2020-08-13] MEDS ORDERED: FUROSEMIDE 40 MG TABLET. PO SCH (09:00)
--- NOTE | 2020-08-13 10:23 | PDOC ---
PROGRESS NOTES Date of Service: DATE: 08/13/20 TIME: 10:22 Chief Complaint Chief Complaint impression Right foot cellulitis PVD 05/26Angioplasty of the left dorsalis pedis and anterior tibial arteriesPrimary placement of a covered self expanding stent secondary to chronic total occlusion, distal right SFA Angioplasty of proximal SFA Right foot diabetic ulcer Sepsis - fever and tachycardia Diabetes Shortness of breath Thombocytopenia Transaminitis Gallbladder wall is thickened but the gallbladder appears decompressed. Trace ascites. Correlate clinically for cholecystitis. No cholelithiasis. Nodular contour of the liver of concern for cirrhosis or other fibrotic process. Morbid obesity Hypertensive urgency Hyperlipidemia. Carotid arterial disease. Peripheral arterial disease. Peripheral neuropathy. HX Right carotid endarterectomy. HX Left second and third toe amputations. HX Explorative laparotomy with cauterization of his liver Remote tobacco abuse Ingrown toenails plan GI CONSULT ID CONSULT ARTERIAL DOPPLERS BOTH LEGS REVIEWED, CONSULT VASCULAR Continue IV Vanco and Zosyn Monitor renal functions closely continue Zyvox 38 MIN pt exam, chart review, > 50% of time spent with exam, chart review, pt care coordination History of Present Illness History of Present Illness 08/13/2020 Patient seen and examined Discussed with RN Discussed with dependency case manager will consult ID 08/10/2020 Patient seen and examined DW RN FELICE case manger Mr Ford is a 59yo M w/ PMHx CAD, hypertension, diabetes, CVA. DM2 who comes to ED with complaints of increased pain, redness, and warmth in his right foot after being discharged from this emergency room yesterday. He denies any bleeding or drainage from his right foot. Patient states he was evaluated for right foot pain but since being discharged he has developed a fever and his symptoms have gotten worse. Patient also complains of having nausea. He states that he has a ulcer on the bottom of his left great toe. He denies any drainage or foul odor from ulcer. Patient states that he has been out of his quick acting insulin for the last 2 days and has only been able to take his morning acting insulin. He denies any polyuria, polydipsia, or polyphagia. The patient denies any cough, chest pain, abdominal pain, vomiting, or diarrhea. He denies any dizziness but reports headache at this time. He currently rates his pain a 10 out of 10 on the pain scale, he denies radiation of the pain, he denies any alleviating factors, pain is worse with palpation. Right lower extremity venous ultrasound negative for DVT does confirm lymphadenopathy in groin. Labs with WBC 9.2 with left shift, Hb 10.8, platelets 114, NA 135, K4.9, BUN 23, CR 1.1, glucose 125, lactic acid 2.1, CRP 247.3, albumin 2.9, alkaline phosphatase 459, AST 47, ALT 78, bilirubin 3.4. 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 Admitted for care of his right foot Low grade temp 100.4F overnight. Swelling and pain and redness improved in right foot. Vitals Vitals Vital Signs Date Time Temp Pulse Resp B/P (MAP) Pulse Ox O2 Delivery O2 Flow Rate FiO2 08/13/20 08:33 68 155/59 08/13/20 07:00 97.8 17 92 Room Air 97.8 Physical Exam Physical Exam GENERAL: Alert, awake. The patient is sitting upright in chair, in no acute distress. HEENT: Normocephalic, atraumatic. No thrush. NECK: Supple, no JVD. LUNGS: Clear bilaterally. No wheezing. HEART: S1, S2 normal. ABDOMEN: Soft, nontender, nondistended, obese. Bowel sounds present. EXTREMITIES: Right foot dorsal dressing in place not taken down onychomycosis dressing in place not taken down, no purulent drainage. General: Alert, Oriented X3, Cooperative, No acute distress Heart: Regular rate, Normal S1 Lungs: Clear, Other (Short of breath) Abdomen: Normal bowel sounds, Soft, No tenderness, No hepatosplenomegaly, No masses Extremities: No clubbing, No cyanosis Skin: Other (Right foot red, hot, right 2nd hammertoe with ingrown nail. Left 1st MTP with plantar ulcer) Labs LABS PATIENT: SUSAN DEMARCO ACCOUNT: [id number] : 1960 LOCATION: [address] [place] [address] AGE: 59 SEX: M EXAM STATUS: ADM IN ORD. PHYSICIAN: JEOVANY BASSETT MD REASON: SEVERE PVD; RT Wound Medial DST Foot; LT wound bottom of great toe PROCEDURE: DUPLEX LOWER EXTREMITY BILAT Exam: DUPLEX LOWER EXTREMITY BILAT History: Reason: SEVERE PVD; RT Wound Medial DST Foot; LT wound bottom of great Comparison: None. Technique: Grayscale, color, and spectral Doppler ultrasound images of the lower extremity arteries. Findings: Common femoral artery: 177, biphasic, severe plaque Profunda femoris artery: 171, monophasic, severe plaque Proximal superficial femoral artery: 89, monophasic Mid and distal superficial femoral artery: occluded Popliteal artery: 63 monophasic Peroneal artery: 64, monophasic Posterior tibial artery: 51, monophasic Dorsalis pedis artery: 171, monophasic Anterior tibial artery: 19, monophasic Left: Common femoral artery: 171, biphasic Profunda femoris artery: 107, biphasic Proximal superficial femoral artery: 253, biphasic Mid superficial femoral artery: 200, biphasic Distal superficial femoral artery: 69, biphasic Popliteal artery: 102, biphasic peroneal artery: 91, biphasic Posterior tibial artery: 49 and 112, monophasic proximally Dorsalis pedis artery: 58, monophasic Anterior tibial artery: 53, monophasic Impression: 1. Complete occlusion of the right mid and distal superficial femoral arteries. 2. High-grade stenosis in the right common femoral and profunda femoris arteries. Stenosis in the right dorsalis pedis artery. 3. High-grade stenosis in the left common femoral, proximal superficial femoral, and dorsalis pedis artery. 4. Peripheral vascular disease throughout the remainder of the lower extremities with abnormal waveforms. Results discussed by Dr. Agustin with the patient's nurse at 2:40 PM on 08/12/2020. Electronically signed by: Mee Agustin MD (08/12/2020 2:40 PM) [id number] DICTATED and SIGNED BY: MEE AGUSTIN MD DATE: 08/12/20 1440 Laboratory Tests Test 08/12/20 11:43 08/12/20 16:40 08/12/20 16:52 08/12/20 20:16 Glucose (Fingerstick) 243 mg/dL (70-99) 254 mg/dL (70-99) 328 mg/dL (70-99) SARS-CoV-2 Antigen (Rapid) Negative (NEGATIVE) Test 08/13/20 07:00 Glucose (Fingerstick) 192 mg/dL (70-99) Assessment and Plan Assessmemt and Plan Problems Medical Problems: (1) Cellulitis of right leg Status: Acute (2) Fever Status: Acute (3) Person under investigation for COVID-19 Status: Acute Comment Review of Relevant I have reviewed the following items shreyas (where applicable) has been applied. Labs Laboratory Tests Test 08/11/20 11:09 08/11/20 16:05 08/11/20 20:23 08/11/20 22:25 Glucose (Fingerstick) 308 mg/dL (70-99) 274 mg/dL (70-99) 323 mg/dL (70-99) 270 mg/dL (70-99) Test 08/12/20 02:37 08/12/20 07:12 08/12/20 11:43 08/12/20 16:40 White Blood Count 7.9 x10^3/uL (4.0-11.0) Red Blood Count 2.84 x10^6/uL (4.30-5.70) Hemoglobin 9.2 g/dL (13.0-17.5) Hematocrit 27.2 % (39.0-53.0) Mean Corpuscular Volume 96 fL (79-100) Mean Corpuscular Hemoglobin 33 pg (25-35) Mean Corpuscular Hemoglobin Concent 34 g/dL (31-37) Red Cell Distribution Width 14.6 % (11.5-14.5) Platelet Count 151 x10^3/uL (140-400) Neutrophils (%) (Auto) 76 % (31-73) Lymphocytes (%) (Auto) 13 % (24-48) Monocytes (%) (Auto) 10 % (0-9) Eosinophils (%) (Auto) 1 % (0-3) Basophils (%) (Auto) 1 % (0-3) Neutrophils # (Auto) 5.9 x10^3/uL (1.8-7.7) Lymphocytes # (Auto) 1.0 x10^3/uL (1.0-4.8) Monocytes # (Auto) 0.8 x10^3/uL (0.0-1.1) Eosinophils # (Auto) 0.0 x10^3/uL (0.0-0.7) Basophils # (Auto) 0.1 x10^3/uL (0.0-0.2) Sodium Level 132 mmol/L (136-145) Potassium Level 4.4 mmol/L (3.5-5.1) Chloride Level 101 mmol/L (98-107) Carbon Dioxide Level 23 mmol/L (21-32) Anion Gap 8 (6-14) Blood Urea Nitrogen 15 mg/dL (8-26) Creatinine 1.0 mg/dL (0.7-1.3) Estimated GFR (Cockcroft-Gault) 77.0 Glucose Level 232 mg/dL (70-99) Hemoglobin A1c 8.0 % (4.8-5.6) Calcium Level 8.0 mg/dL (8.5-10.1) Glucose (Fingerstick) 230 mg/dL (70-99) 243 mg/dL (70-99) SARS-CoV-2 Antigen (Rapid) Negative (NEGATIVE) Test 08/12/20 16:52 08/12/20 20:16 08/13/20 07:00 Glucose (Fingerstick) 254 mg/dL (70-99) 328 mg/dL (70-99) 192 mg/dL (70-99) Laboratory Tests Test 08/12/20 11:43 08/12/20 16:40 08/12/20 16:52 08/12/20 20:16 Glucose (Fingerstick) 243 mg/dL (70-99) 254 mg/dL (70-99) 328 mg/dL (70-99) SARS-CoV-2 Antigen (Rapid) Negative (NEGATIVE) Test 08/13/20 07:00 Glucose (Fingerstick) 192 mg/dL (70-99) Microbiology 08/11/20 Blood Culture - Preliminary, Resulted NO GROWTH AFTER 1 DAY 08/07/20 Urine Culture - Final, Complete Medications Current Medications Acetaminophen (Tylenol) 1,000 mg 1X ONCE PO Last administered on 08/07/20at 21:50; Start 08/07/20 at 21:45; Stop 08/07/20 at 21:46; Status DC Ondansetron HCl (Zofran Odt) 4 mg 1X ONCE PO Last administered on 08/07/20at 21:50; Start 08/07/20 at 21:45; Stop 08/07/20 at 21:46; Status DC Sodium Chloride 1,000 ml @ 1,000 mls/hr 1X ONCE IV Last administered on 08/07/20 21:52; Start 08/07/20 at 21:45; Stop 08/07/20 at 22:44; Status DC Fentanyl Citrate (Fentanyl 2ml Vial) 50 mcg 1X ONCE IV Last administered on 08/07/20 21:51; Start 08/07/20 at 21:45; Stop 08/07/20 at 21:46; Status DC Ondansetron HCl (Zofran) 4 mg PRN Q4HRS PRN IV NAUSEA/VOMITING Last administered on 08/12/20 20:38; Start 08/07/20 at 21:45 Acetaminophen (Tylenol) 650 mg PRN Q4HRS PRN PO TEMP OVER 100.4F OR MILD PAIN Last administered on 08/08/20 05:50; Start 08/07/20 at 21:45 Enoxaparin Sodium (Lovenox 40mg Syringe) 40 mg Q24H SQ Last administered on 08/11/20 20:18; Start 08/07/20 at 21:45 Albuterol Sulfate (Ventolin Neb Soln) 2.5 mg PRN Q4HRS PRN INH SHORTNESS OF BREATH Last administered on 08/11/20 20:14; Start 08/07/20 at 21:45 Aspirin (Ronald Aspirin) 325 mg DAILYWBKFT PO Last administered on 08/12/20 08:19; Start 08/08/20 at 08:00 Atorvastatin Calcium (Lipitor) 20 mg HS PO Last administered on 08/12/20 20:38; Start 08/08/20 at 21:00 Clopidogrel Bisulfate (Plavix) 75 mg DAILY PO Last administered on 08/12/20 08:20; Start 08/08/20 at 09:00 Docusate Sodium (Colace) 100 mg DAILY PO Last administered on 08/12/20 08:19; Start 08/08/20 at 09:00 Gabapentin (Neurontin) 300 mg BID PO Last administered on 08/12/20 20:38; Start 08/08/20 at 09:00 Hydroxyzine HCl (Atarax) 25 mg TID PRN PRN PO ELEVATED BP, SEE COMMENTS; Start 08/07/20 at 21:45 Losartan Potassium (Cozaar) 25 mg DAILY PO Last administered on 08/13/20at 08:33; Start 08/08/20 at 09:00 Metoprolol Tartrate (Lopressor) 25 mg BID PO Last administered on 08/13/20at 08:33; Start 08/08/20 at 09:00 Tamsulosin HCl (Flomax) 0.4 mg DAILY PO Last administered on 08/12/20at 08:20; Start 08/08/20 at 09:00 Tramadol HCl (Ultram) 50 mg PRN Q6HRS PRN PO MODERATE - SEVERE PAIN Last administered on 08/13/20at 04:50; Start 08/07/20 at 21:45 Fluticasone Propionate (Flonase) 2 spray DAILY NS Last administered on 08/13/20 08:34; Start 08/08/20 at 09:00 Non-Formulary Medication (Insulin Glargine,Hum.rec.anlog (Lantus Solostar)) 8 unit QHS SQ ; Start 08/08/20 at 21:00; Status UNV Tramadol HCl (Ultram) 50 mg PRN Q6HRS PRN PO PAIN; Start 08/07/20 at 21:45; Status UNV Fentanyl Citrate (Fentanyl 2ml Vial) 50 mcg PRN Q3HRS PRN IVP SEVERE PAIN 7-10; Start 08/07/20 at 21:45 Vancomycin HCl (Vanco Per Pharmacy) 1 each PRN DAILY PRN MC SEE COMMENTS Last administered on 08/12/20at 11:19; Start 08/07/20 at 22:00 Vancomycin HCl 2 gm/Sodium Chloride 500 ml @ 250 mls/hr 1X ONCE IV Last administered on 08/07/20at 23:54; Start 08/07/20 at 22:15; Stop 08/08/20 at 00:14; Status DC Insulin Glargine (Lantus Syringe) 8 unit QHS SQ Last administered on 08/12/20at 20:48; Start 08/08/20 at 21:00 Vancomycin HCl 1.5 gm/Sodium Chloride 500 ml @ 250 mls/hr Q12H IV Last administered on 08/13/20at 01:03; Start 08/08/20 at 12:00 Vancomycin HCl (Vancomycin Trough Level) 1 each 1X ONCE MC Last administered on 08/09/20at 11:30; Start 08/09/20 at 11:30; Stop 08/09/20 at 11:31; Status DC Influenza Virus Vaccine Quadrival (Fluzone Quad Syringe) 0.5 ml ONCE ONCE VAX IM Last administered on 08/10/20at 08:22; Start 08/08/20 at 09:00; Stop 08/08/20 at 09:01; Status DC Insulin Human Lispro (HumaLOG) 0-9 UNITS TIDWMEALHC SQ Last administered on 08/12/20at 20:47; Start 08/08/20 at 08:00 Dextrose (Dextrose 50%-Water Syringe) 12.5 gm PRN Q15MIN PRN IV SEE COMMENTS; Start 08/08/20 at 08:00 Ceftriaxone Sodium (Rocephin) 1 gm Q24H IVP Last administered on 08/11/20at 08:30; Start 08/08/20 at 09:00; Stop 08/11/20 at 16:19; Status DC Lactobacillus Rhamnosus (Culturelle) 1 cap BID PO Last administered on 08/12/20at 20:38; Start 08/08/20 at 21:00 Pantoprazole Sodium (Protonix) 40 mg DAILYAC PO Last administered on 08/13/20at 04:35; Start 08/10/20 at 07:30 Zolpidem Tartrate (Ambien) 5 mg PRN QHS PRN PO INSOMNIA Last administered on 08/12/20at 20:38; Start 08/09/20 at 22:45 Piperacillin Sod/ Tazobactam Sod 3.375 gm/Sodium Chloride 50 ml @ 100 mls/hr Q6HRS IV Last administered on 08/13/20at 04:33; Start 08/11/20 at 17:00 Linezolid (Zyvox) 600 mg BID PO Last administered on 08/13/20at 08:33; Start 08/12/20 at 11:00 Furosemide (Lasix) 40 mg DAILY PO ; Start 08/13/20 at 09:00 Furosemide (Lasix) 40 mg 1X ONCE IVP Last administered on 08/12/20at 17:00; Start 08/12/20 at 17:00; Stop 08/12/20 at 17:01; Status DC Active Scripts Active Tramadol Hcl 50 Mg Tablet 50 Mg PO Q6HRS PRN Potassium Chloride (Potassium Chloride) 20 Meq Tablet.er 20 Meq PO DAILY Lasix (Furosemide) 40 Mg Tablet 1 Tab PO DAILY 30 Days Carbamide Peroxide 15 Ml Drops 15 Ml OT BID 4 Days Flonase Allergy Relief (Fluticasone Propionate) 9.9 Ml [place].susp 2 Sprays NS DAILY Proair Hfa Inhaler (Albuterol Sulfate) 8.5 Gm Hfa.aer.ad 1 Puff INH Q4HRS PRN Prinivil (Lisinopril) 5 Mg Tablet 5 Mg PO DAILY Aspirin 325 Mg Tablet 325 Mg PO DAILY Reported Lantus Solostar (Insulin Glargine,Hum.rec.anlog) 100 Unit/1 Ml Insuln.pen 8 Unit SQ QHS Culturelle (Lactobacillus Rhamnosus Gg) 1 Each Capsule 1 Each PO DAILY 14 Days Flomax (Tamsulosin Hcl) 0.4 Mg Cap.er.24h 0.4 Mg PO DAILY Gabapentin 300 Mg Capsule 300 Mg PO BID Metoprolol Tartrate 25 Mg Tablet 25 Mg PO BID Omeprazole 40 Mg Capsule.dr 40 Mg PO DAILY05 Losartan Potassium 25 Mg Tablet 25 Mg PO DAILY Hydroxyzine Hcl 25 Mg Tablet 25 Mg PO TID PRN PRN Atorvastatin Calcium 20 Mg Tablet 20 Mg PO HS Clopidogrel (Clopidogrel Bisulfate) 75 Mg Tablet 75 Mg PO DAILY Docusate Sodium 100 Mg Capsule 1 Cap PO DAILY Glimepiride 4 Mg Tablet 4 Mg PO DAILY Metformin Hcl 500 Mg Tablet 500 Mg PO BIDWMEALS do not take for 48 hours Vitals/I & O Vital Sign - Last 24 Hours 08/12/20 08/12/20 08/12/20 08/12/20 11:00 15:00 19:00 20:00 Temp 98.0 98.9 98.8 98.0 98.9 98.8 Pulse 55 72 75 Resp 18 20 16 B/P (MAP) 148/48 (81) 145/42 (76) 161/41 (81) Pulse Ox 95 92 93 O2 Delivery Room Air Room Air Room Air Room Air 08/12/20 08/12/20 08/13/20 08/13/20 20:38 23:00 03:00 04:50 Temp 98.8 98.8 98.8 98.8 Pulse 72 62 71 Resp 18 24 18 B/P (MAP) 145/42 125/52 (76) 149/61 (90) Pulse Ox 94 90 90 O2 Delivery Room Air Room Air Room Air 08/13/20 08/13/20 08/13/20 08/13/20 05:50 07:00 08:33 08:33 Temp 97.8 97.8 Pulse 68 68 68 Resp 18 17 B/P (MAP) 155/59 (91) 155/59 155/59 Pulse Ox 90 92 O2 Delivery Room Air Room Air Intake and Output 08/12/20 08/12/20 08/13/20 15:00 23:00 07:00 Intake Total 400 ml 200 ml Output Total 1700 ml 100 ml Balance -1300 ml 100 ml Justicifation of Admission Dx: Justifications for Admission: Justification of Admission Dx: Yes Sepsis: Infection Cellulitis: Cellulitis JEOVANY BASSETT MD Aug 13, 2020 10:23
[2020-08-13] MEDS: ALBUTEROL SULFATE 2.5 MG/3 ML NEBU. INH PRN (10:38)
[2020-08-13] MEDS: INSULIN LISPRO 100 UNIT/ML 3ML VIAL for OP,RR ONLY. SQ PRN ×2 (10:50→12:06)
[2020-08-13] MEDS ORDERED: BACITRACIN 50,000 UNIT in IV NORMAL SALINE 500ML BAG 500 ML IRR ONE (11:00)
--- NOTE | 2020-08-13 11:11 | PDOC ---
Date of Service: DATE: 08/13/20 TIME: 11:07 Objective: Vital Signs: Vital Signs Date Time Temp Pulse Resp B/P (MAP) Pulse Ox O2 Delivery O2 Flow Rate FiO2 08/13/20 10:40 98 Nasal Cannula 2.0 08/13/20 10:27 97.8 61 26 178/74 97.8 Labs: Laboratory Tests Test 08/12/20 11:43 08/12/20 16:40 08/12/20 16:52 08/12/20 20:16 Glucose (Fingerstick) 243 mg/dL 254 mg/dL 328 mg/dL SARS-CoV-2 Antigen (Rapid) Negative Test 08/13/20 07:00 08/13/20 10:47 Glucose (Fingerstick) 192 mg/dL 177 mg/dL BLOOD CULTURE Preliminary NO GROWTH AFTER 1 DAY Imaging: BLE Duplex Impression: 1. Complete occlusion of the right mid and distal superficial femoral arteries. 2. High-grade stenosis in the right common femoral and profunda femoris arteries. Stenosis in the right dorsalis pedis artery. 3. High-grade stenosis in the left common femoral, proximal superficial femoral, and dorsalis pedis artery. 4. Peripheral vascular disease throughout the remainder of the lower extremities with abnormal waveforms. LINEN WORKER Bedside Swallow Eval: Pt appears to demo WFL oropharyngeal swallow, with the exception of inconsistent s/s aspiration when drinking via large-bore hospital issued straw. Pt demo's s/s that may be c/w esophageal dysphagia and may be experiencing aspiration or penetration post swallow r/t to same. Pt points to locations mid to upper sternum and reports food and even liquids "getting caught up." He states he sometimes has to cough it back up and reswallow it. No reactive s/s aspiration noted post swallows of thin liquid via cup, honey thick liquid, puree, and regular solids. Timing and range of hyolaryngeal mvmt are WFL to palpation. RECOMMENDATIONS: Continue regular diet w/ thin liquids. NO STRAWS. Consider continued GI f/u to address possible esophageal dysphagia. Will continue LINEN WORKER to monitor swallow safety and determine need for add'l f/u post any add'l GI findings. 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 ASMAb reordered/pending. Justicifation of Admission Dx: Justifications for Admission: Justification of Admission Dx: Yes Sepsis: Infection Cellulitis: Cellulitis UBALDO MCKENZIE Aug 13, 2020 11:11
[2020-08-13] MEDS ORDERED: SEVOFLURANE 31 TO 60 MINUTES. IH ONE (11:36)
[2020-08-13] MEDS ORDERED: fentaNYL PF VIAL 100 MCG/2 ML VIAL ONE (11:36)
[2020-08-13] MEDS ORDERED: PROPOFOL 10 MG/ML (20ML) VIAL. IV ONE (11:36)
[2020-08-13] MEDS ORDERED: LIDOCAINE 2% PF 5 ML VIAL. ONE (11:36)
--- NOTE | 2020-08-13 11:57 | PDOC4 ---
OPERATIVE NOTE: Operative Report Dictated Pre-op: right foot gangrene with severe cellulitis Post-op: Right foot with large abscess, wet infected gangrene of the right 1st/2nd toes and forefoot Surgery: Right 1st and 2nd toe open ray amputation, extensive debridement and drainage of large abscess in the foot Surgeon: Dr. Jas Drew Anesthesia: general Blood loss: 10ml Cultures sent of the abscess fluid JAS DREW MD Aug 13, 2020 11:57
--- NOTE | 2020-08-13 12:16 | OP ---
DATE OF SURGERY: 08/13/2020 SURGEON: Ericka Drew MD. ANESTHESIA USED: General anesthesia. PREOPERATIVE DIAGNOSES: Right foot with severe cellulitis, gangrene of the dorsal aspect of the foot overlying the first metatarsal head with fluctuance. POSTOPERATIVE DIAGNOSES: Large abscess within the right foot and gangrene, which was what an infected throughout the right first and second toes extending into the proximal foot. OPERATION PERFORMED: Right first and second toe open ray amputation at the mid metatarsal location. BLOOD LOSS: Approximately 10 mL. INDICATIONS: The patient is a 59-year-old male with a history of right lower extremity peripheral arterial disease and diabetes mellitus, who presents to the hospital with severe right foot infection. He has severe cellulitis of his right foot with gangrenous wound on the dorsal aspect of his foot overlying the first metatarsal bone region with fluctuance. Recommendations were made for debridement with likely first toe ray open amputation. Informed consent was obtained. Risk of bleeding, further infection, need for further debridement or toe amputations in the future and long-term wound care were explained to the patient. DETAILS OF THE OPERATION: The patient was taken into the operating room and placed on table in supine position. He received general anesthesia monitored throughout the case by the anesthesiologist. His right foot and ankle were prepped and draped by normal sterile fashion. I began by incising into the gangrenous wound on the dorsal aspect of the right foot over the area of the first metatarsal head. Copious amounts of purulent drainage was expressed, releasing the abscess cavity. This fluid was sent for culture. I explored the wound and there was copious amounts of gangrene surrounding the first metatarsal bone and tracking of more purulent drainage throughout the foot. I felt he required a first toe ray amputation at least. I made an elliptical incision around the base of the first toe, extended the incision down the dorsal aspect of the foot around the gangrene and up the lateral surface of the toe. I dissected down through the tissues down to the mid metatarsal bone and transected the bone and removed the toe. There was still copious amounts of purulent drainage, which was expressed from the foot. There was wet gangrene of the residual tissues adjacent and around the second toe. I did not feel there was any way to salvage the second toe, we would leave significant gangrene and infection if we did; therefore, I made an incision around the base of the second toe, brought the tissues down to the mid metatarsal bone of the second toe and transected it, removing this toe as well. I continued sharp debridement of more tissue on the dorsal aspect of the foot and the lateral foot, removing more gangrene. I continued debridement until there was no further visible gangrene and all abscess tracts were opened and drained. I brought the metatarsal bones back within the wound with a rongeur. Tendons were removed. We irrigated with copious amounts of antibiotic solution. There was no gross significant necrotic tissue left at the end of the case. There was some bleeding, which was controlled with electrocautery. I packed the open wound with antibiotic-soaked gauze, wrapped it with an ABD pad, Kerlix and an Deshawn bandage. He tolerated the surgery. We will monitor closely and he is having an angiogram to hopefully improve his circulation tomorrow. SPECIMEN REMOVED: Right first and second toe along with cultures of his abscess. ERICKA DREW MD DR: RAQUEL/javier JOB#: [id number] / [id number]
--- NOTE | 2020-08-13 12:21 | PDOC2 ---
KORY ALFARO PROGRAM HOST 08/13/20 1221: CARDIAC CONSULT DATE OF CONSULT Date of Consult DATE: 08/13/20 TIME: 12:17 REASON FOR CONSULT Reason for Consult: Prob CHF REFERRING PHYSICIAN Referring Physician: Florencia SOURCE Source: Chart review HISTORY OF PRESENT ILLNESS HISTORY OF PRESENT ILLNESS This is a pleasant 59 yo male admitted for complains of increasing right foot pain. He also has been having fever and nausea. Denies any chest pain or SOA but as an inpt he starting to feel some SOA. His legs have became edematous and has been feeling wheezy. After further imaging he was noted with severe bilateral PAD and has been addressed by vascular surgery. He has RLE cellulitis and noted with gangrene to his foot hence surgery was performed today with right first and second toe open ray amputation at the mid metatarsal location. He tolerated his procedure well but at this time he still has some SOA, leg edema and slight wheezy. He is significant for possible cirrhosis with hx of hevay alcoholism and also COPD/CVA/CAD. PAST MEDICAL HISTORY Cardiovascular: CHF, HTN, Hyperlipidemia, Valve insufficiency, Other (chronic RBBB; PAD) Pulmonary: Asthma, Other (CHRIS, no CPAP) CENTRAL NERVOUS SYSTEM: Periperal neuropathy, TIA GI: Constipation, GERD Heme/Onc: No pertinent hx Psych: No pertinent hx Musculoskeletal: Osteoarthritis Rheumatologic: No pertinent hx Infectious disease: Other (MRSA) ENT: Allergic Rhinitis Endocrine: Diabetes (2) Dermatology: Other (foot ulcers) PAST SURGICAL HISTORY Past Surgical History: Arthroscopy (club foot repair), Hernia Repair, Other (right carotid endarterectomy; left toe amputations; liver lacerations repair) FAMILY HISTORY Family History: Coronary Artery Disease SOCIAL HISTORY Smoke: Quit ALCOHOL: occassional Drugs: None Lives: with Family CURRENT MEDICATIONS CURRENT MEDICATIONS Current Medications Medications (Trade) Dose Ordered Sig/John Route PRN Reason Start Time Stop Time Status Last Admin Dose Admin Furosemide (Lasix) 40 mg 1X ONCE IVP 08/12/20 17:00 08/12/20 17:01 DC 08/12/20 17:00 Bacitracin 08457 unit/Sodium Chloride 500 ml @ 500 mls/hr 1X ONCE IRR 08/13/20 11:00 08/13/20 11:59 DC 08/13/20 11:24 Insulin Human Lispro (HumaLOG VIAL for OP,RR ONLY) 0-10 units PRN Q1HR PRN SQ PER PROTOCOL 08/13/20 10:45 08/14/20 10:44 08/13/20 12:06 ALLERGIES ALLERGIES: Coded Allergies: morphine (Verified Allergy, Intermediate, N/V, 08/13/20) I S O L A T I O N *CONTACT* (Verified Allergy, Unknown, 08/13/20) mrsa ROS Review of System 14 point ROS evaluated with pertinent positives noted per HPI PHYSICAL EXAM General: Alert, Oriented X3, Cooperative, mild distress HEENT: Atraumatic, Mucous membr. moist/pink Lungs: Other (diminished with expiratory wheeze) Heart: Regular rate (sinus tachycardia), Other (distant heart sounds) Abdomen: Soft, No tenderness Extremities: No cyanosis, Other (2+ bilateral LE pitting edema) Skin: Other (S/P right foot surgery with noted gangrene, diminished pedal pulses; left plantar ulcers) Neuro: Normal speech, Sensation intact Psych/Mental Status: Mental status NL, Mood NL MUSCULOSKELETAL: Osteoarthritic changes both hands VITALS/I&O VITALS/I&O: Vital Signs Date Time Temp Pulse Resp B/P (MAP) Pulse Ox O2 Delivery O2 Flow Rate FiO2 08/13/20 11:46 99.2 68 18 151/70 98 Simple Mask 10 99.2 I & O 08/12/20 08/12/20 08/13/20 15:00 23:00 07:00 Intake Total 400 ml 200 ml Output Total 1700 ml 100 ml Balance -1300 ml 100 ml LABS Lab: Laboratory Tests Test 08/12/20 16:40 08/12/20 16:52 08/12/20 20:16 08/13/20 07:00 SARS-CoV-2 Antigen (Rapid) Negative (NEGATIVE) Glucose (Fingerstick) 254 mg/dL (70-99) H 328 mg/dL (70-99) H 192 mg/dL (70-99) H Test 08/13/20 10:47 08/13/20 11:53 Glucose (Fingerstick) 177 mg/dL (70-99) H 181 mg/dL (70-99) H ECHOCARDIOGRAM ECHOCARDIOGRAM <Conclusion> The left ventricular systolic function is normal. The ejectionf raction is estimated at 65%. There is normal LV segmental wall motion. Doppler and Color Flow revealed trace tricuspid regurgitation. The PA pressure was estimated at 25 mmHg. There is no evidence of significant pericardial effusion. DATE: 04/11/18 0741 STRESS TEST STRESS TEST Conclusion 1. The baseline electrocardiogram with a right bundle branch block. 2. There were no changes of myocardial ischemia on the electrocardiogram with pharmacological stress. 3. No significant perfusion defects to suggest myocardial ischemia or scar. 4. Normal wall motion and wall thickening with an ejection fraction of 68%. 5. Scan indicates low risk for future cardiac events. DATE: 02/02/172024 ASSESSMENT/PLAN ASSESSMENT/PLAN 1. Acute on chronic diastolic CHF 2. Severe bilateral LE PAD with RLE cellulitis and right foot abscess/gangrene 3. S/P Right first and second toe open ray amputation at mid metatarsal location today per vascular surgery 4. Asthma exacerbation: likely precipitated by CHF 5. DM2: A1C not on goal at 8 6. HTN 7. HLP 8. Hx of multiple TIAs with past right CEA 9. ILR in situ: this was placed in 2013 10. Hx of heavy alcoholism with possible cirrhosis Recommendations 1. Continue antibiotics per ID, post op care per vascular surgery. Defer aortogram and future LE revascularization to vascular 2. Continue antiplatelet therapy. DM regimen optimization per PCP 3. TTE. PCXR. Lasix therapy. BMP and Mg today. Continue with albuterol treatment 4. Continue with secondary prevention measures 5. Pt does not have hx of CAD nor any LHC in the past as reported by pt. He does however will need ILR explantation, will discuss with primary pillowcase maker. 6. Suspect poor treatment compliance. Discussed needing follow up with cardiology as he has not been seen since 2014. Encouraged compliance and curbing ETOH ingestion MANUEL JASMINE MD 08/14/20 0951: CARDIAC CONSULT ASSESSMENT/PLAN ASSESSMENT/PLAN Patient seen and evaluated on 08/13/20. Discussed with our nurse practitioner and agree with assessment and plan as a tamie. Severe bilateral lower extremity peripheral arterial disease with cellulitis and right foot abscess/ gangrene. Status post surgery as noted above. Followed by the vascular surgery service. Diastolic heart failure. Treatment with Lasix. Monitoring lab. Echocardiogram. Asthma. Continue baseline pulmonary medicines. Diabetes mellitus. As per the primary service. Implantable monitor. Placed in 2013. Will obtain records and plan on an explantation in the near future. Reported history of heavy alcohol use. Thank you for allowing us to participate in the care of your patient. KORY ALFARO APRN Aug 13, 2020 12:21 MANUEL JASMINE MD Aug 14, 2020 09:51
[2020-08-13] MEDS ORDERED: FUROSEMIDE 40 MG/4 ML VIAL. IVP ONE (13:15)
[2020-08-13] MEDS: VANCOMYCIN PER PHARMACY MC PRN (13:42)
--- NOTE | 2020-08-13 13:43 | NUR ---
SW following. Spoke with RN and reviewed chart. Discharge plan remains to [facility] pending insurance approval. Spoke with Maritza at [facility] and insurance authorization remains pending. SW following.
[2020-08-13] MEDS ORDERED: ALBUTEROL SULFATE 2.5 MG/3 ML NEBU. NEB ONE (14:00)
--- NOTE | 2020-08-13 14:18 | EKG ---
[facility] [address] [place] [address] Test Date: 2020-08-13 Test Time: 14:15:41 Pat Name: SUSAN EDMARCO Department: Room: [facility] Gender: M Manager Information: ELIUD : 1960 Requested By: KORY ALFARO Order Number: [id number] Reading MD: Measurements Intervals [place] Rate: 62 P: 47 GA: 184 QRS: 248 QRSD: 136 T: 31 QT: 462 QTc: 471 Interpretive Statements SINUS RHYTHM ABNORMAL RIGHT SUPERIOR AXIS DEVIATION LEFT ANTERIOR FASCICULAR BLOCK RIGHT BUNDLE BRANCH BLOCK BIFASCICULAR BLOCK RVH WITH REPOLARIZATION ABNORMALITY ABNORMAL ECG RI6.02 Compared to ECG 12/23/2019 23:06:27 Right superior axis now present Bifascicular block now present Right ventricular hypertrophy now present Early repolarization now present Left-axis deviation no longer present
[2020-08-13 14:35] LABS: CHOLESTEROL/HDL RATIO 4.7
--- NOTE | 2020-08-13 15:33 | RAD ---
CHEST AP ONLY History: Reason: CHF / Spl. Instructions: / History: Comparison: January 12, 2020 Findings: No consolidation or pleural effusion. Normal heart size. No pneumothorax. Calcium and left midlung pulmonary nodule, likely prior granulomatous disease. Impression: 1. No acute cardiopulmonary process. Electronically signed by: Pernell Deleon DO (08/13/2020 3:30 PM) [id number]
--- NOTE | 2020-08-13 15:55 | CARD ---
MR#: [id number] Date of Study: 08/13/2020 Ordering Physician: MANUEL JASMINE, Referring Physician: MANUEL JASMINE, Tech: Kari Chavez WILLIAM APPROVED REPORT EXAM: Two-dimensional and M-mode echocardiogram with Doppler and color Doppler. Other Information Quality : Good INDICATION Congestive Heart Failure 2D DIMENSIONS RVDd3.5 (2.9-3.5cm)Left Atrium(2D)4.8 (1.6-4.0cm) IVSd1.1 (0.7-1.1cm)Aortic Root(2D)3.1 (2.0-3.7cm) LVDd5.7 (3.9-5.9cm)LVOT Diameter2.0 (1.8-2.4cm) PWd1.2 (0.7-1.1cm)LVDs3.3 (2.5-4.0cm) FS (%) 30.0 %SV112.9 ml LVEF(%)60.0 (>50%) Aortic Valve AoV Peak Dusty.223.1cm/sAoV VTI48.4cm AO Peak GR.19.9mmHgLVOT VTI 36.97cm AO Mean GR.12mmHgAVA (VTI)2.38cm2 Mitral Valve MV E Raappctf432.4cm/sMV DECEL KOCR228sr MV A Wxcrwggq15.3cm/sE/A Ratio1.5 TDI Lateral E' P. V4.05cm/sMedial E' P. V3.67cm/s E/Lateral E'32.4E/Medial E'35.8 Tricuspid Valve TR P. Xhyupjud448fh/sRAP IWKAOPRC2ksYz TR Peak Gr.96sqZoGEEE40pwQg Pulmonary Vein S1 Qoazftwf29.5cm/sS2 Loblgqqe495.04cm/s D2 Nnigjkkr591.0cm/s LEFT VENTRICLE The left ventricle is normal size. There is mild concentric left ventricular hypertrophy. The left ve ntricular systolic function is normal. The Ejection Fraction is 55-60%. There is normal LV segmental wall motion. RIGHT VENTRICLE The right ventricle is normal size. The right ventricular systolic function is normal. ATRIA The left atrium is mildly dilated. The right atrium is mildly dilated. The interatrial septum is inta ct with no evidence for an atrial septal defect or patent foramen ovale as noted on 2-D or Doppler im aging. AORTIC VALVE The aortic valve is calcified but opens well. Doppler and Color Flow revealed no significant aortic r egurgitation. There is no significant aortic valvular stenosis. MITRAL VALVE The mitral valve is calcified but opens well. Mitral annular calcification is mild. There is no evide nce of mitral valve prolapse. There is no mitral valve stenosis. Doppler and Color-flow revealed trac e mitral regurgitation. TRICUSPID VALVE The tricuspid valve is normal in structure and function. Doppler and Color Flow revealed trace to mil d tricuspid regurgitation. The PA pressure was estimated at 30 mmHg. There is no tricuspid valve sten osis. PULMONIC VALVE The pulmonic valve is not well visualized. Doppler and Color Flow revealed mild pulmonic valvular reg urgitation. There is no pulmonic valvular stenosis. GREAT VESSELS The aortic root is normal in size. The ascending aorta is normal in size. The IVC is normal in size a nd collapses >50% with inspiration. PERICARDIAL EFFUSION There is no evidence of significant pericardial effusion. Critical Notification Critical Value: No <Conclusion> The left ventricular systolic function is normal. The Ejection Fraction is 55-60%. There is normal LV segmental wall motion. Trace mitral regurgitation. Trace to mild tricuspid regurgitation. The PA pressure was estimated at 30 mmHg. There is no evidence of significant pericardial effusion. Signed by : Jacques Calderon, Electronically Approved : 08/13/2020 15:55:01
[2020-08-13 17:50] LABS: CALCIUM 7.9 mg/dL (8.5-10.1); CREATININE 0.9 mg/dL (0.7-1.3); MAGNESIUM 2.2 mg/dL (1.8-2.4); POTASSIUM 4.3 mmol/L (3.5-5.1)
[2020-08-13] MEDS: ENOXAPARIN 40 MG/0.4 ML SYRINGE. SQ SCH ×2 (21:45→21:48)
[2020-08-13] MEDS: ZOLPIDEM 5 MG TABLET. PO PRN (21:48)
[2020-08-13] MEDS: ATORVASTATIN CALCIUM 20 MG TABLET PO SCH (21:50)
[2020-08-13] MEDS: INSULIN GLARGINE SYRINGE. SQ SCH (21:58)
[2020-08-14] VITALS (11 sets, daily range): BP systolic 135–176; BP diastolic 38–72
[2020-08-14 04:10] LABS: BASO % 0 % (0-3); EOS # 0.1 x10^3/uL (0.0-0.7); EOS % 1 % (0-3); HEMATOCRIT 27.4 % (39.0-53.0); HEMOGLOBIN 9.3 g/dL (13.0-17.5); LYMPH # 1.3 x10^3/uL (1.0-4.8); LYMPH % 14 % (24-48); MEAN CORPUSCULAR HEMOGLOBIN 32 pg (25-35); MEAN CORPUSCULAR HGB CONC 34 g/dL (31-37); MEAN CORPUSCULAR VOLUME 95 fL (79-100); MONO # 0.5 x10^3/uL (0.0-1.1); MONO % 6 % (0-9); NEUT % 78 % (31-73); PLATELET COUNT 226 x10^3/uL (140-400); RED BLOOD COUNT 2.89 x10^6/uL (4.30-5.70); RED CELL DISTRIBUTION WIDTH 14.6 % (11.5-14.5); WHITE BLOOD COUNT 8.9 x10^3/uL (4.0-11.0)
[2020-08-14] MEDS: PIPERACILLIN/TAZOBACTAM 3.375 GM in IV NORMAL SALINE 50ML 50 ML IV SCH ×4 (05:09→23:37)
[2020-08-14] MEDS: PANTOPRAZOLE 40 MG TABLET.DR. PO SCH (07:27)
--- NOTE | 2020-08-14 07:29 | PDOC ---
Infectious Disease Note Subjective: Subjective Patient says feels ok has some loose bm postop pain is under control Denies fever, nausea, vomiting, shortness of breath, abdominal pain, rash Otherwise as above Vital Signs: Vital Signs Vital Signs Date Time Temp Pulse Resp B/P (MAP) Pulse Ox O2 Delivery O2 Flow Rate FiO2 08/14/20 07:00 97.9 60 18 158/68 (98) 96 Room Air 97.9 08/14/20 03:10 2.0 Physical Exam: PHYSICAL EXAM GENERAL: Alert, awake. The patient is sitting upright in chair, in no acute distress. HEENT: Normocephalic, atraumatic. No thrush. NECK: Supple, no JVD. LUNGS: Clear bilaterally. No wheezing. HEART: S1, S2 normal. ABDOMEN: Soft, nontender, nondistended, obese. Bowel sounds present. 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 alert awake x3 piv looks clean Medications: Inpatient Meds: Current Medications Medications (Trade) Dose Ordered Sig/John Start Time Stop Time Status Last Admin Dose Admin Acetaminophen (Tylenol) 650 mg PRN Q4HRS PRN 08/07/20 21:45 08/08/20 05:50 650 MG Albuterol Sulfate (Ventolin Neb Soln) 2.5 mg 1X ONCE 08/13/20 14:00 08/13/20 14:01 DC 08/13/20 15:40 2.5 MG Aspirin (Ronald Aspirin) 325 mg DAILYWBKFT 08/08/20 08:00 08/12/20 08:19 325 MG Atorvastatin Calcium (Lipitor) 20 mg HS 08/08/20 21:00 08/13/20 21:50 20 MG Bacitracin 32850 unit/Sodium Chloride 500 ml @ 500 mls/hr 1X ONCE 08/13/20 11:00 08/13/20 11:59 DC 08/13/20 11:24 Ceftriaxone Sodium (Rocephin) 1 gm Q24H 08/08/20 09:00 08/11/20 16:19 DC 08/11/20 08:30 1 GM Clopidogrel Bisulfate (Plavix) 75 mg DAILY 08/08/20 09:00 08/12/20 08:20 75 MG Dextrose (Dextrose 50%-Water Syringe) 12.5 gm PRN Q15MIN PRN 08/08/20 08:00 Docusate Sodium (Colace) 100 mg DAILY 08/08/20 09:00 08/12/20 08:19 100 MG Enoxaparin Sodium (Lovenox 40mg Syringe) 40 mg Q24H 08/07/20 21:45 08/11/20 20:18 40 MG Fentanyl Citrate (Fentanyl 2ml Vial) 100 mcg STK-MED ONCE 08/13/20 11:36 08/13/20 11:37 DC Fluticasone Propionate (Flonase) 2 spray DAILY 08/08/20 09:00 08/13/20 08:34 2 SPRAY Furosemide (Lasix) 40 mg DAILY 08/14/20 09:00 Gabapentin (Neurontin) 300 mg BID 08/08/20 09:00 08/13/20 21:50 300 MG Hydroxyzine HCl (Atarax) 25 mg TID PRN PRN 08/07/20 21:45 Influenza Virus Vaccine Quadrival (Fluzone Quad Syringe) 0.5 ml ONCE ONCE 08/08/20 09:00 08/08/20 09:01 DC 08/10/20 08:22 0.5 ML Insulin Glargine (Lantus Syringe) 8 unit QHS 08/08/20 21:00 08/13/20 21:58 8 UNIT Insulin Human Lispro (HumaLOG VIAL for OP,RR ONLY) 0-10 units PRN Q1HR PRN 08/13/20 10:45 08/14/20 10:44 08/13/20 12:06 4 UNIT Insulin Human Lispro (HumaLOG) 0-9 UNITS TIDWMEALHC 08/08/20 08:00 08/13/20 21:57 4 UNITS Lactobacillus Rhamnosus (Culturelle) 1 cap BID 08/08/20 21:00 08/13/20 21:49 1 CAP Lidocaine HCl (Lidocaine Pf 2% Vial) 5 ml STK-MED ONCE 08/13/20 11:36 08/13/20 11:36 DC Linezolid (Zyvox) 600 mg BID 08/12/20 11:00 08/13/20 21:50 600 MG Losartan Potassium (Cozaar) 25 mg DAILY 08/08/20 09:00 08/13/20 08:33 25 MG Metoprolol Tartrate (Lopressor) 25 mg BID 08/08/20 09:00 08/13/20 21:49 25 MG Non-Formulary Medication (Insulin Glargine,Hum.rec.anlog (Lantus Solostar)) 8 unit QHS 08/08/20 21:00 UNV Ondansetron HCl (Zofran Odt) 4 mg 1X ONCE 08/07/20 21:45 08/07/20 21:46 DC 08/07/20 21:50 4 MG Ondansetron HCl (Zofran) 4 mg PRN Q4HRS PRN 08/07/20 21:45 08/12/20 20:38 4 MG Pantoprazole Sodium (Protonix) 40 mg DAILYAC 08/10/20 07:30 08/13/20 04:35 40 MG Piperacillin Sod/ Tazobactam Sod 3.375 gm/Sodium Chloride 50 ml @ 100 mls/hr Q6HRS 08/11/20 17:00 08/14/20 05:09 100 MLS/HR Propofol (Diprivan) 200 mg STK-MED ONCE 08/13/20 11:36 08/13/20 11:36 DC Sevoflurane (Ultane) 30 ml STK-MED ONCE 08/13/20 11:36 08/13/20 11:36 DC Sodium Chloride 1,000 ml @ 1,000 mls/hr 1X ONCE 08/07/20 21:45 08/07/20 22:44 DC 08/07/20 21:52 1,000 MLS/HR Tamsulosin HCl (Flomax) 0.4 mg DAILY 08/08/20 09:00 08/12/20 08:20 0.4 MG Tramadol HCl (Ultram) 50 mg PRN Q6HRS PRN 08/07/20 21:45 UNV Vancomycin HCl (Vanco Per Pharmacy) 1 each PRN DAILY PRN 08/07/20 22:00 08/13/20 13:42 1 EACH Vancomycin HCl (Vancomycin Trough Level) 1 each 1X ONCE 08/14/20 11:30 08/14/20 11:31 Vancomycin HCl 1.5 gm/Sodium Chloride 500 ml @ 250 mls/hr Q12H 08/08/20 12:00 08/13/20 23:06 250 MLS/HR Vancomycin HCl 2 gm/Sodium Chloride 500 ml @ 250 mls/hr 1X ONCE 08/07/20 22:15 08/08/20 00:14 DC 08/07/20 23:54 250 MLS/HR Zolpidem Tartrate (Ambien) 5 mg PRN QHS PRN 08/09/20 22:45 08/13/20 21:48 5 MG Labs: Lab Laboratory Tests Test 08/13/20 10:47 08/13/20 11:53 08/13/20 14:47 08/13/20 16:12 Glucose (Fingerstick) 177 mg/dL (70-99) 181 mg/dL (70-99) 236 mg/dL (70-99) Sodium Level 134 mmol/L (136-145) Potassium Level 4.3 mmol/L (3.5-5.1) Chloride Level 102 mmol/L (98-107) Carbon Dioxide Level 24 mmol/L (21-32) Anion Gap 8 (6-14) Blood Urea Nitrogen 16 mg/dL (8-26) Creatinine 0.9 mg/dL (0.7-1.3) Estimated GFR (Cockcroft-Gault) 87.0 Glucose Level 219 mg/dL (70-99) Calcium Level 7.9 mg/dL (8.5-10.1) Magnesium Level 2.2 mg/dL (1.8-2.4) Test 08/13/20 21:49 08/14/20 03:21 08/14/20 06:58 Glucose (Fingerstick) 269 mg/dL (70-99) 137 mg/dL (70-99) White Blood Count 8.9 x10^3/uL (4.0-11.0) Red Blood Count 2.89 x10^6/uL (4.30-5.70) Hemoglobin 9.3 g/dL (13.0-17.5) Hematocrit 27.4 % (39.0-53.0) Mean Corpuscular Volume 95 fL (79-100) Mean Corpuscular Hemoglobin 32 pg (25-35) Mean Corpuscular Hemoglobin Concent 34 g/dL (31-37) Red Cell Distribution Width 14.6 % (11.5-14.5) Platelet Count 226 x10^3/uL (140-400) Neutrophils (%) (Auto) 78 % (31-73) Lymphocytes (%) (Auto) 14 % (24-48) Monocytes (%) (Auto) 6 % (0-9) Eosinophils (%) (Auto) 1 % (0-3) Basophils (%) (Auto) 0 % (0-3) Neutrophils # (Auto) 7.0 x10^3/uL (1.8-7.7) Lymphocytes # (Auto) 1.3 x10^3/uL (1.0-4.8) Monocytes # (Auto) 0.5 x10^3/uL (0.0-1.1) Eosinophils # (Auto) 0.1 x10^3/uL (0.0-0.7) Basophils # (Auto) 0.0 x10^3/uL (0.0-0.2) Objective: Assessment: 1. Right foot cellulitis, abscess. Wet gangrene of the right first and second toe and forefoot August 13, 2020 Status post right 1st and 2nd toe open ray amputation, extensive debridement and drainage of large abscess in the foot 2. Fever. improved 3. Lactic acidosis, mild, resolved. 4. Diabetes mellitus. 5. Thrombocytopenia. 6. Abnormal liver function tests. 7. Coronary artery disease. 8. Anemia. 9. Protein-calorie malnutrition. Plan: Plan of Care Continue IV Vanco and Zosyn Vanco trough 13.7 Monitor renal functions closely continue Zyvox Follow-up intraoperative tissue culture Monitor labs closely Wound care care as directed Discussed with nursing staff BLAKE CARVER MD Aug 14, 2020 07:29
[2020-08-14] MEDS: DOCUSATE SODIUM 100 MG CAPSULE. PO SCH ×2 (07:42→20:55)
[2020-08-14] MEDS: ASPIRIN 325 MG TABLET PO SCH ×2 (07:42→14:23)
[2020-08-14] MEDS: LOSARTAN POTASSIUM 25 MG TABLET. PO SCH ×2 (07:42→14:25)
[2020-08-14] MEDS: LINEZOLID 600 MG TABLET PO SCH ×2 (07:43→20:55)
[2020-08-14] MEDS: GABAPENTIN 300 MG CAPSULE. PO SCH ×2 (07:43→20:55)
[2020-08-14] MEDS: LACTOBACILLUS RHAMNOSUS GG 1 CAPSULE. PO SCH ×2 (07:43→20:55)
[2020-08-14] MEDS: METOPROLOL TART IMMED RELEASE 25 MG TABLET. PO SCH ×3 (07:43→20:56)
[2020-08-14] MEDS: TAMSULOSIN 0.4 MG CAP.ER.24H. PO SCH (07:43)
[2020-08-14] MEDS: CLOPIDOGREL BISULFATE 75 MG TABLET PO SCH ×2 (07:43→14:24)
[2020-08-14] MEDS: INSULIN LISPRO 300 UNITS/3 ML VIAL. SQ SCH ×4 (07:50→20:57)
[2020-08-14] MEDS ORDERED: IODIXANOL 320 MG/ML 100 ML VIAL. ONE ×2 (08:00→10:45)
[2020-08-14] MEDS ORDERED: HEPARIN for ARTERIAL LINE 1,500 ML ONE (08:00)
[2020-08-14] MEDS ORDERED: LIDOCAINE WITH 8.4% SOD BICARB 3 ML DISP.SYRIN. ONE (08:00)
--- NOTE | 2020-08-14 08:22 | PDOC ---
PROGRESS NOTES Date of Service: DATE: 08/14/20 TIME: 08:18 Chief Complaint Chief Complaint impression Right foot cellulitis crp 247// 9-30 Right foot with large abscess, wet infected gangrene of the right 1st/2nd toes and forefoot PVD 05/26Angioplasty of the left dorsalis pedis and anterior tibial arteriesPrimary placement of a covered self expanding stent secondary to chronic total occlusion, distal right SFA Angioplasty of proximal SFA Right foot diabetic ulcer Sepsis - fever and tachycardia Diabetes Shortness of breath Thombocytopenia Transaminitis Gallbladder wall is thickened but the gallbladder appears decompressed. Trace ascites. Correlate clinically for cholecystitis. No cholelithiasis. Nodular contour of the liver of concern for cirrhosis or other fibrotic process. Morbid obesity Hypertensive urgency Hyperlipidemia. Carotid arterial disease. Peripheral arterial disease. Peripheral neuropathy. HX Right carotid endarterectomy. HX Left second and third toe amputations. HX Explorative laparotomy with cauterization of his liver Remote tobacco abuse Ingrown toenails SEVERE PROTEIN-CALORIC MALNUTRITION plan GI CONSULT ,, plan for outpt EGD and colonoscopy. ID CONSULT ARTERIAL DOPPLERS BOTH LEGS REVIEWED, CONSULT VASCULAR Right foot with large abscess, wet infected gangrene of the right 1st/2nd toes and forefoot Continue IV Vanco and Zosyn Monitor renal functions closely continue Zyvox aortogram with bilateral runoff when medically stable. Will eventually need revascularization 39 MIN pt exam, chart review, > 50% of time spent with exam, chart review, pt care coordination History of Present Illness History of Present Illness 08/14/2020 Patient seen and examined Discussed with RN Discussed with patient case coordinator consult ID reviewed 08/10/2020 Patient seen and examined DW RN FELICE case manger Mr Ford is a 59yo M w/ PMHx CAD, hypertension, diabetes, CVA. DM2 who comes to ED with complaints of increased pain, redness, and warmth in his right foot after being discharged from this emergency room yesterday. He denies any bleeding or drainage from his right foot. Patient states he was evaluated for right foot pain but since being discharged he has developed a fever and his symptoms have gotten worse. Patient also complains of having nausea. He states that he has a ulcer on the bottom of his left great toe. He denies any drainage or foul odor from ulcer. Patient states that he has been out of his quick acting insulin for the last 2 days and has only been able to take his morning acting insulin. He denies any polyuria, polydipsia, or polyphagia. The patient denies any cough, chest pain, abdominal pain, vomiting, or diarrhea. He denies any dizziness but reports headache at this time. He currently rates his pain a 10 out of 10 on the pain scale, he denies radiation of the pain, he denies any alleviating factors, pain is worse with palpation. Right lower extremity venous ultrasound negative for DVT does confirm lymphadenopathy in groin. Labs with WBC 9.2 with left shift, Hb 10.8, platelets 114, NA 135, K4.9, BUN 23, CR 1.1, glucose 125, lactic acid 2.1, CRP 247.3, albumin 2.9, alkaline phosphatase 459, AST 47, ALT 78, bilirubin 3.4. 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 Admitted for care of his right foot Low grade temp 100.4F overnight. Swelling and pain and redness improved in right foot. Vitals Vitals Vital Signs Date Time Temp Pulse Resp B/P (MAP) Pulse Ox O2 Delivery O2 Flow Rate FiO2 08/14/20 07:54 Room Air 08/14/20 07:00 97.9 60 18 158/68 (98) 96 97.9 08/14/20 03:10 2.0 Physical Exam Physical Exam GENERAL: Alert, awake. The patient is sitting upright in chair, in no acute distress. HEENT: Normocephalic, atraumatic. No thrush. NECK: Supple, no JVD. LUNGS: Clear bilaterally. No wheezing. HEART: S1, S2 normal. ABDOMEN: Soft, nontender, nondistended, obese. Bowel sounds present. EXTREMITIES: Right foot dorsal dressing in place not taken down onychomycosis dressing in place not taken down, no purulent drainage. General: Alert, Oriented X3, Cooperative, mild distress Heart: Regular rate (sinus tachycardia), Other (distant heart sounds) Lungs: Clear, Other (Short of breath) Abdomen: Soft, No tenderness Extremities: No cyanosis, Other (2+ bilateral LE pitting edema) Skin: Other (S/P right foot surgery with noted gangrene, diminished pedal pulses; left plantar ulcers) Labs LABS DPOA REVIEW 16 MIN to patient portal What Is a Power of Special Weapons And Tactics Officer? A power of trust and estates attorney (POA) is a legal document giving one person (the agent or otjvtjvb-as-thfq) the power to act for another person (the principal). The agent can have broad legal authority or limited authority to make legal decisions about the principal's property, finances or medical care. The power of trust and estates attorney is frequently used in the event of a principal's illness or disability, or when the principal can't be present to sign necessary legal documents for financial transactions. A power of trust and estates attorney can end for a number of reasons, such as when the principal dies, the principal revokes it, a court invalidates it, the principal divorces their spouse, who happens to be the agent, or the agent can no longer carry out the outlined responsibilities. Conventional POAs lapse when the creator becomes incapacitated, but a durable POA remains in force to enable the agent to manage the creators affairs, and a springing POA comes into effect only if and when the creator of the POA becomes incapacitated. A medical or healthcare POA enables an agent to make medical decisions on behalf of an incapacitated person. [employer] A power of trust and estates attorney (POA) is a legal document giving one person, the agent or icnqnigx-jz-orgf the power to act for another person, the principal. The agent can have broad legal authority or limited authority to make decisions about the principal's property, finances or medical care. The power of trust and estates attorney is often used when a principal becomes ill or disabled, or when they can't be present to sign necessary legal documents for financial transactions. Understanding Power of Special Weapons And Tactics Officer A power of trust and estates attorney should be considered when planning for long-term care. There are different types of POAs that fall under either a general power of trust and estates attorney or limited power of trust and estates attorney. A general power of trust and estates attorney acts on behalf of the principal in any and all matters, as allowed by the state. The agent under a general POA agreement may be authorized to take care of issues such as handling bank accounts, signing checks, selling property and assets like stocks, f A limited power of trust and estates attorney gives the agent the power to act on behalf of the principal in specific matters or events. For example, the limited POA may explicitly state that the agent is only allowed to manage the principal's nursing home accounts. A limited POA may also be limited to a specific period of time (e.g., if the principal will be out of the country for, say, two years). Most ceballos of trust and estates attorney documents allow an agent to represent the principal in all property and financial matters as long as the principals mental state of mind is good. If a situation occurs where the principal becomes incapable of making decisions for him or herself, the POA agreement would automatically end. However, someone who wants the POA to remain in effect after the persons health deteriorates would need to sign a durable power of trust and estates attorney (DPOA). What is an advance directive? An advance directive is a legal document that says how you want to be cared for if you are unable to make decisions. You can include what medical treatments you would want and who you would trust to make decisions for you. An advance directive can also include other legal documents. A living will is a list of treatment preferences. It can be used to indicate whether you would want cardiopulmonary resuscitation (CPR), tube feedings, a breathing machine, or certain medicines, like antibiotics. The durable power of trust and estates attorney for health care document identifies the person you would want to make medical decisions for you. This person is also called a proxy. Your proxy should be familiar with your values and wishes. How do I get started? You can get advance directive documents for your state from your doctor's office or from http://www.caringinfo.org. Review the forms, and ask your doctor if you have any questions. Pick a person to be your proxy, and talk it over with that person. RDERED: BCULT - Procedure Result BLOOD CULTURE Final NO GROWTH AFTER 5 DAYS OPERATIVE NOTE OPERATIVE NOTE: Operative Report Dictated Pre-op: right foot gangrene with severe cellulitis Post-op: Right foot with large abscess, wet infected gangrene of the right 1st/2nd toes and forefoot Surgery: Right 1st and 2nd toe open ray amputation, extensive debridement and drainage of large abscess in the foot Surgeon: Dr. Ericka Drew Anesthesia: general Blood loss: 10ml Cultures sent of the abscess fluid ERICKA DREW MD Aug 13, 2020 11:57 Examination: ABDOMEN LTD History: RUQ pain. elevated LFT"s. COVID NEG. Comparison/Correlation: None Findings: Right upper quadrant ultrasound exam was performed. Nodular contour of the liver is present. Common bile duct is within normal limits. No biliary dilatation. Gallbladder is not well delineated. Mild gallbladder wall thickening of 0.52 cm noted. No cholelithiasis. Proximal pancreas obscured by bowel gas. Right kidney measures 12.5 cm x 5.5 cm 5.6 mm. No right hydronephrosis. Inferior vena cava is unremarkable. Trace perihepatic ascites noted. Impression: Gallbladder wall is thickened but the gallbladder appears decompressed. Trace ascites. Correlate clinically for cholecystitis. No cholelithiasis. Nodular contour of the liver of concern for cirrhosis or other fibrotic process. Electronically signed by: Fidel Vaughn MD (08/09/2020 9:26 AM) [id number] DICTATED and SIGNED BY: FIDEL VAUGHN MD DATE: 08/09/20 0926 Laboratory Tests Test 08/13/20 10:47 08/13/20 11:53 08/13/20 14:47 08/13/20 16:12 Glucose (Fingerstick) 177 mg/dL (70-99) 181 mg/dL (70-99) 236 mg/dL (70-99) Sodium Level 134 mmol/L (136-145) Potassium Level 4.3 mmol/L (3.5-5.1) Chloride Level 102 mmol/L (98-107) Carbon Dioxide Level 24 mmol/L (21-32) Anion Gap 8 (6-14) Blood Urea Nitrogen 16 mg/dL (8-26) Creatinine 0.9 mg/dL (0.7-1.3) Estimated GFR (Cockcroft-Gault) 87.0 Glucose Level 219 mg/dL (70-99) Calcium Level 7.9 mg/dL (8.5-10.1) Magnesium Level 2.2 mg/dL (1.8-2.4) Test 08/13/20 21:49 08/14/20 03:21 08/14/20 06:58 Glucose (Fingerstick) 269 mg/dL (70-99) 137 mg/dL (70-99) White Blood Count 8.9 x10^3/uL (4.0-11.0) Red Blood Count 2.89 x10^6/uL (4.30-5.70) Hemoglobin 9.3 g/dL (13.0-17.5) Hematocrit 27.4 % (39.0-53.0) Mean Corpuscular Volume 95 fL (79-100) Mean Corpuscular Hemoglobin 32 pg (25-35) Mean Corpuscular Hemoglobin Concent 34 g/dL (31-37) Red Cell Distribution Width 14.6 % (11.5-14.5) Platelet Count 226 x10^3/uL (140-400) Neutrophils (%) (Auto) 78 % (31-73) Lymphocytes (%) (Auto) 14 % (24-48) Monocytes (%) (Auto) 6 % (0-9) Eosinophils (%) (Auto) 1 % (0-3) Basophils (%) (Auto) 0 % (0-3) Neutrophils # (Auto) 7.0 x10^3/uL (1.8-7.7) Lymphocytes # (Auto) 1.3 x10^3/uL (1.0-4.8) Monocytes # (Auto) 0.5 x10^3/uL (0.0-1.1) Eosinophils # (Auto) 0.1 x10^3/uL (0.0-0.7) Basophils # (Auto) 0.0 x10^3/uL (0.0-0.2) Assessment and Plan Assessmemt and Plan Problems Medical Problems: (1) Cellulitis of right leg Status: Acute (2) Fever Status: Acute (3) Person under investigation for COVID-19 Status: Acute Comment Review of Relevant I have reviewed the following items shreyas (where applicable) has been applied. Labs Laboratory Tests Test 08/12/20 11:43 08/12/20 16:40 08/12/20 16:52 08/12/20 20:16 Glucose (Fingerstick) 243 mg/dL (70-99) 254 mg/dL (70-99) 328 mg/dL (70-99) Coronavirus (PCR) Not detected (Not Detected) SARS-CoV-2 Antigen (Rapid) Negative (NEGATIVE) Test 08/13/20 07:00 08/13/20 10:47 08/13/20 11:53 08/13/20 14:47 Glucose (Fingerstick) 192 mg/dL (70-99) 177 mg/dL (70-99) 181 mg/dL (70-99) Sodium Level 134 mmol/L (136-145) Potassium Level 4.3 mmol/L (3.5-5.1) Chloride Level 102 mmol/L (98-107) Carbon Dioxide Level 24 mmol/L (21-32) Anion Gap 8 (6-14) Blood Urea Nitrogen 16 mg/dL (8-26) Creatinine 0.9 mg/dL (0.7-1.3) Estimated GFR (Cockcroft-Gault) 87.0 Glucose Level 219 mg/dL (70-99) Calcium Level 7.9 mg/dL (8.5-10.1) Magnesium Level 2.2 mg/dL (1.8-2.4) Test 08/13/20 16:12 08/13/20 21:49 08/14/20 03:21 08/14/20 06:58 Glucose (Fingerstick) 236 mg/dL (70-99) 269 mg/dL (70-99) 137 mg/dL (70-99) White Blood Count 8.9 x10^3/uL (4.0-11.0) Red Blood Count 2.89 x10^6/uL (4.30-5.70) Hemoglobin 9.3 g/dL (13.0-17.5) Hematocrit 27.4 % (39.0-53.0) Mean Corpuscular Volume 95 fL (79-100) Mean Corpuscular Hemoglobin 32 pg (25-35) Mean Corpuscular Hemoglobin Concent 34 g/dL (31-37) Red Cell Distribution Width 14.6 % (11.5-14.5) Platelet Count 226 x10^3/uL (140-400) Neutrophils (%) (Auto) 78 % (31-73) Lymphocytes (%) (Auto) 14 % (24-48) Monocytes (%) (Auto) 6 % (0-9) Eosinophils (%) (Auto) 1 % (0-3) Basophils (%) (Auto) 0 % (0-3) Neutrophils # (Auto) 7.0 x10^3/uL (1.8-7.7) Lymphocytes # (Auto) 1.3 x10^3/uL (1.0-4.8) Monocytes # (Auto) 0.5 x10^3/uL (0.0-1.1) Eosinophils # (Auto) 0.1 x10^3/uL (0.0-0.7) Basophils # (Auto) 0.0 x10^3/uL (0.0-0.2) Laboratory Tests Test 08/13/20 10:47 08/13/20 11:53 08/13/20 14:47 08/13/20 16:12 Glucose (Fingerstick) 177 mg/dL (70-99) 181 mg/dL (70-99) 236 mg/dL (70-99) Sodium Level 134 mmol/L (136-145) Potassium Level 4.3 mmol/L (3.5-5.1) Chloride Level 102 mmol/L (98-107) Carbon Dioxide Level 24 mmol/L (21-32) Anion Gap 8 (6-14) Blood Urea Nitrogen 16 mg/dL (8-26) Creatinine 0.9 mg/dL (0.7-1.3) Estimated GFR (Cockcroft-Gault) 87.0 Glucose Level 219 mg/dL (70-99) Calcium Level 7.9 mg/dL (8.5-10.1) Magnesium Level 2.2 mg/dL (1.8-2.4) Test 08/13/20 21:49 08/14/20 03:21 08/14/20 06:58 Glucose (Fingerstick) 269 mg/dL (70-99) 137 mg/dL (70-99) White Blood Count 8.9 x10^3/uL (4.0-11.0) Red Blood Count 2.89 x10^6/uL (4.30-5.70) Hemoglobin 9.3 g/dL (13.0-17.5) Hematocrit 27.4 % (39.0-53.0) Mean Corpuscular Volume 95 fL (79-100) Mean Corpuscular Hemoglobin 32 pg (25-35) Mean Corpuscular Hemoglobin Concent 34 g/dL (31-37) Red Cell Distribution Width 14.6 % (11.5-14.5) Platelet Count 226 x10^3/uL (140-400) Neutrophils (%) (Auto) 78 % (31-73) Lymphocytes (%) (Auto) 14 % (24-48) Monocytes (%) (Auto) 6 % (0-9) Eosinophils (%) (Auto) 1 % (0-3) Basophils (%) (Auto) 0 % (0-3) Neutrophils # (Auto) 7.0 x10^3/uL (1.8-7.7) Lymphocytes # (Auto) 1.3 x10^3/uL (1.0-4.8) Monocytes # (Auto) 0.5 x10^3/uL (0.0-1.1) Eosinophils # (Auto) 0.1 x10^3/uL (0.0-0.7) Basophils # (Auto) 0.0 x10^3/uL (0.0-0.2) Microbiology 08/11/20 Blood Culture - Preliminary, Resulted NO GROWTH AFTER 2 DAYS 08/07/20 Urine Culture - Final, Complete Medications Current Medications Acetaminophen (Tylenol) 1,000 mg 1X ONCE PO Last administered on 08/07/20 21:50; Start 08/07/20 at 21:45; Stop 08/07/20 at 21:46; Status DC Ondansetron HCl (Zofran Odt) 4 mg 1X ONCE PO Last administered on 08/07/20at 21:50; Start 08/07/20 at 21:45; Stop 08/07/20 at 21:46; Status DC Sodium Chloride 1,000 ml @ 1,000 mls/hr 1X ONCE IV Last administered on 08/07/20at 21:52; Start 08/07/20 at 21:45; Stop 08/07/20 at 22:44; Status DC Fentanyl Citrate (Fentanyl 2ml Vial) 50 mcg 1X ONCE IV Last administered on 08/07/20at 21:51; Start 08/07/20 at 21:45; Stop 08/07/20 at 21:46; Status DC Ondansetron HCl (Zofran) 4 mg PRN Q4HRS PRN IV NAUSEA/VOMITING Last administered on 08/12/20at 20:38; Start 08/07/20 at 21:45 Acetaminophen (Tylenol) 650 mg PRN Q4HRS PRN PO TEMP OVER 100.4F OR MILD PAIN Last administered on 08/08/20 05:50; Start 08/07/20 at 21:45 Enoxaparin Sodium (Lovenox 40mg Syringe) 40 mg Q24H SQ Last administered on 08/11/20at 20:18; Start 08/07/20 at 21:45 Albuterol Sulfate (Ventolin Neb Soln) 2.5 mg PRN Q4HRS PRN INH SHORTNESS OF BREATH Last administered on 08/13/20at 10:38; Start 08/07/20 at 21:45 Aspirin (Ronald Aspirin) 325 mg DAILYWBKFT PO Last administered on 08/12/20 08:19; Start 08/08/20 at 08:00 Atorvastatin Calcium (Lipitor) 20 mg HS PO Last administered on 08/13/20at 21:50; Start 08/08/20 at 21:00 Clopidogrel Bisulfate (Plavix) 75 mg DAILY PO Last administered on 08/12/20at 08:20; Start 08/08/20 at 09:00 Docusate Sodium (Colace) 100 mg DAILY PO Last administered on 08/12/20 08:19; Start 08/08/20 at 09:00 Gabapentin (Neurontin) 300 mg BID PO Last administered on 08/13/20at 21:50; Start 08/08/20 at 09:00 Hydroxyzine HCl (Atarax) 25 mg TID PRN PRN PO ELEVATED BP, SEE COMMENTS; Start 08/07/20 at 21:45 Losartan Potassium (Cozaar) 25 mg DAILY PO Last administered on 08/13/20 08:33; Start 08/08/20 at 09:00 Metoprolol Tartrate (Lopressor) 25 mg BID PO Last administered on 08/13/20 21:49; Start 08/08/20 at 09:00 Tamsulosin HCl (Flomax) 0.4 mg DAILY PO Last administered on 08/12/20 08:20; Start 08/08/20 at 09:00 Tramadol HCl (Ultram) 50 mg PRN Q6HRS PRN PO MODERATE - SEVERE PAIN Last administered on 08/13/20at 21:49; Start 08/07/20 at 21:45 Fluticasone Propionate (Flonase) 2 spray DAILY NS Last administered on 08/13/20at 08:34; Start 08/08/20 at 09:00 Non-Formulary Medication (Insulin Glargine,Hum.rec.anlog (Lantus Solostar)) 8 unit QHS SQ ; Start 08/08/20 at 21:00; Status UNV Tramadol HCl (Ultram) 50 mg PRN Q6HRS PRN PO PAIN; Start 08/07/20 at 21:45; Status UNV Fentanyl Citrate (Fentanyl 2ml Vial) 50 mcg PRN Q3HRS PRN IVP SEVERE PAIN 7-10; Start 08/07/20 at 21:45 Vancomycin HCl (Vanco Per Pharmacy) 1 each PRN DAILY PRN MC SEE COMMENTS Last administered on 08/13/20at 13:42; Start 08/07/20 at 22:00 Vancomycin HCl 2 gm/Sodium Chloride 500 ml @ 250 mls/hr 1X ONCE IV Last administered on 08/07/20at 23:54; Start 08/07/20 at 22:15; Stop 08/08/20 at 00:14; Status DC Insulin Glargine (Lantus Syringe) 8 unit QHS SQ Last administered on 08/13/20 21:58; Start 08/08/20 at 21:00 Vancomycin HCl 1.5 gm/Sodium Chloride 500 ml @ 250 mls/hr Q12H IV Last administered on 08/13/20 23:06; Start 08/08/20 at 12:00 Vancomycin HCl (Vancomycin Trough Level) 1 each 1X ONCE MC Last administered on 08/09/20 11:30; Start 08/09/20 at 11:30; Stop 08/09/20 at 11:31; Status DC Influenza Virus Vaccine Quadrival (Fluzone Quad Syringe) 0.5 ml ONCE ONCE VAX IM Last administered on 08/10/20 08:22; Start 08/08/20 at 09:00; Stop 08/08/20 at 09:01; Status DC Insulin Human Lispro (HumaLOG) 0-9 UNITS TIDWMEALHC SQ Last administered on 08/13/20at 21:57; Start 08/08/20 at 08:00 Dextrose (Dextrose 50%-Water Syringe) 12.5 gm PRN Q15MIN PRN IV SEE COMMENTS; Start 08/08/20 at 08:00 Ceftriaxone Sodium (Rocephin) 1 gm Q24H IVP Last administered on 08/11/20 08:30; Start 08/08/20 at 09:00; Stop 08/11/20 at 16:19; Status DC Lactobacillus Rhamnosus (Culturelle) 1 cap BID PO Last administered on 08/13/20 21:49; Start 08/08/20 at 21:00 Pantoprazole Sodium (Protonix) 40 mg DAILYAC PO Last administered on 08/13/20at 04:35; Start 08/10/20 at 07:30 Zolpidem Tartrate (Ambien) 5 mg PRN QHS PRN PO INSOMNIA Last administered on 08/13/20 21:48; Start 08/09/20 at 22:45 Piperacillin Sod/ Tazobactam Sod 3.375 gm/Sodium Chloride 50 ml @ 100 mls/hr Q6HRS IV Last administered on 08/14/20at 05:09; Start 08/11/20 at 17:00 Linezolid (Zyvox) 600 mg BID PO Last administered on 10/6/20at 21:50; Start 08/12/20 at 11:00 Furosemide (Lasix) 40 mg DAILY PO ; Start 08/13/20 at 09:00; Stop 08/13/20 at 13:54; Status DC Furosemide (Lasix) 40 mg 1X ONCE IVP Last administered on 08/12/20at 17:00; Start 08/12/20 at 17:00; Stop 08/12/20 at 17:01; Status DC Bacitracin 01043 unit/Sodium Chloride 500 ml @ 500 mls/hr 1X ONCE IRR Last administered on 08/13/20at 11:24; Start 08/13/20 at 11:00; Stop 08/13/20 at 11:59; Status DC Insulin Human Lispro (HumaLOG VIAL for OP,RR ONLY) 0-10 units PRN Q1HR PRN SQ PER PROTOCOL Last administered on 08/13/20at 12:06; Start 08/13/20 at 10:45; Stop 08/14/20 at 10:44 Sevoflurane (Ultane) 30 ml STK-MED ONCE IH ; Start 08/13/20 at 11:36; Stop 08/13/20 at 11:36; Status DC Propofol (Diprivan) 200 mg STK-MED ONCE IV ; Start 08/13/20 at 11:36; Stop 08/13/20 at 11:36; Status DC Lidocaine HCl (Lidocaine Pf 2% Vial) 5 ml STK-MED ONCE .ROUTE ; Start 08/13/20 at 11:36; Stop 08/13/20 at 11:36; Status DC Fentanyl Citrate (Fentanyl 2ml Vial) 100 mcg STK-MED ONCE .ROUTE ; Start 08/13/20 at 11:36; Stop 08/13/20 at 11:37; Status DC Furosemide (Lasix) 40 mg 1X ONCE IVP Last administered on 08/13/20at 15:51; Start 08/13/20 at 13:15; Stop 08/13/20 at 13:16; Status DC Vancomycin HCl (Vancomycin Trough Level) 1 each 1X ONCE MC ; Start 08/14/20 at 11:30; Stop 08/14/20 at 11:31 Albuterol Sulfate (Ventolin Neb Soln) 2.5 mg 1X ONCE NEB Last administered on 08/13/20at 15:40; Start 08/13/20 at 14:00; Stop 08/13/20 at 14:01; Status DC Furosemide (Lasix) 40 mg DAILY IVP ; Start 08/14/20 at 09:00 Lidocaine HCl (Buffered Lidocaine 1%) 3 ml STK-MED ONCE .ROUTE ; Start 08/14/20 at 08:00; Stop 08/14/20 at 08:02; Status DC Iodixanol (Visipaque 320) 100 ml STK-MED ONCE .ROUTE ; Start 08/14/20 at 08:00; Stop 08/14/20 at 08:02; Status DC Heparin Sodium/ Sodium Chloride 1,500 ml @ As Directed STK-MED ONCE .ROUTE ; Start 08/14/20 at 08:00; Stop 08/14/20 at 08:02; Status DC Active Scripts Active Tramadol Hcl 50 Mg Tablet 50 Mg PO Q6HRS PRN Potassium Chloride (Potassium Chloride) 20 Meq Tablet.er 20 Meq PO DAILY Lasix (Furosemide) 40 Mg Tablet 1 Tab PO DAILY 30 Days Carbamide Peroxide 15 Ml Drops 15 Ml OT BID 4 Days Flonase Allergy Relief (Fluticasone Propionate) 9.9 Ml [place].susp 2 Sprays NS DAILY Proair Hfa Inhaler (Albuterol Sulfate) 8.5 Gm Hfa.aer.ad 1 Puff INH Q4HRS PRN Prinivil (Lisinopril) 5 Mg Tablet 5 Mg PO DAILY Aspirin 325 Mg Tablet 325 Mg PO DAILY Reported Lantus Solostar (Insulin Glargine,Hum.rec.anlog) 100 Unit/1 Ml Insuln.pen 8 Unit SQ QHS Culturelle (Lactobacillus Rhamnosus Gg) 1 Each Capsule 1 Each PO DAILY 14 Days Flomax (Tamsulosin Hcl) 0.4 Mg Cap.er.24h 0.4 Mg PO DAILY Gabapentin 300 Mg Capsule 300 Mg PO BID Metoprolol Tartrate 25 Mg Tablet 25 Mg PO BID Omeprazole 40 Mg Capsule.dr 40 Mg PO DAILY05 Losartan Potassium 25 Mg Tablet 25 Mg PO DAILY Hydroxyzine Hcl 25 Mg Tablet 25 Mg PO TID PRN PRN Atorvastatin Calcium 20 Mg Tablet 20 Mg PO HS Clopidogrel (Clopidogrel Bisulfate) 75 Mg Tablet 75 Mg PO DAILY Docusate Sodium 100 Mg Capsule 1 Cap PO DAILY Glimepiride 4 Mg Tablet 4 Mg PO DAILY Metformin Hcl 500 Mg Tablet 500 Mg PO BIDWMEALS do not take for 48 hours Vitals/I & O Vital Sign - Last 24 Hours 08/13/20 08/13/20 08/13/20 08/13/20 08:33 08:33 10:27 10:40 Temp 97.8 97.8 Pulse 68 68 61 Resp 26 B/P (MAP) 155/59 155/59 178/74 Pulse Ox 95 98 O2 Delivery Room Air Nasal Cannula O2 Flow Rate 2.0 08/13/20 08/13/20 08/13/20 08/13/20 11:46 12:00 12:15 12:45 Temp 99.2 99.2 99.1 99.2 99.2 99.1 Pulse 68 64 64 63 Resp 18 20 20 18 B/P (MAP) 151/70 160/57 169/60 161/45 (83) Pulse Ox 98 98 96 98 O2 Delivery Simple Mask Simple Mask Nasal Cannula Nasal Cannula O2 Flow Rate 10 10 2 2.0 08/13/20 08/13/20 08/13/20 08/13/20 13:15 13:30 15:00 15:33 Temp 97.8 97.7 97.8 97.7 Pulse 64 68 68 Resp 18 18 18 20 B/P (MAP) 167/66 (99) 162/64 (96) 159/68 (98) Pulse Ox 98 97 97 97 O2 Delivery Nasal Cannula Nasal Cannula Nasal Cannula Room Air O2 Flow Rate 2.0 2.0 2.0 2.0 08/13/20 08/13/20 08/13/20 08/13/20 15:40 16:33 19:00 20:00 Temp 98.9 98.9 Pulse 66 Resp 20 20 B/P (MAP) 139/39 (72) Pulse Ox 98 99 99 O2 Delivery Nasal Cannula Room Air Room Air Room Air O2 Flow Rate 3.0 2.0 3.0 08/13/20 08/13/20 08/13/20 08/13/20 21:49 21:49 22:49 23:00 Temp 99.1 99.1 Pulse 66 6 Resp 18 18 20 B/P (MAP) 139/39 158/50 (86) Pulse Ox 99 99 97 O2 Delivery Room Air Room Air Room Air O2 Flow Rate 3.0 08/14/20 08/14/20 08/14/20 03:10 07:00 07:54 Temp 97.8 97.9 97.8 97.9 Pulse 62 60 Resp 18 18 B/P (MAP) 154/66 (95) 158/68 (98) Pulse Ox 97 96 O2 Delivery Nasal Cannula Room Air Room Air O2 Flow Rate 2.0 Intake and Output 08/13/20 08/13/20 08/14/20 15:00 23:00 07:00 Intake Total 1100 ml Output Total 100 ml 2000 ml Balance -100 ml -900 ml Justicifation of Admission Dx: Justifications for Admission: Justification of Admission Dx: Yes Sepsis: Infection Cellulitis: Cellulitis JEOVANY BASSETT MD Aug 14, 2020 08:22
[2020-08-14] MEDS ORDERED: HEPARIN for IV BOLUS 10,000 UNIT/10 ML VIAL. ONE (08:58)
[2020-08-14] MEDS ORDERED: fentaNYL PF VIAL 100 MCG/2 ML VIAL ONE (08:58)
[2020-08-14] MEDS ORDERED: MIDAZOLAM HCL/PF 2 MG/2 ML VIAL. ONE (08:58)
[2020-08-14] MEDS: FLUTICASONE 50MCG/NASAL SPRAY 16GM BOTTLE. NS SCH (09:05)
[2020-08-14] MEDS: FUROSEMIDE 40 MG/4 ML VIAL. IVP SCH (09:06)
[2020-08-14] MEDS ORDERED: fentaNYL PF VIAL 100 MCG/2 ML VIAL IV ONE (09:15)
[2020-08-14] MEDS ORDERED: IODIXANOL 320 MG/ML 100 ML VIAL. IART ONE (09:15)
[2020-08-14] MEDS ORDERED: LIDOCAINE WITH 8.4% SOD BICARB 3 ML DISP.SYRIN. IJ ONE (09:15)
[2020-08-14] MEDS ORDERED: CONTRAST GIVEN. MC PRN (09:15)
[2020-08-14] MEDS ORDERED: MIDAZOLAM HCL/PF 2 MG/2 ML VIAL. IV ONE (09:15)
[2020-08-14] MEDS ORDERED: hydrALAZINE 20 MG/ML VIAL. ONE (09:58)
[2020-08-14] MEDS: hydrALAZINE 20 MG/ML VIAL. IVP PRN ×2 (10:15→10:37)
[2020-08-14] MEDS ORDERED: HEPARIN for IV BOLUS 10,000 UNIT/10 ML VIAL. IV ONE (10:30)
[2020-08-14] MEDS ORDERED: METOPROLOL TARTRATE 5 MG/5 ML VIAL. IVP ONE ×3 (11:01→11:30)
[2020-08-14] MEDS: ALBUTEROL SULFATE 2.5 MG/3 ML NEBU. INH PRN ×3 (11:10→20:31)
--- NOTE | 2020-08-14 11:43 | PDOC ---
Date of Service: DATE: 08/14/20 TIME: 11:41 Objective: Vital Signs: Vital Signs Date Time Temp Pulse Resp B/P (MAP) Pulse Ox O2 Delivery O2 Flow Rate FiO2 08/14/20 11:27 75 184/58 08/14/20 11:10 Nasal Cannula 3.0 08/14/20 09:50 17 08/14/20 07:00 97.9 96 97.9 Labs: Laboratory Tests Test 08/13/20 11:53 08/13/20 14:47 08/13/20 16:12 08/13/20 21:49 Glucose (Fingerstick) 181 mg/dL 236 mg/dL 269 mg/dL Sodium Level 134 mmol/L Potassium Level 4.3 mmol/L Chloride Level 102 mmol/L Carbon Dioxide Level 24 mmol/L Anion Gap 8 Blood Urea Nitrogen 16 mg/dL Creatinine 0.9 mg/dL Estimated GFR (Cockcroft-Gault) 87.0 Glucose Level 219 mg/dL Calcium Level 7.9 mg/dL Magnesium Level 2.2 mg/dL Test 08/14/20 03:21 08/14/20 06:58 White Blood Count 8.9 x10^3/uL Red Blood Count 2.89 x10^6/uL Hemoglobin 9.3 g/dL Hematocrit 27.4 % Mean Corpuscular Volume 95 fL Mean Corpuscular Hemoglobin 32 pg Mean Corpuscular Hemoglobin Concent 34 g/dL Red Cell Distribution Width 14.6 % Platelet Count 226 x10^3/uL Neutrophils (%) (Auto) 78 % Lymphocytes (%) (Auto) 14 % Monocytes (%) (Auto) 6 % Eosinophils (%) (Auto) 1 % Basophils (%) (Auto) 0 % Neutrophils # (Auto) 7.0 x10^3/uL Lymphocytes # (Auto) 1.3 x10^3/uL Monocytes # (Auto) 0.5 x10^3/uL Eosinophils # (Auto) 0.1 x10^3/uL Basophils # (Auto) 0.0 x10^3/uL Glucose (Fingerstick) 137 mg/dL BLOOD CULTURE Preliminary NO GROWTH AFTER 2 DAYS GRAM STAIN Final Final GRAM POSITIVE COCCI:FEW SQUAMOUS EPI CELL:NONE SEEN PMN (WBCs):MANY Unless otherwise specified, Testing Performed by: [address] [address] For Inquires, the Physician may contact the Microbiology department at [phone] ANAEROBIC-AEROBIC CULTURE PENDING Imaging: Arteriogram 08/14 pending PE: out of room A/P: S/p right 1st and 2nd toe open ray amputation, extensive debridement and drainage of large abscess in the foot Probable cirrhosis - NAFLD vs alcohol ACD/ADONIS H/o CAD, PVD, CVA, DM -- Continue same per GI. Justicifation of Admission Dx: Justifications for Admission: Justification of Admission Dx: Yes Sepsis: Infection Cellulitis: Cellulitis UBALDO MCKENZIE Aug 14, 2020 11:43
--- NOTE | 2020-08-14 12:15 | PDOC ---
NORM DANIEL PROCUREMENT PROFESSIONAL 08/14/20 1215: CARDIO Progress Notes Date and Time Date of Service 08/14/20 Time of Evaluation 1210 Subjective Subjective: No Chest Pain, No Palpitations, Other (laying flat post aortogram. Wanting to sit up) Vitals Vitals Vital Signs Date Time Temp Pulse Resp B/P (MAP) Pulse Ox O2 Delivery O2 Flow Rate FiO2 08/14/20 11:42 71 19 96 Nasal Cannula 2.0 08/14/20 11:27 184/58 08/14/20 07:00 97.9 97.9 Weight Weight [ ] Input and Output Intake and Output Intake and Output 08/14/20 07:00 Intake Total 1100 ml Output Total 2100 ml Balance -1000 ml Intake Oral 1100 ml Output Urine Total 2100 ml # Bowel Movements 2 Laboratory Labs Laboratory Tests Test 08/13/20 14:47 08/13/20 16:12 08/13/20 21:49 08/14/20 03:21 Sodium Level 134 mmol/L (136-145) Potassium Level 4.3 mmol/L (3.5-5.1) Chloride Level 102 mmol/L (98-107) Carbon Dioxide Level 24 mmol/L (21-32) Anion Gap 8 (6-14) Blood Urea Nitrogen 16 mg/dL (8-26) Creatinine 0.9 mg/dL (0.7-1.3) Estimated GFR (Cockcroft-Gault) 87.0 Glucose Level 219 mg/dL (70-99) Calcium Level 7.9 mg/dL (8.5-10.1) Magnesium Level 2.2 mg/dL (1.8-2.4) Glucose (Fingerstick) 236 mg/dL (70-99) 269 mg/dL (70-99) White Blood Count 8.9 x10^3/uL (4.0-11.0) Red Blood Count 2.89 x10^6/uL (4.30-5.70) Hemoglobin 9.3 g/dL (13.0-17.5) Hematocrit 27.4 % (39.0-53.0) Mean Corpuscular Volume 95 fL (79-100) Mean Corpuscular Hemoglobin 32 pg (25-35) Mean Corpuscular Hemoglobin Concent 34 g/dL (31-37) Red Cell Distribution Width 14.6 % (11.5-14.5) Platelet Count 226 x10^3/uL (140-400) Neutrophils (%) (Auto) 78 % (31-73) Lymphocytes (%) (Auto) 14 % (24-48) Monocytes (%) (Auto) 6 % (0-9) Eosinophils (%) (Auto) 1 % (0-3) Basophils (%) (Auto) 0 % (0-3) Neutrophils # (Auto) 7.0 x10^3/uL (1.8-7.7) Lymphocytes # (Auto) 1.3 x10^3/uL (1.0-4.8) Monocytes # (Auto) 0.5 x10^3/uL (0.0-1.1) Eosinophils # (Auto) 0.1 x10^3/uL (0.0-0.7) Basophils # (Auto) 0.0 x10^3/uL (0.0-0.2) Test 08/14/20 06:58 Glucose (Fingerstick) 137 mg/dL (70-99) Microbiology Micro Microbiology 08/13/20 Gram Stain - Final, Resulted 08/13/20 Aerobic and Anaerobic Culture, Resulted Pending 08/11/20 Blood Culture - Preliminary, Resulted NO GROWTH AFTER 2 DAYS 08/07/20 Urine Culture - Final, Complete Physical Exam HEENT: Neck Supple W Full Motion Chest: Symmetric LUNGS: Other (diminished ) Heart: S1S2, RRR Extremities: Other (1-2+ bilateral LE pitting edema, S/P right foot surgery) Neurology: alert, oriented, follow commands Assessment Assessment 1. Acute on chronic diastolic CHF; Echo with preserved LV systolic function. 2. Severe bilateral LE PAD with RLE cellulitis and right foot abscess/gangrene. S/p aortogram with JANITOR SUPERVISOR/stent to RLE this am by vascular. Report pending 3. S/P Right first and second toe open ray amputation at mid metatarsal location today per vascular surgery 4. Asthma exacerbation: likely precipitated by CHF 5. DM2; as per IM 6. HTN; labile 7. HLP; on statin 8. Hx of multiple TIAs with past right CEA 9. ILR in situ: this was placed in 2013 10. Ascites with h/o heavy alcoholism with possible cirrhosis. Recommendations Lasix therapy Continue antibiotics per ID, post op care per vascular surgery. Secondary prevention measures Continue DAPT with ASA/Plavix. Plan for outpatient explantation of ILR Reinforced importance of compliance/followup Justicifation of Admission Dx: Justifications for Admission: Justification of Admission Dx: Yes Sepsis: Infection Cellulitis: Cellulitis MANUEL JASMINE MD 08/14/20 1529: CARDIO Progress Notes Assessment Assessment Patient seen and evaluated. Acute on chronic diastolic CHF; Echo with preserved LV systolic function. Improved on Lasix. Severe bilateral LE PAD with RLE cellulitis and right foot abscess/gangrene. S/p aortogram with JANITOR SUPERVISOR/stent to RLE this am by vascular. Report pending S/P Right first and second toe open ray amputation at mid metatarsal location today per vascular surgery Asthma exacerbation: likely precipitated by CHF DM2; as per IM HTN; labile HLP; on statin Hx of multiple TIAs with past right CEA ILR in situ: Will arrange for future explant. Ascites with h/o heavy alcoholism with possible cirrhosis. NORM DANIEL APRN Aug 14, 2020 12:15 MANUEL JASMINE MD Aug 14, 2020 15:29
[2020-08-14 13:14] LABS: COMMENT IMMUNOFIX SERUM Note: (.); IMMUNOGLOBULIN A 789 mg/dL (90-386); IMMUNOGLOBULIN G 1601 mg/dL (603-1613); IMMUNOGLOBULIN M 265 mg/dL (20-172)
[2020-08-14 13:14] LABS: ALBUM 2.6 g/dL (2.9-4.4); ALPHA 1 0.4 g/dL (0.0-0.4); BETA 0.9 g/dL (0.7-1.3); GAMMA 1.7 g/dL (0.4-1.8); PROTEIN TOTAL 6.5 g/dL (6.0-8.5); SPEP AG RATIO 0.7 (0.7-1.7)
[2020-08-14 13:17] LABS: VANC TR 12.4 mcg/mL (10.0-20.0)
--- NOTE | 2020-08-14 14:07 | NUR ---
ELINA following. Spoke with RN and reviewed chart. Discharge plan remains to [facility] pending insurance approval. Pt not ready for discharge though as he will have an aortogram today and a possible wound vac. Pt on IV abx. ELINA phoned and faxed updated clinical information to Carmela with [facility]. Carmela to forward paperwork onto insurance. ELINA following.
[2020-08-14] MEDS: VANCOMYCIN PER PHARMACY MC PRN (14:10)
--- NOTE | 2020-08-14 14:13 | NUR ---
Pharmacy Vancomycin Dosing Note S: Consulted to monitor and dose vancomycin started 08/07/20. O: MATTHIEUJANICESUSAN Salinas is a 59 year old M with Cellulitis. Other Antibiotics: ZOSYN 3.375 GM IV Q6HRS ZYVOX 600mg PO BID LABS: Creatinine Clearance: 88 mL/min Last WBC: 8.9 Drug Levels: Last Trough level: 12.4 on 08/14/20 at 1130 Last dose given 08/13/20 at 2306 Vancomycin Dosing: Dosing Weight: Actual Target Trough: 10-20 A: Based on: THERAPEUTIC TROUGH P: 1. Continue Vancomycin 1500 mg IV q12h 2. Follow up Trough level in 5-7 days or if renal function changes 3. Pharmacy will continue to monitor, follow and adjust therapy as needed. SONU STILES [facility], 08/14/20 [id number]
[2020-08-14] MEDS: VANCOMYCIN 1.5 GM in IV NORMAL SALINE 500ML BAG 500 ML IV SCH (14:26)
[2020-08-14] MEDS: traMADol 50 MG TABLET PO PRN (14:31)
--- NOTE | 2020-08-14 16:39 | NUR ---
Wound/Ostomy Care Wound Type/Assessment: Patient seen per wound care. See wound assessment. Patient has DFU/open amp site to the right foot and left great toe DFU. Dressing had to soak with saline prior to removal, dressing removed and wound still had active bleeding. Wounds cleansed, assessed, measured, and pictured. Orders for wound vac to the right foot. Due to bleeding, unable to vac today, wound care will reassess tomorrow. V-pad placed to right foot and covered with ABD pads, and kerlix. RN notified to monitor for bleeding. Treatment Recommendations/Plan: Wound vac to right foot when bleeding subsides. recommendations for Iodoflex to wound bed of left great toe and cover with telfa bandaid. Education provided: Patient educated on dressing changes and wound vac. Offloading surface/device: Patient to wear post op shoe on left and half shoe on right. Recommended Referrals/Tests: N/A Discharge Recommendations for dressings: Continue current treatment. Will reassess tomorrow for wound vac placement. Iodoflex left in room for next dressing changes. no other wounds noted. Sister at bedside. Bed lowered and call light in reach.
[2020-08-14] MEDS: ENOXAPARIN 40 MG/0.4 ML SYRINGE. SQ SCH (20:55)
[2020-08-14] MEDS: ZOLPIDEM 5 MG TABLET. PO PRN (20:55)
[2020-08-14] MEDS: ATORVASTATIN CALCIUM 20 MG TABLET PO SCH (20:55)
[2020-08-14] MEDS: INSULIN GLARGINE SYRINGE. SQ SCH (20:57)
[2020-08-15] MEDS: VANCOMYCIN 1.5 GM in IV NORMAL SALINE 500ML BAG 500 ML IV SCH ×2 (00:13→13:07)
[2020-08-15 03:00] VITALS: BP 138/38
[2020-08-15] MEDS: ALBUTEROL SULFATE 2.5 MG/3 ML NEBU. INH PRN ×3 (04:03→10:56)
[2020-08-15] MEDS: PIPERACILLIN/TAZOBACTAM 3.375 GM in IV NORMAL SALINE 50ML 50 ML IV SCH ×4 (05:30→23:17)
[2020-08-15 07:00] VITALS: BP 171/65
[2020-08-15 07:06] LABS: HEMOGLOBIN 8.8 g/dL (13.0-17.5); WHITE BLOOD COUNT 6.6 x10^3/uL (4.0-11.0)
[2020-08-15 07:07] LABS: BASO % 0 % (0-3); EOS % 1 % (0-3); LYMPH % 16 % (24-48); MEAN CORPUSCULAR HEMOGLOBIN 32 pg (25-35); MEAN CORPUSCULAR HGB CONC 34 g/dL (31-37); MEAN CORPUSCULAR VOLUME 96 fL (79-100); MONO # 0.4 x10^3/uL (0.0-1.1); MONO % 6 % (0-9); NEUT # 5.2 x10^3/uL (1.8-7.7); NEUT % 78 % (31-73); PLATELET COUNT 240 x10^3/uL (140-400)
[2020-08-15 07:09] LABS: ALBUMIN/GLOBULIN RATIO 0.4 (1.0-1.7); CALCIUM 7.5 mg/dL (8.5-10.1); CREATININE 0.8 mg/dL (0.7-1.3); GFR 99.6; POTASSIUM 4.1 mmol/L (3.5-5.1); TOTAL BILIRUBIN 1.3 mg/dL (0.2-1.0); TOTAL PROTEIN 6.6 g/dL (6.4-8.2)
--- NOTE | 2020-08-15 08:23 | PDOC ---
Infectious Disease Note Subjective: Subjective Patient says feels ok postop pain is under control Denies fever, nausea, vomiting, shortness of breath, abdominal pain, rash Otherwise as above Vital Signs: Vital Signs Vital Signs Date Time Temp Pulse Resp B/P (MAP) Pulse Ox O2 Delivery O2 Flow Rate FiO2 08/15/20 07:07 95 Room Air 08/15/20 07:00 97.3 68 18 171/65 (100) 97.3 08/14/20 12:30 2.0 Physical Exam: PHYSICAL EXAM GENERAL: Alert, awake. The patient is sitting upright in chair, in no acute distress. HEENT: Normocephalic, atraumatic. No thrush. NECK: Supple, no JVD. LUNGS: Clear bilaterally. No wheezing. HEART: S1, S2 normal. ABDOMEN: Soft, nontender, nondistended, obese. Bowel sounds present. EXTREMITIES: Right foot dorsal dressing in place not taken down COMPUTER NETWORKER alert awake x3 piv looks clean Medications: Inpatient Meds: Current Medications Medications (Trade) Dose Ordered Sig/John Start Time Stop Time Status Last Admin Dose Admin Acetaminophen (Tylenol) 650 mg PRN Q4HRS PRN 08/07/20 21:45 08/08/20 05:50 650 MG Albuterol Sulfate (Ventolin Neb Soln) 2.5 mg 1X ONCE 08/13/20 14:00 08/13/20 14:01 DC 08/13/20 15:40 2.5 MG Aspirin (Ronald Aspirin) 325 mg [id number] 08/08/20 08:00 08/14/20 14:23 325 MG Atorvastatin Calcium (Lipitor) 20 mg HS 08/08/20 21:00 08/14/20 20:55 20 MG Bacitracin 41910 unit/Sodium Chloride 500 ml @ 500 mls/hr 1X ONCE 08/13/20 11:00 08/13/20 11:59 DC 08/13/20 11:24 Ceftriaxone Sodium (Rocephin) 1 gm Q24H 08/08/20 09:00 08/11/20 16:19 DC 08/11/20 08:30 1 GM Clopidogrel Bisulfate (Plavix) 75 mg DAILY 08/08/20 09:00 08/14/20 14:24 75 MG Dextrose (Dextrose 50%-Water Syringe) 12.5 gm PRN Q15MIN PRN 08/08/20 08:00 Docusate Sodium (Colace) 100 mg DAILY 08/08/20 09:00 08/14/20 20:55 100 MG Enoxaparin Sodium (Lovenox 40mg Syringe) 40 mg Q24H 08/07/20 21:45 08/14/20 20:55 40 MG Fentanyl Citrate (Fentanyl 2ml Vial) 100 mcg 1X ONCE 08/14/20 09:15 08/14/20 09:16 DC 08/14/20 09:50 100 MCG Fluticasone Propionate (Flonase) 2 spray DAILY 08/08/20 09:00 08/14/20 09:05 2 SPRAY Furosemide (Lasix) 40 mg DAILY 08/14/20 09:00 08/14/20 09:06 40 MG Gabapentin (Neurontin) 300 mg BID 08/08/20 09:00 08/14/20 20:55 300 MG Heparin Sodium (Porcine) (Heparin Sodium) 5,000 unit 1X ONCE 08/14/20 10:30 08/14/20 10:31 DC 08/14/20 10:30 5,000 UNIT Heparin Sodium/ Sodium Chloride 500 ml @ As Directed STK-MED ONCE 08/14/20 10:46 08/14/20 10:46 DC Heparin Sodium/ Sodium Chloride (HEPARIN for ARTERIAL LINE FLUSH) 1,000 unit 1X ONCE 08/14/20 09:15 08/14/20 09:16 DC 08/14/20 09:15 1,000 UNIT Hydralazine HCl (Apresoline Inj) 10 mg PRN Q20MIN PRN 08/14/20 10:15 08/14/20 13:00 DC 08/14/20 10:37 10 MG Hydroxyzine HCl (Atarax) 25 mg TID PRN PRN 08/07/20 21:45 Influenza Virus Vaccine Quadrival (Fluzone Quad Syringe) 0.5 ml ONCE ONCE 08/08/20 09:00 08/08/20 09:01 DC 08/10/20 08:22 0.5 ML Info (CONTRAST GIVEN -- Rx MONITORING) 1 each PRN DAILY PRN 08/14/20 09:15 08/16/20 09:14 Insulin Glargine (Lantus Syringe) 8 unit QHS 08/08/20 21:00 08/14/20 20:57 8 UNIT Insulin Human Lispro (HumaLOG VIAL for OP,RR ONLY) 0-10 units PRN Q1HR PRN 08/13/20 10:45 08/14/20 10:44 DC 08/13/20 12:06 4 UNIT Insulin Human Lispro (HumaLOG) 0-9 UNITS TIDWMEALHC 08/08/20 08:00 08/14/20 20:57 4 UNITS Iodixanol (Visipaque 320) 100 ml STK-MED ONCE 08/14/20 10:45 08/14/20 10:46 DC Lactobacillus Rhamnosus (Culturelle) 1 cap BID 08/08/20 21:00 08/14/20 20:55 1 CAP Lidocaine HCl (Buffered Lidocaine 1%) 3 ml 1X ONCE 08/14/20 09:15 08/14/20 09:16 DC 08/14/20 09:51 3 ML Lidocaine HCl (Lidocaine Pf 2% Vial) 5 ml STK-MED ONCE 08/13/20 11:36 08/13/20 11:36 DC Linezolid (Zyvox) 600 mg BID 08/12/20 11:00 08/14/20 20:55 600 MG Losartan Potassium (Cozaar) 25 mg DAILY 08/08/20 09:00 08/14/20 14:25 25 MG Metoprolol Tartrate (Lopressor Vial) 2.5 mg 1X ONCE 08/14/20 11:30 08/14/20 11:31 DC 08/14/20 11:27 2.5 MG Metoprolol Tartrate (Lopressor) 37.5 mg BID 08/14/20 12:15 08/14/20 20:56 37.5 MG Midazolam HCl (Versed) 2 mg 1X ONCE 08/14/20 09:15 08/14/20 09:16 DC 08/14/20 09:50 2 MG Non-Formulary Medication (Insulin Glargine,Hum.rec.anlog (Lantus Solostar)) 8 unit QHS 08/08/20 21:00 UNV Ondansetron HCl (Zofran Odt) 4 mg 1X ONCE 08/07/20 21:45 08/07/20 21:46 DC 08/07/20 21:50 4 MG Ondansetron HCl (Zofran) 4 mg PRN Q4HRS PRN 9/30/20 21:45 08/12/20 20:38 4 MG Pantoprazole Sodium (Protonix) 40 mg DAILYAC 08/10/20 07:30 08/13/20 04:35 40 MG Piperacillin Sod/ Tazobactam Sod 3.375 gm/Sodium Chloride 50 ml @ 100 mls/hr Q6HRS 08/11/20 17:00 08/15/20 05:30 100 MLS/HR Propofol (Diprivan) 200 mg STK-MED ONCE 08/13/20 11:36 08/13/20 11:36 DC Sevoflurane (Ultane) 30 ml STK-MED ONCE 08/13/20 11:36 08/13/20 11:36 DC Sodium Chloride 1,000 ml @ 1,000 mls/hr 1X ONCE 08/07/20 21:45 08/07/20 22:44 DC 08/07/20 21:52 1,000 MLS/HR Tamsulosin HCl (Flomax) 0.4 mg DAILY 08/08/20 09:00 08/12/20 08:20 0.4 MG Tramadol HCl (Ultram) 50 mg PRN Q6HRS PRN 08/07/20 21:45 UNV Vancomycin HCl (Vanco Per Pharmacy) 1 each PRN DAILY PRN 08/07/20 22:00 08/14/20 14:10 1 EACH Vancomycin HCl (Vancomycin Trough Level) 1 each 1X ONCE 08/14/20 11:30 08/14/20 11:31 DC 08/14/20 11:30 1 EACH Vancomycin HCl 1.5 gm/Sodium Chloride 500 ml @ 250 mls/hr Q12H 08/08/20 12:00 08/15/20 00:13 250 MLS/HR Vancomycin HCl 2 gm/Sodium Chloride 500 ml @ 250 mls/hr 1X ONCE 08/07/20 22:15 08/08/20 00:14 DC 08/07/20 23:54 250 MLS/HR Zolpidem Tartrate (Ambien) 5 mg PRN QHS PRN 08/09/20 22:45 08/14/20 20:55 5 MG Labs: Lab Laboratory Tests Test 08/14/20 12:43 08/14/20 13:00 08/14/20 16:51 08/14/20 20:36 Glucose (Fingerstick) 150 mg/dL (70-99) 263 mg/dL (70-99) 262 mg/dL (70-99) Vancomycin Level Trough 12.4 mcg/mL (10.0-20.0) Vancomycin Last Dose Date 08/14/20 Vancomycin Last Dose Time 0000 Test 08/15/20 05:15 08/15/20 07:37 White Blood Count 6.6 x10^3/uL (4.0-11.0) Red Blood Count 2.70 x10^6/uL (4.30-5.70) Hemoglobin 8.8 g/dL (13.0-17.5) Hematocrit 26.0 % (39.0-53.0) Mean Corpuscular Volume 96 fL (79-100) Mean Corpuscular Hemoglobin 32 pg (25-35) Mean Corpuscular Hemoglobin Concent 34 g/dL (31-37) Red Cell Distribution Width 15.0 % (11.5-14.5) Platelet Count 240 x10^3/uL (140-400) Neutrophils (%) (Auto) 78 % (31-73) Lymphocytes (%) (Auto) 16 % (24-48) Monocytes (%) (Auto) 6 % (0-9) Eosinophils (%) (Auto) 1 % (0-3) Basophils (%) (Auto) 0 % (0-3) Neutrophils # (Auto) 5.2 x10^3/uL (1.8-7.7) Lymphocytes # (Auto) 1.0 x10^3/uL (1.0-4.8) Monocytes # (Auto) 0.4 x10^3/uL (0.0-1.1) Eosinophils # (Auto) 0.0 x10^3/uL (0.0-0.7) Basophils # (Auto) 0.0 x10^3/uL (0.0-0.2) Sodium Level 139 mmol/L (136-145) Potassium Level 4.1 mmol/L (3.5-5.1) Chloride Level 104 mmol/L (98-107) Carbon Dioxide Level 24 mmol/L (21-32) Anion Gap 11 (6-14) Blood Urea Nitrogen 16 mg/dL (8-26) Creatinine 0.8 mg/dL (0.7-1.3) Estimated GFR (Cockcroft-Gault) 99.6 BUN/Creatinine Ratio 20 (6-20) Glucose Level 149 mg/dL (70-99) Calcium Level 7.5 mg/dL (8.5-10.1) Total Bilirubin 1.3 mg/dL (0.2-1.0) Aspartate Amino Transf (AST/SGOT) 29 U/L (15-37) Alanine Aminotransferase (ALT/SGPT) 44 U/L (16-63) Alkaline Phosphatase 522 U/L (46-116) Total Protein 6.6 g/dL (6.4-8.2) Albumin 2.0 g/dL (3.4-5.0) Albumin/Globulin Ratio 0.4 (1.0-1.7) Glucose (Fingerstick) 169 mg/dL (70-99) Objective: Assessment: 1. Right foot cellulitis, abscess. Wet gangrene of the right first and second toe and forefoot August 13, 2020 Status post right 1st and 2nd toe open ray amputation, extensive debridement and drainage of large abscess in the foot Cultures positive for staph aureus 2. Fever. improved 3. Lactic acidosis, mild, resolved. 4. Diabetes mellitus. 5. Thrombocytopenia. 6. Abnormal liver function tests. 7. Coronary artery disease. 8. Anemia. 9. Protein-calorie malnutrition. Plan: Plan of Care Continue IV Vanco and Zosyn Vanco trough 13.7 Monitor renal functions closely continue Zyvox for now Follow-up intraoperative tissue culture Will need PICC line Monitor labs closely Wound care care as directed Discussed with nursing staff BLAKE CARVER MD Aug 15, 2020 08:23
--- NOTE | 2020-08-15 08:46 | PDOC ---
Provider Note Date of Service: DATE: 08/15/20 TIME: 08:40 Provider Note Provider Note Vascular S: Patient seen and examined in room. Complains of mild right thigh pain, denies foot pain. O: Awake and alert VSS afebrile Left femoral access site dressing dry and intact, no tenderness, swelling or hematoma. Right foot dressing removed, saturated with sanguinous drainage, clot in wound bed, no active bleeding. Periwound with mild plantar maceration. Foot warm, capillary refill < 3 secs. Right thigh soft, no swelling or hematoma. A/P: Large abscess within the right foot and gangrene, extending into right 1,2nd toes. POD #2 Right first and second toe open ray amputation at the mid metatarsal location. s/p Right lower extremity angioplasty. Recommend wound vac placement today. Continue abx per ID. Off-load right foot, will evaluate for off-loading shoe. Justicifation of Admission Dx: Justifications for Admission: Justification of Admission Dx: Yes Sepsis: Infection Cellulitis: Cellulitis ERICK FISHER DRIVER GUARD Aug 15, 2020 08:45
[2020-08-15] MEDS: LINEZOLID 600 MG TABLET PO SCH ×2 (09:08→20:50)
[2020-08-15] MEDS: FLUTICASONE 50MCG/NASAL SPRAY 16GM BOTTLE. NS SCH (09:08)
[2020-08-15] MEDS: LOSARTAN POTASSIUM 25 MG TABLET. PO SCH (09:09)
[2020-08-15] MEDS: ASPIRIN 325 MG TABLET PO SCH (09:09)
[2020-08-15] MEDS: traMADol 50 MG TABLET PO PRN ×2 (09:09→20:50)
[2020-08-15] MEDS: LACTOBACILLUS RHAMNOSUS GG 1 CAPSULE. PO SCH ×2 (09:09→20:50)
[2020-08-15] MEDS: CLOPIDOGREL BISULFATE 75 MG TABLET PO SCH (09:09)
[2020-08-15] MEDS: FUROSEMIDE 40 MG/4 ML VIAL. IVP SCH (09:09)
[2020-08-15] MEDS: METOPROLOL TART IMMED RELEASE 25 MG TABLET. PO SCH ×2 (09:10→20:51)
[2020-08-15] MEDS: DOCUSATE SODIUM 100 MG CAPSULE. PO SCH (09:11)
[2020-08-15] MEDS: GABAPENTIN 300 MG CAPSULE. PO SCH ×2 (09:11→20:50)
[2020-08-15] MEDS: PANTOPRAZOLE 40 MG TABLET.DR. PO SCH (09:11)
[2020-08-15] MEDS: TAMSULOSIN 0.4 MG CAP.ER.24H. PO SCH (09:11)
[2020-08-15] MEDS: INSULIN LISPRO 300 UNITS/3 ML VIAL. SQ SCH ×4 (09:21→20:56)
--- NOTE | 2020-08-15 09:55 | RAD ---
08/14/2020 10:59 AM Procedure: 1. Abdominal angiogram, pelvic angiogram, right lower extremity angiography 2. 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 Severe peripheral vascular disease with ultrasound suggestive of SFA occlusion. Discussion: The procedure was explained in its entirety to the patient or the patients designated franchise sales representative by a member of the treatment team, including a discussion of the risks, benefits and commonly accepted alternatives to the procedure, as well as the expected consequences of no therapy whatsoever. Discussion of the risks included, but was not limited to, those that are most frequent and those that are rare but possibly severe or life-threatening, as well as the possibility of unforeseen complications. All elements of maximal sterile barrier technique including the use of a cap, mask, sterile gown, sterile gloves, large sterile sheet, appropriate hand hygiene, and 2% chlorhexidine for cutaneous antisepsis (or acceptable alternative antiseptic per current guidelines) were followed for this procedure. The left groin was prepped and draped as described. 1% lidocaine was administered for local anesthesia. Left common femoral artery was found to be patent by ultrasound. The left common femoral artery was accessed under direct ultrasound guidance. Reference ultrasound images were saved medical record. 5 [place] vascular sheath was placed. Abdominal angiography demonstrates approximately 50% stenosis of the left renal artery. No aneurysm is identified. Mild narrowings of the common iliac arteries are seen. Initially these are accentuated by artifact from subtracted images. But ultimately the appearance is felt to be similar to prior study without flow limitation. Right lower extremity angiography was then performed. The right common femoral artery is patent. There is occlusion of the right SFA just beyond its origin. The profunda artery is patent. There is reconstitution of the distal SFA in the adductor canal. The popliteal artery is patent. Minimal stenosis is seen in the proximal anterior tibial artery. Tibial vessels are otherwise patent to the distal leg. There is mild narrowing of the distal anterior tibial artery extending to the dorsalis pedis artery. Proximal dorsalis pedis artery is patent. Posterior tibial artery is patent into the lateral plantar artery. The peroneal artery is patent to the level of the ankle. Chronic total occlusion was traversed, and balloon angioplasty performed up to 4 mm. There is persistent irregularity following angioplasty necessitating the placement of 2 covered self-expanding stents postdilated to 5 mm. This restored in line flow through the SFA. The sheath was removed and a minx device deployed. No immediate complications were identified. Total fluoroscopy time: 23 min Dose area product: 391 Gycm2 The procedures performed under conscious sedation including continuous cardiopulmonary monitoring via dedicated sedation nurse. [id number] sedation time:120 min Impression: 1. No evidence of hemodynamically significant aortoiliac stenosis 2. 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 Three-vessel runoff to the ankle. Mild narrowing of the distal anterior tibial artery. Posterior tibial artery, lateral plantar artery, dorsalis pedis artery are intact to the mid foot.
--- NOTE | 2020-08-15 10:23 | PDOC ---
Date of Service: DATE: 08/15/20 TIME: 10:17 Subjective: Subjective: Got a piece of toast caught in throat, then coughed up phlegm. Abdomen feels okay. Objective: Objective: Stools charted. Vital Signs: Vital Signs Date Time Temp Pulse Resp B/P (MAP) Pulse Ox O2 Delivery O2 Flow Rate FiO2 08/15/20 09:10 68 171/65 08/15/20 09:09 19 94 Room Air 08/15/20 07:00 97.3 97.3 08/14/20 12:30 2.0 Labs: Laboratory Tests Test 08/14/20 12:43 08/14/20 13:00 08/14/20 16:51 08/14/20 20:36 Glucose (Fingerstick) 150 mg/dL 263 mg/dL 262 mg/dL Vancomycin Level Trough 12.4 mcg/mL Vancomycin Last Dose Date 08/14/20 Vancomycin Last Dose Time 0000 Test 08/15/20 05:15 08/15/20 07:37 White Blood Count 6.6 x10^3/uL Red Blood Count 2.70 x10^6/uL Hemoglobin 8.8 g/dL Hematocrit 26.0 % Mean Corpuscular Volume 96 fL Mean Corpuscular Hemoglobin 32 pg Mean Corpuscular Hemoglobin Concent 34 g/dL Red Cell Distribution Width 15.0 % Platelet Count 240 x10^3/uL Neutrophils (%) (Auto) 78 % Lymphocytes (%) (Auto) 16 % Monocytes (%) (Auto) 6 % Eosinophils (%) (Auto) 1 % Basophils (%) (Auto) 0 % Neutrophils # (Auto) 5.2 x10^3/uL Lymphocytes # (Auto) 1.0 x10^3/uL Monocytes # (Auto) 0.4 x10^3/uL Eosinophils # (Auto) 0.0 x10^3/uL Basophils # (Auto) 0.0 x10^3/uL Sodium Level 139 mmol/L Potassium Level 4.1 mmol/L Chloride Level 104 mmol/L Carbon Dioxide Level 24 mmol/L Anion Gap 11 Blood Urea Nitrogen 16 mg/dL Creatinine 0.8 mg/dL Estimated GFR (Cockcroft-Gault) 99.6 BUN/Creatinine Ratio 20 Glucose Level 149 mg/dL Calcium Level 7.5 mg/dL Total Bilirubin 1.3 mg/dL Aspartate Amino Transf (AST/SGOT) 29 U/L Alanine Aminotransferase (ALT/SGPT) 44 U/L Alkaline Phosphatase 522 U/L Total Protein 6.6 g/dL Albumin 2.0 g/dL Albumin/Globulin Ratio 0.4 Glucose (Fingerstick) 169 mg/dL GRAM STAIN Final Final GRAM POSITIVE COCCI:FEW SQUAMOUS EPI CELL:NONE SEEN PMN (WBCs):MANY Unless otherwise specified, Testing Performed by: [address] [id number] For Inquires, the Physician may contact the Microbiology department at [phone] ANAEROBIC-AEROBIC CULTURE Preliminary Preliminary MODERATE GRAM POSITIVE COCCI on 08/14/20 at 1401 FINAL ID= [[email or web address] [email or web address]] STAPHYLOCOCCUS AUREUS Unless otherwise specified, Testing Performed by: [address] [id number] For Inquires, the Physician may contact the Microbiology department at [phone] BLOOD CULTURE Preliminary NO GROWTH AFTER 3 DAYS Imaging: Trace ascites on US 08/07. 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 Continue PPI, monitor swallowing. Should have outpt EGD eventually, could consider barium swallow if indicated. Justicifation of Admission Dx: Justifications for Admission: Justification of Admission Dx: Yes Sepsis: Infection Cellulitis: Cellulitis UBALDO MCKENZIE Aug 15, 2020 10:23
[2020-08-15 11:00] VITALS: BP 158/56
--- NOTE | 2020-08-15 11:45 | NUR ---
Wound Care Wound Type/Assessment: Right foot open amputation. Unable to place vac yesterday d/t active bleeding, dressing removed, wound cleansed, no bleeding noted. Wound bed is bright red, small amount of bone exposed, periwound intact, macerated on plantar surface. Treatment Recommendations/Plan: Able to place wound vac at this time, skin prep and ostomy ring to periwound, 1 piece of rivas/black Veraflo foam into wound bed, foam tracked to R medial lower leg, strong seal achieved, pt tolerated well. Education provided: to pt re: NPWT, offloading, blood glucose control Offloading surface/device: half shoe for ambulation depending on weight-bearing status from Vascular, Rooke boot while in bed Recommended Referrals/Tests: n/a Discharge Recommendations for dressings: NPWT, pt amenable to f/u in [facility] after d/c from [facility].
--- NOTE | 2020-08-15 11:47 | PDOC ---
PROGRESS NOTES Date of Service: DATE: 08/15/20 TIME: 11:45 Chief Complaint Chief Complaint impression Right foot cellulitis crp 247// 9-30 Right foot with large abscess, wet infected gangrene of the right 1st/2nd toes and forefoot PVD 05/26Angioplasty of the left dorsalis pedis and anterior tibial arteriesPrimary placement of a covered self expanding stent secondary to chronic total occlusion, distal right SFA Angioplasty of proximal SFA 08-15 Long segment chronic total occlusion superficial femoral artery successfully treated with angioplasty followed by stent placement Three-vessel runoff to the ankle. Right foot diabetic ulcer Sepsis - fever and tachycardia Diabetes Shortness of breath Thombocytopenia Transaminitis Gallbladder wall is thickened but the gallbladder appears decompressed. Trace a scites. Correlate clinically for cholecystitis. No cholelithiasis. Nodular contour of the liver of concern for cirrhosis or other fibrotic process. Morbid obesity Hypertensive urgency Hyperlipidemia. Carotid arterial disease. Peripheral arterial disease. Peripheral neuropathy. HX Right carotid endarterectomy. HX Left second and third toe amputations. HX Explorative laparotomy with cauterization of his liver Remote tobacco abuse Ingrown toenails SEVERE PROTEIN-CALORIC MALNUTRITION plan GI CONSULT ,, plan for outpt EGD and colonoscopy. ID CONSULT ARTERIAL DOPPLERS BOTH LEGS REVIEWED, CONSULT VASCULAR Right foot with large a bscess, wet infected gangrene of the right 1st/2nd toes and forefoot Continue IV Vanco and Zosyn Monitor renal functions closely continue Zyvox aortogram with bilateral runoff when medically stable. Will eventually need revascularization 39 MIN pt exam, chart review, > 50% of time spent with exam, chart review, pt care coordination History of Present Illness History of Present Illness 08/15/2020 Patient seen and examined Long segment chronic total occlusion superficial femoral artery successfully treated with angioplasty followed by stent placement Three-vessel runoff to the ankle. Discussed with RN Discussed with case management manager consult ID reviewed 08/10/2020 Patient seen and examined FELICE RN FELICE case manger Mr Ford is a 59yo M w/ PMHx CAD, hypertension, diabetes, CVA. DM2 who comes to ED with complaints of increased pain, redness, and warmth in his right foot after being discharged from this emergency room yesterday. He denies any bleeding or drainage from his right foot. Patient states he was evaluated for right foot pain but since being discharged he has developed a fever and his symptoms have gotten worse. Patient also complains of having nausea. He states that he has a ulcer on the bottom of his left great toe. He denies any drainage or foul odor from ulcer. Patient states that he has been out of his quick acting insulin for the last 2 days and has only been able to take his morning acting insulin. He denies any polyuria, polydipsia, or polyphagia. The patient denies any cough, chest pain, abdominal pain, vomiting, or diarrhea. He denies any dizziness but reports headache at this time. He currently rates his pain a 10 out of 10 on the pain scale, he denies radiation of the pain, he denies any alleviating factors, pain is worse with palpation. Right lower extremity venous ultrasound negative for DVT does confirm lymphadenopathy in groin. Labs with WBC 9.2 with left shift, Hb 10.8, platelets 114, NA 135, K4.9, BUN 23, CR 1.1, glucose 125, lactic acid 2.1, CRP 247.3, albumin 2.9, alkaline phosphatase 459, AST 47, ALT 78, bilirubin 3.4. 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 Admitted for care of his right foot Low grade temp 100.4F overnight. Swelling and pain and redness improved in right foot. Vitals Vitals Vital Signs Date Time Temp Pulse Resp B/P (MAP) Pulse Ox O2 Delivery O2 Flow Rate FiO2 08/15/20 11:00 97.9 62 18 158/56 (90) 94 Room Air 97.9 08/14/20 12:30 2.0 Physical Exam Physical Exam GENERAL: Alert, awake. The patient is sitting upright in chair, in no acute distress. HEENT: Normocephalic, atraumatic. No thrush. NECK: Supple, no JVD. LUNGS: Clear bilaterally. No wheezing. HEART: S1, S2 normal. ABDOMEN: Soft, nontender, nondistended, obese. Bowel sounds present. 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 PHYSICIAN: PHUC RUIZ II, MD REASON: aortagram w/ runoff needed 08/14 PROCEDURE: [id number] ANGIO EXTREMITY RIGHT 08/14/2020 10:59 AM Procedure: 1. Abdominal angiogram, pelvic angiogram, right lower extremity angiography 2. 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 Severe peripheral vascular disease with ultrasound suggestive of SFA occlusion. Discussion: The procedure was explained in its entirety to the patient or the patients designated parts representative by a member of the treatment team, including a discussion of the risks, benefits and commonly accepted alternatives to the procedure, as well as the expected consequences of no therapy whatsoever. Discussion of the risks included, but was not limited to, those that are most frequent and those that are rare but possibly severe or life-threatening, as well as the possibility of unforeseen complications. All elements of maximal sterile barrier technique including the use of a cap, mask, sterile gown, sterile gloves, large sterile sheet, appropriate hand hygiene, and 2% chlorhexidine for cutaneous antisepsis (or acceptable alternative antiseptic per current guidelines) were followed for this procedure. The left groin was prepped and draped as described. 1% lidocaine was administered for local anesthesia. Left common femoral artery was found to be patent by ultrasound. The left common femoral artery was accessed under direct ultrasound guidance. Reference ultrasound images were saved medical record. 5 Indonesian vascular sheath was placed. Abdominal angiography demonstrates approximately 50% stenosis of the left renal artery. No aneurysm is identified. Mild narrowings of the common iliac arteries are seen. Initially these are accentuated by artifact from subtracted images. But ultimately the appearance is felt to be similar to prior study without flow limitation. Right lower extremity angiography was then performed. The right common femoral artery is patent. There is occlusion of the right SFA just beyond its origin. The profunda artery is patent. There is reconstitution of the distal SFA in the adductor canal. The popliteal artery is patent. Minimal stenosis is seen in the proximal anterior tibial artery. Tibial vessels are otherwise patent to the distal leg. There is mild narrowing of the distal anterior tibial artery extending to the dorsalis pedis artery. Proximal dorsalis pedis artery is patent. Posterior tibial artery is patent into the lateral plantar artery. The peroneal artery is patent to the level of the ankle. Chronic total occlusion was traversed, and balloon angioplasty performed up to 4 mm. There is persistent irregularity following angioplasty necessitating the placement of 2 covered self-expanding stents postdilated to 5 mm. This restored in line flow through the SFA. The sheath was removed and a minx device deployed. No immediate complications were identified. Total fluoroscopy time: 23 min Dose area product: 391 Gycm2 The procedures performed under conscious sedation including continuous cardiopulmonary monitoring via dedicated sedation nurse. [id number] sedation time:120 min Impression: 1. No evidence of hemodynamically significant aortoiliac stenosis 2. 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 Three-vessel runoff to the ankle. Mild narrowing of the distal anterior tibial artery. Posterior tibial artery, lateral plantar artery, dorsalis pedis artery are intact to the mid foot. DICTATED and SIGNED BY: SAMRA OLIVER MD DATE: 08/15/20 0951 Laboratory Tests Test 08/14/20 12:43 08/14/20 13:00 08/14/20 16:51 08/14/20 20:36 Glucose (Fingerstick) 150 mg/dL (70-99) 263 mg/dL (70-99) 262 mg/dL (70-99) Vancomycin Level Trough 12.4 mcg/mL (10.0-20.0) Vancomycin Last Dose Date 08/14/20 Vancomycin Last Dose Time 0000 Test 08/15/20 05:15 08/15/20 07:37 08/15/20 11:16 White Blood Count 6.6 x10^3/uL (4.0-11.0) Red Blood Count 2.70 x10^6/uL (4.30-5.70) Hemoglobin 8.8 g/dL (13.0-17.5) Hematocrit 26.0 % (39.0-53.0) Mean Corpuscular Volume 96 fL (79-100) Mean Corpuscular Hemoglobin 32 pg (25-35) Mean Corpuscular Hemoglobin Concent 34 g/dL (31-37) Red Cell Distribution Width 15.0 % (11.5-14.5) Platelet Count 240 x10^3/uL (140-400) Neutrophils (%) (Auto) 78 % (31-73) Lymphocytes (%) (Auto) 16 % (24-48) Monocytes (%) (Auto) 6 % (0-9) Eosinophils (%) (Auto) 1 % (0-3) Basophils (%) (Auto) 0 % (0-3) Neutrophils # (Auto) 5.2 x10^3/uL (1.8-7.7) Lymphocytes # (Auto) 1.0 x10^3/uL (1.0-4.8) Monocytes # (Auto) 0.4 x10^3/uL (0.0-1.1) Eosinophils # (Auto) 0.0 x10^3/uL (0.0-0.7) Basophils # (Auto) 0.0 x10^3/uL (0.0-0.2) Sodium Level 139 mmol/L (136-145) Potassium Level 4.1 mmol/L (3.5-5.1) Chloride Level 104 mmol/L (98-107) Carbon Dioxide Level 24 mmol/L (21-32) Anion Gap 11 (6-14) Blood Urea Nitrogen 16 mg/dL (8-26) Creatinine 0.8 mg/dL (0.7-1.3) Estimated GFR (Cockcroft-Gault) 99.6 BUN/Creatinine Ratio 20 (6-20) Glucose Level 149 mg/dL (70-99) Calcium Level 7.5 mg/dL (8.5-10.1) Total Bilirubin 1.3 mg/dL (0.2-1.0) Aspartate Amino Transf (AST/SGOT) 29 U/L (15-37) Alanine Aminotransferase (ALT/SGPT) 44 U/L (16-63) Alkaline Phosphatase 522 U/L (46-116) Total Protein 6.6 g/dL (6.4-8.2) Albumin 2.0 g/dL (3.4-5.0) Albumin/Globulin Ratio 0.4 (1.0-1.7) Glucose (Fingerstick) 169 mg/dL (70-99) 255 mg/dL (70-99) Assessment and Plan Assessmemt and Plan Problems Medical Problems: (1) Cellulitis of right leg Status: Acute (2) Fever Status: Acute (3) Person under investigation for COVID-19 Status: Acute Comment Review of Relevant I have reviewed the following items shreyas (where applicable) has been applied. Labs Laboratory Tests Test 08/13/20 11:53 08/13/20 14:47 08/13/20 16:12 08/13/20 21:49 Glucose (Fingerstick) 181 mg/dL (70-99) 236 mg/dL (70-99) 269 mg/dL (70-99) Sodium Level 134 mmol/L (136-145) Potassium Level 4.3 mmol/L (3.5-5.1) Chloride Level 102 mmol/L (98-107) Carbon Dioxide Level 24 mmol/L (21-32) Anion Gap 8 (6-14) Blood Urea Nitrogen 16 mg/dL (8-26) Creatinine 0.9 mg/dL (0.7-1.3) Estimated GFR (Cockcroft-Gault) 87.0 Glucose Level 219 mg/dL (70-99) Calcium Level 7.9 mg/dL (8.5-10.1) Magnesium Level 2.2 mg/dL (1.8-2.4) Test 08/14/20 03:21 08/14/20 06:58 08/14/20 12:43 08/14/20 13:00 White Blood Count 8.9 x10^3/uL (4.0-11.0) Red Blood Count 2.89 x10^6/uL (4.30-5.70) Hemoglobin 9.3 g/dL (13.0-17.5) Hematocrit 27.4 % (39.0-53.0) Mean Corpuscular Volume 95 fL (79-100) Mean Corpuscular Hemoglobin 32 pg (25-35) Mean Corpuscular Hemoglobin Concent 34 g/dL (31-37) Red Cell Distribution Width 14.6 % (11.5-14.5) Platelet Count 226 x10^3/uL (140-400) Neutrophils (%) (Auto) 78 % (31-73) Lymphocytes (%) (Auto) 14 % (24-48) Monocytes (%) (Auto) 6 % (0-9) Eosinophils (%) (Auto) 1 % (0-3) Basophils (%) (Auto) 0 % (0-3) Neutrophils # (Auto) 7.0 x10^3/uL (1.8-7.7) Lymphocytes # (Auto) 1.3 x10^3/uL (1.0-4.8) Monocytes # (Auto) 0.5 x10^3/uL (0.0-1.1) Eosinophils # (Auto) 0.1 x10^3/uL (0.0-0.7) Basophils # (Auto) 0.0 x10^3/uL (0.0-0.2) Glucose (Fingerstick) 137 mg/dL (70-99) 150 mg/dL (70-99) Vancomycin Level Trough 12.4 mcg/mL (10.0-20.0) Vancomycin Last Dose Date 08/14/20 Vancomycin Last Dose Time 0000 Test 08/14/20 16:51 08/14/20 20:36 08/15/20 05:15 08/15/20 07:37 Glucose (Fingerstick) 263 mg/dL (70-99) 262 mg/dL (70-99) 169 mg/dL (70-99) White Blood Count 6.6 x10^3/uL (4.0-11.0) Red Blood Count 2.70 x10^6/uL (4.30-5.70) Hemoglobin 8.8 g/dL (13.0-17.5) Hematocrit 26.0 % (39.0-53.0) Mean Corpuscular Volume 96 fL (79-100) Mean Corpuscular Hemoglobin 32 pg (25-35) Mean Corpuscular Hemoglobin Concent 34 g/dL (31-37) Red Cell Distribution Width 15.0 % (11.5-14.5) Platelet Count 240 x10^3/uL (140-400) Neutrophils (%) (Auto) 78 % (31-73) Lymphocytes (%) (Auto) 16 % (24-48) Monocytes (%) (Auto) 6 % (0-9) Eosinophils (%) (Auto) 1 % (0-3) Basophils (%) (Auto) 0 % (0-3) Neutrophils # (Auto) 5.2 x10^3/uL (1.8-7.7) Lymphocytes # (Auto) 1.0 x10^3/uL (1.0-4.8) Monocytes # (Auto) 0.4 x10^3/uL (0.0-1.1) Eosinophils # (Auto) 0.0 x10^3/uL (0.0-0.7) Basophils # (Auto) 0.0 x10^3/uL (0.0-0.2) Sodium Level 139 mmol/L (136-145) Potassium Level 4.1 mmol/L (3.5-5.1) Chloride Level 104 mmol/L (98-107) Carbon Dioxide Level 24 mmol/L (21-32) Anion Gap 11 (6-14) Blood Urea Nitrogen 16 mg/dL (8-26) Creatinine 0.8 mg/dL (0.7-1.3) Estimated GFR (Cockcroft-Gault) 99.6 BUN/Creatinine Ratio 20 (6-20) Glucose Level 149 mg/dL (70-99) Calcium Level 7.5 mg/dL (8.5-10.1) Total Bilirubin 1.3 mg/dL (0.2-1.0) Aspartate Amino Transf (AST/SGOT) 29 U/L (15-37) Alanine Aminotransferase (ALT/SGPT) 44 U/L (16-63) Alkaline Phosphatase 522 U/L (46-116) Total Protein 6.6 g/dL (6.4-8.2) Albumin 2.0 g/dL (3.4-5.0) Albumin/Globulin Ratio 0.4 (1.0-1.7) Test 08/15/20 11:16 Glucose (Fingerstick) 255 mg/dL (70-99) Laboratory Tests Test 08/14/20 12:43 08/14/20 13:00 08/14/20 16:51 08/14/20 20:36 Glucose (Fingerstick) 150 mg/dL (70-99) 263 mg/dL (70-99) 262 mg/dL (70-99) Vancomycin Level Trough 12.4 mcg/mL (10.0-20.0) Vancomycin Last Dose Date 08/14/20 Vancomycin Last Dose Time 0000 Test 08/15/20 05:15 08/15/20 07:37 08/15/20 11:16 White Blood Count 6.6 x10^3/uL (4.0-11.0) Red Blood Count 2.70 x10^6/uL (4.30-5.70) Hemoglobin 8.8 g/dL (13.0-17.5) Hematocrit 26.0 % (39.0-53.0) Mean Corpuscular Volume 96 fL (79-100) Mean Corpuscular Hemoglobin 32 pg (25-35) Mean Corpuscular Hemoglobin Concent 34 g/dL (31-37) Red Cell Distribution Width 15.0 % (11.5-14.5) Platelet Count 240 x10^3/uL (140-400) Neutrophils (%) (Auto) 78 % (31-73) Lymphocytes (%) (Auto) 16 % (24-48) Monocytes (%) (Auto) 6 % (0-9) Eosinophils (%) (Auto) 1 % (0-3) Basophils (%) (Auto) 0 % (0-3) Neutrophils # (Auto) 5.2 x10^3/uL (1.8-7.7) Lymphocytes # (Auto) 1.0 x10^3/uL (1.0-4.8) Monocytes # (Auto) 0.4 x10^3/uL (0.0-1.1) Eosinophils # (Auto) 0.0 x10^3/uL (0.0-0.7) Basophils # (Auto) 0.0 x10^3/uL (0.0-0.2) Sodium Level 139 mmol/L (136-145) Potassium Level 4.1 mmol/L (3.5-5.1) Chloride Level 104 mmol/L (98-107) Carbon Dioxide Level 24 mmol/L (21-32) Anion Gap 11 (6-14) Blood Urea Nitrogen 16 mg/dL (8-26) Creatinine 0.8 mg/dL (0.7-1.3) Estimated GFR (Cockcroft-Gault) 99.6 BUN/Creatinine Ratio 20 (6-20) Glucose Level 149 mg/dL (70-99) Calcium Level 7.5 mg/dL (8.5-10.1) Total Bilirubin 1.3 mg/dL (0.2-1.0) Aspartate Amino Transf (AST/SGOT) 29 U/L (15-37) Alanine Aminotransferase (ALT/SGPT) 44 U/L (16-63) Alkaline Phosphatase 522 U/L (46-116) Total Protein 6.6 g/dL (6.4-8.2) Albumin 2.0 g/dL (3.4-5.0) Albumin/Globulin Ratio 0.4 (1.0-1.7) Glucose (Fingerstick) 169 mg/dL (70-99) 255 mg/dL (70-99) Microbiology 08/13/20 Gram Stain - Final, Resulted 08/13/20 Aerobic and Anaerobic Culture - Preliminary, Resulted 08/13/20 Antimicrobic Susceptibility - Preliminary, Resulted 08/11/20 Blood Culture - Preliminary, Resulted NO GROWTH AFTER 3 DAYS 08/07/20 Urine Culture - Final, Complete Medications Current Medications Acetaminophen (Tylenol) 1,000 mg 1X ONCE PO Last administered on 08/07/20at 21: 50; Start 08/07/20 at 21:45; Stop 08/07/20 at 21:46; Status DC Ondansetron HCl (Zofran Odt) 4 mg 1X ONCE PO Last administered on 08/07/20at 21:50; Start 08/07/20 at 21:45; Stop 08/07/20 at 21:46; Status DC Sodium Chloride 1,000 ml @ 1,000 mls/hr 1X ONCE IV Last administered on 08/07/20at 21:52; Start 08/07/20 at 21:45; Stop 08/07/20 at 22:44; Status DC Fentanyl Citrate (Fentanyl 2ml Vial) 50 mcg 1X ONCE IV Last administered on 08/07/20at 21:51; Start 08/07/20 at 21:45; Stop 08/07/20 at 21:46; Status DC Ondansetron HCl (Zofran) 4 mg PRN Q4HRS PRN IV NAUSEA/VOMITING Last administered on 08/12/20at 20:38; Start 08/07/20 at 21:45 Acetaminophen (Tylenol) 650 mg PRN Q4HRS PRN PO TEMP OVER 100.4F OR MILD PAIN Last administered on 08/08/20at 05:50; Start 08/07/20 at 21:45 Enoxaparin Sodium (Lovenox 40mg Syringe) 40 mg Q24H SQ Last administered on 08/14/20 20:55; Start 08/07/20 at 21:45 Albuterol Sulfate (Ventolin Neb Soln) 2.5 mg PRN Q4HRS PRN INH SHORTNESS OF BREATH Last administered on 08/15/20 10:56; Start 08/07/20 at 21:45 Aspirin (Ronald Aspirin) 325 mg DAILYWBKFT PO Last administered on 08/15/20 09:09; Start 08/08/20 at 08:00 Atorvastatin Calcium (Lipitor) 20 mg HS PO Last administered on 08/14/20 20:55; Start 08/08/20 at 21:00 Clopidogrel Bisulfate (Plavix) 75 mg DAILY PO Last administered on 08/15/20 09:09; Start 08/08/20 at 09:00 Docusate Sodium (Colace) 100 mg DAILY PO Last administered on 08/15/20 09:11; Start 08/08/20 at 09:00 Gabapentin (Neurontin) 300 mg BID PO Last administered on 08/15/20 09:11; Start 08/08/20 at 09:00 Hydroxyzine HCl (Atarax) 25 mg TID PRN PRN PO ELEVATED BP, SEE COMMENTS; Start 08/07/20 at 21:45 Losartan Potassium (Cozaar) 25 mg DAILY PO Last administered on 08/15/20 09:09; Start 08/08/20 at 09:00 Metoprolol Tartrate (Lopressor) 25 mg BID PO Last administered on 08/13/20 21:49; Start 08/08/20 at 09:00; Stop 08/14/20 at 12:08; Status DC Tamsulosin HCl (Flomax) 0.4 mg DAILY PO Last administered on 08/15/20 09:11; Start 08/08/20 at 09:00 Tramadol HCl (Ultram) 50 mg PRN Q6HRS PRN PO MODERATE - SEVERE PAIN Last administered on 08/15/20 09:09; Start 08/07/20 at 21:45 Fluticasone Propionate (Flonase) 2 spray DAILY NS Last administered on 08/15/20 09:08; Start 08/08/20 at 09:00 Non-Formulary Medication (Insulin Glargine,Hum.rec.anlog (Lantus Solostar)) 8 unit QHS SQ ; Start 08/08/20 at 21:00; Status UNV Tramadol HCl (Ultram) 50 mg PRN Q6HRS PRN PO PAIN; Start 08/07/20 at 21:45; Status UNV Fentanyl Citrate (Fentanyl 2ml Vial) 50 mcg PRN Q3HRS PRN IVP SEVERE PAIN 7-10; Start 08/07/20 at 21:45 Vancomycin HCl (Vanco Per Pharmacy) 1 each PRN DAILY PRN MC SEE COMMENTS Last administered on 08/14/20at 14:10; Start 08/07/20 at 22:00 Vancomycin HCl 2 gm/Sodium Chloride 500 ml @ 250 mls/hr 1X ONCE IV Last administered on 08/07/20at 23:54; Start 08/07/20 at 22:15; Stop 08/08/20 at 00:14; Status DC Insulin Glargine (Lantus Syringe) 8 unit QHS SQ Last administered on 08/14/20at 20:57; Start 08/08/20 at 21:00 Vancomycin HCl 1.5 gm/Sodium Chloride 500 ml @ 250 mls/hr Q12H IV Last administered on 08/15/20at 00:13; Start 08/08/20 at 12:00 Vancomycin HCl (Vancomycin Trough Level) 1 each 1X ONCE MC Last administered on 08/09/20at 11:30; Start 08/09/20 at 11:30; Stop 08/09/20 at 11:31; Status DC Influenza Virus Vaccine Quadrival (Fluzone Quad Syringe) 0.5 ml ONCE ONCE VAX IM Last administered on 08/10/20at 08:22; Start 08/08/20 at 09:00; Stop 08/08/20 at 09:01; Status DC Insulin Human Lispro (HumaLOG) 0-9 UNITS TIDWMEALHC SQ Last administered on 08/15/20at 09:21; Start 08/08/20 at 08:00 Dextrose (Dextrose 50%-Water Syringe) 12.5 gm PRN Q15MIN PRN IV SEE COMMENTS; Start 08/08/20 at 08:00 Ceftriaxone Sodium (Rocephin) 1 gm Q24H IVP Last administered on 08/11/20 08:30; Start 08/08/20 at 09:00; Stop 08/11/20 at 16:19; Status DC Lactobacillus Rhamnosus (Culturelle) 1 cap BID PO Last administered on 08/15/20at 09:09; Start 08/08/20 at 21:00 Pantoprazole Sodium (Protonix) 40 mg DAILYAC PO Last administered on 08/15/20at 09:11; Start 08/10/20 at 07:30 Zolpidem Tartrate (Ambien) 5 mg PRN QHS PRN PO INSOMNIA Last administered on 08/14/20at 20:55; Start 08/09/20 at 22:45 Piperacillin Sod/ Tazobactam Sod 3.375 gm/Sodium Chloride 50 ml @ 100 mls/hr Q6HRS IV Last administered on 08/15/20at 05:30; Start 08/11/20 at 17:00 Linezolid (Zyvox) 600 mg BID PO Last administered on 08/15/20at 09:08; Start 08/12/20 at 11:00 Furosemide (Lasix) 40 mg DAILY PO ; Start 08/13/20 at 09:00; Stop 08/13/20 at 13:54; Status DC Furosemide (Lasix) 40 mg 1X ONCE IVP Last administered on 08/12/20at 17:00; Start 08/12/20 at 17:00; Stop 08/12/20 at 17:01; Status DC Bacitracin 81956 unit/Sodium Chloride 500 ml @ 500 mls/hr 1X ONCE IRR Last administered on 08/13/20at 11:24; Start 08/13/20 at 11:00; Stop 08/13/20 at 11:59; Status DC Insulin Human Lispro (HumaLOG VIAL for OP,RR ONLY) 0-10 units PRN Q1HR PRN SQ PER PROTOCOL Last administered on 08/13/20at 12:06; Start 08/13/20 at 10:45; Stop 08/14/20 at 10:44; Status DC Sevoflurane (Ultane) 30 ml STK-MED ONCE IH ; Start 08/13/20 at 11:36; Stop 08/13/20 at 11:36; Status DC Propofol (Diprivan) 200 mg STK-MED ONCE IV ; Start 08/13/20 at 11:36; Stop 08/13/20 at 11:36; Status DC Lidocaine HCl (Lidocaine Pf 2% Vial) 5 ml STK-MED ONCE .ROUTE ; Start 08/13/20 at 11:36; Stop 08/13/20 at 11:36; Status DC Fentanyl Citrate (Fentanyl 2ml Vial) 100 mcg STK-MED ONCE .ROUTE ; Start 08/13/20 at 11:36; Stop 08/13/20 at 11:37; Status DC Furosemide (Lasix) 40 mg 1X ONCE IVP Last administered on 08/13/20at 15:51; Start 08/13/20 at 13:15; Stop 08/13/20 at 13:16; Status DC Vancomycin HCl (Vancomycin Trough Level) 1 each 1X ONCE MC Last administered on 08/14/20at 11:30; Start 08/14/20 at 11:30; Stop 08/14/20 at 11:31; Status DC Albuterol Sulfate (Ventolin Neb Soln) 2.5 mg 1X ONCE NEB Last administered on 08/13/20at 15:40; Start 08/13/20 at 14:00; Stop 08/13/20 at 14:01; Status DC Furosemide (Lasix) 40 mg DAILY IVP Last administered on 08/15/20at 09:09; Start 08/14/20 at 09:00 Lidocaine HCl (Buffered Lidocaine 1%) 3 ml STK-MED ONCE .ROUTE ; Start 08/14/20 at 08:00; Stop 08/14/20 at 08:02; Status DC Iodixanol (Visipaque 320) 100 ml STK-MED ONCE .ROUTE ; Start 08/14/20 at 08:00; Stop 08/14/20 at 08:02; Status DC Heparin Sodium/ Sodium Chloride 1,500 ml @ As Directed STK-MED ONCE .ROUTE ; Start 08/14/20 at 08:00; Stop 08/14/20 at 08:02; Status DC Midazolam HCl (Versed) 2 mg STK-MED ONCE .ROUTE ; Start 08/14/20 at 08:58; Stop 08/14/20 at 08:58; Status DC Fentanyl Citrate (Fentanyl 2ml Vial) 100 mcg STK-MED ONCE .ROUTE ; Start 08/14/20 at 08:58; Stop 08/14/20 at 08:58; Status DC Heparin Sodium (Porcine) (Heparin Sodium) 10,000 unit STK-MED ONCE .ROUTE ; Start 08/14/20 at 08:58; Stop 08/14/20 at 08:58; Status DC Heparin Sodium/ Sodium Chloride (HEPARIN for ARTERIAL LINE FLUSH) 1,000 unit 1X ONCE IART Last administered on 08/14/20at 09:15; Start 08/14/20 at 09:15; Stop 08/14/20 at 09:16; Status DC Heparin Sodium/ Sodium Chloride (HEPARIN for ARTERIAL LINE FLUSH) 1,000 unit 1X ONCE IART Last administered on 08/14/20at 09:15; Start 08/14/20 at 09:15; Stop 08/14/20 at 09:16; Status DC Lidocaine HCl (Buffered Lidocaine 1%) 3 ml 1X ONCE IJ Last administered on 08/14/20at 09:51; Start 08/14/20 at 09:15; Stop 08/14/20 at 09:16; Status DC Midazolam HCl (Versed) 2 mg 1X ONCE IV Last administered on 08/14/20at 09:50; Start 08/14/20 at 09:15; Stop 08/14/20 at 09:16; Status DC Fentanyl Citrate (Fentanyl 2ml Vial) 100 mcg 1X ONCE IV Last administered on 08/14/20at 09:50; Start 08/14/20 at 09:15; Stop 08/14/20 at 09:16; Status DC Iodixanol (Visipaque 320) 100 ml 1X ONCE IART Last administered on 08/14/20at 11:31; Start 08/14/20 at 09:15; Stop 08/14/20 at 09:16; Status DC Info (CONTRAST GIVEN -- Rx MONITORING) 1 each PRN DAILY PRN MC SEE COMMENTS; Start 08/14/20 at 09:15; Stop 08/16/20 at 09:14 Hydralazine HCl (Apresoline Inj) 20 mg STK-MED ONCE .ROUTE ; Start 08/14/20 at 09:58; Stop 08/14/20 at 09:58; Status DC Hydralazine HCl (Apresoline Inj) 10 mg PRN Q20MIN PRN IVP HYPERTENSION SEE COMMENT Last administered on 08/14/20at 10:37; Start 08/14/20 at 10:15; Stop 08/14/20 at 13:00; Status DC Heparin Sodium (Porcine) (Heparin Sodium) 5,000 unit 1X ONCE IV Last administered on 08/14/20at 10:30; Start 08/14/20 at 10:30; Stop 08/14/20 at 10:31; Status DC Iodixanol (Visipaque 320) 100 ml STK-MED ONCE .ROUTE ; Start 08/14/20 at 10:45; Stop 08/14/20 at 10:46; Status DC Heparin Sodium/ Sodium Chloride 500 ml @ As Directed STK-MED ONCE .ROUTE ; Start 08/14/20 at 10:46; Stop 08/14/20 at 10:46; Status DC Metoprolol Tartrate (Lopressor Vial) 5 mg STK-MED ONCE IVP ; Start 08/14/20 at 11:01; Stop 08/14/20 at 11:01; Status DC Metoprolol Tartrate (Lopressor Vial) 2.5 mg 1X ONCE IVP Last administered on 08/14/20at 11:12; Start 08/14/20 at 11:15; Stop 08/14/20 at 11:16; Status DC Metoprolol Tartrate (Lopressor Vial) 2.5 mg 1X ONCE IVP Last administered on 08/14/20at 11:27; Start 08/14/20 at 11:30; Stop 08/14/20 at 11:31; Status DC Metoprolol Tartrate (Lopressor) 37.5 mg BID PO Last administered on 08/15/20at 09:10; Start 08/14/20 at 12:15 Active Scripts Active Tramadol Hcl 50 Mg Tablet 50 Mg PO Q6HRS PRN Potassium Chloride (Potassium Chloride) 20 Meq Tablet.er 20 Meq PO DAILY Lasix (Furosemide) 40 Mg Tablet 1 Tab PO DAILY 30 Days Carbamide Peroxide 15 Ml Drops 15 Ml OT BID 4 Days Flonase Allergy Relief (Fluticasone Propionate) 9.9 Ml [place].susp 2 Sprays NS DAILY Proair Hfa Inhaler (Albuterol Sulfate) 8.5 Gm Hfa.aer.ad 1 Puff INH Q4HRS PRN Prinivil (Lisinopril) 5 Mg Tablet 5 Mg PO DAILY Aspirin 325 Mg Tablet 325 Mg PO DAILY Reported Lantus Solostar (Insulin Glargine,Hum.rec.anlog) 100 Unit/1 Ml Insuln.pen 8 Unit SQ QHS Culturelle (Lactobacillus Rhamnosus Gg) 1 Each Capsule 1 Each PO DAILY 14 Days Flomax (Tamsulosin Hcl) 0.4 Mg Cap.er.24h 0.4 Mg PO DAILY Gabapentin 300 Mg Capsule 300 Mg PO BID Metoprolol Tartrate 25 Mg Tablet 25 Mg PO BID Omeprazole 40 Mg Capsule.dr 40 Mg PO DAILY05 Losartan Potassium 25 Mg Tablet 25 Mg PO DAILY Hydroxyzine Hcl 25 Mg Tablet 25 Mg PO TID PRN PRN Atorvastatin Calcium 20 Mg Tablet 20 Mg PO HS Clopidogrel (Clopidogrel Bisulfate) 75 Mg Tablet 75 Mg PO DAILY Docusate Sodium 100 Mg Capsule 1 Cap PO DAILY Glimepiride 4 Mg Tablet 4 Mg PO DAILY Metformin Hcl 500 Mg Tablet 500 Mg PO BIDWMEALS do not take for 48 hours Vitals/I & O Vital Sign - Last 24 Hours 08/14/20 08/14/20 08/14/20 08/14/20 12:00 12:15 12:30 12:45 Pulse 69 69 68 68 Resp 17 17 17 17 B/P (MAP) 148/56 (86) 150/48 (82) 155/38 (77) 147/51 (83) Pulse Ox 97 98 98 94 O2 Delivery Nasal Cannula Nasal Cannula Nasal Cannula Room Air O2 Flow Rate 2.0 2.0 2.0 08/14/20 08/14/20 08/14/20 08/14/20 13:15 13:23 14:25 15:00 Temp 97.8 97.8 Pulse 70 73 69 69 Resp 17 18 B/P (MAP) 176/72 (106) 176/72 151/43 151/43 (79) Pulse Ox 94 95 O2 Delivery Room Air Room Air 08/14/20 08/14/20 08/14/20 08/14/20 15:05 15:07 19:00 19:00 Temp 98.2 98.2 Pulse 64 Resp 20 B/P (MAP) 150/49 (82) Pulse Ox 95 95 96 O2 Delivery Room Air Room Air Room Air Room Air 08/14/20 08/14/20 08/14/20 08/15/20 20:31 20:56 23:00 03:00 Temp 98.3 97.9 98.3 97.9 Pulse 64 60 64 Resp 18 22 B/P (MAP) 150/49 135/46 (75) 138/38 (71) Pulse Ox 96 94 96 O2 Delivery Room Air Room Air Room Air 08/15/20 08/15/20 08/15/20 08/15/20 04:04 07:00 07:07 09:09 Temp 97.3 97.3 Pulse 68 68 Resp 18 B/P (MAP) 171/65 (100) 171/65 Pulse Ox 94 95 O2 Delivery Room Air Room Air Room Air 08/15/20 08/15/20 08/15/20 08/15/20 09:09 09:10 10:57 11:00 Temp 97.9 97.9 Pulse 68 62 Resp 19 18 B/P (MAP) 171/65 158/56 (90) Pulse Ox 94 95 94 O2 Delivery Room Air Room Air Room Air Intake and Output 08/14/20 08/14/20 08/15/20 15:00 23:00 07:00 Intake Total 50 ml 850 ml 1000 ml Output Total 900 ml 300 ml 500 ml Balance -850 ml 550 ml 500 ml Justicifation of Admission Dx: Justifications for Admission: Justification of Admission Dx: Yes Sepsis: Infection Cellulitis: Cellulitis JEOVANY BASSETT MD Aug 15, 2020 11:47
[2020-08-15] MEDS: VANCOMYCIN PER PHARMACY MC PRN (12:23)
[2020-08-15] MEDS ORDERED: BARIUM SULFATE 40% (APPLE) 148 GM PWD. PO ONE (14:15)
--- NOTE | 2020-08-15 14:20 | NUR ---
SW following. Spoke with RN and reviewed chart. Discharge plan remains to [facility]. SW spoke with wound care nurse and pt will have a wound vac placed today. Spoke with pt who remains agreeable to SNU at discharge. Update to Carmela at [facility] who is planning for discharge on 08/16. Insurance authorization remains pending. SW following.
--- NOTE | 2020-08-15 14:29 | RAD ---
VIDEO SWALLOW STUDY Reason for Examination: Reason: dysphagia/1.0 FLUORO TIME / Spl. Instructions: / History: With the patient in the lateral projection, using video observation and recording, the patient was asked to swallow barium liquid, barium impregnated pudding, and chew and swallow barium impregnated mixed consistency and cracker. No penetration or aspiration. Interpretation (personally supervised): Total fluoroscopy time was 1 minute Impression: 1. No evidence of aspiration or penetration. Please refer to speech pathology notes for further details. Electronically signed by: Pernell Deleon DO (08/15/2020 2:26 PM) [id number]
[2020-08-15 15:00] VITALS: BP 131/46
[2020-08-15 19:00] VITALS: BP 149/50
[2020-08-15] MEDS: IPRATRPIUM/ALBUTEROL 0.5/2.5MG 3 ML NEBU. NEB SCH (20:27)
[2020-08-15] MEDS: ENOXAPARIN 40 MG/0.4 ML SYRINGE. SQ SCH (20:49)
[2020-08-15] MEDS: ATORVASTATIN CALCIUM 20 MG TABLET PO SCH (20:50)
[2020-08-15] MEDS: ZOLPIDEM 5 MG TABLET. PO PRN (20:50)
[2020-08-15] MEDS: INSULIN GLARGINE SYRINGE. SQ SCH (20:56)
[2020-08-15 23:00] VITALS: BP 147/47
[2020-08-16] MEDS: VANCOMYCIN 1.5 GM in IV NORMAL SALINE 500ML BAG 500 ML IV SCH (00:10)
[2020-08-16 03:01] VITALS: BP 160/43
[2020-08-16] MEDS: PIPERACILLIN/TAZOBACTAM 3.375 GM in IV NORMAL SALINE 50ML 50 ML IV SCH ×3 (05:17→20:14)
[2020-08-16 07:00] VITALS: BP 179/62
[2020-08-16] MEDS: ALBUTEROL SULFATE 2.5 MG/3 ML NEBU. INH PRN (07:50)
[2020-08-16] MEDS: INSULIN LISPRO 300 UNITS/3 ML VIAL. SQ SCH ×4 (08:00→20:54)
--- NOTE | 2020-08-16 08:23 | PDOC ---
Infectious Disease Note Subjective: Subjective Patient says feels ok postop pain is under control Soft stool Denies fever, nausea, vomiting, shortness of breath, abdominal pain, rash Otherwise as above Vital Signs: Vital Signs Vital Signs Date Time Temp Pulse Resp B/P (MAP) Pulse Ox O2 Delivery O2 Flow Rate FiO2 08/16/20 07:53 96 Room Air 08/16/20 07:00 98.0 62 18 179/62 (101) 98.0 Physical Exam: PHYSICAL EXAM GENERAL: Alert, awake. The patient is sitting upright in chair, in no acute distress. HEENT: Normocephalic, atraumatic. No thrush. NECK: Supple, no JVD. LUNGS: Clear bilaterally. No wheezing. HEART: S1, S2 normal. ABDOMEN: Soft, nontender, nondistended, obese. Bowel sounds present. 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 awake x3 piv looks clean Medications: Inpatient Meds: Current Medications Medications (Trade) Dose Ordered Sig/John Start Time Stop Time Status Last Admin Dose Admin Acetaminophen (Tylenol) 650 mg PRN Q4HRS PRN 08/07/20 21:45 08/08/20 05:50 650 MG Albuterol Sulfate (Ventolin Neb Soln) 2.5 mg 1X ONCE 08/13/20 14:00 08/13/20 14:01 DC 08/13/20 15:40 2.5 MG Albuterol/ Ipratropium (Duoneb) 3 ml RTQID 08/15/20 20:00 08/15/20 20:27 3 ML Aspirin (Ronald Aspirin) 325 mg DAILYWBKFT 08/08/20 08:00 08/15/20 09:09 325 MG Atorvastatin Calcium (Lipitor) 20 mg HS 08/08/20 21:00 08/15/20 20:50 20 MG Bacitracin 76569 unit/Sodium Chloride 500 ml @ 500 mls/hr 1X ONCE 08/13/20 11:00 08/13/20 11:59 DC 08/13/20 11:24 Barium Sulfate (Varibar Thin Liquid Apple) 148 gm 1X ONCE 08/15/20 14:15 08/15/20 14:16 DC 08/15/20 14:16 148 GM Ceftriaxone Sodium (Rocephin) 1 gm Q24H 08/08/20 09:00 10/4/20 16:19 DC 08/11/20 08:30 1 GM Clopidogrel Bisulfate (Plavix) 75 mg DAILY 08/08/20 09:00 08/15/20 09:09 75 MG Dextrose (Dextrose 50%-Water Syringe) 12.5 gm PRN Q15MIN PRN 08/08/20 08:00 Docusate Sodium (Colace) 100 mg DAILY 08/08/20 09:00 08/15/20 09:11 100 MG Enoxaparin Sodium (Lovenox 40mg Syringe) 40 mg Q24H 08/07/20 21:45 08/15/20 20:49 40 MG Fentanyl Citrate (Fentanyl 2ml Vial) 100 mcg 1X ONCE 08/14/20 09:15 08/14/20 09:16 DC 08/14/20 09:50 100 MCG Fluticasone Propionate (Flonase) 2 spray DAILY 08/08/20 09:00 08/15/20 09:08 2 SPRAY Furosemide (Lasix) 40 mg DAILY 08/14/20 09:00 08/15/20 09:09 40 MG Gabapentin (Neurontin) 300 mg BID 08/08/20 09:00 08/15/20 20:50 300 MG Heparin Sodium (Porcine) (Heparin Sodium) 5,000 unit 1X ONCE 08/14/20 10:30 08/14/20 10:31 DC 08/14/20 10:30 5,000 UNIT Heparin Sodium/ Sodium Chloride 500 ml @ As Directed STK-MED ONCE 08/14/20 10:46 08/14/20 10:46 DC Heparin Sodium/ Sodium Chloride (HEPARIN for ARTERIAL LINE FLUSH) 1,000 unit 1X ONCE 08/14/20 09:15 08/14/20 09:16 DC 08/14/20 09:15 1,000 UNIT Hydralazine HCl (Apresoline Inj) 10 mg PRN Q20MIN PRN 08/14/20 10:15 08/14/20 13:00 DC 08/14/20 10:37 10 MG Hydroxyzine HCl (Atarax) 25 mg TID PRN PRN 08/07/20 21:45 Influenza Virus Vaccine Quadrival (Fluzone Quad Syringe) 0.5 ml ONCE ONCE 08/08/20 09:00 08/08/20 09:01 DC 08/10/20 08:22 0.5 ML Info (CONTRAST GIVEN -- Rx MONITORING) 1 each PRN DAILY PRN 08/14/20 09:15 08/16/20 09:14 Insulin Glargine (Lantus Syringe) 8 unit QHS 08/08/20 21:00 08/15/20 20:56 8 UNIT Insulin Human Lispro (HumaLOG VIAL for OP,RR ONLY) 0-10 units PRN Q1HR PRN 08/13/20 10:45 08/14/20 10:44 DC 08/13/20 12:06 4 UNIT Insulin Human Lispro (HumaLOG) 0-9 UNITS TIDWMEALHC 08/08/20 08:00 08/15/20 20:56 4 UNITS Iodixanol (Visipaque 320) 100 ml STK-MED ONCE 08/14/20 10:45 08/14/20 10:46 DC Lactobacillus Rhamnosus (Culturelle) 1 cap BID 08/08/20 21:00 08/15/20 20:50 1 CAP Lidocaine HCl (Buffered Lidocaine 1%) 3 ml 1X ONCE 08/14/20 09:15 08/14/20 09:16 DC 08/14/20 09:51 3 ML Lidocaine HCl (Lidocaine Pf 2% Vial) 5 ml STK-MED ONCE 08/13/20 11:36 08/13/20 11:36 DC Linezolid (Zyvox) 600 mg BID 08/12/20 11:00 08/15/20 20:50 600 MG Losartan Potassium (Cozaar) 25 mg DAILY 08/08/20 09:00 08/15/20 09:09 25 MG Metoprolol Tartrate (Lopressor Vial) 2.5 mg 1X ONCE 08/14/20 11:30 08/14/20 11:31 DC 08/14/20 11:27 2.5 MG Metoprolol Tartrate (Lopressor) 37.5 mg BID 08/14/20 12:15 08/15/20 20:51 37.5 MG Midazolam HCl (Versed) 2 mg 1X ONCE 08/14/20 09:15 08/14/20 09:16 DC 08/14/20 09:50 2 MG Non-Formulary Medication (Insulin Glargine,Hum.rec.anlog (Lantus Solostar)) 8 unit QHS 08/08/20 21:00 UNV Ondansetron HCl (Zofran Odt) 4 mg 1X ONCE 08/07/20 21:45 08/07/20 21:46 DC 08/07/20 21:50 4 MG Ondansetron HCl (Zofran) 4 mg PRN Q4HRS PRN 08/07/20 21:45 08/12/20 20:38 4 MG Pantoprazole Sodium (Protonix) 40 mg DAILYAC 08/10/20 07:30 08/15/20 09:11 40 MG Piperacillin Sod/ Tazobactam Sod 3.375 gm/Sodium Chloride 50 ml @ 100 mls/hr Q6HRS 08/11/20 17:00 08/16/20 05:17 100 MLS/HR Propofol (Diprivan) 200 mg STK-MED ONCE 08/13/20 11:36 08/13/20 11:36 DC Sevoflurane (Ultane) 30 ml STK-MED ONCE 08/13/20 11:36 08/13/20 11:36 DC Sodium Chloride 1,000 ml @ 1,000 mls/hr 1X ONCE 08/07/20 21:45 08/07/20 22:44 DC 08/07/20 21:52 1,000 MLS/HR Tamsulosin HCl (Flomax) 0.4 mg DAILY 08/08/20 09:00 08/15/20 09:11 0.4 MG Tramadol HCl (Ultram) 50 mg PRN Q6HRS PRN 08/07/20 21:45 UNV Vancomycin HCl (Vanco Per Pharmacy) 1 each PRN DAILY PRN 08/07/20 22:00 08/15/20 12:23 1 EACH Vancomycin HCl (Vancomycin Trough Level) 1 each 1X ONCE 08/14/20 11:30 08/14/20 11:31 DC 08/14/20 11:30 1 EACH Vancomycin HCl 1.5 gm/Sodium Chloride 500 ml @ 250 mls/hr Q12H 08/08/20 12:00 08/16/20 00:10 250 MLS/HR Vancomycin HCl 2 gm/Sodium Chloride 500 ml @ 250 mls/hr 1X ONCE 08/07/20 22:15 08/08/20 00:14 DC 08/07/20 23:54 250 MLS/HR Zolpidem Tartrate (Ambien) 5 mg PRN QHS PRN 08/09/20 22:45 08/15/20 20:50 5 MG Labs: Lab Laboratory Tests Test 08/15/20 11:16 08/15/20 17:02 08/15/20 20:34 08/16/20 07:10 Glucose (Fingerstick) 255 mg/dL (70-99) 254 mg/dL (70-99) 280 mg/dL (70-99) 132 mg/dL (70-99) Objective: Assessment: 1. Wet gangrene of the right first and second toe and forefoot August 13, 2020 Status post right 1st and 2nd toe open ray amputation, extensive debridement and drainage of large abscess in the foot CRP 247 Cultures positive for MRSA 2. Right foot cellulitis improving 2. Fever. improved 3. Lactic acidosis, mild, resolved. 4. Diabetes mellitus. 5. Thrombocytopenia. 6. Abnormal liver function tests. 7. Coronary artery disease. 8. Anemia. 9. Protein-calorie malnutrition. Plan: Plan of Care DC IV Vanco and Zosyn Needs PICC line Start daptomycin 6 mg/kg daily Duration 4 to 6 weeks PICC online activist and complications discussed Side effects of antibiotics discussed Probiotics Wound/VAC care per vascular Offload Prescription in chart Social work to assist with discharge antibiotics Q. Wednesday labs CBC/BUN/creatinine/CPK/ESR/CRP. Fax results to [phone] Follow-up ID clinic on September 03 at 3 PM clinic phone [phone] Discussed with social service Discussed with BLAKE STEPHENS MD Aug 16, 2020 08:23
--- NOTE | 2020-08-16 09:07 | PATHOLOGY ---
[facility] Accession Number: [id number] . 01 Material submitted: . toe - RIGHT GREAT TOE AND RIGHT SECOND TOE. Modifiers: right, first, second . 01 Clinical history: . RIGHT FOOT ABSCESS . 02 Diagnosis: Right great toe and right second toe amputation: - Extensive acute cellulitis and focal acute osteomyelitis of great toe. - Focal acute cellulitis of right second toe. - Separate segment of skin and subcutaneous tissue showing extensive acute cellulitis, focal arterial calcification and marked luminal stenosis, and focal early organizing venous thrombosis. (JPM/db; 08/15/2020) LBQ 08/16/2020 0814 Local . 02 Electronically signed: . Richy Smith MD, Pathologist NPI- [id number] . 01 Gross description: . The specimen is received in formalin, labeled "Nael Ford II, right great toe and right second toe". Received are two amputated digits measuring 7.3 x 4.0 x 2.9 and 6.0 x 3.9 x 2.0 cm in greatest dimensions. The bone margins are jagged in appearance. The bone and soft tissue margin of the great toe is inked black, and the bone and soft tissue margin of the second toe is inked blue. On the great toe, the nail is present display in a light salgado and thickened to flaky appearance. Near the surgical margin, the skin is pale salgado to sumner-salgado and sloughing to slightly necrotic in appearance. On the second toe, the nail is absent. The epidermal surface is pale salgado and slightly flaky in appearance with a possible lesion identified on the toe pad, which is pale salgado and flaky in appearance measuring 1.2 x 1.2 cm. The soft tissue margin of the second toe is dusky sumner-salgado and necrotic in appearance. Also received within the specimen container is an irregular excision of pale salgado skin with attached underlying necrotic-appearing soft tissue measuring 7.4 x 2.4 x 2.0 cm in greatest dimensions. The specimen is submitted business office representative as follows: . A1 longitudinal cross-section of bone margin of great toe, following decalcification A2 business office representative sections of skin near surgical margin of great toe A3 longitudinal cross-section of bone margin of second toe, following decalcification A4 business office representative section of lesion at distal aspect of second toe, to include underlying bone, following decalcification A5 business office representative section of separately submitted skin and soft tissue. (CAA; 08/14/2020) QAC/QAC 08/14/2020 1044 Local . 02 Pathologist provided ICD-10: M86.171, L03.031 . 02 CPT . 057687, [id number] Specimen Comment: A courtesy copy of this report has been sent to [phone], [phone] Specimen Comment: [id number], Specimen Comment: Report sent to ,DR MONSALVE / DR BLOUNT Performed at: 01 [facility] [address], [place] [id number] MD Gray Dubon MD Phone: [phone] Performed at: 02 [facility] [address], [place] [id number] MD Richy Smith MD Phone: [phone]
[2020-08-16] MEDS: LACTOBACILLUS RHAMNOSUS GG 1 CAPSULE. PO SCH ×2 (09:19→20:18)
[2020-08-16] MEDS: CLOPIDOGREL BISULFATE 75 MG TABLET PO SCH (09:19)
[2020-08-16] MEDS: LOSARTAN POTASSIUM 25 MG TABLET. PO SCH (09:20)
[2020-08-16] MEDS: METOPROLOL TART IMMED RELEASE 25 MG TABLET. PO SCH ×2 (09:20→20:18)
[2020-08-16] MEDS: PANTOPRAZOLE 40 MG TABLET.DR. PO SCH (09:20)
[2020-08-16] MEDS: ASPIRIN 325 MG TABLET PO SCH (09:20)
[2020-08-16] MEDS: DOCUSATE SODIUM 100 MG CAPSULE. PO SCH (09:21)
[2020-08-16] MEDS: LINEZOLID 600 MG TABLET PO SCH ×2 (09:21→20:18)
[2020-08-16] MEDS: TAMSULOSIN 0.4 MG CAP.ER.24H. PO SCH (09:21)
[2020-08-16] MEDS: GABAPENTIN 300 MG CAPSULE. PO SCH ×2 (09:21→20:18)
[2020-08-16] MEDS: FUROSEMIDE 40 MG/4 ML VIAL. IVP SCH (09:21)
[2020-08-16] MEDS: FLUTICASONE 50MCG/NASAL SPRAY 16GM BOTTLE. NS SCH (09:22)
--- NOTE | 2020-08-16 10:40 | PDOC ---
Date of Service: DATE: 08/16/20 TIME: 10:37 Subjective: Subjective: Eating and stooling without issue, foot feeling better. Objective: Vital Signs: Vital Signs Date Time Temp Pulse Resp B/P (MAP) Pulse Ox O2 Delivery O2 Flow Rate FiO2 08/16/20 09:20 62 179/62 08/16/20 07:53 96 Room Air 08/16/20 07:00 98.0 18 98.0 Labs: Laboratory Tests Test 08/15/20 11:16 08/15/20 17:02 08/15/20 20:34 08/16/20 07:10 Glucose (Fingerstick) 255 mg/dL (70-99) 254 mg/dL (70-99) 280 mg/dL (70-99) 132 mg/dL (70-99) Imaging: Videoswallow Impression: 1. No evidence of aspiration or penetration. 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 Outpt scopes as able. Justicifation of Admission Dx: Justifications for Admission: Justification of Admission Dx: Yes Sepsis: Infection Cellulitis: Cellulitis UBALDO MCKENZIE Aug 16, 2020 10:40
[2020-08-16 11:00] VITALS: BP 142/52
[2020-08-16 11:53] LABS: BASO % 0 % (0-3); EOS % 1 % (0-3); HEMOGLOBIN 8.8 g/dL (13.0-17.5); LYMPH # 0.8 x10^3/uL (1.0-4.8); LYMPH % 13 % (24-48); MEAN CORPUSCULAR HEMOGLOBIN 32 pg (25-35); MEAN CORPUSCULAR HGB CONC 34 g/dL (31-37); MEAN CORPUSCULAR VOLUME 96 fL (79-100); MONO # 0.3 x10^3/uL (0.0-1.1); MONO % 4 % (0-9); NEUT # 5.4 x10^3/uL (1.8-7.7); NEUT % 82 % (31-73); PLATELET COUNT 236 x10^3/uL (140-400); RED BLOOD COUNT 2.73 x10^6/uL (4.30-5.70); RED CELL DISTRIBUTION WIDTH 14.7 % (11.5-14.5); WHITE BLOOD COUNT 6.5 x10^3/uL (4.0-11.0)
[2020-08-16] MEDS ORDERED: DAPT350V IV (12:02)
--- NOTE | 2020-08-16 12:04 | SNU/HH DC ---
DISCHARGE ORDERS DISCHARGE INFORMATION: DISCHARGE DATE: Aug 16, 2020 FINAL DIAGNOSIS Problems Medical Problems: (1) Cellulitis of right leg Status: Acute (2) Fever Status: Acute (3) Person under investigation for COVID-19 Status: Acute CONDITION ON DISCHARGE: Stable CODE STATUS: Code Status: Full USP: SNF STAY <30 DAYS: Yes HOSPICE: HOSPICE: No HOSPICE EVAL & TREAT: No LTAC: ADMIT TO LTAC: No POST DISCHARGE ORDERS: ACTIVITY ORDERS: Activity as tolerated WEIGHT BEARING STATUS: No restrictions BATHING ORDERS: Shower-keep dressing dry, No Tub Bath until see Dr. YANEZ AFTER DISCHARGE: TAMY WOUND/INCISION CARE: Change dressing CHECKS AFTER DISCHARGE: CHECKS AFTER DISCHARGE: Check blood press - daily, Check blood sugar, ac/hs, Check your Temp as needed FOLLOW-UP: PHYSICIAN FOLLOW-UP: PCP within 2 weeks of discharge ADDITIONAL FOLLOW-UP: Orthopedic surgery for postop wound check LAB ORDERS FOR FOLLOW-UP: CBC, CMP within 1 week TREATMENT/EQUIPMENT ORDERS: ADAPTIVE EQUIPMENT NEEDED: None Physical Therapy For: Evalulation/Treatment Occupational Therapy For: Evaluation/Treatment DISCHARGE MEDICATIONS: Home Meds Active Scripts Daptomycin (Daptomycin) 350 Mg Vial, 500 MG IV DAILY for osteo for 45 Days, #65 EACH Prov:MOE RAM MD 08/16/20 Tramadol Hcl (TRAMADOL HCL) 50 Mg Tablet, 50 MG PO Q6HRS PRN for PAIN, #5 TAB Prov:ARMAAN OVERTON MD 08/06/20 Potassium Chloride (POTASSIUM CHLORIDE ) 20 Meq Tablet.er, 20 MEQ PO DAILY for SUPPLEMENT, #30 TAB.SR Prov:YAN LANDIN MD 01/12/20 Furosemide (LASIX) 40 Mg Tablet, 1 TAB PO DAILY for 30 Days, #30 TAB 0 Refills Prov:YAN LANDIN MD 01/12/20 Carbamide Peroxide (CARBAMIDE PEROXIDE) 15 Ml Drops, 15 ML OT BID for 4 Days, DROP Prov:CHELE ARANDA DO 09/09/17 Fluticasone Propionate (Flonase Allergy Relief) 9.9 Ml [place].susp, 2 SPRAYS NS DAILY, #1 BOTTLE Prov:CHELE ARANDA DO 09/09/17 Albuterol Sulfate (PROAIR HFA INHALER) 8.5 Gm Hfa.aer.ad, 1 PUFF INH Q4HRS PRN for SHORTNESS OF BREATH, #1 INHALER 0 Refills Prov:CHELE ARANDA Nahomy DO 09/09/17 Aspirin (ASPIRIN) 325 Mg Tablet, 325 MG PO DAILY, #30 Prov:MOLLY BAIG MD 05/19/14 Reported Medications Insulin Glargine,Hum.rec.anlog (LANTUS SOLOSTAR) 100 Unit/1 Ml Insuln.pen, 8 UNIT SQ QHS for blood sugar, #15 ML 3 Refills 06/02/19 Lactobacillus Rhamnosus Gg (CULTURELLE) 1 Each Capsule, 1 EACH PO DAILY for for 14 Days, #14 CAP 06/02/19 Tamsulosin Hcl (FLOMAX) 0.4 Mg Cap.er.24h, 0.4 MG PO DAILY for urinary 05/31/19 Gabapentin (Gabapentin) 300 Mg Capsule, 300 MG PO BID for neuropathy 05/31/19 Metoprolol Tartrate (METOPROLOL TARTRATE) 25 Mg Tablet, 25 MG PO BID for blood pressure 05/31/19 Omeprazole (OMEPRAZOLE) 40 Mg Capsule.dr, 40 MG PO DAILY05 for GERD 05/31/19 Losartan Potassium (Losartan Potassium) 25 Mg Tablet, 25 MG PO DAILY for blood pressure 05/31/19 Hydroxyzine Hcl (HYDROXYZINE HCL) 25 Mg Tablet, 25 MG PO TID PRN PRN for ELEVATED BP, SEE COMMENTS 05/31/19 Atorvastatin Calcium (ATORVASTATIN CALCIUM) 20 Mg Tablet, 20 MG PO HS 04/08/18 Clopidogrel Bisulfate (CLOPIDOGREL) 75 Mg Tablet, 75 MG PO DAILY 04/08/18 Docusate Sodium (DOCUSATE SODIUM) 100 Mg Capsule, 1 CAP PO DAILY, #30 CAP 07/05/14 Glimepiride (GLIMEPIRIDE) 4 Mg Tablet, 4 MG PO DAILY, TAB 05/18/14 Metformin Hcl (METFORMIN HCL) 500 Mg Tablet, 500 MG PO BIDWMEALS for ANTI- DIABETIC, TAB 0 Refills do not take for 48 hours 05/18/14 Discontinued Scripts Lisinopril (PRINIVIL) 5 Mg Tablet, 5 MG PO DAILY, #30 BOTTLE Prov:MOE MCINTOSH MD 06/02/14 MOE RAM MD Aug 16, 2020 12:04
[2020-08-16] MEDS: MULTIVITAMIN with MINERAL TABLET. PO SCH (12:12)
[2020-08-16] MEDS: DAPTOmycin (GENERIC) IVPB 500 MG in IV NORMAL SALINE 50ML 50 ML IV SCH (12:13)
[2020-08-16 12:23] LABS: ALBUMIN 1.9 g/dL (3.4-5.0); ALBUMIN/GLOBULIN RATIO 0.3 (1.0-1.7); CREATININE 0.9 mg/dL (0.7-1.3); POTASSIUM 4.3 mmol/L (3.5-5.1); TOTAL BILIRUBIN 1.4 mg/dL (0.2-1.0); TOTAL PROTEIN 7.5 g/dL (6.4-8.2)
--- NOTE | 2020-08-16 12:37 | PDOC ---
CARDIO Progress Notes Date and Time Date of Service 08/16/20 Time of Evaluation 1220 Subjective Subjective: No Chest Pain, No Palpitations, Other (laying flat post aortogram. Wanting to sit up) Vitals Vitals Vital Signs Date Time Temp Pulse Resp B/P (MAP) Pulse Ox O2 Delivery O2 Flow Rate FiO2 08/16/20 11:00 97.5 61 18 142/52 (82) 94 Room Air 97.5 Weight Weight [ ] Input and Output Intake and Output Intake and Output 08/16/20 06:59 Intake Total 1150 ml Output Total 550 ml Balance 600 ml IV Total 1150 ml Output Urine Total 550 ml # Bowel Movements 5 Laboratory Labs Laboratory Tests Test 08/15/20 17:02 08/15/20 20:34 08/16/20 07:10 08/16/20 11:30 Glucose (Fingerstick) 254 mg/dL (70-99) 280 mg/dL (70-99) 132 mg/dL (70-99) White Blood Count 6.5 x10^3/uL (4.0-11.0) Red Blood Count 2.73 x10^6/uL (4.30-5.70) Hemoglobin 8.8 g/dL (13.0-17.5) Hematocrit 26.0 % (39.0-53.0) Mean Corpuscular Volume 96 fL (79-100) Mean Corpuscular Hemoglobin 32 pg (25-35) Mean Corpuscular Hemoglobin Concent 34 g/dL (31-37) Red Cell Distribution Width 14.7 % (11.5-14.5) Platelet Count 236 x10^3/uL (140-400) Neutrophils (%) (Auto) 82 % (31-73) Lymphocytes (%) (Auto) 13 % (24-48) Monocytes (%) (Auto) 4 % (0-9) Eosinophils (%) (Auto) 1 % (0-3) Basophils (%) (Auto) 0 % (0-3) Neutrophils # (Auto) 5.4 x10^3/uL (1.8-7.7) Lymphocytes # (Auto) 0.8 x10^3/uL (1.0-4.8) Monocytes # (Auto) 0.3 x10^3/uL (0.0-1.1) Eosinophils # (Auto) 0.0 x10^3/uL (0.0-0.7) Basophils # (Auto) 0.0 x10^3/uL (0.0-0.2) Sodium Level 135 mmol/L (136-145) Potassium Level 4.3 mmol/L (3.5-5.1) Chloride Level 101 mmol/L (98-107) Carbon Dioxide Level 27 mmol/L (21-32) Anion Gap 7 (6-14) Blood Urea Nitrogen 16 mg/dL (8-26) Creatinine 0.9 mg/dL (0.7-1.3) Estimated GFR (Cockcroft-Gault) 87.0 BUN/Creatinine Ratio 18 (6-20) Glucose Level 261 mg/dL (70-99) Calcium Level 8.0 mg/dL (8.5-10.1) Total Bilirubin 1.4 mg/dL (0.2-1.0) Aspartate Amino Transf (AST/SGOT) 36 U/L (15-37) Alanine Aminotransferase (ALT/SGPT) 43 U/L (16-63) Alkaline Phosphatase 533 U/L (46-116) Creatine Kinase 100 U/L (39-308) C-Reactive Protein, Quantitative 82.0 mg/L (0-3.3) Total Protein 7.5 g/dL (6.4-8.2) Albumin 1.9 g/dL (3.4-5.0) Albumin/Globulin Ratio 0.3 (1.0-1.7) Test 08/16/20 11:41 Glucose (Fingerstick) 246 mg/dL (70-99) Microbiology Micro Microbiology 08/13/20 Gram Stain - Final, Resulted 08/13/20 Aerobic and Anaerobic Culture - Preliminary, Resulted 08/13/20 Antimicrobic Susceptibility - Preliminary, Resulted 08/11/20 Blood Culture - Preliminary, Resulted NO GROWTH AFTER 4 DAYS 08/07/20 Urine Culture - Final, Complete Physical Exam HEENT: Neck Supple W Full Motion Chest: Symmetric LUNGS: Other (diminished ) Heart: S1S2, RRR Extremities: Other (1+ bilateral LE pitting edema, S/P right foot surgery) Neurology: alert, oriented, follow commands Assessment Assessment 1. Acute on chronic diastolic CHF; Echo with preserved LV systolic function. 2. Severe bilateral LE PAD with RLE cellulitis and right foot abscess/gangrene. S/p aortogram with COMPUTER ANALYST SUPERVISOR/stent to RLE this am by vascular. 3. S/P Right first and second toe open ray amputation at mid metatarsal location. Wound vac 4. Asthma exacerbation: likely precipitated by CHF 5. DM2; as per IM 6. HTN; labile 7. HLP; on statin 8. Hx of multiple TIAs with past right CEA 9. ILR in situ: this was placed in 2013 10. Ascites with h/o heavy alcoholism with possible cirrhosis. Recommendations Lasix therapy Increase losartan for better BP control Continue antibiotics per ID, post op care per vascular surgery. Secondary prevention measures Continue DAPT with ASA/Plavix. Plan for outpatient explantation of ILR Reinforced importance of compliance/followup; Scheduled with Dr. Ontiveros September 23 at 2:15pm. Justicifation of Admission Dx: Justifications for Admission: Justification of Admission Dx: Yes Sepsis: Infection Cellulitis: Cellulitis NORM DANIEL APRN Aug 16, 2020 12:37
--- NOTE | 2020-08-16 13:14 | PDOC ---
PROGRESS NOTES Date of Service DATE: 08/16/20 TIME: 13:13 Subjective Subjective Patient seen and examined in his hospital room He is sitting in chair next to the bed, has no complaints. Wound VAC in place right foot with a good seal, no bleeding Palpable posterior tibial pulse Left femoral artery access site soft no mass no hematoma Doing well, continue wound VAC IV antibiotics care plan. At some point in future he will likely need a left leg angiography for left toe wounds as well but these are now urgent Objective Objective Vital Signs Date Time Temp Pulse Resp B/P (MAP) Pulse Ox O2 Delivery O2 Flow Rate FiO2 08/16/20 11:00 97.5 61 18 142/52 (82) 94 Room Air 97.5 08/14/20 12:30 2.0 Intake and Output 08/16/20 07:00 Intake Total 1150 ml Output Total 550 ml Balance 600 ml IV Total 1150 ml Output Urine Total 550 ml # Bowel Movements 5 Assessment Assessment Problems Medical Problems: (1) Cellulitis of right leg Status: Acute (2) Fever Status: Acute (3) Person under investigation for COVID-19 Status: Acute Comment Review of Relevant I have reviewed the following items shreyas (where applicable) has been applied. Labs Laboratory Tests Test 08/14/20 16:51 08/14/20 20:36 08/15/20 05:15 08/15/20 07:37 Glucose (Fingerstick) 263 mg/dL (70-99) 262 mg/dL (70-99) 169 mg/dL (70-99) White Blood Count 6.6 x10^3/uL (4.0-11.0) Red Blood Count 2.70 x10^6/uL (4.30-5.70) Hemoglobin 8.8 g/dL (13.0-17.5) Hematocrit 26.0 % (39.0-53.0) Mean Corpuscular Volume 96 fL (79-100) Mean Corpuscular Hemoglobin 32 pg (25-35) Mean Corpuscular Hemoglobin Concent 34 g/dL (31-37) Red Cell Distribution Width 15.0 % (11.5-14.5) Platelet Count 240 x10^3/uL (140-400) Neutrophils (%) (Auto) 78 % (31-73) Lymphocytes (%) (Auto) 16 % (24-48) Monocytes (%) (Auto) 6 % (0-9) Eosinophils (%) (Auto) 1 % (0-3) Basophils (%) (Auto) 0 % (0-3) Neutrophils # (Auto) 5.2 x10^3/uL (1.8-7.7) Lymphocytes # (Auto) 1.0 x10^3/uL (1.0-4.8) Monocytes # (Auto) 0.4 x10^3/uL (0.0-1.1) Eosinophils # (Auto) 0.0 x10^3/uL (0.0-0.7) Basophils # (Auto) 0.0 x10^3/uL (0.0-0.2) Sodium Level 139 mmol/L (136-145) Potassium Level 4.1 mmol/L (3.5-5.1) Chloride Level 104 mmol/L (98-107) Carbon Dioxide Level 24 mmol/L (21-32) Anion Gap 11 (6-14) Blood Urea Nitrogen 16 mg/dL (8-26) Creatinine 0.8 mg/dL (0.7-1.3) Estimated GFR (Cockcroft-Gault) 99.6 BUN/Creatinine Ratio 20 (6-20) Glucose Level 149 mg/dL (70-99) Calcium Level 7.5 mg/dL (8.5-10.1) Total Bilirubin 1.3 mg/dL (0.2-1.0) Aspartate Amino Transf (AST/SGOT) 29 U/L (15-37) Alanine Aminotransferase (ALT/SGPT) 44 U/L (16-63) Alkaline Phosphatase 522 U/L (46-116) Total Protein 6.6 g/dL (6.4-8.2) Albumin 2.0 g/dL (3.4-5.0) Albumin/Globulin Ratio 0.4 (1.0-1.7) Test 08/15/20 11:16 08/15/20 17:02 08/15/20 20:34 08/16/20 07:10 Glucose (Fingerstick) 255 mg/dL (70-99) 254 mg/dL (70-99) 280 mg/dL (70-99) 132 mg/dL (70-99) Test 08/16/20 11:30 08/16/20 11:41 White Blood Count 6.5 x10^3/uL (4.0-11.0) Red Blood Count 2.73 x10^6/uL (4.30-5.70) Hemoglobin 8.8 g/dL (13.0-17.5) Hematocrit 26.0 % (39.0-53.0) Mean Corpuscular Volume 96 fL (79-100) Mean Corpuscular Hemoglobin 32 pg (25-35) Mean Corpuscular Hemoglobin Concent 34 g/dL (31-37) Red Cell Distribution Width 14.7 % (11.5-14.5) Platelet Count 236 x10^3/uL (140-400) Neutrophils (%) (Auto) 82 % (31-73) Lymphocytes (%) (Auto) 13 % (24-48) Monocytes (%) (Auto) 4 % (0-9) Eosinophils (%) (Auto) 1 % (0-3) Basophils (%) (Auto) 0 % (0-3) Neutrophils # (Auto) 5.4 x10^3/uL (1.8-7.7) Lymphocytes # (Auto) 0.8 x10^3/uL (1.0-4.8) Monocytes # (Auto) 0.3 x10^3/uL (0.0-1.1) Eosinophils # (Auto) 0.0 x10^3/uL (0.0-0.7) Basophils # (Auto) 0.0 x10^3/uL (0.0-0.2) Sodium Level 135 mmol/L (136-145) Potassium Level 4.3 mmol/L (3.5-5.1) Chloride Level 101 mmol/L (98-107) Carbon Dioxide Level 27 mmol/L (21-32) Anion Gap 7 (6-14) Blood Urea Nitrogen 16 mg/dL (8-26) Creatinine 0.9 mg/dL (0.7-1.3) Estimated GFR (Cockcroft-Gault) 87.0 BUN/Creatinine Ratio 18 (6-20) Glucose Level 261 mg/dL (70-99) Calcium Level 8.0 mg/dL (8.5-10.1) Total Bilirubin 1.4 mg/dL (0.2-1.0) Aspartate Amino Transf (AST/SGOT) 36 U/L (15-37) Alanine Aminotransferase (ALT/SGPT) 43 U/L (16-63) Alkaline Phosphatase 533 U/L (46-116) Creatine Kinase 100 U/L (39-308) C-Reactive Protein, Quantitative 82.0 mg/L (0-3.3) Total Protein 7.5 g/dL (6.4-8.2) Albumin 1.9 g/dL (3.4-5.0) Albumin/Globulin Ratio 0.3 (1.0-1.7) Glucose (Fingerstick) 246 mg/dL (70-99) Laboratory Tests Test 08/15/20 17:02 08/15/20 20:34 08/16/20 07:10 08/16/20 11:30 Glucose (Fingerstick) 254 mg/dL (70-99) 280 mg/dL (70-99) 132 mg/dL (70-99) White Blood Count 6.5 x10^3/uL (4.0-11.0) Red Blood Count 2.73 x10^6/uL (4.30-5.70) Hemoglobin 8.8 g/dL (13.0-17.5) Hematocrit 26.0 % (39.0-53.0) Mean Corpuscular Volume 96 fL (79-100) Mean Corpuscular Hemoglobin 32 pg (25-35) Mean Corpuscular Hemoglobin Concent 34 g/dL (31-37) Red Cell Distribution Width 14.7 % (11.5-14.5) Platelet Count 236 x10^3/uL (140-400) Neutrophils (%) (Auto) 82 % (31-73) Lymphocytes (%) (Auto) 13 % (24-48) Monocytes (%) (Auto) 4 % (0-9) Eosinophils (%) (Auto) 1 % (0-3) Basophils (%) (Auto) 0 % (0-3) Neutrophils # (Auto) 5.4 x10^3/uL (1.8-7.7) Lymphocytes # (Auto) 0.8 x10^3/uL (1.0-4.8) Monocytes # (Auto) 0.3 x10^3/uL (0.0-1.1) Eosinophils # (Auto) 0.0 x10^3/uL (0.0-0.7) Basophils # (Auto) 0.0 x10^3/uL (0.0-0.2) Sodium Level 135 mmol/L (136-145) Potassium Level 4.3 mmol/L (3.5-5.1) Chloride Level 101 mmol/L (98-107) Carbon Dioxide Level 27 mmol/L (21-32) Anion Gap 7 (6-14) Blood Urea Nitrogen 16 mg/dL (8-26) Creatinine 0.9 mg/dL (0.7-1.3) Estimated GFR (Cockcroft-Gault) 87.0 BUN/Creatinine Ratio 18 (6-20) Glucose Level 261 mg/dL (70-99) Calcium Level 8.0 mg/dL (8.5-10.1) Total Bilirubin 1.4 mg/dL (0.2-1.0) Aspartate Amino Transf (AST/SGOT) 36 U/L (15-37) Alanine Aminotransferase (ALT/SGPT) 43 U/L (16-63) Alkaline Phosphatase 533 U/L (46-116) Creatine Kinase 100 U/L (39-308) C-Reactive Protein, Quantitative 82.0 mg/L (0-3.3) Total Protein 7.5 g/dL (6.4-8.2) Albumin 1.9 g/dL (3.4-5.0) Albumin/Globulin Ratio 0.3 (1.0-1.7) Test 08/16/20 11:41 Glucose (Fingerstick) 246 mg/dL (70-99) Microbiology 08/13/20 Gram Stain - Final, Resulted 08/13/20 Aerobic and Anaerobic Culture - Preliminary, Resulted 08/13/20 Antimicrobic Susceptibility - Preliminary, Resulted 08/11/20 Blood Culture - Preliminary, Resulted NO GROWTH AFTER 4 DAYS 08/07/20 Urine Culture - Final, Complete Medications Current Medications Acetaminophen (Tylenol) 1,000 mg 1X ONCE PO Last administered on 08/07/20at 21:50; Start 08/07/20 at 21:45; Stop 08/07/20 at 21:46; Status DC Ondansetron HCl (Zofran Odt) 4 mg 1X ONCE PO Last administered on 08/07/20at 21:50; Start 08/07/20 at 21:45; Stop 08/07/20 at 21:46; Status DC Sodium Chloride 1,000 ml @ 1,000 mls/hr 1X ONCE IV Last administered on 08/07/20 21:52; Start 08/07/20 at 21:45; Stop 08/07/20 at 22:44; Status DC Fentanyl Citrate (Fentanyl 2ml Vial) 50 mcg 1X ONCE IV Last administered on 08/07/20at 21:51; Start 08/07/20 at 21:45; Stop 08/07/20 at 21:46; Status DC Ondansetron HCl (Zofran) 4 mg PRN Q4HRS PRN IV NAUSEA/VOMITING Last adminis tered on 08/12/20at 20:38; Start 08/07/20 at 21:45 Acetaminophen (Tylenol) 650 mg PRN Q4HRS PRN PO TEMP OVER 100.4F OR MILD PAIN Last administered on 08/08/20 05:50; Start 08/07/20 at 21:45; Stop 08/16/20 at 10:25; Status DC Enoxaparin Sodium (Lovenox 40mg Syringe) 40 mg Q24H SQ Last administered on 08/15/20 20:49; Start 08/07/20 at 21:45 Albuterol Sulfate (Ventolin Neb Soln) 2.5 mg PRN Q4HRS PRN INH SHORTNESS OF BREATH Last administered on 08/16/20 07:50; Start 08/07/20 at 21:45 Aspirin (Ronald Aspirin) 325 mg DAILYWBKFT PO Last administered on 08/16/20at 09:20; Start 08/08/20 at 08:00 Atorvastatin Calcium (Lipitor) 20 mg HS PO Last administered on 08/15/20 20:50; Start 08/08/20 at 21:00 Clopidogrel Bisulfate (Plavix) 75 mg DAILY PO Last administered on 08/16/20 09:19; Start 08/08/20 at 09:00 Docusate Sodium (Colace) 100 mg DAILY PO Last administered on 08/16/20 09:21; Start 08/08/20 at 09:00 Gabapentin (Neurontin) 300 mg BID PO Last administered on 08/16/20 09:21; Start 08/08/20 at 09:00 Hydroxyzine HCl (Atarax) 25 mg TID PRN PRN PO ELEVATED BP, SEE COMMENTS; Start 08/07/20 at 21:45 Losartan Potassium (Cozaar) 25 mg DAILY PO Last administered on 08/16/20 09:20; Start 08/08/20 at 09:00 Metoprolol Tartrate (Lopressor) 25 mg BID PO Last administered on 08/13/20at 21:49; Start 08/08/20 at 09:00; Stop 08/14/20 at 12:08; Status DC Tamsulosin HCl (Flomax) 0.4 mg DAILY PO Last administered on 08/16/20at 09:21; Start 08/08/20 at 09:00 Tramadol HCl (Ultram) 50 mg PRN Q6HRS PRN PO MODERATE - SEVERE PAIN Last administered on 08/15/20at 20:50; Start 08/07/20 at 21:45 Fluticasone Propionate (Flonase) 2 spray DAILY NS Last administered on 08/16/20at 09:22; Start 08/08/20 at 09:00 Non-Formulary Medication (Insulin Glargine,Hum.rec.anlog (Lantus Solostar)) 8 u nit QHS SQ ; Start 08/08/20 at 21:00; Status UNV Tramadol HCl (Ultram) 50 mg PRN Q6HRS PRN PO PAIN; Start 08/07/20 at 21:45; Status UNV Fentanyl Citrate (Fentanyl 2ml Vial) 50 mcg PRN Q3HRS PRN IVP SEVERE PAIN 7-10; Start 08/07/20 at 21:45 Vancomycin HCl (Vanco Per Pharmacy) 1 each PRN DAILY PRN MC SEE COMMENTS Last administered on 08/15/20at 12:23; Start 08/07/20 at 22:00; Stop 08/16/20 at 10:26; Status DC Vancomycin HCl 2 gm/Sodium Chloride 500 ml @ 250 mls/hr 1X ONCE IV Last administered on 08/07/20at 23:54; Start 08/07/20 at 22:15; Stop 08/08/20 at 00:14; Status DC Insulin Glargine (Lantus Syringe) 8 unit QHS SQ Last administered on 08/15/20at 20:56; Start 08/08/20 at 21:00 Vancomycin HCl 1.5 gm/Sodium Chloride 500 ml @ 250 mls/hr Q12H IV Last administered on 08/16/20at 00:10; Start 08/08/20 at 12:00; Stop 08/16/20 at 10:25; Status DC Vancomycin HCl (Vancomycin Trough Level) 1 each 1X ONCE MC Last administered on 08/09/20at 11:30; Start 08/09/20 at 11:30; Stop 08/09/20 at 11:31; Status DC Influenza Virus Vaccine Quadrival (Fluzone Quad Syringe) 0.5 ml ONCE ONCE VAX IM Last administered on 08/10/20at 08:22; Start 08/08/20 at 09:00; Stop 08/08/20 at 09:01; Status DC Insulin Human Lispro (HumaLOG) 0-9 UNITS TIDWMEALHC SQ Last administered on 08/16/20at 12:23; Start 08/08/20 at 08:00 Dextrose (Dextrose 50%-Water Syringe) 12.5 gm PRN Q15MIN PRN IV SEE COMMENTS; Start 08/08/20 at 08:00 Ceftriaxone Sodium (Rocephin) 1 gm Q24H IVP Last administered on 08/11/20at 08:30; Start 08/08/20 at 09:00; Stop 08/11/20 at 16:19; Status DC Lactobacillus Rhamnosus (Culturelle) 1 cap BID PO Last administered on 08/16/20at 09:19; Start 08/08/20 at 21:00 Pantoprazole Sodium (Protonix) 40 mg DAILYAC PO Last administered on 08/16/20at 09:20; Start 08/10/20 at 07:30 Zolpidem Tartrate (Ambien) 5 mg PRN QHS PRN PO INSOMNIA Last administered on 08/15/20at 20:50; Start 08/09/20 at 22:45 Piperacillin Sod/ Tazobactam Sod 3.375 gm/Sodium Chloride 50 ml @ 100 mls/hr Q6HRS IV Last administered on 08/16/20 05:17; Start 08/11/20 at 17:00 Linezolid (Zyvox) 600 mg BID PO Last administered on 08/16/20at 09:21; Start 08/12/20 at 11:00 Furosemide (Lasix) 40 mg DAILY PO ; Start 08/13/20 at 09:00; Stop 08/13/20 at 13:54; Status DC Furosemide (Lasix) 40 mg 1X ONCE IVP Last administered on 08/12/20at 17:00; Start 08/12/20 at 17:00; Stop 08/12/20 at 17:01; Status DC Bacitracin 38084 unit/Sodium Chloride 500 ml @ 500 mls/hr 1X ONCE IRR Last administered on 08/13/20at 11:24; Start 08/13/20 at 11:00; Stop 08/13/20 at 11:59; Status DC Insulin Human Lispro (HumaLOG VIAL for OP,RR ONLY) 0-10 units PRN Q1HR PRN SQ PER PROTOCOL Last administered on 08/13/20at 12:06; Start 08/13/20 at 10:45; Stop 08/14/20 at 10:44; Status DC Sevoflurane (Ultane) 30 ml STK-MED ONCE IH ; Start 08/13/20 at 11:36; Stop 08/13/20 at 11:36; Status DC Propofol (Diprivan) 200 mg STK-MED ONCE IV ; Start 08/13/20 at 11:36; Stop 08/13/20 at 11:36; Status DC Lidocaine HCl (Lidocaine Pf 2% Vial) 5 ml STK-MED ONCE .ROUTE ; Start 08/13/20 at 11:36; Stop 08/13/20 at 11:36; Status DC Fentanyl Citrate (Fentanyl 2ml Vial) 100 mcg STK-MED ONCE .ROUTE ; Start 08/13/20 at 11:36; Stop 08/13/20 at 11:37; Status DC Furosemide (Lasix) 40 mg 1X ONCE IVP Last administered on 08/13/20at 15:51; Start 08/13/20 at 13:15; Stop 08/13/20 at 13:16; Status DC Vancomycin HCl (Vancomycin Trough Level) 1 each 1X ONCE MC Last administered on 08/14/20at 11:30; Start 08/14/20 at 11:30; Stop 08/14/20 at 11:31; Status DC Albuterol Sulfate (Ventolin Neb Soln) 2.5 mg 1X ONCE NEB Last administered on 08/13/20at 15:40; Start 08/13/20 at 14:00; Stop 08/13/20 at 14:01; Status DC Furosemide (Lasix) 40 mg DAILY IVP Last administered on 08/16/20at 09:21; Start 08/14/20 at 09:00 Lidocaine HCl (Buffered Lidocaine 1%) 3 ml STK-MED ONCE .ROUTE ; Start 08/14/20 at 08:00; Stop 08/14/20 at 08:02; Status DC Iodixanol (Visipaque 320) 100 ml STK-MED ONCE .ROUTE ; Start 08/14/20 at 08:00; Stop 08/14/20 at 08:02; Status DC Heparin Sodium/ Sodium Chloride 1,500 ml @ As Directed STK-MED ONCE .ROUTE ; Start 08/14/20 at 08:00; Stop 08/14/20 at 08:02; Status DC Midazolam HCl (Versed) 2 mg STK-MED ONCE .ROUTE ; Start 08/14/20 at 08:58; Stop 08/14/20 at 08:58; Status DC Fentanyl Citrate (Fentanyl 2ml Vial) 100 mcg STK-MED ONCE .ROUTE ; Start 08/14/20 at 08:58; Stop 08/14/20 at 08:58; Status DC Heparin Sodium (Porcine) (Heparin Sodium) 10,000 unit STK-MED ONCE .ROUTE ; Start 08/14/20 at 08:58; Stop 08/14/20 at 08:58; Status DC Heparin Sodium/ Sodium Chloride (HEPARIN for ARTERIAL LINE FLUSH) 1,000 unit 1X ONCE IART Last administered on 08/14/20at 09:15; Start 08/14/20 at 09:15; Stop 08/14/20 at 09:16; Status DC Heparin Sodium/ Sodium Chloride (HEPARIN for ARTERIAL LINE FLUSH) 1,000 unit 1X ONCE IART Last administered on 08/14/20at 09:15; Start 08/14/20 at 09:15; Stop 08/14/20 at 09:16; Status DC Lidocaine HCl (Buffered Lidocaine 1%) 3 ml 1X ONCE IJ Last administered on 08/14/20at 09:51; Start 08/14/20 at 09:15; Stop 08/14/20 at 09:16; Status DC Midazolam HCl (Versed) 2 mg 1X ONCE IV Last administered on 08/14/20at 09:50; Start 08/14/20 at 09:15; Stop 08/14/20 at 09:16; Status DC Fentanyl Citrate (Fentanyl 2ml Vial) 100 mcg 1X ONCE IV Last administered on 08/14/20at 09:50; Start 08/14/20 at 09:15; Stop 08/14/20 at 09:16; Status DC Iodixanol (Visipaque 320) 100 ml 1X ONCE IART Last administered on 08/14/20at 11:31; Start 08/14/20 at 09:15; Stop 08/14/20 at 09:16; Status DC Info (CONTRAST GIVEN -- Rx MONITORING) 1 each PRN DAILY PRN MC SEE COMMENTS; Start 08/14/20 at 09:15; Stop 08/16/20 at 09:32; Status DC Hydralazine HCl (Apresoline Inj) 20 mg STK-MED ONCE .ROUTE ; Start 08/14/20 at 09:58; Stop 08/14/20 at 09:58; Status DC Hydralazine HCl (Apresoline Inj) 10 mg PRN Q20MIN PRN IVP HYPERTENSION SEE COMMENT Last administered on 08/14/20at 10:37; Start 08/14/20 at 10:15; Stop 08/14/20 at 13:00; Status DC Heparin Sodium (Porcine) (Heparin Sodium) 5,000 unit 1X ONCE IV Last administered on 08/14/20at 10:30; Start 08/14/20 at 10:30; Stop 08/14/20 at 10:31; Status DC Iodixanol (Visipaque 320) 100 ml STK-MED ONCE .ROUTE ; Start 08/14/20 at 10:45; Stop 08/14/20 at 10:46; Status DC Heparin Sodium/ Sodium Chloride 500 ml @ As Directed STK-MED ONCE .ROUTE ; Start 08/14/20 at 10:46; Stop 08/14/20 at 10:46; Status DC Metoprolol Tartrate (Lopressor Vial) 5 mg STK-MED ONCE IVP ; Start 08/14/20 at 11:01; Stop 08/14/20 at 11:01; Status DC Metoprolol Tartrate (Lopressor Vial) 2.5 mg 1X ONCE IVP Last administered on 08/14/20at 11:12; Start 08/14/20 at 11:15; Stop 08/14/20 at 11:16; Status DC Metoprolol Tartrate (Lopressor Vial) 2.5 mg 1X ONCE IVP Last administered on 08/14/20at 11:27; Start 08/14/20 at 11:30; Stop 08/14/20 at 11:31; Status DC Metoprolol Tartrate (Lopressor) 37.5 mg BID PO Last administered on 08/16/20at 09:20; Start 08/14/20 at 12:15 Barium Sulfate (Varibar Thin Liquid Apple) 148 gm 1X ONCE PO Last administered on 08/15/20at 14:16; Start 08/15/20 at 14:15; Stop 08/15/20 at 14:16; Status DC Albuterol/ Ipratropium (Duoneb) 3 ml RTQID NEB Last administered on 08/15/20at 20:27; Start 08/15/20 at 20:00 Daptomycin 500 mg/ Sodium Chloride 50 ml @ 100 mls/hr Q24H IV Last administered on 08/16/20at 12:13; Start 08/16/20 at 12:00 Multivitamins (Thera M Plus) 1 tab DAILY PO Last administered on 08/16/20at 12:12; Start 08/16/20 at 12:00 Active Scripts Active Daptomycin 350 Mg Vial 500 Mg IV DAILY 45 Days Tramadol Hcl 50 Mg Tablet 50 Mg PO Q6HRS PRN Potassium Chloride (Potassium Chloride) 20 Meq Tablet.er 20 Meq PO DAILY Lasix (Furosemide) 40 Mg Tablet 1 Tab PO DAILY 30 Days Carbamide Peroxide 15 Ml Drops 15 Ml OT BID 4 Days Flonase Allergy Relief (Fluticasone Propionate) 9.9 Ml [place].susp 2 Sprays NS DAILY Proair Hfa Inhaler (Albuterol Sulfate) 8.5 Gm Hfa.aer.ad 1 Puff INH Q4HRS PRN Aspirin 325 Mg Tablet 325 Mg PO DAILY Reported Lantus Solostar (Insulin Glargine,Hum.rec.anlog) 100 Unit/1 Ml Insuln.pen 8 Unit SQ QHS Culturelle (Lactobacillus Rhamnosus Gg) 1 Each Capsule 1 Each PO DAILY 14 Days Flomax (Tamsulosin Hcl) 0.4 Mg Cap.er.24h 0.4 Mg PO DAILY Gabapentin 300 Mg Capsule 300 Mg PO BID Metoprolol Tartrate 25 Mg Tablet 25 Mg PO BID Omeprazole 40 Mg Capsule.dr 40 Mg PO DAILY05 Losartan Potassium 25 Mg Tablet 25 Mg PO DAILY Hydroxyzine Hcl 25 Mg Tablet 25 Mg PO TID PRN PRN Atorvastatin Calcium 20 Mg Tablet 20 Mg PO HS Clopidogrel (Clopidogrel Bisulfate) 75 Mg Tablet 75 Mg PO DAILY Docusate Sodium 100 Mg Capsule 1 Cap PO DAILY Glimepiride 4 Mg Tablet 4 Mg PO DAILY Metformin Hcl 500 Mg Tablet 500 Mg PO BIDWMEALS do not take for 48 hours Vitals/I & O Vital Sign - Last 24 Hours 08/15/20 08/15/20 08/15/20 08/15/20 15:00 19:00 19:00 20:29 Temp 98.4 98.9 98.4 98.9 Pulse 62 66 Resp 18 20 B/P (MAP) 131/46 (74) 149/50 (83) Pulse Ox 96 96 98 O2 Delivery Room Air Room Air Room Air Room Air 08/15/20 08/15/20 08/15/20 08/15/20 20:50 20:51 21:50 23:00 Temp 98.6 98.6 Pulse 66 61 Resp 16 16 20 B/P (MAP) 149/50 147/47 (80) Pulse Ox 95 O2 Delivery Room Air Room Air Room Air 08/16/20 08/16/20 08/16/20 08/16/20 03:01 07:00 07:53 08:00 Temp 98.1 98.0 98.1 98.0 Pulse 61 62 Resp 20 18 B/P (MAP) 160/43 (82) 179/62 (101) Pulse Ox 95 95 96 O2 Delivery Room Air Room Air Room Air Room Air 08/16/20 08/16/20 08/16/20 09:20 09:20 11:00 Temp 97.5 97.5 Pulse 62 62 61 Resp 18 B/P (MAP) 179/62 179/62 142/52 (82) Pulse Ox 94 O2 Delivery Room Air Intake and Output 08/15/20 08/15/20 08/16/20 15:00 23:00 07:00 Intake Total 550 ml 600 ml Output Total 550 ml Balance 550 ml 50 ml Justifications for Admission Other Justification LASHON,JORDI Canchola MD Aug 16, 2020 13:14
[2020-08-16] MEDS: IPRATRPIUM/ALBUTEROL 0.5/2.5MG 3 ML NEBU. NEB SCH ×3 (13:53→21:09)
[2020-08-16 15:00] VITALS: BP 142/57
--- NOTE | 2020-08-16 15:09 | NUR ---
SW following. Spoke with RN and reviewed chart. Discharge plan remains to [facility] SNU with a wound vac. Spoke with pt who remains agreeable to SNU at discharge and asked about [place] paperwork. ELINA told pt to have HR at his work email or fax the paperwork (SW still has not received). Update to Carmela at [facility] who stated insurance authorization remains pending despite multiple calls to pt's insurance company. Packet of clinicals updated and on the chart and ready to be sent with pt. ELINA added pt to the weekend discharge list.
--- NOTE | 2020-08-16 15:58 | PDOC ---
[employer] PROGRESS NOTE Date of Service DOS: DATE: 08/16/20 TIME: 15:55 Chief Complaint Chief Complaint impression Right foot cellulitis crp [id number] Right foot with large abscess, wet infected gangrene of the right 1st/2nd toes and forefoot PVD 05/26Angioplasty of the left dorsalis pedis and anterior tibial arteriesPrimary placement of a covered self expanding stent secondary to chronic total occlusion, distal right SFA Angioplasty of proximal SFA 08-15 Long segment chronic total occlusion superficial femoral artery successfully treated with angioplasty followed by stent placement Three-vessel runoff to the ankle. Right foot diabetic ulcer Sepsis - fever and tachycardia Diabetes Shortness of breath Thombocytopenia Transaminitis Gallbladder wall is thickened but the gallbladder appears decompressed. Trace ascites. Correlate clinically for cholecystitis. No cholelithiasis. Nodular contour of the liver of concern for cirrhosis or other fibrotic process. Morbid obesity Hypertensive urgency Hyperlipidemia. Carotid arterial disease. Peripheral arterial disease. Peripheral neuropathy. HX Right carotid endarterectomy. HX Left second and third toe amputations. HX Explorative laparotomy with cauterization of his liver Remote tobacco abuse Ingrown toenails SEVERE PROTEIN-CALORIC MALNUTRITION plan Appreciate GI recommendations plan for outpt EGD and colonoscopy. 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 Will eventually need revascularization per vascular surgery History of Present Illness History of Present Illness 08/16/2020 No acute events overnight. Patient seen and examined bedside while eating breakfast. Patient had no complaints voiced at this time. Patient's chart, labs, images were reviewed and discussed with RN 08/15/2020 Patient seen and examined Long segment chronic total occlusion superficial femoral artery successfully treated with angioplasty followed by stent placement Three-vessel runoff to the ankle. Discussed with RN Discussed with telephonic nurse case manager consult ID reviewed 08/10/2020 Patient seen and examined DW SHANICE VIVEROS case manger Mr Ford is a 59yo M w/ PMHx CAD, hypertension, diabetes, CVA. DM2 who comes to ED with complaints of increased pain, redness, and warmth in his right foot after being discharged from this emergency room yesterday. He denies any bleeding or drainage from his right foot. Patient states he was evaluated for right foot pain but since being discharged he has developed a fever and his symptoms have gotten worse. Patient also complains of having nausea. He states that he has a ulcer on the bottom of his left great toe. He denies any drainage or foul odor from ulcer. Patient states that he has been out of his quick acting insulin for the last 2 days and has only been able to take his morning acting insulin. He denies any polyuria, polydipsia, or polyphagia. The patient denies any cough, chest pain, abdominal pain, vomiting, or diarrhea. He denies any dizziness but reports headache at this time. He currently rates his pain a 10 out of 10 on the pain scale, he denies radiation of the pain, he denies any alleviating factors, pain is worse with palpation. Right lower extremity venous ultrasound negative for DVT does confirm lymphadenopathy in groin. Labs with WBC 9.2 with left shift, Hb 10.8, platelets 114, NA 135, K4.9, BUN 23, CR 1.1, glucose 125, lactic acid 2.1, CRP 247.3, albumin 2.9, alkaline phosphatase 459, AST 47, ALT 78, bilirubin 3.4. 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 Admitted for care of his right foot Low grade temp 100.4F overnight. Swelling and pain and redness improved in right foot. Vitals/I&O Vitals/I&O: Vital Signs Date Time Temp Pulse Resp B/P (MAP) Pulse Ox O2 Delivery O2 Flow Rate FiO2 08/16/20 13:55 Room Air 08/16/20 11:00 97.5 61 18 142/52 (82) 94 97.5 I & O 08/15/20 08/15/20 08/16/20 14:59 22:59 06:59 Intake Total 550 ml 600 ml Output Total 550 ml Balance 550 ml 50 ml Physical Exam Physical Exam: GENERAL: Alert, awake. The patient is sitting upright in chair, in no acute distress. HEENT: Normocephalic, atraumatic. No thrush. NECK: Supple, no JVD. LUNGS: Clear bilaterally. No wheezing. HEART: S1, S2 normal. ABDOMEN: Soft, nontender, nondistended, obese. Bowel sounds present. 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 looks clean General: Alert, Oriented X3, Cooperative, mild distress Heart: Regular rate (sinus tachycardia), Other (distant heart sounds) Lungs: Clear, Other (Short of breath) Abdomen: Soft, No tenderness Extremities: No cyanosis, Other (2+ bilateral LE pitting edema) Skin: Other (S/P right foot surgery with noted gangrene, diminished pedal pulses; left plantar ulcers) Labs Labs: Laboratory Tests Test 08/15/20 17:02 08/15/20 20:34 08/16/20 07:10 08/16/20 11:30 Glucose (Fingerstick) 254 mg/dL (70-99) 280 mg/dL (70-99) 132 mg/dL (70-99) White Blood Count 6.5 x10^3/uL (4.0-11.0) Red Blood Count 2.73 x10^6/uL (4.30-5.70) Hemoglobin 8.8 g/dL (13.0-17.5) Hematocrit 26.0 % (39.0-53.0) Mean Corpuscular Volume 96 fL (79-100) Mean Corpuscular Hemoglobin 32 pg (25-35) Mean Corpuscular Hemoglobin Concent 34 g/dL (31-37) Red Cell Distribution Width 14.7 % (11.5-14.5) Platelet Count 236 x10^3/uL (140-400) Neutrophils (%) (Auto) 82 % (31-73) Lymphocytes (%) (Auto) 13 % (24-48) Monocytes (%) (Auto) 4 % (0-9) Eosinophils (%) (Auto) 1 % (0-3) Basophils (%) (Auto) 0 % (0-3) Neutrophils # (Auto) 5.4 x10^3/uL (1.8-7.7) Lymphocytes # (Auto) 0.8 x10^3/uL (1.0-4.8) Monocytes # (Auto) 0.3 x10^3/uL (0.0-1.1) Eosinophils # (Auto) 0.0 x10^3/uL (0.0-0.7) Basophils # (Auto) 0.0 x10^3/uL (0.0-0.2) Sodium Level 135 mmol/L (136-145) Potassium Level 4.3 mmol/L (3.5-5.1) Chloride Level 101 mmol/L (98-107) Carbon Dioxide Level 27 mmol/L (21-32) Anion Gap 7 (6-14) Blood Urea Nitrogen 16 mg/dL (8-26) Creatinine 0.9 mg/dL (0.7-1.3) Estimated GFR (Cockcroft-Gault) 87.0 BUN/Creatinine Ratio 18 (6-20) Glucose Level 261 mg/dL (70-99) Calcium Level 8.0 mg/dL (8.5-10.1) Total Bilirubin 1.4 mg/dL (0.2-1.0) Aspartate Amino Transf (AST/SGOT) 36 U/L (15-37) Alanine Aminotransferase (ALT/SGPT) 43 U/L (16-63) Alkaline Phosphatase 533 U/L (46-116) Creatine Kinase 100 U/L (39-308) C-Reactive Protein, Quantitative 82.0 mg/L (0-3.3) Total Protein 7.5 g/dL (6.4-8.2) Albumin 1.9 g/dL (3.4-5.0) Albumin/Globulin Ratio 0.3 (1.0-1.7) Test 08/16/20 11:41 Glucose (Fingerstick) 246 mg/dL (70-99) Assessment and Plan Assessmemt and Plan Problems Medical Problems: (1) Cellulitis of right leg Status: Acute (2) Fever Status: Acute (3) Person under investigation for COVID-19 Status: Acute Comment Review of Relevant I have reviewed the following items shreyas (where applicable) has been applied. Medications: Current Medications Medications (Trade) Dose Ordered Sig/John Route PRN Reason Start Time Stop Time Status Last Admin Dose Admin Albuterol/ Ipratropium (Duoneb) 3 ml RTQID NEB 08/15/20 20:00 08/16/20 13:53 Daptomycin 500 mg/ Sodium Chloride 50 ml @ 100 mls/hr Q24H IV 08/16/20 12:00 08/16/20 12:13 Multivitamins (Thera M Plus) 1 tab DAILY PO 08/16/20 12:00 08/16/20 12:12 Justifications for Admission Other Justification MOE RAM MD Aug 16, 2020 15:57
[2020-08-16 19:00] VITALS: BP 133/32
[2020-08-16] MEDS: traMADol 50 MG TABLET PO PRN (20:17)
[2020-08-16] MEDS: ATORVASTATIN CALCIUM 20 MG TABLET PO SCH (20:18)
[2020-08-16] MEDS: ENOXAPARIN 40 MG/0.4 ML SYRINGE. SQ SCH (20:21)
[2020-08-16] MEDS: INSULIN GLARGINE SYRINGE. SQ SCH (20:55)
[2020-08-16] MEDS: ZOLPIDEM 5 MG TABLET. PO PRN (22:44)
[2020-08-16 23:00] VITALS: BP 135/42
[2020-08-17] MEDS: PIPERACILLIN/TAZOBACTAM 3.375 GM in IV NORMAL SALINE 50ML 50 ML IV SCH ×4 (01:07→17:05)
[2020-08-17 03:00] VITALS: BP 143/41
[2020-08-17 07:00] VITALS: BP 122/47
[2020-08-17] MEDS: IPRATRPIUM/ALBUTEROL 0.5/2.5MG 3 ML NEBU. NEB SCH ×4 (07:05→19:29)
[2020-08-17] MEDS: FLUTICASONE 50MCG/NASAL SPRAY 16GM BOTTLE. NS SCH (08:25)
[2020-08-17] MEDS: GABAPENTIN 300 MG CAPSULE. PO SCH ×2 (08:25→19:54)
[2020-08-17] MEDS: ASPIRIN 325 MG TABLET PO SCH (08:25)
[2020-08-17] MEDS: LACTOBACILLUS RHAMNOSUS GG 1 CAPSULE. PO SCH ×2 (08:26→19:54)
[2020-08-17] MEDS: CLOPIDOGREL BISULFATE 75 MG TABLET PO SCH (08:26)
[2020-08-17] MEDS: MULTIVITAMIN with MINERAL TABLET. PO SCH (08:26)
[2020-08-17] MEDS: METOPROLOL TART IMMED RELEASE 25 MG TABLET. PO SCH ×2 (08:26→19:56)
[2020-08-17] MEDS: LOSARTAN POTASSIUM 50 MG TABLET. PO SCH (08:26)
[2020-08-17] MEDS: PANTOPRAZOLE 40 MG TABLET.DR. PO SCH (08:27)
[2020-08-17] MEDS: TAMSULOSIN 0.4 MG CAP.ER.24H. PO SCH (08:27)
[2020-08-17] MEDS: LINEZOLID 600 MG TABLET PO SCH ×2 (08:27→19:54)
[2020-08-17] MEDS: FUROSEMIDE 40 MG/4 ML VIAL. IVP SCH (08:29)
[2020-08-17] MEDS: DOCUSATE SODIUM 100 MG CAPSULE. PO SCH (08:30)
[2020-08-17] MEDS: INSULIN LISPRO 300 UNITS/3 ML VIAL. SQ SCH ×4 (08:43→20:48)
[2020-08-17] MEDS: INSULIN GLARGINE SYRINGE. SQ SCH ×2 (08:44→21:17)
--- NOTE | 2020-08-17 08:53 | PDOC ---
Infectious Disease Note Subjective: Subjective Patient says feels ok postop pain is under control Soft stool Denies fever, nausea, vomiting, shortness of breath, abdominal pain, rash Otherwise as above Vital Signs: Vital Signs Vital Signs Date Time Temp Pulse Resp B/P (MAP) Pulse Ox O2 Delivery O2 Flow Rate FiO2 08/17/20 08:26 64 122/47 08/17/20 07:05 Room Air 08/17/20 07:00 97.8 22 93 97.8 Physical Exam: PHYSICAL EXAM GENERAL: Alert, awake. The patient is sitting upright in chair, in no acute distress. HEENT: Normocephalic, atraumatic. No thrush. NECK: Supple, no JVD. LUNGS: Clear bilaterally. No wheezing. HEART: S1, S2 normal. ABDOMEN: Soft, nontender, nondistended, obese. Bowel sounds present. 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 looks clean Medications: Inpatient Meds: Current Medications Medications (Trade) Dose Ordered Sig/John Start Time Stop Time Status Last Admin Dose Admin Acetaminophen (Tylenol) 650 mg PRN Q4HRS PRN 08/07/20 21:45 08/16/20 10:25 DC 08/08/20 05:50 650 MG Albuterol Sulfate (Ventolin Neb Soln) 2.5 mg 1X ONCE 08/13/20 14:00 08/13/20 14:01 DC 08/13/20 15:40 2.5 MG Albuterol/ Ipratropium (Duoneb) 3 ml RTQID 08/15/20 20:00 08/17/20 07:05 3 ML Aspirin (Ronald Aspirin) 325 mg DAILYWBKFT 08/08/20 08:00 08/17/20 08:25 325 MG Atorvastatin Calcium (Lipitor) 20 mg HS 08/08/20 21:00 08/16/20 20:18 20 MG Bacitracin 86073 unit/Sodium Chloride 500 ml @ 500 mls/hr 1X ONCE 08/13/20 11:00 08/13/20 11:59 DC 08/13/20 11:24 Barium Sulfate (Varibar Thin Liquid Apple) 148 gm 1X ONCE 08/15/20 14:15 08/15/20 14:16 DC 08/15/20 14:16 148 GM Ceftriaxone Sodium (Rocephin) 1 gm Q24H 08/08/20 09:00 08/11/20 16:19 DC 08/11/20 08:30 1 GM Clopidogrel Bisulfate (Plavix) 75 mg DAILY 08/08/20 09:00 08/17/20 08:26 75 MG Daptomycin 500 mg/ Sodium Chloride 50 ml @ 100 mls/hr Q24H 08/16/20 12:00 08/16/20 12:13 100 MLS/HR Dextrose (Dextrose 50%-Water Syringe) 12.5 gm PRN Q15MIN PRN 08/08/20 08:00 Docusate Sodium (Colace) 100 mg DAILY 08/08/20 09:00 08/16/20 09:21 100 MG Enoxaparin Sodium (Lovenox 40mg Syringe) 40 mg Q24H 08/07/20 21:45 08/16/20 20:21 40 MG Fentanyl Citrate (Fentanyl 2ml Vial) 100 mcg 1X ONCE 08/14/20 09:15 08/14/20 09:16 DC 08/14/20 09:50 100 MCG Fluticasone Propionate (Flonase) 2 spray DAILY 08/08/20 09:00 08/17/20 08:25 2 SPRAY Furosemide (Lasix) 40 mg DAILY 08/14/20 09:00 08/17/20 08:29 40 MG Gabapentin (Neurontin) 300 mg BID 08/08/20 09:00 08/17/20 08:25 300 MG Heparin Sodium (Porcine) (Heparin Sodium) 5,000 unit 1X ONCE 08/14/20 10:30 08/14/20 10:31 DC 08/14/20 10:30 5,000 UNIT Heparin Sodium/ Sodium Chloride 500 ml @ As Directed STK-MED ONCE 08/14/20 10:46 08/14/20 10:46 DC Heparin Sodium/ Sodium Chloride (HEPARIN for ARTERIAL LINE FLUSH) 1,000 unit 1X ONCE 08/14/20 09:15 08/14/20 09:16 DC 08/14/20 09:15 1,000 UNIT Hydralazine HCl (Apresoline Inj) 10 mg PRN Q20MIN PRN 08/14/20 10:15 08/14/20 13:00 DC 08/14/20 10:37 10 MG Hydroxyzine HCl (Atarax) 25 mg TID PRN PRN 08/07/20 21:45 Influenza Virus Vaccine Quadrival (Fluzone Quad Syringe) 0.5 ml ONCE ONCE 08/08/20 09:00 08/08/20 09:01 DC 08/10/20 08:22 0.5 ML Info (CONTRAST GIVEN -- Rx MONITORING) 1 each PRN DAILY PRN 08/14/20 09:15 08/16/20 09:32 DC Insulin Glargine (Lantus Syringe) 10 unit BID 08/17/20 09:00 08/17/20 08:44 10 UNIT Insulin Human Lispro (HumaLOG VIAL for OP,RR ONLY) 0-10 units PRN Q1HR PRN 08/13/20 10:45 08/14/20 10:44 DC 08/13/20 12:06 4 UNIT Insulin Human Lispro (HumaLOG) 0-9 UNITS TIDWMEALHC 08/08/20 08:00 08/17/20 08:43 4 UNITS Iodixanol (Visipaque 320) 100 ml STK-MED ONCE 08/14/20 10:45 08/14/20 10:46 DC Lactobacillus Rhamnosus (Culturelle) 1 cap BID 08/08/20 21:00 08/17/20 08:26 1 CAP Lidocaine HCl (Buffered Lidocaine 1%) 3 ml 1X ONCE 08/14/20 09:15 08/14/20 09:16 DC 08/14/20 09:51 3 ML Lidocaine HCl (Lidocaine Pf 2% Vial) 5 ml STK-MED ONCE 08/13/20 11:36 08/13/20 11:36 DC Linezolid (Zyvox) 600 mg BID 08/12/20 11:00 08/17/20 08:27 600 MG Losartan Potassium (Cozaar) 50 mg DAILY 08/17/20 09:00 08/17/20 08:26 50 MG Metoprolol Tartrate (Lopressor Vial) 2.5 mg 1X ONCE 08/14/20 11:30 08/14/20 11:31 DC 08/14/20 11:27 2.5 MG Metoprolol Tartrate (Lopressor) 37.5 mg BID 08/14/20 12:15 08/17/20 08:26 37.5 MG Midazolam HCl (Versed) 2 mg 1X ONCE 08/14/20 09:15 08/14/20 09:16 DC 08/14/20 09:50 2 MG Multivitamins (Thera M Plus) 1 tab DAILY 08/16/20 12:00 08/17/20 08:26 1 TAB Non-Formulary Medication (Insulin Glargine,Hum.rec.anlog (Lantus Solostar)) 8 unit QHS 08/08/20 21:00 UNV Ondansetron HCl (Zofran Odt) 4 mg 1X ONCE 08/07/20 21:45 08/07/20 21:46 DC 08/07/20 21:50 4 MG Ondansetron HCl (Zofran) 4 mg PRN Q4HRS PRN 08/07/20 21:45 08/12/20 20:38 4 MG Pantoprazole Sodium (Protonix) 40 mg DAILYAC 08/10/20 07:30 08/17/20 08:27 40 MG Piperacillin Sod/ Tazobactam Sod 3.375 gm/Sodium Chloride 50 ml @ 100 mls/hr Q6HRS 08/11/20 17:00 08/17/20 06:36 100 MLS/HR Propofol (Diprivan) 200 mg STK-MED ONCE 08/13/20 11:36 08/13/20 11:36 DC Sevoflurane (Ultane) 30 ml STK-MED ONCE 08/13/20 11:36 08/13/20 11:36 DC Sodium Chloride 1,000 ml @ 1,000 mls/hr 1X ONCE 08/07/20 21:45 08/07/20 22:44 DC 08/07/20 21:52 1,000 MLS/HR Tamsulosin HCl (Flomax) 0.4 mg DAILY 08/08/20 09:00 08/17/20 08:27 0.4 MG Tramadol HCl (Ultram) 50 mg PRN Q6HRS PRN 08/07/20 21:45 UNV Vancomycin HCl (Vanco Per Pharmacy) 1 each PRN DAILY PRN 08/07/20 22:00 08/16/20 10:26 DC 08/15/20 12:23 1 EACH Vancomycin HCl (Vancomycin Trough Level) 1 each 1X ONCE 08/14/20 11:30 08/14/20 11:31 DC 08/14/20 11:30 1 EACH Vancomycin HCl 1.5 gm/Sodium Chloride 500 ml @ 250 mls/hr Q12H 08/08/20 12:00 08/16/20 10:25 DC 08/16/20 00:10 250 MLS/HR Vancomycin HCl 2 gm/Sodium Chloride 500 ml @ 250 mls/hr 1X ONCE 08/07/20 22:15 08/08/20 00:14 DC 08/07/20 23:54 250 MLS/HR Zolpidem Tartrate (Ambien) 5 mg PRN QHS PRN 08/09/20 22:45 08/16/20 22:44 5 MG Labs: Lab Laboratory Tests Test 08/16/20 11:30 08/16/20 11:41 08/16/20 17:04 08/16/20 19:48 White Blood Count 6.5 x10^3/uL (4.0-11.0) Red Blood Count 2.73 x10^6/uL (4.30-5.70) Hemoglobin 8.8 g/dL (13.0-17.5) Hematocrit 26.0 % (39.0-53.0) Mean Corpuscular Volume 96 fL (79-100) Mean Corpuscular Hemoglobin 32 pg (25-35) Mean Corpuscular Hemoglobin Concent 34 g/dL (31-37) Red Cell Distribution Width 14.7 % (11.5-14.5) Platelet Count 236 x10^3/uL (140-400) Neutrophils (%) (Auto) 82 % (31-73) Lymphocytes (%) (Auto) 13 % (24-48) Monocytes (%) (Auto) 4 % (0-9) Eosinophils (%) (Auto) 1 % (0-3) Basophils (%) (Auto) 0 % (0-3) Neutrophils # (Auto) 5.4 x10^3/uL (1.8-7.7) Lymphocytes # (Auto) 0.8 x10^3/uL (1.0-4.8) Monocytes # (Auto) 0.3 x10^3/uL (0.0-1.1) Eosinophils # (Auto) 0.0 x10^3/uL (0.0-0.7) Basophils # (Auto) 0.0 x10^3/uL (0.0-0.2) Sodium Level 135 mmol/L (136-145) Potassium Level 4.3 mmol/L (3.5-5.1) Chloride Level 101 mmol/L (98-107) Carbon Dioxide Level 27 mmol/L (21-32) Anion Gap 7 (6-14) Blood Urea Nitrogen 16 mg/dL (8-26) Creatinine 0.9 mg/dL (0.7-1.3) Estimated GFR (Cockcroft-Gault) 87.0 BUN/Creatinine Ratio 18 (6-20) Glucose Level 261 mg/dL (70-99) Calcium Level 8.0 mg/dL (8.5-10.1) Total Bilirubin 1.4 mg/dL (0.2-1.0) Aspartate Amino Transf (AST/SGOT) 36 U/L (15-37) Alanine Aminotransferase (ALT/SGPT) 43 U/L (16-63) Alkaline Phosphatase 533 U/L (46-116) Creatine Kinase 100 U/L (39-308) C-Reactive Protein, Quantitative 82.0 mg/L (0-3.3) Total Protein 7.5 g/dL (6.4-8.2) Albumin 1.9 g/dL (3.4-5.0) Albumin/Globulin Ratio 0.3 (1.0-1.7) Glucose (Fingerstick) 246 mg/dL (70-99) 304 mg/dL (70-99) 306 mg/dL (70-99) Test 08/17/20 08:12 Glucose (Fingerstick) 188 mg/dL (70-99) Micro RUN DATE: 08/15/20 [facility] *LIVE* PAGE 1 RUN TIME: 1121 Specimen Inquiry PATIENT: SUSAN DEMARCO ACCT: [id number] LOC: [address] [place] [address] U: [id number] AGE/SX: 59/M ROOM: [facility] RE08/07/[address]: BRANDON MONSALVE MD : 1960 BED: 1 DIS: STATUS: ADM IN TLOC: SPEC #: [id number] MAHOGANY: 08/13/20 STATUS: RES REQ #: [id number] RECD: 08/13/[address]: BRANDON MONSALVE MD SOURCE: ABSCESS ENTR: 08/13/201220 [facility] DR: JAS PARRA MD SPDESC: JUNIOR FREIRE DPM, ARUNDHATI S MD DESAI,STAR CHRISTOPHER,ROSELINE ARENAS,SARAH Nelson MD UNKNOWN PCP NAME RESHMA LINN MD ORDERED: SHAWN/TIMOTHY/DAMIEN COMMENTS: RIGHT FOOT ABSCESS Procedure Result GRAM STAIN Final Final GRAM POSITIVE COCCI:FEW SQUAMOUS EPI CELL:NONE SEEN PMN (WBCs):MANY Unless otherwise specified, Testing Performed by: [address] [address] For Inquires, the Physician may contact the Microbiology department at [phone] ANAEROBIC-AEROBIC CULTURE Preliminary Preliminary MODERATE GRAM POSITIVE COCCI on 08/14/20 at 1401 FINAL ID= [STAPHYLOCOCCUS AUREUS (MRSA)] STAPHYLOCOCCUS AUREUS (MRSA) ANTIMICROBIAL SUSCEPTIBILITY Preliminary Comment POS NATALIE TYPE 38 STAPHYLOCOCCUS AUREUS (MRSA) ANTIBIOTIC RESULT INTERPRETATION AZITHROMYCIN >4 R CLINDAMYCIN >4 R CEFOXITIN SCREEN >4 POS CIPROFLOXACIN >2 R CEFTAROLINE 1 S DAPTOMYCIN <=0.5 S ERYTHROMYCIN >4 R GENTAMICIN <=4 S LINEZOLID 2 S LEVOFLOXACIN 2 S CONTINUED ON NEXT PAGE RUN DATE: 08/15/20 [facility] *LIVE* PAGE 2 RUN TIME: 1121 Specimen Inquiry SPEC: [id number] PATIENT: SUSAN DEMARCO [id number] (Continued) Procedure Result --------- --- ANTIMICROBIAL SUSCEPTIBILITY Preliminary (continued) OXACILLIN >2 R PENICILLIN >2 R* RIFAMPIN <=1 S TRIMETHOPRIM/SULFAMETHOXAZOLE <=0.5/9.5 S TETRACYCLINE <=4 S VANCOMYCIN 1 S Unless otherwise specified, Testing Performed by: [address] [address] For Inquires, the Physician may contact the Microbiology department at [phone] Objective: Assessment: 1. Wet gangrene of the right first and second toe and forefoot Patient had been on antibiotics recently for left foot infection which was treated at [facility] which has improved August 13, 2020 Status post right 1st and 2nd toe open ray amputation, extensive debridement and drainage of large abscess in the foot CRP 247 Cultures positive for MRSA CRP 82 2. Right foot cellulitis improving 2. Fever. improved 3. Lactic acidosis, mild, resolved. 4. Diabetes mellitus. 5. Thrombocytopenia. 6. Abnormal liver function tests. 7. Coronary artery disease. 8. Anemia. 9. Protein-calorie malnutrition. 10. Recently treated for left foot infection at [facility] with antibiotic Plan: Plan of Care Continue Dapto and Zosyn Offload Wound care as directed Offload Optimal diabetes control Discussed with BLAKE STEPHENS MD Aug 17, 2020 08:52
[2020-08-17 10:34] VITALS: BP 149/58
[2020-08-17] MEDS: DAPTOmycin (GENERIC) IVPB 500 MG in IV NORMAL SALINE 50ML 50 ML IV SCH (12:52)
[2020-08-17 15:00] VITALS: BP 149/42
[2020-08-17 19:00] VITALS: BP 151/53
[2020-08-17] MEDS: ATORVASTATIN CALCIUM 20 MG TABLET PO SCH (19:54)
[2020-08-17] MEDS: ENOXAPARIN 40 MG/0.4 ML SYRINGE. SQ SCH (19:56)
[2020-08-17] MEDS: traMADol 50 MG TABLET PO PRN (20:41)
[2020-08-17] MEDS: ZOLPIDEM 5 MG TABLET. PO PRN (21:56)
[2020-08-17 23:01] VITALS: BP 151/52
[2020-08-18] MEDS: PIPERACILLIN/TAZOBACTAM 3.375 GM in IV NORMAL SALINE 50ML 50 ML IV SCH ×4 (00:07→17:50)
[2020-08-18 03:01] VITALS: BP 168/69
[2020-08-18] MEDS: IPRATRPIUM/ALBUTEROL 0.5/2.5MG 3 ML NEBU. NEB SCH ×4 (06:38→19:43)
[2020-08-18 07:00] VITALS: BP 163/52
[2020-08-18] MEDS: MULTIVITAMIN with MINERAL TABLET. PO SCH (08:41)
[2020-08-18] MEDS: CLOPIDOGREL BISULFATE 75 MG TABLET PO SCH (08:41)
[2020-08-18] MEDS: LACTOBACILLUS RHAMNOSUS GG 1 CAPSULE. PO SCH ×2 (08:41→21:21)
[2020-08-18] MEDS: TAMSULOSIN 0.4 MG CAP.ER.24H. PO SCH (08:41)
[2020-08-18] MEDS: LINEZOLID 600 MG TABLET PO SCH ×2 (08:41→21:21)
[2020-08-18] MEDS: GABAPENTIN 300 MG CAPSULE. PO SCH ×2 (08:41→21:21)
[2020-08-18] MEDS: PANTOPRAZOLE 40 MG TABLET.DR. PO SCH (08:41)
[2020-08-18] MEDS: FLUTICASONE 50MCG/NASAL SPRAY 16GM BOTTLE. NS SCH (08:41)
[2020-08-18] MEDS: ASPIRIN 325 MG TABLET PO SCH (08:41)
[2020-08-18] MEDS: METOPROLOL TART IMMED RELEASE 25 MG TABLET. PO SCH ×2 (08:42→21:22)
[2020-08-18] MEDS: LOSARTAN POTASSIUM 50 MG TABLET. PO SCH (08:42)
[2020-08-18] MEDS: DOCUSATE SODIUM 100 MG CAPSULE. PO SCH (08:42)
[2020-08-18] MEDS: FUROSEMIDE 40 MG/4 ML VIAL. IVP SCH (08:43)
[2020-08-18] MEDS: INSULIN LISPRO 300 UNITS/3 ML VIAL. SQ SCH ×4 (08:52→21:30)
[2020-08-18] MEDS: INSULIN GLARGINE SYRINGE. SQ SCH ×2 (09:22→21:31)
--- NOTE | 2020-08-18 10:24 | PDOC ---
Infectious Disease Note Subjective: Subjective Patient without complaints Denies fever, nausea, vomiting, shortness of breath, diarrhea, abdominal pain, rash Otherwise as above Vital Signs: Vital Signs Vital Signs Date Time Temp Pulse Resp B/P (MAP) Pulse Ox O2 Delivery O2 Flow Rate FiO2 08/18/20 08:42 68 163/52 08/18/20 07:00 97.5 16 96 Room Air 97.5 08/17/20 21:44 2.0 Physical Exam: PHYSICAL EXAM GENERAL: Alert, awake. The patient is sitting upright in chair, in no acute distress. HEENT: Normocephalic, atraumatic. No thrush. NECK: Supple, no JVD. LUNGS: Clear bilaterally. No wheezing. HEART: S1, S2 normal. ABDOMEN: Soft, nontender, nondistended, obese. Bowel sounds present. 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 x3 piv looks clean Medications: Inpatient Meds: Current Medications Medications (Trade) Dose Ordered Sig/John Start Time Stop Time Status Last Admin Dose Admin Acetaminophen (Tylenol) 650 mg PRN Q4HRS PRN 08/07/20 21:45 08/16/20 10:25 DC 08/08/20 05:50 650 MG Albuterol Sulfate (Ventolin Neb Soln) 2.5 mg 1X ONCE 08/13/20 14:00 08/13/20 14:01 DC 08/13/20 15:40 2.5 MG Albuterol/ Ipratropium (Duoneb) 3 ml RTQID 08/15/20 20:00 08/18/20 06:38 3 ML Aspirin (Ronald Aspirin) 325 mg DAILYWBKFT 08/08/20 08:00 08/18/20 08:41 325 MG Atorvastatin Calcium (Lipitor) 20 mg HS 08/08/20 21:00 08/17/20 19:54 20 MG Bacitracin 42440 unit/Sodium Chloride 500 ml @ 500 mls/hr 1X ONCE 08/13/20 11:00 08/13/20 11:59 DC 08/13/20 11:24 Barium Sulfate (Varibar Thin Liquid Apple) 148 gm 1X ONCE 08/15/20 14:15 08/15/20 14:16 DC 08/15/20 14:16 148 GM Ceftriaxone Sodium (Rocephin) 1 gm Q24H 08/08/20 09:00 08/11/20 16:19 DC 08/11/20 08:30 1 GM Clopidogrel Bisulfate (Plavix) 75 mg DAILY 08/08/20 09:00 08/18/20 08:41 75 MG Daptomycin 500 mg/ Sodium Chloride 50 ml @ 100 mls/hr Q24H 08/16/20 12:00 08/17/20 12:52 100 MLS/HR Dextrose (Dextrose 50%-Water Syringe) 12.5 gm PRN Q15MIN PRN 08/08/20 08:00 Docusate Sodium (Colace) 100 mg DAILY 08/08/20 09:00 08/16/20 09:21 100 MG Enoxaparin Sodium (Lovenox 40mg Syringe) 40 mg Q24H 08/07/20 21:45 08/17/20 19:56 40 MG Fentanyl Citrate (Fentanyl 2ml Vial) 100 mcg 1X ONCE 08/14/20 09:15 08/14/20 09:16 DC 08/14/20 09:50 100 MCG Fluticasone Propionate (Flonase) 2 spray DAILY 08/08/20 09:00 08/18/20 08:41 2 SPRAY Furosemide (Lasix) 40 mg DAILY 08/14/20 09:00 08/18/20 08:43 40 MG Gabapentin (Neurontin) 300 mg BID 08/08/20 09:00 08/18/20 08:41 300 MG Heparin Sodium (Porcine) (Heparin Sodium) 5,000 unit 1X ONCE 08/14/20 10:30 08/14/20 10:31 DC 08/14/20 10:30 5,000 UNIT Heparin Sodium/ Sodium Chloride 500 ml @ As Directed STK-MED ONCE 08/14/20 10:46 08/14/20 10:46 DC Heparin Sodium/ Sodium Chloride (HEPARIN for ARTERIAL LINE FLUSH) 1,000 unit 1X ONCE 08/14/20 09:15 08/14/20 09:16 DC 08/14/20 09:15 1,000 UNIT Hydralazine HCl (Apresoline Inj) 10 mg PRN Q20MIN PRN 08/14/20 10:15 08/14/20 13:00 DC 08/14/20 10:37 10 MG Hydroxyzine HCl (Atarax) 25 mg TID PRN PRN 08/07/20 21:45 Influenza Virus Vaccine Quadrival (Fluzone Quad Syringe) 0.5 ml ONCE ONCE 08/08/20 09:00 08/08/20 09:01 DC 08/10/20 08:22 0.5 ML Info (CONTRAST GIVEN -- Rx MONITORING) 1 each PRN DAILY PRN 08/14/20 09:15 08/16/20 09:32 DC Insulin Glargine (Lantus Syringe) 15 unit BID 08/18/20 09:00 08/18/20 09:22 15 UNIT Insulin Human Lispro (HumaLOG VIAL for OP,RR ONLY) 0-10 units PRN Q1HR PRN 08/13/20 10:45 08/14/20 10:44 DC 08/13/20 12:06 4 UNIT Insulin Human Lispro (HumaLOG) 0-9 UNITS TIDWMEALHC 08/08/20 08:00 08/18/20 08:52 4 UNITS Iodixanol (Visipaque 320) 100 ml STK-MED ONCE 08/14/20 10:45 08/14/20 10:46 DC Lactobacillus Rhamnosus (Culturelle) 1 cap BID 08/08/20 21:00 08/18/20 08:41 1 CAP Lidocaine HCl (Buffered Lidocaine 1%) 3 ml 1X ONCE 08/14/20 09:15 08/14/20 09:16 DC 08/14/20 09:51 3 ML Lidocaine HCl (Lidocaine Pf 2% Vial) 5 ml STK-MED ONCE 08/13/20 11:36 08/13/20 11:36 DC Linezolid (Zyvox) 600 mg BID 08/12/20 11:00 08/18/20 08:41 600 MG Losartan Potassium (Cozaar) 50 mg DAILY 08/17/20 09:00 08/18/20 08:42 50 MG Metoprolol Tartrate (Lopressor Vial) 2.5 mg 1X ONCE 08/14/20 11:30 08/14/20 11:31 DC 08/14/20 11:27 2.5 MG Metoprolol Tartrate (Lopressor) 37.5 mg BID 08/14/20 12:15 08/18/20 08:42 37.5 MG Midazolam HCl (Versed) 2 mg 1X ONCE 10/7/20 09:15 08/14/20 09:16 DC 08/14/20 09:50 2 MG Multivitamins (Thera M Plus) 1 tab DAILY 08/16/20 12:00 08/18/20 08:41 1 TAB Non-Formulary Medication (Insulin Glargine,Hum.rec.anlog (Lantus Solostar)) 8 unit QHS 08/08/20 21:00 UNV Ondansetron HCl (Zofran Odt) 4 mg 1X ONCE 08/07/20 21:45 08/07/20 21:46 DC 08/07/20 21:50 4 MG Ondansetron HCl (Zofran) 4 mg PRN Q4HRS PRN 08/07/20 21:45 08/12/20 20:38 4 MG Pantoprazole Sodium (Protonix) 40 mg DAILYAC 08/10/20 07:30 08/18/20 08:41 40 MG Piperacillin Sod/ Tazobactam Sod 3.375 gm/Sodium Chloride 50 ml @ 100 mls/hr Q6HRS 08/11/20 17:00 08/18/20 06:03 100 MLS/HR Propofol (Diprivan) 200 mg STK-MED ONCE 08/13/20 11:36 08/13/20 11:36 DC Sevoflurane (Ultane) 30 ml STK-MED ONCE 08/13/20 11:36 08/13/20 11:36 DC Sodium Chloride 1,000 ml @ 1,000 mls/hr 1X ONCE 08/07/20 21:45 08/07/20 22:44 DC 08/07/20 21:52 1,000 MLS/HR Tamsulosin HCl (Flomax) 0.4 mg DAILY 08/08/20 09:00 08/18/20 08:41 0.4 MG Tramadol HCl (Ultram) 50 mg PRN Q6HRS PRN 08/07/20 21:45 UNV Vancomycin HCl (Vanco Per Pharmacy) 1 each PRN DAILY PRN 08/07/20 22:00 08/16/20 10:26 DC 08/15/20 12:23 1 EACH Vancomycin HCl (Vancomycin Trough Level) 1 each 1X ONCE 08/14/20 11:30 08/14/20 11:31 DC 08/14/20 11:30 1 EACH Vancomycin HCl 1.5 gm/Sodium Chloride 500 ml @ 250 mls/hr Q12H 08/08/20 12:00 08/16/20 10:25 DC 08/16/20 00:10 250 MLS/HR Vancomycin HCl 2 gm/Sodium Chloride 500 ml @ 250 mls/hr 1X ONCE 08/07/20 22:15 08/08/20 00:14 DC 08/07/20 23:54 250 MLS/HR Zolpidem Tartrate (Ambien) 5 mg PRN QHS PRN 08/09/20 22:45 08/17/20 21:56 5 MG Labs: Lab Laboratory Tests Test 08/17/20 11:04 08/17/20 16:34 08/17/20 20:44 08/18/20 07:08 Glucose (Fingerstick) 295 mg/dL (70-99) 274 mg/dL (70-99) 280 mg/dL (70-99) 183 mg/dL (70-99) Micro RUN DATE: 08/15/20 [facility] *LIVE* PAGE 1 RUN TIME: 1121 Specimen Inquiry PATIENT: SUSAN DEMARCO ACCT: [id number] LOC: [address] [place] [address] U: [id number] AGE/SX: 59/M ROOM: [facility] RE08/07/[address]: BRANDON MONSALVE MD : 1960 BED: 1 DIS: STATUS: ADM IN TLOC: SPEC #: [id number] MAHOGANY: 08/13/20 STATUS: RES REQ #: [id number] RECD: 08/13/[address]: BRANDON MONSALVE MD SOURCE: ABSCESS ENTR: 08/13/[address]: JAS PARRA MD [facility]: JUNIOR FREIRE DPM,BLAKE CARVER,STAR CHRISTOPHER,ROSELINE ARENAS,SARAH Nelson MD UNKNOWN PCP NAME RESHMA LINN MD ORDERED: ANAER/AEROB/DAMIEN COMMENTS: RIGHT FOOT ABSCESS Procedure Result GRAM STAIN Final Final GRAM POSITIVE COCCI:FEW SQUAMOUS EPI CELL:NONE SEEN PMN (WBCs):MANY Unless otherwise specified, Testing Performed by: [address] [address] For Inquires, the Physician may contact the Microbiology department at [phone] ANAEROBIC-AEROBIC CULTURE Preliminary Preliminary MODERATE GRAM POSITIVE COCCI on 08/14/20 at 1401 FINAL ID= [STAPHYLOCOCCUS AUREUS (MRSA)] STAPHYLOCOCCUS AUREUS (MRSA) ANTIMICROBIAL SUSCEPTIBILITY Preliminary Comment POS NATALIE TYPE 38 STAPHYLOCOCCUS AUREUS (MRSA) ANTIBIOTIC RESULT INTERPRETATION AZITHROMYCIN >4 R CLINDAMYCIN >4 R CEFOXITIN SCREEN >4 POS CIPROFLOXACIN >2 R CEFTAROLINE 1 S DAPTOMYCIN <=0.5 S ERYTHROMYCIN >4 R GENTAMICIN <=4 S LINEZOLID 2 S LEVOFLOXACIN 2 S CONTINUED ON NEXT PAGE RUN DATE: 08/15/20 [facility] *LIVE* PAGE 2 RUN TIME: 112 Specimen Inquiry SPEC: [id number] PATIENT: SUSAN DEMARCO [id number] (Continued) Procedure Result ANTIMICROBIAL SUSCEPTIBILITY Preliminary (continued) OXACILLIN >2 R PENICILLIN >2 R* RIFAMPIN <=1 S TRIMETHOPRIM/SULFAMETHOXAZOLE <=0.5/9.5 S TETRACYCLINE <=4 S VANCOMYCIN 1 S Unless otherwise specified, Testing Performed by: [address] [address] For Inquires, the Physician may contact the Microbiology department at [phone] Objective: Assessment: 1. Wet gangrene of the right first and second toe and forefoot Patient had been on antibiotics recently for left foot infection which was treated at [facility] which has improved August 13, 2020 Status post right 1st and 2nd toe open ray amputation, extensive debridement and drainage of large abscess in the foot CRP 247 Cultures positive for MRSA CRP 82 2. Right foot cellulitis improving 2. Fever. improved 3. Lactic acidosis, mild, resolved. 4. Diabetes mellitus. 5. Thrombocytopenia. 6. Abnormal liver function tests. 7. Coronary artery disease. 8. Anemia. 9. Protein-calorie malnutrition. 10. Recently treated for left foot infection at [facility] with antibiotic Plan: Plan of Care Continue Dapto and Zosyn Will need daptomycin and Invanz upon discharge to [facility] Administer first dose of Invanz here before discharge Duration will be at least 4 to 6 weeks Offload Wound care as directed Offload Optimal diabetes control Social service to assist with discharge antibiotic Hopefully would be ready for discharge to [facility] tomorrow Follow up in ID clinic as scheduled Discussed with BLAKE STEPHENS MD Aug 18, 2020 10:24
[2020-08-18 11:00] VITALS: BP 126/45
--- NOTE | 2020-08-18 11:36 | PDOC ---
[employer] PROGRESS NOTE Date of Service DOS: DATE: 08/18/20 TIME: 11:35 Chief Complaint Chief Complaint impression Right foot cellulitis crp [id number] Right foot with large abscess, wet infected gangrene of the right 1st/2nd toes and forefoot PVD 05/26Angioplasty of the left dorsalis pedis and anterior tibial arteriesPrimary placement of a covered self expanding stent secondary to chronic total occlusion, distal right SFA Angioplasty of proximal SFA 08-15 Long segment chronic total occlusion superficial femoral artery successfully treated with angioplasty followed by stent placement Three-vessel runoff to the ankle. Right foot diabetic ulcer Sepsis - fever and tachycardia Diabetes Shortness of breath Thombocytopenia Transaminitis Gallbladder wall is thickened but the gallbladder appears decompressed. Trace ascites. Correlate clinically for cholecystitis. No cholelithiasis. Nodular contour of the liver of concern for cirrhosis or other fibrotic process. Morbid obesity Hypertensive urgency Hyperlipidemia. Carotid arterial disease. Peripheral arterial disease. Peripheral neuropathy. HX Right carotid endarterectomy. HX Left second and third toe amputations. HX Explorative laparotomy with cauterization of his liver Remote tobacco abuse Ingrown toenails SEVERE PROTEIN-CALORIC MALNUTRITION plan Increased insulin regimen to 15 glargine twice daily for uncontrolled diabetes with hyperglycemia Appreciate GI recommendations plan for outpt EGD and colonoscopy. 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 Will eventually need revascularization per vascular surgery History of Present Illness History of Present Illness 08/18/2020 No acute events overnight. Patient is tolerating diet. Patient seen and examined bedside. Wound VAC in place and without any leaks and continues to have good suctioning. Good irrigation. Patient's chart, labs, images were reviewed and discussed with RN 08/16/2020 No acute events overnight. Patient seen and examined bedside while eating breakfast. Patient had no complaints voiced at this time. Patient's chart, labs, images were reviewed and discussed with RN 08/15/2020 Patient seen and examined Long segment chronic total occlusion superficial femoral artery successfully treated with angioplasty followed by stent placement Three-vessel runoff to the ankle. Discussed with RN Discussed with watch case polisher consult ID reviewed 08/10/2020 Patient seen and examined FELICE VIVEROS case manger Mr Ford is a 59yo M w/ PMHx CAD, hypertension, diabetes, CVA. DM2 who comes to ED with complaints of increased pain, redness, and warmth in his right foot after being discharged from this emergency room yesterday. He denies any bleeding or drainage from his right foot. Patient states he was evaluated for right foot pain but since being discharged he has developed a fever and his symptoms have gotten worse. Patient also complains of having nausea. He states that he has a ulcer on the bottom of his left great toe. He denies any drainage or foul odor from ulcer. Patient states that he has been out of his quick acting insulin for the last 2 days and has only been able to take his morning acting insulin. He denies any polyuria, polydipsia, or polyphagia. The patient denies any cough, chest pain, abdominal pain, vomiting, or diarrhea. He denies any dizziness but reports headache at this time. He currently rates his pain a 10 out of 10 on the pain scale, he denies radiation of the pain, he denies any alleviating factors, pain is worse with palpation. Right lower extremity venous ultrasound negative for DVT does confirm lymphadenopathy in groin. Labs with WBC 9.2 with left shift, Hb 10.8, platelets 114, NA 135, K4.9, BUN 23, CR 1.1, glucose 125, lactic acid 2.1, CRP 247.3, albumin 2.9, alkaline phosphatase 459, AST 47, ALT 78, bilirubin 3.4. 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 Admitted for care of his right foot Low grade temp 100.4F overnight. Swelling and pain and redness improved in right foot. Vitals/I&O Vitals/I&O: Vital Signs Date Time Temp Pulse Resp B/P (MAP) Pulse Ox O2 Delivery O2 Flow Rate FiO2 08/18/20 11:27 Room Air 08/18/20 08:42 68 163/52 08/18/20 07:00 97.5 16 96 97.5 08/17/20 21:44 2.0 I & O 08/17/20 08/17/20 08/18/20 15:00 23:00 07:00 Intake Total 600 ml Output Total 300 ml 700 ml Balance 600 ml -300 ml -700 ml Physical Exam Physical Exam: GENERAL: Alert, awake. The patient is sitting upright in chair, in no acute distress. HEENT: Normocephalic, atraumatic. No thrush. NECK: Supple, no JVD. LUNGS: Clear bilaterally. No wheezing. HEART: S1, S2 normal. ABDOMEN: Soft, nontender, nondistended, obese. Bowel sounds present. 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 x3 piv looks clean General: Alert, Oriented X3, Cooperative, mild distress Heart: Regular rate (sinus tachycardia), Other (distant heart sounds) Lungs: Clear, Other (Short of breath) Abdomen: Soft, No tenderness Extremities: No cyanosis, Other (2+ bilateral LE pitting edema) Skin: Other (S/P right foot surgery with noted gangrene, diminished pedal pulses; left plantar ulcers) Labs Labs: Laboratory Tests Test 08/17/20 16:34 08/17/20 20:44 08/18/20 07:08 Glucose (Fingerstick) 274 mg/dL (70-99) 280 mg/dL (70-99) 183 mg/dL (70-99) Assessment and Plan Assessmemt and Plan Problems Medical Problems: (1) Cellulitis of right leg Status: Acute (2) Fever Status: Acute (3) Person under investigation for COVID-19 Status: Acute Comment Review of Relevant I have reviewed the following items shreyas (where applicable) has been applied. Medications: Current Medications Medications (Trade) Dose Ordered Sig/John Route PRN Reason Start Time Stop Time Status Last Admin Dose Admin Insulin Glargine (Lantus Syringe) 15 unit BID SQ 08/18/20 09:00 08/18/20 09:22 Justifications for Admission Other Justification MOE RAM MD Aug 18, 2020 11:36
[2020-08-18] MEDS: DAPTOmycin (GENERIC) IVPB 500 MG in IV NORMAL SALINE 50ML 50 ML IV SCH (13:27)
[2020-08-18 15:00] VITALS: BP 143/41
[2020-08-18 19:00] VITALS: BP 146/47
[2020-08-18] MEDS: ATORVASTATIN CALCIUM 20 MG TABLET PO SCH (21:21)
[2020-08-18] MEDS: traMADol 50 MG TABLET PO PRN (21:22)
[2020-08-18] MEDS: ZOLPIDEM 5 MG TABLET. PO PRN (21:24)
[2020-08-18] MEDS: ENOXAPARIN 40 MG/0.4 ML SYRINGE. SQ SCH (21:25)
[2020-08-18 23:01] VITALS: BP 143/37
[2020-08-19] MEDS: PIPERACILLIN/TAZOBACTAM 3.375 GM in IV NORMAL SALINE 50ML 50 ML IV SCH ×4 (00:17→17:27)
[2020-08-19 03:03] VITALS: BP 154/61
[2020-08-19 07:00] VITALS: BP 153/58
[2020-08-19] MEDS: IPRATRPIUM/ALBUTEROL 0.5/2.5MG 3 ML NEBU. NEB SCH ×4 (07:38→19:28)
[2020-08-19] MEDS: LACTOBACILLUS RHAMNOSUS GG 1 CAPSULE. PO SCH ×2 (08:04→20:11)
[2020-08-19] MEDS: ASPIRIN 325 MG TABLET PO SCH (08:04)
[2020-08-19] MEDS: PANTOPRAZOLE 40 MG TABLET.DR. PO SCH (08:04)
[2020-08-19] MEDS: TAMSULOSIN 0.4 MG CAP.ER.24H. PO SCH (08:04)
[2020-08-19] MEDS: FLUTICASONE 50MCG/NASAL SPRAY 16GM BOTTLE. NS SCH (08:04)
[2020-08-19] MEDS: LINEZOLID 600 MG TABLET PO SCH ×2 (08:04→20:12)
[2020-08-19] MEDS: MULTIVITAMIN with MINERAL TABLET. PO SCH (08:04)
[2020-08-19] MEDS: GABAPENTIN 300 MG CAPSULE. PO SCH ×2 (08:05→20:12)
[2020-08-19] MEDS: CLOPIDOGREL BISULFATE 75 MG TABLET PO SCH (08:05)
[2020-08-19] MEDS: LOSARTAN POTASSIUM 50 MG TABLET. PO SCH (08:05)
[2020-08-19] MEDS: FUROSEMIDE 40 MG/4 ML VIAL. IVP SCH (08:05)
[2020-08-19] MEDS: METOPROLOL TART IMMED RELEASE 25 MG TABLET. PO SCH ×2 (08:05→20:12)
[2020-08-19] MEDS: DOCUSATE SODIUM 100 MG CAPSULE. PO SCH (08:06)
[2020-08-19] MEDS: INSULIN LISPRO 300 UNITS/3 ML VIAL. SQ SCH ×4 (08:16→21:44)
[2020-08-19] MEDS: INSULIN GLARGINE SYRINGE. SQ SCH ×2 (09:26→20:17)
--- NOTE | 2020-08-19 09:36 | PDOC ---
Infectious Disease Note Subjective Subjective Patient without complaints Denies fever, nausea, vomiting, shortness of breath, diarrhea, abdominal pain, rash Otherwise as above Vital Sign Vital Signs Vital Signs Date Time Temp Pulse Resp B/P (MAP) Pulse Ox O2 Delivery O2 Flow Rate FiO2 08/19/20 08:05 63 153/58 08/19/20 07:38 94 Room Air 08/19/20 07:00 97.8 18 97.8 Physical Exam PHYSICAL EXAM GENERAL: Alert, awake. The patient is sitting upright in chair, in no acute distress. HEENT: Normocephalic, atraumatic. No thrush. NECK: Supple, no JVD. LUNGS: Clear bilaterally. No wheezing. HEART: S1, S2 normal. ABDOMEN: Soft, nontender, nondistended, obese. Bowel sounds present. 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 Wet gangrene of the right first and second toe and forefoot Patient had been on antibiotics recently for left foot infection which was treated at [facility] which has improved August 13, 2020 Status post right 1st and 2nd toe open ray amputation, extensive debridement and drainage of large abscess in the foot CRP 247 Cultures positive for MRSA CRP 82 2. Right foot cellulitis improving 2. Fever. improved 3. Lactic acidosis, mild, resolved. 4. Diabetes mellitus. 5. Thrombocytopenia. 6. Abnormal liver function tests. 7. Coronary artery disease. 8. Anemia. 9. Protein-calorie malnutrition. 10. Recently treated for left foot infection at [facility] with antibiotic Plan Plan of Care Continue Dapto and Zosyn Will need daptomycin and Invanz upon discharge to [facility] Administer first dose of Invanz here before discharge Duration will be at least 4 to 6 weeks Offload Wound care as directed Offload Optimal diabetes control Social service to assist with discharge antibiotic Hopefully would be ready for discharge to SNF tomorrow Follow up in ID clinic as scheduled Discussed with STAR STEPHENS MD Aug 19, 2020 09:36
--- NOTE | 2020-08-19 09:57 | PDOC ---
Date of Service: DATE: 08/19/20 TIME: 09:55 Subjective: Subjective: No GI complaints - says eating, swallowing, and stooling w/o issue. Objective: Vital Signs: Vital Signs Date Time Temp Pulse Resp B/P (MAP) Pulse Ox O2 Delivery O2 Flow Rate FiO2 08/19/20 08:05 63 153/58 08/19/20 07:38 94 Room Air 08/19/20 07:00 97.8 18 97.8 Labs: Laboratory Tests Test 08/18/20 11:45 08/18/20 17:05 08/19/20 06:53 Glucose (Fingerstick) 285 mg/dL 263 mg/dL 152 mg/dL BLOOD CULTURE Final NO GROWTH AFTER 5 DAYS GRAM STAIN Final Final GRAM POSITIVE COCCI:FEW SQUAMOUS EPI CELL:NONE SEEN PMN (WBCs):MANY Unless otherwise specified, Testing Performed by: [address] [address] For Inquires, the Physician may contact the Microbiology department at [phone] ANAEROBIC-AEROBIC CULTURE Final Final MODERATE GRAM POSITIVE COCCI on 08/14/20 at 1401 FINAL ID= [STAPHYLOCOCCUS AUREUS (MRSA)] STAPHYLOCOCCUS AUREUS (MRSA) PE: GEN: NAD LUNGS: CTAB HEART: RRR ABD: NABS, S/ND/NT EXTREM: wound vac NEURO/PSYCH: A & O 3 A/P: S/p right toe amputations, debridement/drainage of foot abscess - atbx per ID Cirrhosis - NAFLD /alcohol Intermittent dysphagia, h/o GERD ACD/ADONIS CAD, PVD, CVA, DM -- Remains stable GI-jj. Outpt scopes as able. ?DC to SNF soon Justicifation of Admission Dx: Justifications for Admission: Justification of Admission Dx: Yes Sepsis: Infection Cellulitis: Cellulitis UBALDO MCKENZIE Aug 19, 2020 09:57
[2020-08-19 10:41] VITALS: BP 158/56
--- NOTE | 2020-08-19 11:28 | SNU/HH DC ---
DISCHARGE ORDERS DISCHARGE INFORMATION: DISCHARGE DATE: Aug 16, 2020 FINAL DIAGNOSIS Problems Medical Problems: (1) Cellulitis of right leg Status: Acute (2) Fever Status: Acute (3) Person under investigation for COVID-19 Status: Acute CONDITION ON DISCHARGE: Stable CODE STATUS: Code Status: Full INTERMEDIATE: SNF STAY <30 DAYS: Yes HOSPICE: HOSPICE: No HOSPICE EVAL & TREAT: No LTAC: ADMIT TO LTAC: No POST DISCHARGE ORDERS: ACTIVITY ORDERS: Activity as tolerated WEIGHT BEARING STATUS: No restrictions BATHING ORDERS: Shower-keep dressing dry, No Tub Bath until see Dr. YANEZ AFTER DISCHARGE: TAMY WOUND/INCISION CARE: Change dressing CHECKS AFTER DISCHARGE: CHECKS AFTER DISCHARGE: Check blood press - daily, Check blood sugar, ac/hs, Check your Temp as needed FOLLOW-UP: PHYSICIAN FOLLOW-UP: PCP within 2 weeks of discharge ADDITIONAL FOLLOW-UP: Orthopedic surgery for postop wound check LAB ORDERS FOR FOLLOW-UP: CBC, CMP within 1 week TREATMENT/EQUIPMENT ORDERS: ADAPTIVE EQUIPMENT NEEDED: None Physical Therapy For: Evalulation/Treatment Occupational Therapy For: Evaluation/Treatment DISCHARGE MEDICATIONS: Home Meds Active Scripts Daptomycin (Daptomycin) 350 Mg Vial, 500 MG IV DAILY for osteo for 45 Days, #65 EACH Prov:MOE RAM MD 08/16/20 Tramadol Hcl (TRAMADOL HCL) 50 Mg Tablet, 50 MG PO Q6HRS PRN for PAIN, #5 TAB Prov:ARMAAN OVRETON MD 08/06/20 Potassium Chloride (POTASSIUM CHLORIDE ) 20 Meq Tablet.er, 20 MEQ PO DAILY for SUPPLEMENT, #30 TAB.SR Prov:YAN LANDIN MD 01/12/20 Furosemide (LASIX) 40 Mg Tablet, 1 TAB PO DAILY for 30 Days, #30 TAB 0 Refills Prov:YAN LANDIN MD 01/12/20 Carbamide Peroxide (CARBAMIDE PEROXIDE) 15 Ml Drops, 15 ML OT BID for 4 Days, DROP Prov:CHELE ARANDA DO 09/09/17 Fluticasone Propionate (Flonase Allergy Relief) 9.9 Ml [place].susp, 2 SPRAYS NS DAILY, #1 BOTTLE Prov:CHELE ARANDA DO 09/09/17 Albuterol Sulfate (PROAIR HFA INHALER) 8.5 Gm Hfa.aer.ad, 1 PUFF INH Q4HRS PRN for SHORTNESS OF BREATH, #1 INHALER 0 Refills Prov:CHELE ARANDA DO 09/09/17 Aspirin (ASPIRIN) 325 Mg Tablet, 325 MG PO DAILY, #30 Prov:MOLLY BAIG MD 05/19/14 Reported Medications Insulin Glargine,Hum.rec.anlog (LANTUS SOLOSTAR) 100 Unit/1 Ml Insuln.pen, 8 UNIT SQ QHS for blood sugar, #15 ML 3 Refills 06/02/19 Lactobacillus Rhamnosus Gg (CULTURELLE) 1 Each Capsule, 1 EACH PO DAILY for for 14 Days, #14 CAP 06/02/19 Tamsulosin Hcl (FLOMAX) 0.4 Mg Cap.er.24h, 0.4 MG PO DAILY for urinary 05/31/19 Gabapentin (Gabapentin) 300 Mg Capsule, 300 MG PO BID for neuropathy 05/31/19 Metoprolol Tartrate (METOPROLOL TARTRATE) 25 Mg Tablet, 25 MG PO BID for blood pressure 05/31/19 Omeprazole (OMEPRAZOLE) 40 Mg Capsule.dr, 40 MG PO DAILY05 for GERD 05/31/19 Losartan Potassium (Losartan Potassium) 25 Mg Tablet, 25 MG PO DAILY for blood pressure 05/31/19 Hydroxyzine Hcl (HYDROXYZINE HCL) 25 Mg Tablet, 25 MG PO TID PRN PRN for ELEVATED BP, SEE COMMENTS 05/31/19 Atorvastatin Calcium (ATORVASTATIN CALCIUM) 20 Mg Tablet, 20 MG PO HS 04/08/18 Clopidogrel Bisulfate (CLOPIDOGREL) 75 Mg Tablet, 75 MG PO DAILY 04/08/18 Docusate Sodium (DOCUSATE SODIUM) 100 Mg Capsule, 1 CAP PO DAILY, #30 CAP 07/05/14 Glimepiride (GLIMEPIRIDE) 4 Mg Tablet, 4 MG PO DAILY, TAB 05/18/14 Metformin Hcl (METFORMIN HCL) 500 Mg Tablet, 500 MG PO BIDWMEALS for ANTI- DIABETIC, TAB 0 Refills do not take for 48 hours 05/18/14 Discontinued Scripts Lisinopril (PRINIVIL) 5 Mg Tablet, 5 MG PO DAILY, #30 BOTTLE Prov:MOE MCINTOSH MD 06/02/14 GALILEA MARTINEZ III DO Aug 19, 2020 11:28
--- NOTE | 2020-08-19 12:27 | NUR ---
ELINA following. Spoke with RN and reviewed chart. Discharge plan remains to [facility] with a wound vac. Pt who remains agreeable to SNU at discharge. Pt still waiting on FMLA paperwork from his HR department. Pt to have PICC placed today. Pt on IV Zosyn and IV Daptomycin. ELINA phoned and faxed updates and discharge orders to Carmela at [facility]. SNU authorization is still pending. ELINA obtained contact number for pt's insurance company from [facility]. ELINA phoned and faxed patient clinicals and discharge orders to Kathleen with pt's insurance company [phone], ext [phone], (fax). ELINA had to leave a VM for Kathleen. ELINA requested call back today regarding status of insurance authorization for SNU for this patient. ELINA following.
[2020-08-19] MEDS: DAPTOmycin (GENERIC) IVPB 500 MG in IV NORMAL SALINE 50ML 50 ML IV SCH (13:30)
[2020-08-19] MEDS ORDERED: LIDOCAINE WITH 8.4% SOD BICARB 3 ML DISP.SYRIN. ONE (13:57)
[2020-08-19] MEDS ORDERED: LIDOCAINE WITH 8.4% SOD BICARB 3 ML DISP.SYRIN. INJ ONE (14:00)
[2020-08-19 15:00] VITALS: BP 149/62
--- NOTE | 2020-08-19 15:58 | RAD ---
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 The right upper extremity was prepped and draped using sterile barrier technique. All elements of maximal sterile barrier technique including the use of a cap, mask, sterile gown, sterile gloves, large sterile sheet, appropriate hand hygiene, and 2% chlorhexidine for cutaneous antisepsis (or acceptable alternative antiseptic per current guidelines) were followed for this procedure.. Real-time ultrasound demonstrated a patent right basilic vein which was prepped and draped in usual sterile fashion. 1% lidocaine used for local anesthesia. Using real-time ultrasound guidance the access needle percutaneously punctured the selected right basilic vein. Reference ultrasound images were saved to the medical record. A guidewire was advanced through the needle to the cavoatrial junction, and a peel-away sheath placed. The catheter was cut to length and inserted through the peel-away sheath such that its tip is at the cavoatrial junction. The wire and sheath were removed, and the catheter secured in place, and a sterile dressing was applied. Catheter was found to flush and aspirate normally. No immediate complications are identified. FLUORO TIME: 0.1 min DOSE AREA PRODUCT: 0.1 Gycm2 Impression: Ultrasound and fluoroscopically guided placement of a right upper extremity PICC line.
--- NOTE | 2020-08-19 16:44 | NUR ---
Wound Care Wound Type/Assessment: Patient seen for follow up dressing changes. Patient has Right foot open amputation site and left great toe DFU. Wounds cleansed, assessed, measured, and photographed. The right amp site has small amount of bone, muscle, and fat layer exposed, periwound intact. Treatment Recommendations/Plan: Recommendations to continue with veraflo wound vac. skin prepped for wound vac placement to the right foot. 1 piece of black Veraflo foam into wound bed, foam tracked to R medial lower leg, strong seal achieved, pt tolerated well. Recommendations for saline mositened gauze packed to the left great toe and wrap with kerlix for extra padding. Education provided: to pt re: NPWT, offloading, blood glucose control Offloading surface/device: half shoe for ambulation depending on weight-bearing status from Vascular, Rooke boot while in bed Recommended Referrals/Tests: n/a Discharge Recommendations for dressings: NPWT, pt to f/u in [facility] after d/c from SNU. Will follow up with patient on 08/21/20. for next dressing changes. Patient in chair at this time. Call light in reach.
[2020-08-19] MEDS: traMADol 50 MG TABLET PO PRN (17:36)
[2020-08-19 19:00] VITALS: BP 151/51
[2020-08-19] MEDS: ZOLPIDEM 5 MG TABLET. PO PRN (20:12)
[2020-08-19] MEDS: ATORVASTATIN CALCIUM 20 MG TABLET PO SCH (20:13)
[2020-08-19] MEDS: ENOXAPARIN 40 MG/0.4 ML SYRINGE. SQ SCH (20:13)
[2020-08-19 23:00] VITALS: BP 150/46
[2020-08-20] MEDS: PIPERACILLIN/TAZOBACTAM 3.375 GM in IV NORMAL SALINE 50ML 50 ML IV SCH ×2 (00:16→05:02)
[2020-08-20 03:00] VITALS: BP 156/61
[2020-08-20] MEDS: PANTOPRAZOLE 40 MG TABLET.DR. PO SCH (05:02)
[2020-08-20] MEDS: traMADol 50 MG TABLET PO PRN (05:02)
[2020-08-20] MEDS: IPRATRPIUM/ALBUTEROL 0.5/2.5MG 3 ML NEBU. NEB SCH ×2 (05:26→11:36)
[2020-08-20 07:00] VITALS: BP 166/64
[2020-08-20] MEDS: INSULIN LISPRO 300 UNITS/3 ML VIAL. SQ SCH ×2 (08:00→11:32)
--- NOTE | 2020-08-20 08:42 | PDOC ---
Infectious Disease Note Subjective Subjective Patient without complaints Denies fever, nausea, vomiting, shortness of breath, diarrhea, abdominal pain, rash Otherwise as above Vital Sign Vital Signs Vital Signs Date Time Temp Pulse Resp B/P (MAP) Pulse Ox O2 Delivery O2 Flow Rate FiO2 08/20/20 07:00 97.8 65 18 166/64 (98) 94 Room Air 97.8 08/20/20 05:02 2.0 Physical Exam PHYSICAL EXAM GENERAL: Alert, awake. The patient is sitting upright in chair, in no acute distress. HEENT: Normocephalic, atraumatic. No thrush. NECK: Supple, no JVD. LUNGS: Clear bilaterally. No wheezing. HEART: S1, S2 normal. ABDOMEN: Soft, nontender, nondistended, obese. Bowel sounds present. EXTREMITIES: Right foot wound VAC in place, left foot dressing in place intact BUCKET TURNER alert awake x3 piv looks clean Labs Lab Laboratory Tests Test 08/19/20 11:01 08/19/20 16:11 08/19/20 20:51 08/20/20 06:50 Glucose (Fingerstick) 210 mg/dL (70-99) 234 mg/dL (70-99) 263 mg/dL (70-99) 99 mg/dL (70-99) Micro Microbiology 08/13/20 Gram Stain - Final, Complete 08/13/20 Aerobic and Anaerobic Culture - Final, Complete 08/13/20 Antimicrobic Susceptibility - Final, Complete 08/11/20 Blood Culture - Final, Complete NO GROWTH AFTER 5 DAYS 08/07/20 Urine Culture - Final, Complete Objective Assessment 1. 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 Right foot cellulitis improving 2. Fever. improved 3. Lactic acidosis, mild, resolved. 4. Diabetes mellitus. 5. Thrombocytopenia. 6. Abnormal liver function tests. 7. Coronary artery disease. 8. Anemia. 9. Protein-calorie malnutrition. 10. Recently treated for left foot infection at [facility] with antibiotic Plan Plan of Care Continue Dapto and Zosyn Will need daptomycin and Invanz upon discharge to SNF Administer first dose of Invanz here before discharge Duration will be at least 4 to 6 weeks Offload Wound care as directed Offload Optimal diabetes control Social service to assist with discharge antibiotic Hopefully would be ready for discharge to SNF tomorrow Follow up in ID clinic as scheduled Discussed with STAR STEPHENS MD Aug 20, 2020 08:42
[2020-08-20] MEDS: GABAPENTIN 300 MG CAPSULE. PO SCH (09:16)
[2020-08-20] MEDS: LACTOBACILLUS RHAMNOSUS GG 1 CAPSULE. PO SCH (09:16)
[2020-08-20] MEDS: CLOPIDOGREL BISULFATE 75 MG TABLET PO SCH (09:16)
[2020-08-20] MEDS: DOCUSATE SODIUM 100 MG CAPSULE. PO SCH (09:16)
[2020-08-20] MEDS: MULTIVITAMIN with MINERAL TABLET. PO SCH (09:16)
[2020-08-20] MEDS: TAMSULOSIN 0.4 MG CAP.ER.24H. PO SCH (09:16)
[2020-08-20] MEDS: ASPIRIN 325 MG TABLET PO SCH (09:16)
[2020-08-20] MEDS: LINEZOLID 600 MG TABLET PO SCH (09:16)
[2020-08-20] MEDS: FLUTICASONE 50MCG/NASAL SPRAY 16GM BOTTLE. NS SCH (09:17)
[2020-08-20] MEDS: METOPROLOL TART IMMED RELEASE 25 MG TABLET. PO SCH (09:17)
[2020-08-20] MEDS: FUROSEMIDE 40 MG/4 ML VIAL. IVP SCH (09:17)
[2020-08-20] MEDS: LOSARTAN POTASSIUM 50 MG TABLET. PO SCH (09:17)
[2020-08-20] MEDS: INSULIN GLARGINE SYRINGE. SQ SCH (09:22)
--- NOTE | 2020-08-20 09:56 | PDOC ---
Provider Note Date of Service: DATE: 08/20/20 TIME: 09:53 Provider Note Provider Note Vascular S: Patient seen and examined in his hospital room He is sitting in chair next to the bed, has no complaints. O: Awake and alert VSS, afebriel Wound VAC in place right foot with a good seal, no bleeding Palpable posterior tibial pulse Left first toe with plantar ulcer, does not penetrate to bone, unable to appreciate distal pulses due to severe swelling in foot. No erythema in toe or foot. A/P: s/p right open ray amputation 1,2nd toes Doing well, continue wound VAC IV antibiotics care plan. At some point in future he will likely need a left leg angiography for left toe wounds as well but these are now urgent Will discuss with Dr. Alonso OK to discharge and follow up in our office in 1-2 weeks to evaluate wounds and discuss future plans Justicifation of Admission Dx: Justifications for Admission: Justification of Admission Dx: Yes Sepsis: Infection Cellulitis: Cellulitis ERICK FISHER APRN Aug 20, 2020 09:56
[2020-08-20] MEDS ORDERED: ERTAPENEM 1GM IVPB(GENERIC) NS 50 ML IV ONE (10:00)
[2020-08-20 10:32] VITALS: BP 159/62
--- NOTE | 2020-08-20 10:38 | PDOC ---
Date of Service: DATE: 08/20/20 TIME: 10:36 Subjective: Subjective: No GI complaints. Objective: Vital Signs: Vital Signs Date Time Temp Pulse Resp B/P (MAP) Pulse Ox O2 Delivery O2 Flow Rate FiO2 08/20/20 10:32 97.8 66 18 159/62 (94) 94 Room Air 97.8 08/20/20 05:02 2.0 Labs: Laboratory Tests Test 08/19/20 11:01 08/19/20 16:11 08/19/20 20:51 08/20/20 06:50 Glucose (Fingerstick) 210 mg/dL 234 mg/dL 263 mg/dL 99 mg/dL PE: GEN: NAD - up in chair LUNGS: CTAB HEART: RRR ABD: S/ND/NT NEURO/PSYCH: A & O 3 A/P: S/p right toe amputations, debridement/drainage of foot abscess - atbx per ID, s/p PICC Cirrhosis - NAFLD /alcohol Intermittent dysphagia, h/o GERD ACD/ADONIS -- Awaiting DC. Outpt scopes. Justicifation of Admission Dx: Justifications for Admission: Justification of Admission Dx: Yes Sepsis: Infection Cellulitis: Cellulitis UBALDO MCKENZIE Aug 20, 2020 10:38
[2020-08-20] MEDS: ONDANSETRON PF 4 MG/2 ML VIAL. IV PRN (11:26)
[2020-08-20] MEDS: DAPTOmycin (GENERIC) IVPB 500 MG in IV NORMAL SALINE 50ML 50 ML IV SCH (11:27)
--- NOTE | 2020-08-20 11:31 | NUR ---
SW following. Spoke with RN and reviewed chart. Discharge plan remains to [facility] with a wound vac and IV abx through his PICC. Carmela from [facility] called to say they got insurance authorization. Pt to discharge today at 1300. Dr. Shore notified. Met with pt prior to discharge and provided him with completed [facility] paperwork. RN to call report and packet of clinicals ready to be sent with patient. No further SW needs at this time. Addendum: 08/20/20 at 1345 by MAYTE ANTOINE ELINA confirmed with Maritza from [facility] that discharge orders were received along with script for abx.
--- NOTE | 2020-08-20 14:05 | NUR ---
Discharge Note: PT DISCHARGED TO [facility] SNF. PT LEFT FACILITY VIA [facility] TRANSPORT STAFF IN WHEELCHAIR. PT STABLE AND ALERT UPON DISCHARGE PT PIV REMOVED FROM R FA WITHOUT COMPLICATIONS, PT DISCHARGED WITH SINGLE LUMEN PICC LINE TO E FOR CONTINUED USP ATB THERAPY. DRESSING WAS C/D/I. PT WOUND VAC WAS REMOVED FROM R FOOT WITH WET-TO-DRY DRESSING IN PLACE. DRESSING TO L GREAT TOE WAS C/D/I UPON DISHCARGE. WOUND CARE HAD TAKEN PHOTOGRAPH OF WOUND LESS THAN 24 HRS BEFORE DISCHARGE NO NEW PHOTOGRAPH REQUIRED PER PROTOCOL. REPORT CALLED TO ELKE PRASAD AT [facility] APPROX 1205. EDUCATED ABOUT DISCHARGE INSTRUTIONS, DISHCARGE MEDICATIONS, FOLLOW-UP INSTRUCTIONS AND WEIGHT BEARING STATUS, NO CONCERNS VOICED AT THIS TIME, WAS GIVEN PHONE NUMBER TO NURSES STATION IF ANY QUESTIONS SHOULD ARISE. PT LEFT WITH ALL PERSONAL BELONGINGS UPON DISCHARGE. SUSAN DEMARCO Discharge instructions and discharge home medications reviewed with Patient and a copy given. All questions have been answered and understanding verbalized.
--- NOTE | 2020-08-20 15:51 | NUR ---
ELINA also confirmed with Maritza that [facility] notified.
== END 2020-08-20 14:05 | DRG 853 ==
LOC: ER 20:17 → ED HOLD 21:14 → 6 SOUTH 08-08 01:12 → 5 NORTH 08-09 11:54
PROVIDERS: ADMIT Internal Medicine; ATTEND Internal Medicine
PROC: 0Y6M0ZB Detachment at Right Foot, Partial 2nd Ray, Open Approach (ICD-10-PCS; 2020-08-13)
PROC: 0Y6M0Z9 Detachment at Right Foot, Partial 1st Ray, Open Approach (ICD-10-PCS; principal; 2020-08-13 11:30)
PROC: 02HV33Z Insertion of Infusion Device into Superior Vena Cava, Percutaneous Approach (ICD-10-PCS; 2020-08-19)
PROC: B5181ZA Fluoroscopy of Superior Vena Cava using Low Osmolar Contrast, Guidance (ICD-10-PCS; 2020-08-19)
PROC: B548ZZA Ultrasonography of Superior Vena Cava, Guidance (ICD-10-PCS; 2020-08-19)
DX: A41.9 Sepsis, unspecified organism (principal); E43 Unspecified severe protein-calorie malnutrition; I50.33 Acute on chronic diastolic (congestive) heart failure; E87.2 Acidosis; J45.901 Unspecified asthma with (acute) exacerbation; L02.611 Cutaneous abscess of right foot; L03.115 Cellulitis of right lower limb; R18.8 Other ascites; L03.031 Cellulitis of right toe; D64.9 Anemia, unspecified; D69.6 Thrombocytopenia, unspecified; E11.40 Type 2 diabetes mellitus with diabetic neuropathy, unspecified; E11.621 Type 2 diabetes mellitus with foot ulcer; E66.01 Morbid (severe) obesity due to excess calories; Z68.29 Body mass index [BMI] 29.0-29.9, adult; E78.5 Hyperlipidemia, unspecified; I11.0 Hypertensive heart disease with heart failure; I16.0 Hypertensive urgency; I25.10 Atherosclerotic heart disease of native coronary artery without angina pectoris; J44.9 Chronic obstructive pulmonary disease, unspecified; K74.60 Unspecified cirrhosis of liver; K76.0 Fatty (change of) liver, not elsewhere classified; L97.519 Non-pressure chronic ulcer of other part of right foot with unspecified severity; L97.529 Non-pressure chronic ulcer of other part of left foot with unspecified severity; R13.10 Dysphagia, unspecified; K21.9 Gastro-esophageal reflux disease without esophagitis; G47.33 Obstructive sleep apnea (adult) (pediatric); F10.20 Alcohol dependence, uncomplicated; M19.90 Unspecified osteoarthritis, unspecified site; Z20.828 Contact with and (suspected) exposure to other viral communicable diseases; Z79.4 Long term (current) use of insulin; Z82.49 Family history of ischemic heart disease and other diseases of the circulatory system; Z86.14 Personal history of Methicillin resistant Staphylococcus aureus infection; Z86.73 Personal history of transient ischemic attack (TIA), and cerebral infarction without residual deficits; Z87.891 Personal history of nicotine dependence; Z89.412 Acquired absence of left great toe; Z89.429 Acquired absence of other toe(s), unspecified side; Z98.61 Coronary angioplasty status; Z88.8 Allergy status to other drugs, medicaments and biological substances
CPT/HCPCS: 36415; 36573; 37226; 71045; 74230; 75625; 75710; 76705; 76937; 77001; 80048; 80053; 80061; 80202; 80329; 81001; 82248; 82550; 82607; 82728; 82784; 82962; 83036; 83516; 83540; 83550; 83605; 83735; 84165; 84550; 85025; 85379; 85610; 86140; 86334; 87040; 87071; 87075; 87086; 87426; 88305; 88311; 90471; 90686; 93005; 93306; 93925; 93971; 94640; 94760; 99152; 99153; A7015; C1713; C1725; C1751; C1760; C1769; C1892; C1894; G0269; J0360; J0696; J0878; J1335; J1644; J1650; J1815; J1940; J2250; J2405; J2543; J2704; J3010; J3370; J3490; J7030; J7040; Q9967; 92526-GN; 92610-GN; 92611-GN; 97110-GO; 97110-GP; 97116-GP; 97530-GP; 97535-GO; G0378; G0480; J7613; U0003-CS

== ENCOUNTER → 2020-09-23 | Outpatient (CLI) | payer BC ==
[~2020-09-23] MED LIST changes: +DAPT350V IV
[2020-09-23 17:36] LABS: C-REACTIVE PROTEIN 16.8 mg/L (0-3.3); CREATININE 1.2 mg/dL (0.7-1.3); GFR 62.4
== END ==
LOC: SPEC 17:06
PROVIDERS: ATTEND Internal Medicine Infectious Disease
DX: M86.171 Other acute osteomyelitis, right ankle and foot (principal); A41.9 Sepsis, unspecified organism; E11.621 Type 2 diabetes mellitus with foot ulcer
CPT/HCPCS: 36415; 82550; 82565; 84520; 86140

== ENCOUNTER → 2020-09-30 | Outpatient (CLI) | payer BC ==
[2020-09-30 14:13] LABS: C-REACTIVE PROTEIN 20.4 mg/L (0-3.3); CREATININE 1.3 mg/dL (0.7-1.3); GFR 56.9
== END ==
LOC: SPEC 13:29
PROVIDERS: ATTEND Internal Medicine Infectious Disease
DX: E11.621 Type 2 diabetes mellitus with foot ulcer (principal); A41.9 Sepsis, unspecified organism; M86.179 Other acute osteomyelitis, unspecified ankle and foot
CPT/HCPCS: 36415; 82550; 82565; 84520; 86140

== ENCOUNTER → 2020-10-07 | Outpatient (CLI) | payer BC ==
[2020-10-07 17:32] LABS: C-REACTIVE PROTEIN 9.4 mg/L (0-3.3); CREATININE 1.1 mg/dL (0.7-1.3)
== END ==
LOC: SPEC 16:16
PROVIDERS: ATTEND Internal Medicine Infectious Disease
DX: E11.621 Type 2 diabetes mellitus with foot ulcer (principal); M86.171 Other acute osteomyelitis, right ankle and foot; A41.9 Sepsis, unspecified organism
CPT/HCPCS: 36415; 82550; 82565; 84520; 86140

== ENCOUNTER 2021-03-25 10:51 | Observation (INO) | payer BC, OTHER ==
[~2021-03-25] VITALS: Ht 172.7 cm; Wt 88.5 kg
[2021-03-25] MEDS ORDERED: METOCLOPRAMIDE HCL 10 MG/2 ML VIAL. IVP ONE (12:00)
[2021-03-25] MEDS ORDERED: FAMOTIDINE 20 MG/2 ML VIAL IVP ONE (12:00)
--- NOTE | 2021-03-25 12:14 | RAD ---
EXAM: CHEST ONE VIEW. HISTORY: Chest pain. COMPARISON: 08/13/2020. FINDINGS: A frontal view of the chest is obtained. A cardiac monitoring device projects over the left chest. There are surgical clips at the right base of the neck. There are no confluent infiltrates. There is a calcified granuloma on the left. There is no pneumotho rax or pleural effusion. The heart is mildly enlarged. There are atherosclerotic calcifications of th e aorta. IMPRESSION: 1. Mild cardiomegaly. Electronically signed by: August Oleary MD (03/25/2021 12:12 PM) [id number]
--- NOTE | 2021-03-25 12:15 | NUR ---
Wound Care Wound Type/Assessment: Pt seen in outpt wound clinic today for weekly f/u re: his R foot wound. Pt's R medial foot DFU is healing well, much improvement over the past few months. Pt was debrided today by ASHLEY Garzon, then wound rewrapped in a soft football cast for off-loading. Pt began having c/o nausea, feeling hot, abdominal pain and constipation, with chest pain that radiated toward his back, on and off for the past week. It was then recommended that pt go to the ED for workup, pt amenable, pt wheeled to ED. Treatment Recommendations/Plan: Acticoat antimicrobial to wound, cover with Aquacel foam, soft football cast wrap, change weekly by wound RN. Education provided: to pt re: POC, to ED staff re: pt complaints. Offloading surface/device: football cast and half-shoe Recommended Referrals/Tests: defer to PCP and ED physician Discharge Recommendations for dressings: same as treatment plan above, pt to f/u in [facility] next 04/01/21, at 10:30.
--- NOTE | 2021-03-25 12:19 | PHYS DOC ---
Past Medical History Past Medical History: CAD, CHF, Diabetes-Type II, High Cholesterol, Hyper tension, TIA, Vascular Disease Additional Past Medical Histor: HEART MURMUR,club foot,CHRIS,R BBB,MULT MINI STROKES,ENDARECTOMY Past Surgical History: Other Additional Past Surgical Histo: toe amputation on right foot, stent in legs Smoking Status: Former Smoker Alcohol Use: None Drug Use: None General Adult EDM: Chief Complaint: HEARTBURN/GI DISTRESS HPI: HPI: Patient is a 60 year old male who presents with sent over by wound care after having 5 days of constipation, nausea and mid chest pain. Patient states it feels like a pressure type pain. Patient is on Plavix. Patient states while he was in the waiting room waiting he did have a bowel movement and is feeling better. Patient has a history of CHF, diabetes, chronic ulcers on his left foot with amputation, TIA, hypertension, high cholesterol, CVA, PAD, cellulitis, sepsis. Patient rating his discomfort at a 6 out of 10. Review of Systems: Review of Systems: Constitutional: Denies fever or chills. [] Eyes: Denies change in visual acuity. [] HENT: Denies nasal congestion or sore throat. [] Respiratory: Denies cough or +shortness of breath. [] Cardiovascular: + chest pain or edema. [] GI: + abdominal pain, +nausea, denies vomiting, bloody stools or diarrhea. +Constipation [] : Denies dysuria. [] Musculoskeletal: Denies back pain or joint pain. [] Integument: Denies rash. [] Neurologic: Denies headache, focal weakness or sensory changes. [] Endocrine: Denies polyuria or polydipsia. [] Lymphatic: Denies swollen glands. [] Psychiatric: Denies depression or anxiety. [] Heart Score: C/O Chest Pain: Yes HEART Score for Chest Pain: HEART Score for Chest Pain Response (Comments) Value History Slighlty/Non-Suspicious 0 ECG Nonspecific Repolarizatio 1 Age >45 - < 65 1 Risk Factors >3 Risk Factors or Hx CAD 2 Troponin < Normal Limit 0 Total 4 Risk Factors: Risk Factors: DM, Current or recent (<one month) smoker, HTN, HLP, family history of CAD, obesity. Risk Scores: Score 0 - 3: 2.5% MACE over next 6 weeks - Discharge Home Score 4 - 6: 20.3% MACE over next 6 weeks - Admit for Clinical Observation Score 7 - 10: 72.7% MACE over next 6 weeks - Early Invasive Strategies Current Medications: Current Medications Medications (Trade) Dose Ordered Sig/John Start Time Stop Time Status Last Admin Dose Admin Famotidine (Pepcid Vial) 20 mg 1X ONCE 03/25/21 12:00 03/25/21 12:01 DC Metoclopramide HCl (Reglan Vial) 10 mg 1X ONCE 03/25/21 12:00 03/25/21 12:01 DC Allergies: Allergies: Allergies Coded Allergies Type Severity Reaction Last Updated Verified morphine Allergy Intermediate N/V 08/13/20 Yes I S O L A T I O N *CONTACT* Allergy Unknown 08/13/20 Yes Physical Exam: PE: Constitutional: Well developed, well nourished, no acute distress, non-toxic appearance. [] HENT: Normocephalic, atraumatic, bilateral external ears normal, oropharynx moist, no oral exudates, nose normal. [] Eyes: PERRLA, EOMI, conjunctiva normal, no discharge. [] Neck: Normal range of motion, no tenderness, supple, no stridor. [] Cardiovascular:Heart rate regular rhythm, no murmur [] Lungs & Thorax: Bilateral upper breath sounds clear lower diminished to auscultation [] Abdomen: Bowel sounds normal, soft, no tenderness, no masses, no pulsatile masses. [] Skin: Warm, dry, no erythema, no rash. [] Back: No tenderness, no CVA tenderness. [] Extremities: No tenderness, no cyanosis, no clubbing, ROM intact, no edema. [] Neurologic: Alert and oriented X 3, normal motor function, normal sensory function, no focal deficits noted. [] Psychologic: Affect normal, judgement normal, mood normal. [] Current Patient Data: Vital Signs: Vital Signs Date Time Temp Pulse Resp B/P (MAP) Pulse Ox O2 Delivery O2 Flow Rate FiO2 03/25/21 11:19 98.6 73 16 176/51 (92) 98 Room Air 98.6 EKG: EK:[address] Urrutia as sinus rhythm and no STEMI with a right bundle branch block Radiology/Procedures: Radiology/Procedures: [] Impression: [facility] [address] [place] [address] IMAGING REPORT Signed PATIENT: SUSAN DEMARCO ACCOUNT: [id number] : 1960 LOCATION: ER AGE: 60 SEX: M EXAM STATUS: REG ER ORD. PHYSICIAN: BRIAN TORRES APRN REASON: CHEST PAIN PROCEDURE: PORTABLE CHEST 1V EXAM: CHEST ONE VIEW. HISTORY: Chest pain. COMPARISON: 08/13/2020. FINDINGS: A frontal view of the chest is obtained. A cardiac monitoring device projects over the left chest. There are surgical clips at the right base of the neck. There are no confluent infiltrates. There is a calcified granuloma on the left. There is no pneumothorax or pleural effusion. The heart is mildly enlarged. There are atherosclerotic calcifications of the aorta. IMPRESSION: 1. Mild cardiomegaly. Electronically signed by: August Oleary MD (03/25/2021 12:12 PM) [id number] DICTATED and SIGNED BY: AVERY OLEARY MD DATE: 03/25/21 [id number] [facility] [address] [place] [address] IMAGING REPORT Signed PATIENT: SUSAN DEMARCO ACCOUNT: [id number] : 1960 LOCATION: ER AGE: 60 SEX: M EXAM STATUS: REG ER ORD. PHYSICIAN: BRIAN TORRES APRN REASON: CONSTIPATION, NAUSEA PROCEDURE: CT ABDOMEN PELVIS WO CONTRAST EXAM: CT ABDOMEN/PELVIS WITHOUT CONTRAST. HISTORY: Nausea, constipation. TECHNIQUE: Computed tomography of the abdomen and pelvis was performed without intravenous contrast. One or more of the following individualized dose reduction techniques were utilized for this examination: 1. Automated exposure control. 2. Adjustment of the mA and/or kV according to patient size. 3. Use of iterative reconstruction technique. COMPARISON: None. FINDINGS: Lung windows through the visualized portions of the bases reveal no abnormality. There are atherosclerotic calcifications of the coronary arteries. Bone windows reveal no suspicious lesions. Hepatic surface nodularity is consistent with cirrhotic change. No suspicious focal lesions are appreciable without contrast. There is some dense material in a subcapsular position a long segment 5, possibly related to an old laceration with calcification or an embolization procedure. Calcified granulomas are noted in the liver and spleen. The spleen measures 18.9 cm. The gallbladder, adrenal glands, pancreas and kidneys are unremarkable without contrast. There are no pathologically enlarged lymph nodes. Stool throughout the colon is consistent with mild constipation. The appendix is not inflamed. There is no small bowel obstruction. There are changes of mesh repair of an periumbilical hernia just to the left midline. A small umbilical hernia contains fat. An epiphrenic lymph node measures 1.6 x 0.9 cm. No clearly pathologically enlarged lymph nodes are identified. There is no ascites. There is no small bowel obstruction. IMPRESSION: 1. Morphologic changes of cirrhosis. Moderate splenomegaly. 2. Findings consistent with mild constipation. Electronically signed by: August Oleary MD (03/25/2021 12:36 PM) [id number] DICTATED and SIGNED BY: AVERY OLEARY MD DATE: 03/25/21 [id number] [facility] [address] [place] [address] IMAGING REPORT Signed PATIENT: SUSAN DEMARCO ACCOUNT: [id number] : 1960 LOCATION: ER AGE: 60 SEX: M EXAM STATUS: REG ER ORD. PHYSICIAN: BRIAN TORRES APRN REASON: CHEST PAIN PROCEDURE: CT ANGIOGRAPHY CHEST EXAM: CT angiography of the chest with intravenous contrast. HISTORY: Chest pain. TECHNIQUE: Computed tomographic images of the chest were obtained following the administration of intravenous contrast according to angiography protocol. Multiplanar reformatting was performed and three dimensional maximum intensity projection images were obtained. *One or more of the following individualized dose reduction techniques were utilized for this examination: 1. Automated exposure control. 2. Adjustment of the mA and/or kV according to patient size. 3. Use of iterative reconstruction technique. COMPARISON: 01/12/2020. FINDINGS: The aorta is normal in caliber. There is no evidence of aortic dissection. There is no evidence of central pulmonary embolism. There is calcified atherosclerotic plaque involving the coronary arteries, aorta and aortic branch vessels. There is calcification of the aortic valve. There are calcified mediastinal granulomas. There are nonspecific noncalcified right paratracheal lymph nodes. These are not pathologically enlarged. There is a 1.8 cm nodule posterior to the right thyroid lobe which is likely due to a lymph node rather than ectopic or exophytic thyroid nodule. There is mild gynecomastia. There is no pneumothorax or pleural effusion. There are few tiny pleural-based nodular opacities due to scarring. There is minimal emphysema. There is a calcified granuloma within the left upper lobe. No suspicious noncalcified nodule is seen. There is hepatomegaly and hepatic steatosis. There is splenomegaly, partially included on the [id number]. There is no suspicious osseous lesion. There is a cardiac event monitor within the left chest. There are chronic appearing mild and moderate midthoracic wedge compression fractures. IMPRESSION: 1. No evidence of pulmonary embolus or aortic dissection. 2. Hepatosplenomegaly and hepatic steatosis. 3. Healed granulomatous disease. 4. Minimal emphysema. 5. Nonspecific right paratracheal lymph nodes. These are stable and likely physiologic or reactive. Electronically signed by: Mallory Arnold MD (03/25/2021 2:58 PM) [id number] DICTATED and SIGNED BY: MALLORY ARNOLD MD DATE: 03/25/21 [id number] [facility] [address] [place] [address] IMAGING REPORT Signed PATIENT: SUSAN DEMARCO ACCOUNT: [id number] : 1960 LOCATION: NORTH AGE: 60 SEX: M EXAM STATUS: ADM IN ORD. PHYSICIAN: BRIAN TORRES APRN REASON: ELEVATED LIVER ENZYMES AND LIPASE PROCEDURE: ABDOMEN COMPLETE EXAMINATION: US ABDOMEN COMPLETE CLINICAL HISTORY: ELEVATED LIVER ENZYMES AND LIPASE TECHNIQUE: Grayscale sonographic imaging of the abdomen obtained with color Doppler imaging and spectral Doppler analysis as indicated. COMPARISON: CT abdomen/pelvis same day FINDINGS: Pancreas: Partially visualized pancreas unremarkable. Liver: - Echotexture: Coarse - Echogenicity: Heterogeneous - Surface contour: Nodular - Lesions: None Biliary: No intrahepatic biliary duct dilation. - CBD: 4 mm at the hilum. - Gallbladder: Gallbladder measures up to 9.6 cm in length. - Contents: No cholelithiasis - Wall: Normal - Other: No pericholecystic fluid. Spleen: - Craniocaudal length: 20.0 cm, enlarged. - Lesions: None Right Kidney: - Renal length: 12.0 cm - Parenchyma: Normal parenchymal echogenicity. Normal parenchymal thickness. - Collecting system: No hydronephrosis. - Calculus: No echogenic, shadowing calculus. - Lesion: None Left Kidney: - Renal length: 11.6 cm - Parenchyma: Normal parenchymal echogenicity. Normal parenchymal thickness. - Collecting system: No hydronephrosis. - Calculus: No echogenic, shadowing calculus. - Lesion: None IVC: Poorly visualized. Abdominal Aorta: Poorly visualized. Ascites: None. IMPRESSION: Redemonstration of changes consistent with hepatic cirrhosis and splenomegaly. Electronically signed by: Michael Castañeda DO (03/25/2021 3:08 PM) [facility] DICTATED and SIGNED BY: MICHAEL CASTAÑEDA DO DATE: 03/25/21 [id number] Course & Med Decision Making: Course & Med Decision Making Pertinent Labs and Imaging studies reviewed. (See chart for details) See HPI. Alert and oriented x4. Ambulatory also uses a wheelchair. His left foot is wrapped up after he saw wound care today. Abdomen is soft and no ntender. Patient states he does have some shortness of air but he usually does have shortness of air. He is not currently wearing any oxygen. Speaks in full clear sentences. Skin is pink warm and dry. He is afebrile. Patient states he did not take his omeprazole medication this morning because he was running late to the [employer] the bus to get here. Patient's glucose is 476. BUN is elevated. Liver enzymes are very elevated. CT abdomen pelvis shows a cirrhosis of the liver but also shows some constipa tion. Patient's potassium is elevated. Acetone is negative. [] Dragon Disclaimer: Dragon Disclaimer: This electronic medical record was generated, in whole or in part, using a voice recognition dictation system. Departure Departure Impression: Primary Impression: Chest pain Qualified Codes: R07.9 - Chest pain, unspecified Disposition: ADMITTED INPATIENT [facility]: ST[facility] Referrals: GEO JUARES MD (PCP) BRIAN TORRES APRN March 25, 2021 12:19
[2021-03-25 12:21] LABS: BASO % 1 % (0-3); EOS % 1 % (0-3); HEMATOCRIT 33.8 % (39.0-53.0); HEMOGLOBIN 11.4 g/dL (13.0-17.5); LYMPH # 0.9 x10^3/uL (1.0-4.8); LYMPH % 26 % (24-48); MEAN CORPUSCULAR HEMOGLOBIN 30 pg (25-35); MEAN CORPUSCULAR HGB CONC 34 g/dL (31-37); MEAN CORPUSCULAR VOLUME 90 fL (79-100); MONO # 0.2 x10^3/uL (0.0-1.1); MONO % 7 % (0-9); NEUT # 2.4 x10^3/uL (1.8-7.7); NEUT % 65 % (31-73); PLATELET COUNT 86 x10^3/uL (140-400); RED BLOOD COUNT 3.74 x10^6/uL (4.30-5.70); RED CELL DISTRIBUTION WIDTH 14.6 % (11.5-14.5); WHITE BLOOD COUNT 3.6 x10^3/uL (4.0-11.0)
[2021-03-25 12:30] LABS: CALCIUM 8.7 mg/dL (8.5-10.1); CREATININE 1.1 mg/dL (0.7-1.3); GFR 68.8; POTASSIUM 5.7 mmol/L (3.5-5.1)
[2021-03-25 12:34] LABS: D-DIMER 1.47 ug/mlFEU (0.00-0.50)
[2021-03-25 12:37] LABS: ALBUMIN 3.2 g/dL (3.4-5.0); ALBUMIN/GLOBULIN RATIO 0.7 (1.0-1.7); TOTAL BILIRUBIN 0.8 mg/dL (0.2-1.0); TOTAL PROTEIN 7.6 g/dL (6.4-8.2)
--- NOTE | 2021-03-25 12:39 | RAD ---
EXAM: CT ABDOMEN/PELVIS WITHOUT CONTRAST. HISTORY: Nausea, constipation. TECHNIQUE: Computed tomography of the abdomen and pelvis was performed without intravenous contrast. One or more of the following individualized dose reduction techniques were utilized for this examinat ion: 1. Automated exposure control. 2. Adjustment of the mA and/or kV according to patient size. 3. Use of iterative reconstruction technique. COMPARISON: None. FINDINGS: Lung windows through the visualized portions of the bases reveal no abnormality. There are atherosclerotic calcifications of the coronary arteries. Bone windows reveal no suspicious lesions. Hepatic surface nodularity is consistent with cirrhotic change. No suspicious focal lesions are appre ciable without contrast. There is some dense material in a subcapsular position a long segment 5, pos sibly related to an old laceration with calcification or an embolization procedure. Calcified granulo mas are noted in the liver and spleen. The spleen measures 18.9 cm. The gallbladder, adrenal glands, pancreas and kidneys are unremarkable without contrast. There are no pathologically enlarged lymph nodes. Stool throughout the colon is consistent with mild constipation . The appendix is not inflamed. There is no small bowel obstruction. There are changes of mesh repair of an periumbilical hernia just to the left midline. A small umbilical hernia contains fat. An epiphrenic lymph node measures 1.6 x 0.9 cm. No clearly pathologically enlarged lymph nodes are id entified. There is no ascites. There is no small bowel obstruction. IMPRESSION: 1. Morphologic changes of cirrhosis. Moderate splenomegaly. 2. Findings consistent with mild constipation. Electronically signed by: August Oleary MD (03/25/2021 12:36 PM) [id number]
[2021-03-25 12:54] LABS: BILIRUBIN,URINE NEGATIVE (NEG); CLARITY,URINE CLEAR; COLOR,URINE YELLOW; NITRITE,URINE NEGATIVE (NEG); PROTEIN,URINE NEGATIVE (NEG-TRACE)
[2021-03-25 13:01] LABS: BARBITURATES NEG (NEG); BENZODIAZEPINES NEG (NEG); CANNABINOIDS NEG (NEG); COCAINE NEG (NEG); METHADONE NEG (NEG); OPIATES NEG (NEG); PHENCYCLIDINE NEG (NEG)
[2021-03-25 13:02] LABS: AMPHETAMINE/METHAMPHETAMINE NEG (NEG)
[2021-03-25 13:03] LABS: BACTERIA,URINE 0 /HPF (0-FEW); WBC,URINE 0 /HPF (0-4)
[2021-03-25] MEDS ORDERED: INSULIN REGULAR 100 UNIT/ML 3ML VIAL. IV ONE (14:00)
[2021-03-25] MEDS ORDERED: IOHEXOL 350 MG/ML 100 ML VIAL. IV ONE (14:30)
[2021-03-25] MEDS ORDERED: IV NORMAL SALINE 1000ML BAG 1,000 ML IV ONE (14:30)
[2021-03-25] MEDS ORDERED: CONTRAST GIVEN. MC PRN (14:30)
--- NOTE | 2021-03-25 15:00 | RAD ---
EXAM: CT angiography of the chest with intravenous contrast. HISTORY: Chest pain. TECHNIQUE: Computed tomographic images of the chest were obtained following the administration of int ravenous contrast according to angiography protocol. Multiplanar reformatting was performed and three dimensional maximum intensity projection images were obtained. *One or more of the following individualized dose reduction techniques were utilized for this examina tion: 1. Automated exposure control. 2. Adjustment of the mA and/or kV according to patient size. 3. Use of iterative reconstruction technique. COMPARISON: 01/12/2020. FINDINGS: The aorta is normal in caliber. There is no evidence of aortic dissection. There is no evid ence of central pulmonary embolism. There is calcified atherosclerotic plaque involving the coronary arteries, aorta and aortic branch vessels. There is calcification of the aortic valve. There are calc ified mediastinal granulomas. There are nonspecific noncalcified right paratracheal lymph nodes. Thes e are not pathologically enlarged. There is a 1.8 cm nodule posterior to the right thyroid lobe which is likely due to a lymph node rather than ectopic or exophytic thyroid nodule. There is mild gynecom astia. There is no pneumothorax or pleural effusion. There are few tiny pleural-based nodular opacities due to scarring. There is minimal emphysema. There is a calcified granuloma within the left upper lobe. N o suspicious noncalcified nodule is seen. There is hepatomegaly and hepatic steatosis. There is splenomegaly, partially included on the field-o f-view. There is no suspicious osseous lesion. There is a cardiac event monitor within the left chest . There are chronic appearing mild and moderate midthoracic wedge compression fractures. IMPRESSION: 1. No evidence of pulmonary embolus or aortic dissection. 2. Hepatosplenomegaly and hepatic steatosis. 3. Healed granulomatous disease. 4. Minimal emphysema. 5. Nonspecific right paratracheal lymph nodes. These are stable and likely physiologic or reactive. Electronically signed by: Mallory Shore MD (03/25/2021 2:58 PM) [id number]
--- NOTE | 2021-03-25 15:10 | RAD ---
EXAMINATION: US ABDOMEN COMPLETE CLINICAL HISTORY: ELEVATED LIVER ENZYMES AND LIPASE TECHNIQUE: Grayscale sonographic imaging of the abdomen obtained with color Doppler imaging and spect ral Doppler analysis as indicated. COMPARISON: CT abdomen/pelvis same day FINDINGS: Pancreas: Partially visualized pancreas unremarkable. Liver: - Echotexture: Coarse - Echogenicity: Heterogeneous - Surface contour: Nodular - Lesions: None Biliary: No intrahepatic biliary duct dilation. - CBD: 4 mm at the hilum. - Gallbladder: Gallbladder measures up to 9.6 cm in length. - Contents: No cholelithiasis - Wall: Normal - Other: No pericholecystic fluid. Spleen: - Craniocaudal length: 20.0 cm, enlarged. - Lesions: None Right Kidney: - Renal length: 12.0 cm - Parenchyma: Normal parenchymal echogenicity. Normal parenchymal thickness. - Collecting system: No hydronephrosis. - Calculus: No echogenic, shadowing calculus. - Lesion: None Left Kidney: - Renal length: 11.6 cm - Parenchyma: Normal parenchymal echogenicity. Normal parenchymal thickness. - Collecting system: No hydronephrosis. - Calculus: No echogenic, shadowing calculus. - Lesion: None IVC: Poorly visualized. Abdominal Aorta: Poorly visualized. Ascites: None. IMPRESSION: Redemonstration of changes consistent with hepatic cirrhosis and splenomegaly. Electronically signed by: Michael Reynolds DO (03/25/2021 3:08 PM) [facility]
[2021-03-25 15:18] LABS: BASE EXCESS ABG -4 mmol/L (-3-3); HCO3 ABG 20 mmol/L (21-28); PCO2 ABG 35 mmHg (35-46); PO2 ABG 97 mmHg (75-108); SAT O2 ABG 96 % (92-99)
[2021-03-25 15:19] LABS: FIO2 ABG 21
--- NOTE | 2021-03-25 15:50 | EKG ---
[facility] [address] [place] [address] Test Date: 2021-03-25 Test Time: 12:00:54 Pat Name: SUSAN DEMARCO Department: Room: Gender: M Lifestyle Consultant: : 1960 Requested By: BRIAN TORRES Order Number: [id number] Reading MD: Measurements Intervals [place] Rate: 67 P: 8 CA: 190 QRS: -98 QRSD: 128 T: 34 QT: 428 QTc: 455 Interpretive Statements SINUS RHYTHM ABNORMAL RIGHT SUPERIOR AXIS DEVIATION LEFT ANTERIOR FASCICULAR BLOCK RIGHT BUNDLE BRANCH BLOCK BIFASCICULAR BLOCK ABNORMAL ECG RI6.01 Compared to ECG 03/25/2021 11:59:39 No significant changes
--- NOTE | 2021-03-25 16:21 | NUR ---
Patient arrived to room 200 via bed from ER at around 1621. Patient A&OX4. VSS. Patient was seen by wound care today. Patient stated they pictured wound so picture not taken at this time. Dressing on R foot CDI. The patient, SUSAN DEMARCO, 60 y/o, M admitted by GALILEA MARTINEZ III, DO, was given written information regarding hospital policies, unit procedures and contact persons. Valuables were checked and noted. Will continue to monitor.
[2021-03-25 16:25] VITALS: BP 160/58
[2021-03-25] MEDS ORDERED: FUROSEMIDE 40 MG/4 ML VIAL. IVP ONE (16:30)
[2021-03-25] MEDS ORDERED: PANTOPRAZOLE 40 MG TABLET.DR. PO ONE (16:30)
[2021-03-25] MEDS ORDERED: hydrALAZINE 20 MG/ML VIAL. IVP PRN (16:30)
[2021-03-25] MEDS ORDERED: SODIUM POLYSTYRENE SULFON/SORB 15 GM/60 ML ORAL.SUSP. PO ONE (16:30)
[2021-03-25] MEDS ORDERED: amLODIPine BESYLATE 5 MG TABLET PO ONE (16:30)
--- NOTE | 2021-03-25 16:38 | PDOC2 ---
KORY ALFARO FIBERGLASS SKI MAKER 03/25/21 1638: CARDIAC CONSULT DATE OF CONSULT Date of Consult DATE: 03/25/21 TIME: 16:07 REASON FOR CONSULT Reason for Consult: Chest pain REFERRING PHYSICIAN Referring Physician: Celso SOURCE Source: Chart review, Patient HISTORY OF PRESENT ILLNESS HISTORY OF PRESENT ILLNESS This is a pleasant 60 yo male admitted for complains of abdominal pain and nausea. Reports some tenderness to his upper abdomen which is dull and sharp then went up to his chest. No SOA. He does felt that his legs gets edematous at times like it is currently. He has been farting and belching a lot. He had fall about 2 weeks ago but no injury and explained that he just tumbled. No intractable coughing and n significant diarrhea. No prior exposure to covid-19 and has had his 2nd dose about a week ago of moderna. No prior hx of CAD, VTE. He has not followed up with any glue bone crusher or GI as an outpt in regards to his liver issues. PAST MEDICAL HISTORY Past Medical History Cardiovascular: CHF, HTN, Hyperlipidemia, Valve insufficiency, Other (chronic RBBB; PAD) Pulmonary: Asthma, Other (CHRIS, no CPAP), COPD CENTRAL NERVOUS SYSTEM: Peripheral neuropathy, TIA, CVA GI: Constipation, GERD Heme/Onc: No pertinent hx Psych: No pertinent hx Musculoskeletal: Osteoarthritis Rheumatologic: No pertinent hx Infectious disease: Other (MRSA) ENT: Allergic Rhinitis Endocrine: Diabetes (2) Dermatology: Other (foot ulcers) PAST SURGICAL HISTORY Past Surgical History Arthroscopy (club foot repair), Hernia Repair, Other (right carotid endarterectomy; left toe amputations; liver lacerations repair), ILR placement, 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 FAMILY HISTORY Family History: Hypertension SOCIAL HISTORY Smoke: Quit ALCOHOL: occassional Drugs: None Lives: with Family CURRENT MEDICATIONS CURRENT MEDICATIONS Current Medications Medications (Trade) Dose Ordered Sig/John Route PRN Reason Start Time Stop Time Status Last Admin Dose Admin Metoclopramide HCl (Reglan Vial) 10 mg 1X ONCE IVP 03/25/21 12:00 03/25/21 12:01 DC 03/25/21 12:15 Famotidine (Pepcid Vial) 20 mg 1X ONCE IVP 03/25/21 12:00 03/25/21 12:01 DC 03/25/21 12:15 Insulin Human Regular (HumuLIN R VIAL) 10 unit 1X ONCE IV 03/25/21 14:00 03/25/21 14:01 DC 03/25/21 14:39 Sodium Chloride 1,000 ml @ 1,000 mls/hr 1X ONCE IV 03/25/21 14:30 03/25/21 15:29 DC 03/25/21 14:38 Iohexol (Omnipaque 350 Mg/ml) 100 ml 1X ONCE IV 03/25/21 14:30 03/25/21 14:31 DC 03/25/21 14:29 ALLERGIES ALLERGIES: Coded Allergies: morphine (Verified Allergy, Intermediate, N/V, 08/13/20) I S O L A T I O N *CONTACT* (Verified Allergy, Unknown, 08/13/20) mrsa ROS Review of System 14 point ROS evaluated with pertinent positives noted per HPI PHYSICAL EXAM General: Alert, Oriented X3, Cooperative, No acute distress HEENT: Atraumatic, Mucous membr. moist/pink Lungs: Other (diminished bases) Heart: Regular rate (SR), Normal S1, Normal S2, No murmurs Abdomen: Soft, No tenderness, Other (protuberant) Extremities: No cyanosis, Other (1-2+ bilateral LE pitting edema) Skin: No breakdown, No significant lesion Neuro: Normal speech, Sensation intact Psych/Mental Status: Mental status NL, Mood NL MUSCULOSKELETAL: Osteoarthritic changes both hands VITALS/I&O VITALS/I&O: Vital Signs Date Time Temp Pulse Resp B/P (MAP) Pulse Ox O2 Delivery O2 Flow Rate FiO2 03/25/21 15:07 98 Room Air 03/25/21 15:01 70 27 184/72 (109) 03/25/21 11:19 98.6 98.6 LABS Lab: Laboratory Tests Test 03/25/21 12:05 03/25/21 12:36 03/25/21 15:00 White Blood Count 3.6 x10^3/uL (4.0-11.0) L Red Blood Count 3.74 x10^6/uL (4.30-5.70) L Hemoglobin 11.4 g/dL (13.0-17.5) L Hematocrit 33.8 % (39.0-53.0) L Mean Corpuscular Volume 90 fL (79-100) Mean Corpuscular Hemoglobin 30 pg (25-35) Mean Corpuscular Hemoglobin Concent 34 g/dL (31-37) Red Cell Distribution Width 14.6 % (11.5-14.5) H Platelet Count 86 x10^3/uL (140-400) L Neutrophils (%) (Auto) 65 % (31-73) Lymphocytes (%) (Auto) 26 % (24-48) Monocytes (%) (Auto) 7 % (0-9) Eosinophils (%) (Auto) 1 % (0-3) Basophils (%) (Auto) 1 % (0-3) Neutrophils # (Auto) 2.4 x10^3/uL (1.8-7.7) Lymphocytes # (Auto) 0.9 x10^3/uL (1.0-4.8) L Monocytes # (Auto) 0.2 x10^3/uL (0.0-1.1) Eosinophils # (Auto) 0.0 x10^3/uL (0.0-0.7) Basophils # (Auto) 0.0 x10^3/uL (0.0-0.2) Prothrombin Time 13.0 SEC (11.7-14.0) Prothrombin Time INR 1.0 (0.8-1.1) D-Dimer (Leigha) 1.47 ug/mlFEU (0.00-0.50) H Sodium Level 132 mmol/L (136-145) L Potassium Level 5.7 mmol/L (3.5-5.1) H Chloride Level 100 mmol/L (98-107) Carbon Dioxide Level 23 mmol/L (21-32) Anion Gap 9 (6-14) Blood Urea Nitrogen 27 mg/dL (8-26) H Creatinine 1.1 mg/dL (0.7-1.3) Estimated GFR (Cockcroft-Gault) 68.8 BUN/Creatinine Ratio 25 (6-20) H Glucose Level 476 mg/dL (70-99) H Calcium Level 8.7 mg/dL (8.5-10.1) Magnesium Level 1.9 mg/dL (1.8-2.4) Total Bilirubin 0.8 mg/dL (0.2-1.0) Aspartate Amino Transferase (AST) 130 U/L (15-37) H Alanine Aminotransferase (ALT) 238 U/L (16-63) H Alkaline Phosphatase 643 U/L (46-116) H Troponin I Quantitative < 0.017 ng/mL (0.000-0.055) LX-Lrv-W-Type Natriuretic Peptide 97 pg/mL (0-124) Total Protein 7.6 g/dL (6.4-8.2) Albumin 3.2 g/dL (3.4-5.0) L Albumin/Globulin Ratio 0.7 (1.0-1.7) L Lipase 206 U/L (73-393) Acetone Level Neg (NEG) Urine Collection Type Void Urine Color Yellow Urine Clarity Clear Urine pH 7.0 (<5.0-8.0) Urine Specific Raven 1.025 (1.000-1.030) Urine Protein Negative mg/dL (NEG-TRACE) Urine Glucose (UA) >=1000 mg/dL (NEG) Urine Ketones (Stick) Negative mg/dL (NEG) Urine Blood Negative (NEG) Urine Nitrite Negative (NEG) Urine Bilirubin Negative (NEG) Urine Urobilinogen Dipstick 1.0 mg/dL (0.2 mg/dL) Urine Leukocyte Esterase Negative (NEG) Urine RBC 3-5 /HPF (0-2) Urine WBC 0 /HPF (0-4) Urine Bacteria 0 /HPF (0-FEW) Urine Opiates Screen Neg (NEG) Urine Methadone Screen Neg (NEG) Urine Barbiturates Neg (NEG) Urine Phencyclidine Screen Neg (NEG) Urine Amphetamine/Methamphetamine Neg (NEG) Urine Benzodiazepines Screen Neg (NEG) Urine Cocaine Screen Neg (NEG) Urine Cannabinoids Screen Neg (NEG) Urine Ethyl Alcohol Neg (NEG) O2 Saturation 96 % (92-99) Arterial Blood pH 7.38 (7.35-7.45) Arterial Blood pCO2 at Patient Temp 35 mmHg (35-46) Arterial Blood pO2 at Patient Temp 97 mmHg (75-108) Arterial Blood HCO3 20 mmol/L (21-28) L Arterial Blood Base Excess -4 mmol/L (-3-3) L FiO2 21 Laboratory Tests 03/25/21 12:05 Laboratory Tests 03/25/21 12:05 ECHOCARDIOGRAM ECHOCARDIOGRAM <Conclusion> The left ventricular systolic function is normal. The Ejection Fraction is 55-60%. There is normal LV segmental wall motion. Trace mitral regurgitation. Trace to mild tricuspid regurgitation. The PA pressure was estimated at 30 mmHg. There is no evidence of significant pericardial effusion. DATE: 08/13/20 1538 ASSESSMENT/PLAN ASSESSMENT/PLAN 1. Atypical chest pain: Trop nml EKG SR with chronic RBBB/LAFB no acute changes. Suspect likely GI 2. Prerenal azotemia with hyperkalemia: K at 5.7 3. Transaminitis/splenomegaly with liver cirrhosis 4. Thrombocytopenia: PLT at 86 5. Chronic diastolic CHF 6. 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 DM2: per PCP 8. Accelerated HTN: possibly from missed meds 9. HLP 10. Hx of multiple TIAs with past right CEA 11. ILR in situ: this was placed in 2013 12. Hx of heavy alcoholism 13. Recent Moderna covid-19 vaccine: 2nd dose 03/19/2021 Recommendations 1. Hold ARB. No NSAID. Lasix x1. Kayexelate x1. Hydralazine IV PRN 2. Secondary prevention measures 3. Stop ASA and continue plavix. Stop statin for now 4. Plan for outpatient explantation of ILR placed in 2013. 5. Continue PPI. Consult GI CHAYO FLORES MD 03/26/21 1611: CARDIAC CONSULT ASSESSMENT/PLAN ASSESSMENT/PLAN Patient seen and examined 03/25/21. Agree with REGIONAL EXTENSION SERVICE SPECIALIST's assessment and plan. Chest pain with atypical features and most probably GI etiology. Myocardial infarction been ruled out. Recent 2D echo showed normal LV systolic function. Chronic diastolic heart failure well compensated. Agree with stopping statins secondary to transaminitis/cirrhosis PAD status stable clinically Thanks for your consultation KORY ALFARO APRN March 25, 2021 16:38 CHAYO FLORES MD March 26, 2021 16:11
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
[2021-03-25] MEDS ORDERED: INSU100I46 SQ (17:37)
[2021-03-25] MEDS ORDERED: CYCL10TA2 PO (17:37)
[2021-03-25] MEDS ORDERED: SPIR25TA5 PO (17:38)
[2021-03-25 19:00] VITALS: BP 129/70
[2021-03-25] MEDS ORDERED: ALBUTEROL SULFATE 2.5 MG/3 ML NEBU. NEB PRN (19:30)
[2021-03-25] MEDS ORDERED: hydrOXYzine 25 MG TABLET PO PRN (19:30)
[2021-03-25] MEDS: CYCLOBENZAPRINE 10 MG TABLET. PO SCH (21:16)
[2021-03-25] MEDS: GABAPENTIN 300 MG CAPSULE. PO SCH (21:16)
[2021-03-25] MEDS: ATORVASTATIN CALCIUM 20 MG TABLET PO SCH (21:16)
[2021-03-25] MEDS: INSULIN GLARGINE SYRINGE. SQ SCH (21:16)
[2021-03-25 22:22] VITALS: BP 162/57
[2021-03-26 02:39] VITALS: BP 170/54
[2021-03-26] MEDS ORDERED: ACETAMINOPHEN 325 MG TABLET. PO PRN (06:30)
[2021-03-26 07:00] VITALS: BP 156/66
[2021-03-26] MEDS: INSULIN LISPRO 300 UNITS/3 ML VIAL. SQ SCH ×5 (07:30→18:06)
[2021-03-26 08:15] LABS: CALCIUM 8.4 mg/dL (8.5-10.1); CREATININE 1.1 mg/dL (0.7-1.3); GFR 68.8; POTASSIUM 3.7 mmol/L (3.5-5.1)
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
--- NOTE | 2021-03-26 09:19 | PDOC2 ---
GI CONSULT Date of Service: DATE: 03/26/21 TIME: 09:19 Reason For Consult: transaminase-itis HPI: HPI: 60 y/o male who we've seen in the past. This time sent to the ER from wound care w/ chest and abdominal pain, also some constipation. Feels better now - had a large stool. Constipation is a newer issue - describes passing small hard stools - had planned to get some Dulcolax from the pharmacy. H/o cirrhosis (NAFLD/alcohol) w/ h/o elevated LFTs (primarily Alk Phos), GERD w/ intermittent dysphagia (none recently) - on omeprazole Q a.m. shortly before breakfast, and pacytopenia/ACD/ADONIS. No dysphagia, n/v, diarrhea, hematochezia, melena, or weight loss. No previous EGD or colonoscopy - recommended to pursue as outpt. No GB, pancreas, or PUD history. H/o DM, CAD, PVD, and CVA on Plavix (says no longer ASA). Does take Meloxicam QD. PMH: PMH: CAD, CHF, CVA, TIA, HTN, CHRIS, DM w/ neuropathy, HLD, PVD, MRSA CABG, repair traumatic liver lac, VHR, left toe amputations, LE angioplasty/stent, right toe amputation, foot abscess/debridement, right CEA FH: Family History: Cancer (GM - pancreatic), CAD Social History: Smoke: Quit ALCOHOL: other (heavy in past, none since 08/2020) Drugs: None ROS: GEN: Denies fevers, chills, sweats HEENT: Denies blurred vision, sore throat CV: +chest pain RESP: Denies shortness of air, cough GI: Per HPI : Denies hematuria, dysuria ENDO: "water weight" NEURO: Denies confusion, dizziness MSK: right foot pain SKIN: Denies jaundice, pruritus Vitals: Vitals: Vital Signs Date Time Temp Pulse Resp B/P (MAP) Pulse Ox O2 Delivery O2 Flow Rate FiO2 03/26/21 08:12 96 Room Air 03/26/21 07:00 98.7 73 18 156/66 (96) 98.7 Labs: Labs: Laboratory Tests Test 03/25/21 12:05 03/25/21 12:36 03/25/21 15:00 03/25/21 16:49 White Blood Count 3.6 x10^3/uL (4.0-11.0) Red Blood Count 3.74 x10^6/uL (4.30-5.70) Hemoglobin 11.4 g/dL (13.0-17.5) Hematocrit 33.8 % (39.0-53.0) Mean Corpuscular Volume 90 fL (79-100) Mean Corpuscular Hemoglobin 30 pg (25-35) Mean Corpuscular Hemoglobin Concent 34 g/dL (31-37) Red Cell Distribution Width 14.6 % (11.5-14.5) Platelet Count 86 x10^3/uL (140-400) Neutrophils (%) (Auto) 65 % (31-73) Lymphocytes (%) (Auto) 26 % (24-48) Monocytes (%) (Auto) 7 % (0-9) Eosinophils (%) (Auto) 1 % (0-3) Basophils (%) (Auto) 1 % (0-3) Neutrophils # (Auto) 2.4 x10^3/uL (1.8-7.7) Lymphocytes # (Auto) 0.9 x10^3/uL (1.0-4.8) Monocytes # (Auto) 0.2 x10^3/uL (0.0-1.1) Eosinophils # (Auto) 0.0 x10^3/uL (0.0-0.7) Basophils # (Auto) 0.0 x10^3/uL (0.0-0.2) Prothrombin Time 13.0 SEC (11.7-14.0) Prothromb Time International Ratio 1.0 (0.8-1.1) D-Dimer (Leigha) 1.47 ug/mlFEU (0.00-0.50) Sodium Level 132 mmol/L (136-145) Potassium Level 5.7 mmol/L (3.5-5.1) Chloride Level 100 mmol/L (98-107) Carbon Dioxide Level 23 mmol/L (21-32) Anion Gap 9 (6-14) Blood Urea Nitrogen 27 mg/dL (8-26) Creatinine 1.1 mg/dL (0.7-1.3) Estimated GFR (Cockcroft-Gault) 68.8 BUN/Creatinine Ratio 25 (6-20) Glucose Level 476 mg/dL (70-99) Calcium Level 8.7 mg/dL (8.5-10.1) Magnesium Level 1.9 mg/dL (1.8-2.4) Total Bilirubin 0.8 mg/dL (0.2-1.0) Aspartate Amino Transf (AST/SGOT) 130 U/L (15-37) Alanine Aminotransferase (ALT/SGPT) 238 U/L (16-63) Alkaline Phosphatase 643 U/L (46-116) Troponin I Quantitative < 0.017 ng/mL (0.000-0.055) GC-Kyu-Q-Type Natriuretic Peptide 97 pg/mL (0-124) Total Protein 7.6 g/dL (6.4-8.2) Albumin 3.2 g/dL (3.4-5.0) Albumin/Globulin Ratio 0.7 (1.0-1.7) Lipase 206 U/L (73-393) Acetone Level Neg (NEG) Urine Collection Type Void Urine Color Yellow Urine Clarity Clear Urine pH 7.0 (<5.0-8.0) Urine Specific [place] 1.025 (1.000-1.030) Urine Protein Negative mg/dL (NEG-TRACE) Urine Glucose (UA) >=1000 mg/dL (NEG) Urine Ketones (Stick) Negative mg/dL (NEG) Urine Blood Negative (NEG) Urine Nitrite Negative (NEG) Urine Bilirubin Negative (NEG) Urine Urobilinogen Dipstick 1.0 mg/dL (0.2 mg/dL) Urine Leukocyte Esterase Negative (NEG) Urine RBC 3-5 /HPF (0-2) Urine WBC 0 /HPF (0-4) Urine Bacteria 0 /HPF (0-FEW) Urine Opiates Screen Neg (NEG) Urine Methadone Screen Neg (NEG) Urine Barbiturates Neg (NEG) Urine Phencyclidine Screen Neg (NEG) Urine Amphetamine/Methamphetamine Neg (NEG) Urine Benzodiazepines Screen Neg (NEG) Urine Cocaine Screen Neg (NEG) Urine Cannabinoids Screen Neg (NEG) Urine Ethyl Alcohol Neg (NEG) O2 Saturation 96 % (92-99) Arterial Blood pH 7.38 (7.35-7.45) Arterial Blood pCO2 at Patient Temp 35 mmHg (35-46) Arterial Blood pO2 at Patient Temp 97 mmHg (75-108) Arterial Blood HCO3 20 mmol/L (21-28) Arterial Blood Base Excess -4 mmol/L (-3-3) FiO2 21 Glucose (Fingerstick) 195 mg/dL (70-99) Test 03/25/21 18:00 03/25/21 20:28 03/26/21 00:05 03/26/21 07:13 Troponin I Quantitative < 0.017 ng/mL (0.000-0.055) < 0.017 ng/mL (0.000-0.055) Glucose (Fingerstick) 275 mg/dL (70-99) 188 mg/dL (70-99) Sodium Level 138 mmol/L (136-145) Potassium Level 3.7 mmol/L (3.5-5.1) Chloride Level 102 mmol/L (98-107) Carbon Dioxide Level 24 mmol/L (21-32) Anion Gap 12 (6-14) Blood Urea Nitrogen 22 mg/dL (8-26) Creatinine 1.1 mg/dL (0.7-1.3) Estimated GFR (Cockcroft-Gault) 68.8 Glucose Level 207 mg/dL (70-99) Calcium Level 8.4 mg/dL (8.5-10.1) Allergies: Coded Allergies: morphine (Verified Allergy, Intermediate, N/V, 08/13/20) I S O L A T I O N *CONTACT* (Verified Allergy, Unknown, 08/13/20) mrsa Medications: Current Medications Medications (Trade) Dose Ordered Sig/John Route PRN Reason Start Time Stop Time Status Last Admin Dose Admin Metoclopramide HCl (Reglan Vial) 10 mg 1X ONCE IVP 03/25/21 12:00 03/25/21 12:01 DC 03/25/21 12:15 Famotidine (Pepcid Vial) 20 mg 1X ONCE IVP 03/25/21 12:00 03/25/21 12:01 DC 03/25/21 12:15 Insulin Human Regular (HumuLIN R VIAL) 10 unit 1X ONCE IV 03/25/21 14:00 03/25/21 14:01 DC 03/25/21 14:39 Sodium Chloride 1,000 ml @ 1,000 mls/hr 1X ONCE IV 03/25/21 14:30 03/25/21 15:29 DC 03/25/21 14:38 Iohexol (Omnipaque 350 Mg/ml) 100 ml 1X ONCE IV 03/25/21 14:30 03/25/21 14:31 DC 03/25/21 14:29 Sodium Polystyrene Sulfonate (Kayexalate) 30 gm 1X ONCE PO 03/25/21 16:30 03/25/21 16:31 DC 03/25/21 17:55 Atorvastatin Calcium (Lipitor) 20 mg HS PO 03/25/21 21:00 03/25/21 21:16 Amlodipine Besylate (Norvasc) 10 mg 1X ONCE PO 03/25/21 16:30 03/25/21 16:31 DC 03/25/21 17:49 Pantoprazole Sodium (Protonix) 40 mg 1X ONCE PO 03/25/21 16:30 03/25/21 16:31 DC 03/25/21 17:49 Furosemide (Lasix) 40 mg 1X ONCE IVP 03/25/21 16:30 03/25/21 16:31 DC 03/25/21 17:50 Cyclobenzaprine HCl (Flexeril) 10 mg BID PO 03/25/21 21:00 03/25/21 21:16 Gabapentin (Neurontin) 300 mg BID PO 03/25/21 21:00 03/25/21 21:16 Insulin Glargine (Lantus Syringe) 40 unit QHS SQ 03/25/21 21:00 03/25/21 21:16 Acetaminophen (Tylenol) 650 mg PRN Q6HRS PRN PO MILD PAIN / TEMP > 100.3'F 03/26/21 06:30 03/26/21 06:26 Imaging: Imaging: CXR IMPRESSION: 1. Mild cardiomegaly. CT A/P IMPRESSION: 1. Morphologic changes of cirrhosis. Moderate splenomegaly. 2. Findings consistent with mild constipation. Chest CTA IMPRESSION: 1. No evidence of pulmonary embolus or aortic dissection. 2. Hepatosplenomegaly and hepatic steatosis. 3. Healed granulomatous disease. 4. Minimal emphysema. 5. Nonspecific right paratracheal lymph nodes. These are stable and likely physiologic or reactive. Abd US IMPRESSION: Redemonstration of changes consistent with hepatic cirrhosis and splenomegaly. PE: GEN: NAD - was on commode when I first stopped by HEENT: Atraumatic, PERRL LUNGS: CTAB HEART: RRR ABD: round, NABS, non-tender EXTREMITY/SKIN: RLE wrapped NEURO/PSYCH: A & O 3 A/P: A/P: Atypical CP, abd pain, constipation - resolved ACD/ADONIS - note normal iron profile this time - heme/onc following Cirrhosis/hepatic steatosis GERD - on PPI CRC screen - nonte H/o CAD, PVD, and CVA on Plavix NSAID use -- Feeling better GI-jj. Continue PPI. Consider regular use of Miralax, etc. Liver workup as above - Alk Phos more elevated now - continue abstinence from alcohol, control DM, etc. Outpt scopes as previously discussed. UBALDO MCKENZIE March 26, 2021 09:19
[2021-03-26] MEDS: GLIMEPIRIDE 2 MG TABLET. PO SCH ×2 (09:25→17:59)
[2021-03-26] MEDS: TAMSULOSIN 0.4 MG CAP.ER.24H. PO SCH (09:25)
[2021-03-26] MEDS: PANTOPRAZOLE 40 MG TABLET.DR. PO SCH (09:25)
[2021-03-26] MEDS: GABAPENTIN 300 MG CAPSULE. PO SCH ×2 (09:25→21:14)
[2021-03-26] MEDS: CLOPIDOGREL BISULFATE 75 MG TABLET PO SCH (09:25)
[2021-03-26] MEDS: CYCLOBENZAPRINE 10 MG TABLET. PO SCH ×2 (09:25→21:13)
--- NOTE | 2021-03-26 10:18 | PDOC ---
KORY ALFARO [employer] MAINTENANCE 03/26/21 1017: CARDIO Progress Notes Date and Time Date of Service 03/26/2021 Time of Evaluation 1000 Subjective Subjective: No Chest Pain, No shortness of breath, No Palpitations Vitals Vitals Vital Signs Date Time Temp Pulse Resp B/P (MAP) Pulse Ox O2 Delivery O2 Flow Rate FiO2 03/26/21 08:12 96 Room Air 03/26/21 07:00 98.7 73 18 156/66 (96) 98.7 Weight Weight [ ] Input and Output Intake and Output Intake and Output 03/26/21 06:59 Intake Total 750 ml Output Total 2000 ml Balance -1250 ml Intake Oral 750 ml Output Urine Total 2000 ml # Bowel Movements 1 Laboratory Labs Laboratory Tests Test 03/25/21 12:05 03/25/21 12:36 03/25/21 15:00 03/25/21 16:49 White Blood Count 3.6 x10^3/uL (4.0-11.0) Red Blood Count 3.74 x10^6/uL (4.30-5.70) Hemoglobin 11.4 g/dL (13.0-17.5) Hematocrit 33.8 % (39.0-53.0) Mean Corpuscular Volume 90 fL (79-100) Mean Corpuscular Hemoglobin 30 pg (25-35) Mean Corpuscular Hemoglobin Concent 34 g/dL (31-37) Red Cell Distribution Width 14.6 % (11.5-14.5) Platelet Count 86 x10^3/uL (140-400) Neutrophils (%) (Auto) 65 % (31-73) Lymphocytes (%) (Auto) 26 % (24-48) Monocytes (%) (Auto) 7 % (0-9) Eosinophils (%) (Auto) 1 % (0-3) Basophils (%) (Auto) 1 % (0-3) Neutrophils # (Auto) 2.4 x10^3/uL (1.8-7.7) Lymphocytes # (Auto) 0.9 x10^3/uL (1.0-4.8) Monocytes # (Auto) 0.2 x10^3/uL (0.0-1.1) Eosinophils # (Auto) 0.0 x10^3/uL (0.0-0.7) Basophils # (Auto) 0.0 x10^3/uL (0.0-0.2) Prothrombin Time 13.0 SEC (11.7-14.0) Prothromb Time International Ratio 1.0 (0.8-1.1) D-Dimer (Leigha) 1.47 ug/mlFEU (0.00-0.50) Sodium Level 132 mmol/L (136-145) Potassium Level 5.7 mmol/L (3.5-5.1) Chloride Level 100 mmol/L (98-107) Carbon Dioxide Level 23 mmol/L (21-32) Anion Gap 9 (6-14) Blood Urea Nitrogen 27 mg/dL (8-26) Creatinine 1.1 mg/dL (0.7-1.3) Estimated GFR (Cockcroft-Gault) 68.8 BUN/Creatinine Ratio 25 (6-20) Glucose Level 476 mg/dL (70-99) Calcium Level 8.7 mg/dL (8.5-10.1) Magnesium Level 1.9 mg/dL (1.8-2.4) Total Bilirubin 0.8 mg/dL (0.2-1.0) Aspartate Amino Transf (AST/SGOT) 130 U/L (15-37) Alanine Aminotransferase (ALT/SGPT) 238 U/L (16-63) Alkaline Phosphatase 643 U/L (46-116) Troponin I Quantitative < 0.017 ng/mL (0.000-0.055) ZC-Qqo-H-Type Natriuretic Peptide 97 pg/mL (0-124) Total Protein 7.6 g/dL (6.4-8.2) Albumin 3.2 g/dL (3.4-5.0) Albumin/Globulin Ratio 0.7 (1.0-1.7) Lipase 206 U/L (73-393) Acetone Level Neg (NEG) Urine Collection Type Void Urine Color Yellow Urine Clarity Clear Urine pH 7.0 (<5.0-8.0) Urine Specific [place] 1.025 (1.000-1.030) Urine Protein Negative mg/dL (NEG-TRACE) Urine Glucose (UA) >=1000 mg/dL (NEG) Urine Ketones (Stick) Negative mg/dL (NEG) Urine Blood Negative (NEG) Urine Nitrite Negative (NEG) Urine Bilirubin Negative (NEG) Urine Urobilinogen Dipstick 1.0 mg/dL (0.2 mg/dL) Urine Leukocyte Esterase Negative (NEG) Urine RBC 3-5 /HPF (0-2) Urine WBC 0 /HPF (0-4) Urine Bacteria 0 /HPF (0-FEW) Urine Opiates Screen Neg (NEG) Urine Methadone Screen Neg (NEG) Urine Barbiturates Neg (NEG) Urine Phencyclidine Screen Neg (NEG) Urine Amphetamine/Methamphetamine Neg (NEG) Urine Benzodiazepines Screen Neg (NEG) Urine Cocaine Screen Neg (NEG) Urine Cannabinoids Screen Neg (NEG) Urine Ethyl Alcohol Neg (NEG) O2 Saturation 96 % (92-99) Arterial Blood pH 7.38 (7.35-7.45) Arterial Blood pCO2 at Patient Temp 35 mmHg (35-46) Arterial Blood pO2 at Patient Temp 97 mmHg (75-108) Arterial Blood HCO3 20 mmol/L (21-28) Arterial Blood Base Excess -4 mmol/L (-3-3) FiO2 21 Glucose (Fingerstick) 195 mg/dL (70-99) Test 03/25/21 18:00 03/25/21 20:28 03/26/21 00:05 03/26/21 07:13 Troponin I Quantitative < 0.017 ng/mL (0.000-0.055) < 0.017 ng/mL (0.000-0.055) Glucose (Fingerstick) 275 mg/dL (70-99) 188 mg/dL (70-99) Sodium Level 138 mmol/L (136-145) Potassium Level 3.7 mmol/L (3.5-5.1) Chloride Level 102 mmol/L (98-107) Carbon Dioxide Level 24 mmol/L (21-32) Anion Gap 12 (6-14) Blood Urea Nitrogen 22 mg/dL (8-26) Creatinine 1.1 mg/dL (0.7-1.3) Estimated GFR (Cockcroft-Gault) 68.8 Glucose Level 207 mg/dL (70-99) Calcium Level 8.4 mg/dL (8.5-10.1) Test 03/26/21 09:30 Red Blood Count 3.76 x10^6/uL (4.30-5.70) Absolute Reticulocyte Count 0.091 x10^6/uL (0.020-0.120) Percent Reticulocyte Count 2.4 % (0.5-2.3) Immature Reticulocyte Fraction 0.51 (0.20-0.60) Physical Exam HEENT: Neck Supple W Full Motion Chest: Symmetric LUNGS: Clear to Auscultation Heart: RRR (SR) Abdomen: Other (protuberant) Extremities: No Calf Tenderness Neurology: alert, oriented, follow commands Assessment Assessment 1. Atypical chest pain: Trop nml EKG SR with chronic RBBB/LAFB no acute changes. Suspect likely GI 2. Prerenal azotemia with hyperkalemia: K at 5.7 now normalized after lasix and kayexelate 3. Transaminitis/splenomegaly with liver cirrhosis 4. Thrombocytopenia: PLT at 86 5. Chronic diastolic CHF: compensated 6. Severe bilateral LE PAD with prior RSFA [employer]/stent and also 2 toe amputations: clinically stable and seen by wound care at [facility] 7. DM2: per PCP 8. Accelerated HTN: improved 9. HLP 10. Hx of multiple TIAs with past right CEA 11. ILR in situ: this was placed in 2013 12. Hx of heavy alcoholism 13. Recent Moderna covid-19 vaccine: 2nd dose 03/19/2021 Recommendations 1. No NSAID. OK to restart low dose losartan, metoprolol and aldactone. Continue lasix and I would not recommend K replacement. BMP as an outpt. Hydralazine IV PRN 2. Secondary prevention measures 3. Stop ASA and continue plavix. Stop statin for now, recheck FLP. Possibly restart at lower dose pending FLP result 4. Plan for outpatient explantation of ILR placed in 2013. 5. Continue PPI. Consult GI Justicifation of Admission Dx: Justifications for Admission: Justification of Admission Dx: Yes Sepsis: Infection Cellulitis: Cellulitis CHAYO FLORES MD 03/26/211924: CARDIO Progress Notes Assessment Assessment Patient seen and examined. Agree with BLOCKING MACHINE OPERATOR SECOND's assessment and plan. Chest pain with atypical features and most probably GI etiology. Myocardial infarction been ruled out. Recent 2D echo showed normal LV systolic function. Chronic diastolic heart failure well compensated. Statins stopped secondary to transaminitis/cirrhosis PAD status stable clinically Plan loop recorder explantation as outpatient KORY ALFARO APRN March 26, 2021 10:17 CHAYO FLORES MD March 26, 2021 19:25
[2021-03-26 10:25] LABS: LACTATE DEHYDROGENASE 149 U/L (85-227)
[2021-03-26] MEDS ORDERED: BISACODYL 5 MG TABLET.DR. PO PRN (10:30)
[2021-03-26 11:00] VITALS: BP 167/65
[2021-03-26] MEDS: POLYETHYLENE GLYCOL 3350 17 GM PACKET. PO SCH (11:00)
[2021-03-26 11:02] LABS: CHOLESTEROL/HDL RATIO 3.1
--- NOTE | 2021-03-26 11:10 | NUR ---
PER DR MARTINEZ - TAMARA HOLLEY ORDERS TO READ 5UNITS TID WITH MEALS.
[2021-03-26] MEDS: METOPROLOL TART IMMED RELEASE 25 MG TABLET. PO SCH ×2 (12:08→21:14)
[2021-03-26] MEDS: FUROSEMIDE 40 MG TABLET. PO SCH (12:08)
[2021-03-26] MEDS: LOSARTAN POTASSIUM 25 MG TABLET. PO SCH (12:09)
--- NOTE | 2021-03-26 12:09 | NUR ---
SS following for discharge planning. SS reviewed pt chart and discussed with pt RN. Pt is from home and is currently on room air. GI and Cardiology following. PT/OT ordered. SS will continue to follow for discharge planning.
[2021-03-26 15:00] VITALS: BP 145/46
[2021-03-26 19:23] VITALS: BP 148/64
[2021-03-26] MEDS: ATORVASTATIN CALCIUM 20 MG TABLET PO SCH (21:14)
[2021-03-26] MEDS: INSULIN GLARGINE SYRINGE. SQ SCH (21:14)
[2021-03-26 22:26] VITALS: BP 155/60
[2021-03-27 03:51] VITALS: BP 161/60
[2021-03-27 06:01] LABS: BASO % 0 % (0-3); EOS % 1 % (0-3); HEMATOCRIT 34.8 % (39.0-53.0); HEMOGLOBIN 11.6 g/dL (13.0-17.5); LYMPH # 1.4 x10^3/uL (1.0-4.8); LYMPH % 32 % (24-48); MEAN CORPUSCULAR HEMOGLOBIN 30 pg (25-35); MEAN CORPUSCULAR HGB CONC 33 g/dL (31-37); MEAN CORPUSCULAR VOLUME 91 fL (79-100); MONO # 0.3 x10^3/uL (0.0-1.1); MONO % 8 % (0-9); NEUT # 2.5 x10^3/uL (1.8-7.7); NEUT % 59 % (31-73); PLATELET COUNT 98 x10^3/uL (140-400); RED BLOOD COUNT 3.84 x10^6/uL (4.30-5.70); RED CELL DISTRIBUTION WIDTH 15.2 % (11.5-14.5); WHITE BLOOD COUNT 4.2 x10^3/uL (4.0-11.0)
[2021-03-27 06:20] LABS: CALCIUM 8.4 mg/dL (8.5-10.1); CREATININE 0.9 mg/dL (0.7-1.3); GFR 86.7
[2021-03-27 07:00] VITALS: BP 145/52
[2021-03-27 08:42] LABS: ALBUMIN 3.3 g/dL (3.4-5.0); DIRECT BILIRUBIN 0.5 mg/dL (0.0-0.2); TOTAL BILIRUBIN 0.9 mg/dL (0.2-1.0); TOTAL PROTEIN 7.4 g/dL (6.4-8.2)
[2021-03-27] MEDS: CLOPIDOGREL BISULFATE 75 MG TABLET PO SCH (08:56)
[2021-03-27] MEDS: PANTOPRAZOLE 40 MG TABLET.DR. PO SCH (08:57)
[2021-03-27] MEDS: CYCLOBENZAPRINE 10 MG TABLET. PO SCH (08:57)
[2021-03-27] MEDS: GABAPENTIN 300 MG CAPSULE. PO SCH (08:57)
[2021-03-27] MEDS: FUROSEMIDE 40 MG TABLET. PO SCH (08:57)
[2021-03-27] MEDS: LOSARTAN POTASSIUM 25 MG TABLET. PO SCH (08:57)
[2021-03-27] MEDS: GLIMEPIRIDE 2 MG TABLET. PO SCH (08:58)
[2021-03-27] MEDS: METOPROLOL TART IMMED RELEASE 25 MG TABLET. PO SCH (08:58)
[2021-03-27] MEDS: TAMSULOSIN 0.4 MG CAP.ER.24H. PO SCH (08:58)
[2021-03-27] MEDS: POLYETHYLENE GLYCOL 3350 17 GM PACKET. PO SCH (08:59)
[2021-03-27] MEDS: INSULIN LISPRO 300 UNITS/3 ML VIAL. SQ SCH ×4 (09:13→12:29)
[2021-03-27] MEDS ORDERED: diphenhydrAMINE HCL 25 MG CAPSULE PO PRN (09:30)
--- NOTE | 2021-03-27 10:31 | NUR ---
SS following up with discharge planning. SS reviewed pt chart and discussed with pt RN. Pt is currently on room air. PT/OT recommended home. Discharge plan is to home when medically ready. SS will continue to follow for discharge planning.
[2021-03-27 11:00] VITALS: BP 154/59
--- NOTE | 2021-03-27 11:05 | PDOC ---
Date of Service: DATE: 03/27/21 TIME: 11:02 Subjective: Subjective: No GI complaints but didn't sleep great because he felt itchy. "I've have itching before." Would like to go home today. Objective: Objective: No GI concerns per nurse. Vital Signs: Vital Signs Date Time Temp Pulse Resp B/P (MAP) Pulse Ox O2 Delivery O2 Flow Rate FiO2 03/27/21 08:58 62 161/60 03/27/21 07:00 98.2 18 95 Room Air 98.2 Labs: Laboratory Tests Test 03/26/21 11:39 03/26/21 16:52 03/26/21 20:43 03/27/21 04:25 Glucose (Fingerstick) 256 mg/dL 277 mg/dL 332 mg/dL White Blood Count 4.2 x10^3/uL Red Blood Count 3.84 x10^6/uL Hemoglobin 11.6 g/dL Hematocrit 34.8 % Mean Corpuscular Volume 91 fL Mean Corpuscular Hemoglobin 30 pg Mean Corpuscular Hemoglobin Concent 33 g/dL Red Cell Distribution Width 15.2 % Platelet Count 98 x10^3/uL Neutrophils (%) (Auto) 59 % Lymphocytes (%) (Auto) 32 % Monocytes (%) (Auto) 8 % Eosinophils (%) (Auto) 1 % Basophils (%) (Auto) 0 % Neutrophils # (Auto) 2.5 x10^3/uL Lymphocytes # (Auto) 1.4 x10^3/uL Monocytes # (Auto) 0.3 x10^3/uL Eosinophils # (Auto) 0.0 x10^3/uL Basophils # (Auto) 0.0 x10^3/uL Sodium Level 139 mmol/L Potassium Level 4.0 mmol/L Chloride Level 104 mmol/L Carbon Dioxide Level 26 mmol/L Anion Gap 9 Blood Urea Nitrogen 18 mg/dL Creatinine 0.9 mg/dL Estimated GFR (Cockcroft-Gault) 86.7 Glucose Level 204 mg/dL Calcium Level 8.4 mg/dL Total Bilirubin 0.9 mg/dL Direct Bilirubin 0.5 mg/dL Aspartate Amino Transf (AST/SGOT) 41 U/L Alanine Aminotransferase (ALT/SGPT) 150 U/L Alkaline Phosphatase 578 U/L Total Protein 7.4 g/dL Albumin 3.3 g/dL Test 03/27/21 07:41 Glucose (Fingerstick) 205 mg/dL PE: GEN: NAD LUNGS: CTAB HEART: RRR ABD: NABS, S/ND/NT NEURO/PSYCH: A & O 3 A/P: Atypical CP, abd pain, constipation - resolved H/o ACD/ADONIS, cirrhosis, GERD Cirrhosis, GERD -- DC per primary. Continue PPI and MIralax (or similar). Outpt EGD and colonoscopy - our office will call to schedule. Justicifation of Admission Dx: Justifications for Admission: Justification of Admission Dx: Yes Sepsis: Infection Cellulitis: Cellulitis UBALDO MCKENZIE March 27, 2021 11:05
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
[2021-03-27 15:15] LABS: ALPHA 1 0.2 g/dL (0.0-0.4); ALPHA 2 0.6 g/dL (0.4-1.0); BETA 1.1 g/dL (0.7-1.3); SPEP AG RATIO 0.8 (0.7-1.7)
[2021-03-27 16:15] LABS: KAPPA FREE 66.8 mg/L (3.3-19.4); KAPPA LAMBDA RATIO 1.06 (0.26-1.65); LAMBDA FREE 63.1 mg/L (5.7-26.3)
--- NOTE | 2021-03-27 16:52 | NUR ---
Discharge Note: SUSAN DEMARCO Discharge instructions and discharge home medications reviewed with Patient and a copy given. All questions have been answered and understanding verbalized.
[2021-03-27] MEDS ORDERED: metFORMIN 500 MG TABLET PO SCH (17:00)
== END 2021-03-27 16:50 | disposition home or self-care (01) ==
LOC: ER 10:51 → 2 NORTH 14:21
PROVIDERS: ADMIT Internal Medicine; ATTEND Internal Medicine
DX: R07.89 Other chest pain (principal); I25.10 Atherosclerotic heart disease of native coronary artery without angina pectoris; B19.20 Unspecified viral hepatitis C without hepatic coma; I45.10 Unspecified right bundle-branch block; I11.0 Hypertensive heart disease with heart failure; I50.32 Chronic diastolic (congestive) heart failure; I63.9 Cerebral infarction, unspecified; J45.909 Unspecified asthma, uncomplicated; K74.60 Unspecified cirrhosis of liver; K76.0 Fatty (change of) liver, not elsewhere classified; E78.00 Pure hypercholesterolemia, unspecified; E11.51 Type 2 diabetes mellitus with diabetic peripheral angiopathy without gangrene; K21.9 Gastro-esophageal reflux disease without esophagitis; R74.01 Elevation of levels of liver transaminase levels; E87.1 Hypo-osmolality and hyponatremia; E87.5 Hyperkalemia; D72.819 Decreased white blood cell count, unspecified; D64.9 Anemia, unspecified; D69.6 Thrombocytopenia, unspecified; D61.818 Other pancytopenia; K59.00 Constipation, unspecified; E78.5 Hyperlipidemia, unspecified; G47.33 Obstructive sleep apnea (adult) (pediatric); Z79.02 Long term (current) use of antithrombotics/antiplatelets; Z86.73 Personal history of transient ischemic attack (TIA), and cerebral infarction without residual deficits; Z87.891 Personal history of nicotine dependence; Z95.1 Presence of aortocoronary bypass graft; Z79.899 Other long term (current) drug therapy; Z98.890 Other specified postprocedural states
CPT/HCPCS: 36415; 36600; 71045; 71275; 74176; 76700; 80048; 80053; 80061; 80076; 80307; 81001; 82010; 82525; 82607; 82668; 82728; 82805; 82962; 83010; 83520; 83540; 83550; 83615; 83690; 83735; 83880; 84165; 84484; 85025; 85045; 85379; 85610; 93005; 94760; 96361; 96372; 96374; 96375; 97161; 97165; 97535; 99285; G0378; J1815; J1940; J2765; J3490; J7030; Q9967; G0379

== ENCOUNTER → 2021-05-19 | Day surgery (SDC) | payer OTHER ==
[~2021-05-19] VITALS: Ht 172.7 cm; Wt 90.0 kg
[~2021-05-19] MED LIST changes: +INSU100I46 SQ; +IV RINGERS,LACTATED 1000ML 1,000 ML IV ONE; +LIDOCAINE 2% PF 5 ML VIAL. ONE; -LOSA25TA12 PO; +LOSA25TA4 PO; -OMEP40CA45 PO; +OMEP40CA7 PO; +PROPOFOL 10 MG/ML (20ML) VIAL. IV ONE; +SPIR25TA5 PO
[2021-05-19 12:58] VITALS: BP 17/91
--- NOTE | 2021-05-19 13:00 | PDOC1 ---
History and Physical Date of Admission Date of Admission DATE: 05/19/21 TIME: 12:54 Identification/Chief Complaint Chief Complaint Heartburn/screen for varices/screen for colon cancer. Source Source: Chart review, Patient History of Present Illness History of Present Illness 60 y/o male with h/o cirrhosis. Also chronic heartburn on PPI. No prior EGD. No colon cancer screening. Past Medical History Cardiovascular: CHF, HTN, Hyperlipidemia, Valve insufficiency, Other Pulmonary: Asthma, Other CENTRAL NERVOUS SYSTEM: Periperal neuropathy, TIA GI: Constipation, GERD Heme/Onc: No pertinent hx Hepatobiliary: No pertinent hx Psych: No pertinent hx Musculoskeletal: Osteoarthritis Rheumatologic: No pertinent hx Infectious disease: Other Renal/: No pertinent hx Endocrine: Diabetes Past Surgical History Past Surgical History: Arthroscopy, Hernia Repair, Other Family History Family History: Hypertension Social History ALCOHOL: heavy (past) Drugs: None Current Medications Current Medications Current Medications Ringer's Solution 1,000 ml @ 75 mls/hr 1X ONCE IV ; Start 05/19/21 at 12:15; Stop 05/20/21 at 01:34 Active Scripts Active Lasix (Furosemide) 40 Mg Tablet 1 Tab PO DAILY 30 Days Proair Hfa Inhaler (Albuterol Sulfate) 8.5 Gm Hfa.aer.ad 1 Puff INH Q4HRS PRN Reported Spironolactone 25 Mg Tablet 1 Tab PO DAILY Cyclobenzaprine Hcl 10 Mg Tablet 1 Tab PO BID Insulin Lispro Kwikpen U-100 (Insulin Lispro) 100 Unit/1 Ml Insuln.pen 5-10 Units SQ TIDBFRMEAL Lantus Solostar (Insulin Glargine,Hum.rec.anlog) 100 Unit/1 Ml Insuln.pen 40 Unit SQ QHS Flomax (Tamsulosin Hcl) 0.4 Mg Cap.er.24h 0.4 Mg PO DAILY Gabapentin 300 Mg Capsule 300 Mg PO BID Metoprolol Tartrate 25 Mg Tablet 25 Mg PO BID Omeprazole 40 Mg Capsule.dr 40 Mg PO DAILY05 Losartan Potassium 25 Mg Tablet 25 Mg PO DAILY Hydroxyzine Hcl 25 Mg Tablet 25 Mg PO TID PRN PRN Atorvastatin Calcium 20 Mg Tablet 20 Mg PO HS Clopidogrel (Clopidogrel Bisulfate) 75 Mg Tablet 75 Mg PO DAILY Glimepiride 4 Mg Tablet 4 Mg PO BID Metformin Hcl 500 Mg Tablet 500 Mg PO BIDWMEALS do not take for 48 hours Allergies Allergies: Coded Allergies: morphine (Verified Allergy, Intermediate, N/V, 08/13/20) I S O L A T I O N *CONTACT* (Verified Allergy, Unknown, 08/13/20) mrsa ROS Review of System Otherwise negative. Physical Exam General: Alert, Oriented X3, No acute distress HEENT: Atraumatic Lungs: Clear to auscultation Heart: S1S2, RRR, no gallops, no murmurs Abdomen: Normal bowel sounds, Soft, No tenderness, No hepatosplenomegaly, No masses Rectal Exam: deferred (to procedure) Extremities: No cyanosis, No edema Skin: No significant lesion Neuro: Normal speech, Strength at 5/5 X4 ext, Normal tone, Sensation intact, Cranial nerves 3-12 NL, Reflexes 2+ Psych/Mental Status: Mental status NL, Mood NL VTE Prophylaxis Ordered VTE Prophylaxis Devices: No VTE Pharmacological Prophylaxi: No Assessment/Plan Assessment/Plan IMIP: Cirrhosis--varices? Chronic heartburn. Screen for colon cancer. PLAN: EGD/colonoscopy. SARAH ARENAS MD May 19, 2021 13:00
--- NOTE | 2021-05-19 14:07 | PDOC4 ---
PROCEDURE Procedure EGD/biopsies, colonoscopy. Indication: GERD/cirrhosis--varices?/screen Meds: per anesthesia Findings: E--Small, grade I varices distally. Healed GERD at 40cm. G--Scattered antral erosions, biopsies done. D--Normal to second portion. JJ--normal. --'Scope advanced to cecum. Prep fairly adequate. Mucosa normal. No divertic ular disease seen. No polyps, etc. IH's on retroflex. Denisse. well. IMP: GERD, healed. Small esophageal varices. Gastric erosions. IH's Negative CRC screening. REC: Continue PPI. Resume diet, other meds. Await pathology. F/u with me in 2 weeks. Consider repeat colonoscopy in 10 years. SARAH ARENAS MD May 19, 2021 14:06
[2021-05-19 14:21] VITALS: BP 112/66
== END | disposition home or self-care (01) ==
LOC: ENDOS 12:15
PROVIDERS: ATTEND Internal Medicine Gastroenterology
DX: Z12.11 Encounter for screening for malignant neoplasm of colon (principal); R12 Heartburn; K64.0 First degree hemorrhoids; K63.89 Other specified diseases of intestine; K21.00 Gastro-esophageal reflux disease with esophagitis, without bleeding; K74.60 Unspecified cirrhosis of liver; I85.10 Secondary esophageal varices without bleeding; I11.0 Hypertensive heart disease with heart failure; I50.9 Heart failure, unspecified; E78.00 Pure hypercholesterolemia, unspecified; E11.42 Type 2 diabetes mellitus with diabetic polyneuropathy; J45.909 Unspecified asthma, uncomplicated; G47.30 Sleep apnea, unspecified; M19.90 Unspecified osteoarthritis, unspecified site; F32.9 Major depressive disorder, single episode, unspecified; Z87.891 Personal history of nicotine dependence; Z79.4 Long term (current) use of insulin; Z79.899 Other long term (current) drug therapy; Z98.890 Other specified postprocedural states; Z82.49 Family history of ischemic heart disease and other diseases of the circulatory system; Z88.6 Allergy status to analgesic agent; Z88.8 Allergy status to other drugs, medicaments and biological substances
CPT/HCPCS: 43239; 45378; 82962; J2704

== ENCOUNTER 2021-07-13 16:18 | Emergency (ER) | payer OTHER ==
[~2021-07-13] VITALS: Ht 172.7 cm; Wt 100.0 kg
[~2021-07-13 16:18] MED LIST changes: -IV RINGERS,LACTATED 1000ML 1,000 ML IV ONE; -LIDOCAINE 2% PF 5 ML VIAL. ONE; -PROPOFOL 10 MG/ML (20ML) VIAL. IV ONE
[2021-07-13 16:20] VITALS: BP 180/74
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
--- NOTE | 2021-07-13 18:00 | RAD ---
Exam performed: X-ray abdomen 2 views. HISTORY: Constipation. DATE OF SERVICE: 07/13/2021. COMPARISON: CT abdomen and pelvis from 03/25/2021. FINDINGS: Supine and upright views of the abdomen demonstrates nonspecific, nondistended bowel loops. No abnorm al calcification is seen overlying the kidneys or in the expected course of the ureters. There is no pneumoperitoneum. The visualized lungs are clear. IMPRESSION: Negative exam Electronically signed by: Lucy Soler MD (07/13/2021 5:58 PM) [facility]
[2021-07-13] MEDS ORDERED: BISACODYL 10 MG SUPP.RECT. PR STA (18:14)
[2021-07-13] MEDS ORDERED: MAGNESIUM CITRATE 296 ML SOLUTION. PO ONE ×2 (18:30→20:45)
[2021-07-13] MEDS ORDERED: KETOROLAC 15 MG/ML VIAL. IM ONE (18:30)
== END 2021-07-13 20:40 | disposition home or self-care (01) ==
LOC: ER 16:18
DX: K59.00 Constipation, unspecified (principal); I11.0 Hypertensive heart disease with heart failure; I50.9 Heart failure, unspecified; E11.9 Type 2 diabetes mellitus without complications; I25.10 Atherosclerotic heart disease of native coronary artery without angina pectoris; E78.00 Pure hypercholesterolemia, unspecified; Z87.891 Personal history of nicotine dependence; Z86.73 Personal history of transient ischemic attack (TIA), and cerebral infarction without residual deficits; Z88.5 Allergy status to narcotic agent; Z91.041 Radiographic dye allergy status
CPT/HCPCS: 74021; 96372; 99284; J1885; 99283

== ENCOUNTER → 2021-09-30 | Outpatient (CLI) | payer OTHER ==
[~2021-09-30] MED LIST changes: +CYCL10TA19 PO; -CYCL10TA2 PO; +IOHEXOL 350 MG/ML 100 ML VIAL. IV ONE
[2021-09-30 12:55] LABS: CREATININE 0.8 mg/dL (0.7-1.3); GFR 99.3
--- NOTE | 2021-09-30 15:33 | RAD ---
EXAM: CTA abdomen, pelvis and lower extremities with and without contrast. HISTORY: Nonhealing lower extremity ulcers. TECHNIQUE: CTA of the abdomen, pelvis and lower extremity is was performed before and after the intra venous administration of iodinated contrast. Three-dimensional reconstructions were also performed. O ne or more of the following individualized dose reduction techniques were utilized for this examinati on: 1. Automated exposure control. 2. Adjustment of the mA and/or kV according to patient size. 3. Use of iterative reconstruction technique. COMPARISON: None. FINDINGS: The right first and second digits have been amputated through the metatarsals. A fixation s taple is noted within the right calcaneus. No gross cortical erosion indicative of acute osteomyeliti s is identified. The second and third digits have been amputated through the proximal phalanges. Images of the lung bases reveal no abnormality. Hepatic surface nodularity indicates cirrhotic change. This material within the right hepatic lobe ma y reflect calcification or post embolization material. The spleen is moderately enlarged, spanning 19 cm. The gallbladder is surgically absent. The left kidney contains tiny cysts that are likely benign. The gallbladder, adrenal glands and pancreas are unremarkable. There are no pathologically enlarged lymp h nodes. The appendix is not inflamed. There is no small bowel obstruction. There are changes of mesh repair o f an umbilical hernia. Small supraumbilical hernias contain only fat. The celiac axis is patent. There is mild stenosis at the origin of the superior mesenteric artery. Th e inferior mesenteric artery is stenotic at its origin but patent more distally. There is mild stenos is at the origin of the right renal artery. There is moderate stenosis just beyond the origin of the left renal artery. There is no abdominal aortic aneurysm. There is diffuse moderate to severe mixed plaquing. Both commo n iliac arteries are patent. The external iliac arteries are patent. The internal iliac arteries are diffusely moderately to severely diseased with multifocal mild stenoses. Both common femoral arteries are patent. A long right superficial femoral artery stent is occluded. T here is reconstitution of the popliteal artery from collaterals. It is severely stenotic proximally. The left superficial femoral artery is diffusely moderately diseased with multifocal mild to moderate stenoses. There is a stent within the proximal popliteal artery which is patent. The right trifurcation vessels are diffusely calcified. All 3 remain patent to the ankle. The dorsali s pedis and common plantar arteries are patent. The left trifurcation vessels are diffusely calcified. Anterior tibial artery occludes proximally and the dorsalis pedis artery reconstitutes from collaterals. The peroneal and posterior tibial arteries are patent. There are moderate to severe stenoses proximally. IMPRESSION: 1. Occluded right superficial femoral artery stent. Reconstitution of the right popliteal artery, tho ugh it is severely stenotic proximally. 2. The left superficial femoral artery is moderately to severely diseased with multifocal stenoses. A left popliteal artery stent is patent. 3. The trifurcation arteries are diffusely severely diseased bilaterally. The left anterior tibial ar camila is occluded and the posterior tibial and peroneal arteries are severely stenotic proximally. All 3 arteries remain patent on the right. 4. Mild stenosis at the origin of the superior mesenteric artery. Moderate severe stenosis at the felicita gin of the inferior mesenteric artery. 5. Renal artery stenosis is moderate on the left and mild on the right. 6. Small supraumbilical hernias contain only fat. 7. Morphologic changes of cirrhosis. Moderate splenomegaly. Electronically signed by: August Oleary MD (09/30/2021 3:31 PM) [id number]
== END ==
LOC: CT 12:29
PROVIDERS: ATTEND Nurse Practitioner Family
DX: S68.629A Partial traumatic transphalangeal amputation of unspecified finger, initial encounter (principal); I70.213 Atherosclerosis of native arteries of extremities with intermittent claudication, bilateral legs; K55.1 Chronic vascular disorders of intestine; I70.1 Atherosclerosis of renal artery; K42.9 Umbilical hernia without obstruction or gangrene; R16.1 Splenomegaly, not elsewhere classified; K74.60 Unspecified cirrhosis of liver; N28.1 Cyst of kidney, acquired; Z90.49 Acquired absence of other specified parts of digestive tract
CPT/HCPCS: 36415; 75635; 82565; 84520; Q9967